=== PATIENT | male | born 1950 | race Caucasian/White ===

== ENCOUNTER 2017-04-28 10:39 | Inpatient (IN) | payer MEDICARE ==
--- NOTE | 2017-04-28 11:01 | ER Document Report ---
ED General - General Stated Complaint: DIFFICULTY BREATHING Time Seen by Provider: 04/28/17 10:57 Mode of Arrival: Medic Information source: Patient Notes: This is a 66-year-old man with a history of atrial fibrillation (Coumadin), cardiomyopathy, CHF, chronic edema of the lower extremities. The patient presents to the emergency room with shortness of breath while sleeping and also shortness of breath upon exertion. Patient denies chest pain. Patient states he is in a normal sinus rhythm most of the time but will get symptomatic when he flips into atrial fibrillation. The patient states he was recently treated for influenza as well as a bronchitis. He states he finished his antiviral and antibiotic last week. He does state that he is felt dehydrated since that time and that his p.o. intake has dropped over the last few days. TRAVEL OUTSIDE OF THE [place] IN LAST 30 DAYS: No - HPI Onset: Just prior to arrival Onset/Duration: Sudden Quality of pain: No pain Severity: None Pain Level: Denies Associated symptoms: Shortness of breath. denies: Chest pain, Nausea, Vomiting Exacerbated by: Walking - Exertion, Other Relieved by: Remaining still Similar symptoms previously: Yes Recently seen / treated by doctor: No - Related Data Allergies/Adverse Reactions: No Known Allergies Allergy (Verified 04/28/17 11:24) Past Medical History - General Information source: Patient - Social History Smoking Status: Never Smoker Cigarette use (# per day): No Chew tobacco use (# tins/day): No Frequency of alcohol use: None Drug Abuse: None Lives with: Spouse/Significant other Family History: CAD Patient has suicidal ideation: No Patient has homicidal ideation: No - Past Medical History Cardiac Medical History: Reports: Hx Hypertension Pulmonary Medical History: Reports: Hx Pneumonia Surgical Hx: Other - Noncontributory Review of Systems - Review of Systems Constitutional: denies: Chills, Fever EENT: No symptoms reported Cardiovascular: See HPI Respiratory: See HPI Gastrointestinal: No symptoms reported Genitourinary: No symptoms reported Male Genitourinary: No symptoms reported Musculoskeletal: See HPI Skin: No symptoms reported Hematologic/Lymphatic: No symptoms reported Neurological/Psychological: No symptoms reported Physical Exam - Vital signs Vitals: Temp Pulse Resp BP Pulse Ox 97.4 F 148 H 18 98/76 L 99 04/28/17 10:52 04/28/17 10:52 04/28/17 10:52 04/28/17 10:52 04/28/17 10:52 Notes: Physical exam: GENERAL: 66-year-old man, alert and oriented 3, no acute distress, blood pressure 100/76, heart rate 136, O2 sat 99% on room air, respiratory rate 19 HEAD: Atraumatic, normocephalic. EYES: Pupils equal round and reactive to light, extraocular movements intact, sclera anicteric, conjunctiva are normal. ENT: TMs normal, nares patent, oropharynx clear without exudates. Moist mucous membranes. NECK: Normal range of motion, supple without obvious mass or JVD. LUNGS: Breath sounds clear to auscultation bilaterally and equal. No wheezes rales or rhonchi. HEART: Tachycardia, irregularly irregular ABDOMEN: Soft, normoactive bowel sounds. No tenderness to palpation. No guarding, no rebound. No masses appreciated. EXTREMITIES: 2+ lower extremity edema NEUROLOGICAL: Cranial nerves II through XII grossly intact. Normal speech, moving all extremities. PSYCH: Normal mood, normal affect. SKIN: Warm, Dry, normal turgor, no rashes or lesions noted. Course - Vital Signs Vital signs: Temp Pulse Resp BP Pulse Ox 97.4 F 121 H 21 H 91/78 L 95 04/28/17 10:52 04/28/17 17:13 04/28/17 19:30 04/28/17 19:30 04/28/17 19:30 - Laboratory Result Diagrams: 04/28/17 12:15 04/28/17 12:15 Laboratory results interpreted by me: 04/28/17 04/28/17 04/28/17 12:15 12:15 12:15 WBC 15.3 H MCV 99 H RDW 14.6 H Absolute Neutrophils 11.3 H PT 17.5 H Chloride 112 H Carbon Dioxide 16 L NT-Pro-B Natriuret Pep Total Protein 6.2 L Albumin 3.4 L Digoxin < 0.40 L 04/28/17 12:15 WBC MCV RDW Absolute Neutrophils PT Chloride Carbon Dioxide NT-Pro-B Natriuret Pep 24976 H Total Protein Albumin Digoxin - Diagnostic Test Radiology reviewed: Image reviewed, Reports reviewed - No obvious infiltrate - EKG Interpretation by Me Rhythm: A.Fib - EKG shows atrial fibrillation with a ventricular rate of 136, no acute ST-T wave changes Critical Care Note - Critical Care Note Total time excluding time spent on procedures (mins): 60 Discharge - Discharge Clinical Impression: Dyspnea on exertion, A. fib with RVR, Subtherapeutic INR Condition: Stable Disposition: ADMITTED INPATIENT Admitting Provider: Hospitalist - dr hilario Unit Admitted: [facility]
--- NOTE | 2017-04-28 11:42 | RADIOLOGY REPORT (SQ) ---
EXAM DESCRIPTION: CHEST SINGLE VIEW COMPLETED DATE/TIME: 04/28/2017 11:32 am REASON FOR STUDY: sob COMPARISON: None. EXAM PARAMETERS: NUMBER OF VIEWS: One view. TECHNIQUE: Single frontal radiographic view of the chest acquired. RADIATION DOSE: NA LIMITATIONS: None. FINDINGS: LUNGS AND PLEURA: Mild chronic appearing interstitial changes and pleural thickening in th e apices. No infiltrates, masses or pneumothorax. No pleural effusion. MEDIASTINUM AND HILAR STRUCTURES: No masses. Contour normal. HEART AND VASCULAR STRUCTURES: Heart upper limits of normal in size. Normal vasculature. BONES: No acute findings. HARDWARE: None in the chest. OTHER: No other significant finding. IMPRESSION: MILD CHRONIC SCARRING. NO ACUTE RADIOGRAPHIC FINDING IN THE CHEST. TECHNICAL DOCUMENTATION: JOB ID: [id number] [employer]- All Rights Reserved
[2017-04-28 12:24] LABS: ABSOLUTE BASOPHILS # (AUTO) 0.1 10^3/uL (0.0-0.2); ABSOLUTE EOSINOPHILS # (AUTO) 0.1 10^3/uL (0.0-0.6); ABSOLUTE LYMPHOCYTES (AUTO) 2.5 10^3/uL (0.5-4.7); ABSOLUTE MONOCYTES (AUTO) 1.3 10^3/uL (0.1-1.4); ABSOLUTE NEUT (AUTO) 11.3 10^3/uL (1.7-8.2); BASOPHILS % (AUTO) 0.6 % (0-2); EOSINOPHILS % (AUTO) 0.5 % (0-6); HEMATOCRIT 48.7 % (37.9-51.0); HEMOGLOBIN 16.3 g/dL (13.5-17.0); LYMPHOCYTES % (AUTO) 16.5 % (13-45); MEAN CORPUSCULAR HEMOGLOBIN 33.2 pg (27.0-33.4); MEAN CORPUSCULAR HGB CONC 33.6 g/dL (32.0-36.0); MEAN CORPUSCULAR VOLUME 99 fl (80-97); MONOCYTES % (AUTO) 8.4 % (3-13); PLATELET COUNT 215 10^3/uL (150-450); RED BLOOD COUNT 4.92 10^6/uL (4.35-5.55); RED CELL DISTRIBUTION WIDTH 14.6 % (11.5-14.0); TOTAL CELLS COUNTED % (AUTO) 100 %; WHITE BLOOD COUNT 15.3 10^3/uL (4.0-10.5)
[2017-04-28 12:37] LABS: INTERNATIONAL RATION (INR) 1.34; PROTHROMBIN TIME 17.5 SEC (11.4-15.4)
[2017-04-28] MEDS ORDERED: DILTIAZEM HCL INJ 25 MG/5 ML VIAL IV ONE ×2 (12:44→14:18)
[2017-04-28 12:53] LABS: ALANINE AMINOTRANSFERASE 47 U/L (21-72); ALBUMIN 3.4 g/dL (3.5-5.0); ALKALINE PHOSPHATASE 68 U/L (38-126); ANION GAP 12 (5-19); ASPARTATE AMINO TRANSFERASE 42 U/L (17-59); BILIRUBIN,DIRECT 0.4 mg/dL (0.0-0.4); BILIRUBIN,TOTAL 0.8 mg/dL (0.2-1.3); BLOOD UREA NITROGEN 16 mg/dL (7-20); CALCIUM 9.2 mg/dL (8.4-10.2); CARBON DIOXIDE 16 mmol/L (22-30); CHLORIDE 112 mmol/L (98-107); CREATINE KINASE 77 U/L (55-170); DIGOXIN < 0.40 ng/mL (0.8-2.0); GLUCOSE 98 mg/dL (75-110); POTASSIUM 4.4 mmol/L (3.6-5.0); SODIUM 140.1 mmol/L (137-145); TOTAL PROTEIN 6.2 g/dL (6.3-8.2)
[2017-04-28 12:56] LABS: CREATINE KINASE MB 3.45 ng/mL (<4.55)
[2017-04-28 12:57] LABS: TROPONIN I 0.064 ng/mL
[2017-04-28] MEDS: NORMAL SALINE 500 ML IV PRN ×2 (13:23→20:18)
[2017-04-28] MEDS ORDERED: DILTIAZEM HCL/D5W 125 ML IV PRN (14:06)
[2017-04-28] MEDS ORDERED: ENOXAPARIN SODIUM INJ 100 MG/1 ML DISP.SYRIN SUBCUT ONE (14:34)
--- NOTE | 2017-04-28 15:18 | EKG REPORT ---
SEVERITY:- ABNORMAL ECG - ATRIAL FIBRILLATION/ FLUTTER , V-RATE 92-[address]-T CHANGES : Confirmed by: Veda Bethea 28-Apr-2017 15:17:51
[2017-04-28] MEDS ORDERED: LEVALBUTEROL HCL NEB 1.25 MG/3 ML AMPUL NEB PRN (16:25)
--- NOTE | 2017-04-28 16:49 | PDOC H&P ---
History of Present Illness Admission Date/PCP: 04/28/17 14:52 DEEPAK GUPTA MD Patient complains of: Shortness of breath History of Present Illness: ABE DAILY is a 66 year old male With a known history of chronic systolic CHF with an EF of 25%; chronic atrial fibrillation anticoagulated on Coumadin; chronic smoking; Hypertension presents to the ED with a 2 day history of increasing dyspnea Patient was seen by primary care physician diagnosed of influenza,, and treated with antibiotics and Tamiflu He initially improved and then the shortness of breath got worse Last night patient was unable to lay down; he noticed more swelling of his lower extremities; and presented to the ED for evaluation Upon evaluation in the ER he was in atrial fibrillation with rapid ventricular rate; chest x-ray did not show any infiltrate but cardiomegaly; BNP was 12,000 He was referred to hospitalist for admission Past Medical History Cardiac Medical History: Reports: Atrial Fibrillation, Hypertension, Other - CHF Last echocardiogram 10/17/2014 showed an EF of 20-25% Pulmonary Medical History: Reports: Pneumonia Past Surgical History Past Surgical History: Reports: Cardiac Catheterization Social History Smoking Status: Former Smoker Frequency of Alcohol Use: None Hx Recreational Drug Use: No Family History Family History: CAD Parental Family History Reviewed: Yes Children Family History Reviewed: Yes Sibling(s) Family History Reviewed.: Yes Medication/Allergy Allergies/Adverse Reactions: No Known Allergies Allergy (Verified 04/28/17 11:24) Review of Systems Constitutional: ABSENT: chills, fever(s), headache(s), weight gain, weight loss Eyes: ABSENT: visual disturbances Cardiovascular: PRESENT: dyspnea on exertion, edema, orthropnea. ABSENT: chest pain Respiratory: PRESENT: cough, dyspnea, sputum Gastrointestinal: ABSENT: abdominal pain, constipation, diarrhea, hematemesis, hematochezia, nausea, vomiting Genitourinary: ABSENT: dysuria, hematuria Musculoskeletal: PRESENT: other - Edema lower extremities Integumentary: ABSENT: rash, wounds Neurological: ABSENT: abnormal gait, abnormal speech, confusion, dizziness, focal weakness, syncope Psychiatric: ABSENT: anxiety, depression, homidical ideation, suicidal ideation Endocrine: ABSENT: cold intolerance, heat intolerance, polydipsia, polyuria Hematologic/Lymphatic: ABSENT: easy bleeding, easy bruising Physical Exam Vital Signs: Temp Pulse Resp BP Pulse Ox 97.4 F 148 H 21 H 93/72 L 95 04/28/17 10:52 04/28/17 10:52 04/28/17 15:46 04/28/17 15:46 04/28/17 15:46 General appearance: PRESENT: no acute distress, cooperative Head exam: PRESENT: atraumatic, normocephalic Eye exam: PRESENT: conjunctiva pink, EOMI, PERRLA. ABSENT: scleral icterus Neck exam: ABSENT: carotid bruit, JVD, lymphadenopathy, thyromegaly Respiratory exam: PRESENT: rales - Bilaterally. ABSENT: accessory muscle use, crackles, rhonchi, wheezes Cardiovascular exam: PRESENT: irregular rhythm. ABSENT: systolic murmur Pulses: PRESENT: normal dorsalis pedis pul GI/Abdominal exam: PRESENT: normal bowel sounds, soft. ABSENT: distended, guarding, mass, organolmegaly, rebound, tenderness Rectal exam: PRESENT: deferred Extremities exam: PRESENT: +1 edema - Right more than left Neurological exam: PRESENT: alert, awake, oriented to person, oriented to place , oriented to time, oriented to situation, CN II-XII grossly intact. ABSENT: motor sensory deficit Skin exam: PRESENT: dry, intact, warm. ABSENT: cyanosis, rash Results Impressions: Chest X-Ray 04/28/17 11:01 IMPRESSION: MILD CHRONIC SCARRING. NO ACUTE RADIOGRAPHIC FINDING IN THE CHEST. Assessment & Plan - Diagnosis (1) Acute on chronic systolic heart failure Is this a current diagnosis for this admission?: Yes Plan: We will schedule the patient for repeat echocardiogram patient certainly has Symptoms of exacerbation of his CHF And his BNP is over 10,000 His blood pressure though is soft It we will just give him 20 mg of IV Lasix and reevaluate him later (2) Atrial fibrillation with RVR Is this a current diagnosis for this admission?: Yes Plan: Rate is 115 ; patient's blood pressure is too soft for Cardizem We will give him 0.25 mg of digoxin IV and reevaluate him later (3) Chronic anticoagulation Is this a current diagnosis for this admission?: Yes Plan: Subtherapeutic INR at 1.3; treat with Lovenox (4) Subtherapeutic international normalized ratio (INR) Is this a current diagnosis for this admission?: Yes Plan: Initiate Lovenox subcu (5) COPD exacerbation Is this a current diagnosis for this admission?: Yes Plan: We will initiate prednisone and nebs (6) Bronchitis Is this a current diagnosis for this admission?: Yes Plan: There is no infiltrate on the chest x-ray but patient has leukocytosis We will treat him with doxycycline - Time Time Spent with patient: Patient will be admitted to [facility] with telemetry as an inpatient Time Spent: 50 to 70 Minutes - Inpatient Certification Based on my medical assessment, after consideration of the patient's comorbidities, presenting symptoms, or acuity I expect that the services needed warrant INPATIENT care.: Yes I certify that my determination is in accordance with my understanding of Medicare's requirements for reasonable and necessary INPATIENT services [42 CFR 412.3e].: Yes Medical Necessity: Need Close Monitoring Due to Risk of Patient Decompensation, Need For Continuous Telemetry Monitoring, Need for Nebulizer Therapy and Monitoring of Response, Risk of Complication if Not Cared For in Hospital
[2017-04-28 17:23] LABS: APPEARANCE,URINE SLIGHTLY-CLOUDY; BILIRUBIN,URINE NEGATIVE (NEGATIVE); COLOR,URINE YELLOW; GLUCOSE, URINE NEGATIVE (NEGATIVE); KETONES,URINE 20 mg/dL (NEGATIVE); LEUKOCYTE ESTERASE,URINE NEGATIVE (NEGATIVE); NITRITE,URINE NEGATIVE (NEGATIVE); PROTEIN,URINE 30 mg/dL (NEGATIVE); URINE SPECIFIC GRAVITY 1.024; UROBILINOGEN,URINE NEGATIVE mg/dL (<2.0)
[2017-04-28] MEDS ORDERED: DIGOXIN INJ 0.5 MG/2 ML AMPULE IV ONE (17:30)
[2017-04-28] MEDS ORDERED: FUROSEMIDE INJ/PF 20 MG/2 ML SDV IV ONE (17:30)
[2017-04-28] MEDS: DOXYCYCLINE HYCLATE 100 MG TABLET PO SCH (17:34)
[2017-04-28] MEDS: PREDNISONE 20 MG TABLET PO SCH (17:35)
[2017-04-28] MEDS ORDERED: FAMOTIDINE 20 MG TABLET PO SCH (22:00)
[2017-04-29] MEDS: ENOXAPARIN SODIUM INJ 80 MG/0.8 ML DISP.SYRIN SUBCUT SCH ×3 (00:24→17:33)
[2017-04-29] MEDS: DOXYCYCLINE HYCLATE 100 MG TABLET PO SCH ×2 (05:32→17:32)
[2017-04-29 05:36] LABS: ABSOLUTE LYMPHOCYTES (AUTO) 1.3 10^3/uL (0.5-4.7); ABSOLUTE MONOCYTES (AUTO) 0.4 10^3/uL (0.1-1.4); ABSOLUTE NEUT (AUTO) 6.5 10^3/uL (1.7-8.2); BASOPHILS % (AUTO) 0.2 % (0-2); HEMATOCRIT 50.1 % (37.9-51.0); LYMPHOCYTES % (AUTO) 15.4 % (13-45); MEAN CORPUSCULAR HEMOGLOBIN 33.7 pg (27.0-33.4); MEAN CORPUSCULAR HGB CONC 33.9 g/dL (32.0-36.0); MEAN CORPUSCULAR VOLUME 100 fl (80-97); MONOCYTES % (AUTO) 4.8 % (3-13); PLATELET COUNT 180 10^3/uL (150-450); RED BLOOD COUNT 5.04 10^6/uL (4.35-5.55); RED CELL DISTRIBUTION WIDTH 14.6 % (11.5-14.0); SEGMENTED NEUTROPHILS % (AUTO) 79.6 % (42-78); TOTAL CELLS COUNTED % (AUTO) 100 %; WHITE BLOOD COUNT 8.2 10^3/uL (4.0-10.5)
[2017-04-29 07:48] LABS: ALANINE AMINOTRANSFERASE 59 U/L (21-72); ALBUMIN 3.4 g/dL (3.5-5.0); ALKALINE PHOSPHATASE 64 U/L (38-126); ANION GAP 9 (5-19); ASPARTATE AMINO TRANSFERASE 46 U/L (17-59); BILIRUBIN,DIRECT 0.6 mg/dL (0.0-0.4); BILIRUBIN,TOTAL 0.8 mg/dL (0.2-1.3); BLOOD UREA NITROGEN 20 mg/dL (7-20); CALCIUM 9.6 mg/dL (8.4-10.2); CARBON DIOXIDE 23 mmol/L (22-30); CHLORIDE 109 mmol/L (98-107); CHOLESTEROL 141.36 mg/dL (0-200); GLUCOSE 145 mg/dL (75-110); SODIUM 140.5 mmol/L (137-145); TOTAL PROTEIN 6.3 g/dL (6.3-8.2); TRIGLYCERIDES 87 mg/dL (<150)
[2017-04-29 07:59] LABS: DIRECT LDL 102 mg/dL (<100)
[2017-04-29 08:08] LABS: FREE T4 (FREE THYROXINE) 1.41 ng/dL (0.78-2.19)
[2017-04-29 08:22] LABS: THYROID STIMULATING HORMONE 0.15 uIU/mL (0.47-4.68)
--- NOTE | 2017-04-29 09:29 | EKG REPORT ---
SEVERITY:- ABNORMAL ECG - ATRIAL FIBRILLATION ABNORMAL T, CONSIDER ISCHEMIA, LATERAL LEADS BORDERLINE PROLONGED QT INTERVAL : Confirmed by: Veda Bethea 29-Apr-2017 09:27:13
[2017-04-29] MEDS ORDERED: METOPROLOL TARTRATE 50 MG TABLET PO ONE (13:00)
[2017-04-29] MEDS ORDERED: BUMETANIDE 1 MG TABLET PO SCH (14:00)
--- NOTE | 2017-04-29 15:07 | PDOC CONSULTATION ---
Consultation Consult Date: 04/29/17 Attending physician:: ANYI MAY Consult reason:: Atrial fibrillation, CHF History of Present Illness Admission Date/PCP: 04/28/17 14:52 DEEPAK GUPTA MD Patient complains of: Shortness of breath and palpitations History of Present Illness: ABE DAILY is a 66 year old male With a known history of chronic systolic CHF with an EF of 25%; chronic atrial fibrillation anticoagulated on Coumadin; chronic smoking; Hypertension presents to the ED with a 2 day history of increasing dyspnea Patient was seen by primary care physician diagnosed of influenza,, and treated with antibiotics and Tamiflu He initially improved and then the shortness of breath got worse Last night patient was unable to lay down; he noticed more swelling of his lower extremities; and presented to the ED for evaluation Upon evaluation in the ER he was in atrial fibrillation with rapid ventricular rate; chest x-ray did not show any infiltrate but cardiomegaly; BNP was 12,000 He was referred to hospitalist for admission This history was reviewed and confirmed. Patient is denying any chest pain. Patient had a echocardiogram in 2014 which showed severely depressed LVEF at 20% . Patient BNP came back elevated. I have been asked to evaluate him and help with management of CHF. Past Medical History Cardiac Medical History: Reports: Atrial Fibrillation, Hypertension, Other - CHF Last echocardiogram 10/17/2014 showed an EF of 20-25% Pulmonary Medical History: Reports: Pneumonia Psychiatric Medical History: Denies: Depression Past Surgical History Past Surgical History: Reports: Cardiac Catheterization Social History Information Source: Patient Lives with: Spouse/Significant other Smoking Status: Never Smoker Frequency of Alcohol Use: None Hx Recreational Drug Use: No Hx Prescription Drug Abuse: No - Advance Directive Resuscitation Status: Full Code Surrogate healthcare decision maker:: Patient spouse is the surrogate decision-maker Family History Family History: CAD Parental Family History Reviewed: Yes Children Family History Reviewed: Yes Sibling(s) Family History Reviewed.: Yes Medication/Allergy Home Medications: Atorvastatin Calcium [Lipitor 40 mg Tablet] 40 mg PO QHS 04/28/17 Bisoprolol/Hydrochlorothiazide [Bisoprolol-Hctz 5-6.25 mg Tab] 1 tab PO DAILY Bumetanide [Bumetanide] 1 mg PO QID 04/28/17 Losartan Potassium [Losartan Potassium] 50 mg PO DAILY 04/28/17 Metformin HCl [Metformin HCl ER] 500 mg PO BID 04/28/17 Spironolactone [Spironolactone] 25 mg PO DAILY 04/28/17 Warfarin Sodium [Warfarin Sodium] 3 mg PO DAILY 04/28/17 Allergies/Adverse Reactions: No Known Allergies Allergy (Verified 04/28/17 11:24) Review of Systems Review of Systems: Please see history of present illness and past medical history as wall. Constitutional: fever or chills reported, with recent flulike symptoms. Head : No recent chronic headaches, recent head injury. Eyes: No recent eye pain, diplopia, redness, discharge, acute visual changes. Ears: No recent chronic ear pain, acute hearing loss, ear discharge. Oral cavity: No recent ulcerations, bleeding, oral cavity discomfort. Neck: No recent acute neck pain reported. Hematologic: No recent easy bruising or bleeding or hematologic malignancy reported. Lymphatic: No recent lymphatic malignancy, chronic lymphadenopathy reported yet Cardiovascular system review: See history of present illness. Respiratory system review: No recent chronic cough, hemoptysis, blood clots in the lungs reported. Mild Shortness of breath on exertion. Palpitations noted Gastrointestinal system review: Negative for any recent acute or chronic abdominal pain, hematemesis, melena, recent change in bowel habits. Genitourinary system review: No recent acute or chronic hematuria, flank pain, UTI etc. reported. Skin system review: Negative for any recent abnormal bruising, no rash, no pruritus reported. Neurologic: No prior history of strokes, mini strokes, seizure disorder. Psychologic: No history of major psychosis or major depression reported. Musculoskeletal: Minor aches and pains reported. No acute joint swelling reported. Endocrine: No recent polyuria, polydipsia, recent heat or cold intolerance. Physical Exam Vital Signs: Temp Pulse Resp BP Pulse Ox 97.3 F 83 16 103/53 L 100 04/29/17 11:57 04/29/17 11:57 04/29/17 11:57 04/29/17 11:57 04/29/17 11:57 Intake & Output 04/28/17 04/29/17 04/30/17 06:59 06:59 06:59 Intake Total 332 Output Total 1000 Balance -668 Weight 87.4 kg Exam: GENERAL: well-nourished and in no acute distress. Alert and oriented x3 HEAD: Atraumatic, normocephalic. EYES: Pupils equal round and reactive to light, extraocular movements intact, sclera anicteric, conjunctiva are normal. ENT: TMs normal, nares patent, oropharynx clear without exudates. Moist mucous membranes. No oral ulcerations or bleeding gums noted NECK: supple without lymphadenopathy. Trachea is central. No cervical or axillary lymphadenopathy noted. Carotids are 2+, JVD 8-10 cm LUNGS: Respiration seems nonlabored, no significant accessory muscle action noted. Few bibasilar fine crackles noted. No wheezes rales or rhonchi noted. No significant dullness noted on percussion. CHEST: Palpation of the chest wall shows no significant chest wall tenderness. No other significant abnormalities noted. HEART: [place] MANAGER ANALYSIS, No PSH, 1/6 LAURIE aortic area, 1/6 self systolic murmur mitral area, no rubs, no gallops. ABDOMEN: Soft, no significant tenderness appreciated, normoactive bowel sounds. No guarding, no rebound. No rigidity noted . No masses appreciated. EXTREMITIES: Pedal pulses are 1-2+, no calf tenderness noted. No clubbing or cyanosis.trace to 1+ pedal edema noted NEUROLOGICAL: Focused neurological exam showed no significant neurologic deficit. Normal speech, no focal weakness appreciated. PSYCH: Normal mood, normal affect. Judgment and insight within normal limits. SKIN: No significant ecchymosis, rash, ulcerations or signs of pruritus noted. MUSCULOSKELETAL EXAM: No significant joint swelling noted. Results Laboratory Results: 04/29/17 05:00 04/29/17 07:05 04/28/17 04/29/17 04/29/17 16:58 05:00 05:00 WBC 8.2 RBC 5.04 Hgb 17.0 Hct 50.1 MCV 100 H MCH 33.7 H MCHC 33.9 RDW 14.6 H Plt Count 180 Seg Neutrophils % 79.6 H Lymphocytes % 15.4 Monocytes % 4.8 Eosinophils % 0.0 Basophils % 0.2 Absolute Neutrophils 6.5 Absolute Lymphocytes 1.3 Absolute Monocytes 0.4 Absolute Eosinophils 0.0 Absolute Basophils 0.0 Sodium Cancelled Potassium Cancelled Chloride Cancelled Carbon Dioxide Cancelled Anion Gap Cancelled BUN Cancelled Creatinine Cancelled Est GFR ( Amer) Cancelled Est GFR (Non-Af Amer) Cancelled Glucose Cancelled Calcium Cancelled Magnesium Cancelled Total Bilirubin Cancelled AST Cancelled ALT Cancelled Alkaline Phosphatase Cancelled Total Protein Cancelled Albumin Cancelled Triglycerides Cancelled Cholesterol Cancelled LDL Cholesterol Direct Cancelled VLDL Cholesterol Cancelled HDL Cholesterol Cancelled TSH Free T4 Urine Color YELLOW Urine Appearance SLIGHTLY-CLOUDY Urine pH 5.0 Ur Specific [place] 1.024 Urine Protein 30 H Urine Glucose (UA) NEGATIVE Urine Ketones 20 H Urine Blood MODERATE H Urine Nitrite NEGATIVE Ur Leukocyte Esterase NEGATIVE Urine WBC (Auto) 6 Urine RBC (Auto) 1 04/29/17 04/29/17 04/29/17 05:00 07:05 07:05 WBC RBC Hgb Hct MCV MCH MCHC RDW Plt Count Seg Neutrophils % Lymphocytes % Monocytes % Eosinophils % Basophils % Absolute Neutrophils Absolute Lymphocytes Absolute Monocytes Absolute Eosinophils Absolute Basophils Sodium 140.5 Potassium 5.0 Chloride 109 H Carbon Dioxide 23 Anion Gap 9 BUN 20 Creatinine 1.07 Est GFR ( Amer) > 60 Est GFR (Non-Af Amer) > 60 Glucose 145 H Calcium 9.6 Magnesium 2.0 Total Bilirubin 0.8 AST 46 ALT 59 Alkaline Phosphatase 64 Total Protein 6.3 Albumin 3.4 L Triglycerides 87 Cholesterol 141.36 LDL Cholesterol Direct 102 H VLDL Cholesterol 17.0 HDL Cholesterol 35 L TSH Cancelled 0.15 L Free T4 Cancelled 1.41 Urine Color Urine Appearance Urine pH Ur Specific [place] Urine Protein Urine Glucose (UA) Urine Ketones Urine Blood Urine Nitrite Ur Leukocyte Esterase Urine WBC (Auto) Urine RBC (Auto) 04/28/17 16:07 Troponin I 0.068 EKG Comments: Atrial fibrillation with rapid ventricular response and minor nonspecific ST-T changes Impressions: Chest X-Ray 04/28/17 11:01 IMPRESSION: MILD CHRONIC SCARRING. NO ACUTE RADIOGRAPHIC FINDING IN THE CHEST. Assessment & Plan - Diagnosis (1) Acute on chronic systolic heart failure Is this a current diagnosis for this admission?: Yes (2) Atrial fibrillation with RVR Is this a current diagnosis for this admission?: Yes (3) Bronchitis Is this a current diagnosis for this admission?: Yes (4) Cardiomyopathy Qualifiers: Cardiomyopathy type: unspecified Qualified Code(s): I42.9 - Cardiomyopathy , unspecified Is this a current diagnosis for this admission?: Yes (5) Hypertension Qualifiers: Hypertension type: essential hypertension Qualified Code(s): I10 - Essential (primary) hypertension Is this a current diagnosis for this admission?: Yes (6) Mitral regurgitation Qualifiers: Cardiac valve disease etiology: etiology unspecified Qualified Code(s): I34.0 - Nonrheumatic mitral (valve) insufficiency Is this a current diagnosis for this admission?: Yes - Notes Notes: Acute on chronic systolic heart failure: Continue with diuretic therapy. Will consider spironolactone therapy. Will consider entresto therapy. Atrial fibrillation with rapid ventricular response: Recommend rate control with digoxin and beta-blockers. Bisoprolol is a good choice. However if this is not available, recommend metoprolol succinate as better choice than tartrate. Acute bronchitis: Continue antibiotic therapy. Cardiomyopathy: Will gradually optimize therapy for underlying cardiomyopathy. Hypertension: Entresto/CANDIDO inhibitor/ARB/hydralazine nitrate combination/beta blockers are preferred agent in CHF and LV systolic dysfunction. Mitral regurgitation: Will recommend repeating the echocardiogram to look for any worsening. Patient would need to have defibrillator, external arranged prior to discharge. - Time Time Spent: 30 to 50 Minutes - CODE STATUS was discussed, patient remains full code. Surrogate decision-maker unchanged. Multiple medical problems were addressed. More than 50% of the time spent coordinating care, discussing management plans with involved caregivers. Management plans discussed with involved personnels. Medical decision making was of moderate to high complexity , patient's has multiple comorbidities. Medications reviewed and adjusted accordingly: Yes
[2017-04-29] MEDS ORDERED: DIGOXIN 0.125 MG TABLET PO ONE (16:00)
[2017-04-29] MEDS: SACUBITRIL/VALSARTAN 24 MG/26 MG TABLET PO SCH (17:32)
[2017-04-29] MEDS: PREDNISONE 20 MG TABLET PO SCH (17:33)
[2017-04-29] MEDS ORDERED: SACUBITRIL/VALSARTAN 24 MG/26 MG TABLET PO SCH (18:00)
--- NOTE | 2017-04-29 18:48 | XCELERA REPORT ---
[address] [address] Transthoracic Echocardiogram Report Name: ABE DAILY Age: 66 yrs Gender: Male : 1950 Patient Status: Inpatient Patient Location: [address] [place] [address] Study Date: 04/29/2017 01:13 PM Height: 73 in Weight: 192 lb BSA: 2.1 m2 Procedure: A complete two-dimensional transthoracic echocardiogram was performed (2D, M-mode, spectral and color flow Doppler). The study was technically difficult with many images being suboptimal in quality. Reason For Study: CHF Ordering Physician: ANYI MAY Interpretation Summary LV diastolic function could not be adequately assessed due to atrial fibrilation. Left ventricular systolic function is severely reduced. The Ejection Fraction estimate is <20% The left ventricle is mildly dilated. There is borderline concentric left ventricular hypertrophy. There is severe global hypokinesis of the left ventricle. There is apical wall akinesis The right ventricular systolic function is mild to moderately reduced. The right ventricle is mildly dilated. The right atrium is moderately dilated. The left atrium is moderately dilated. There is a mild amount of mitral regurgitation There is no mitral valve stenosis. There is no aortic valve stenosis No aortic regurgitation is present. There is a mild to moderate amount of tricuspid regurgitation There is mild to moderate pulmonary hypertension by echo Right ventricular systolic pressure is estimated to be elevated at 40- 50mmHg. The aortic root is not well visualized but is probably normal size. The inferior vena cava appeared normal and decreased < 50% with respiration (RAP 10-15 mmHg) There is no pericardial effusion. MMode/2D Measurements & Calculations RVDd: 3.1 cm LVIDd: 5.8 cm FS: 7.4 % Ao root diam: 2.8 cm IVSd: 0.93 cm LVIDs: 5.4 cm EDV(Teich): 167.6 ml LVPWd: 0.92 cm ESV(Teich): 140.4 ml Ao root area: 6.1 cm2 EF(Teich): 16.2 % Doppler Measurements & Calculations MV E max rohan: MV dec slope: Ao V2 max: LV V1 max P.4 cm/sec 101.4 cm/sec 1.4 mmHg 959.2 cm/sec2 Ao max PG: LV V1 max: MV dec time: 4.1 mmHg 59.2 cm/sec 0.12 sec MR max rohan: PA V2 max: PI end-d rohan: TR max rohan: 392.0 cm/sec 35.5 cm/sec 169.2 cm/sec 291.5 cm/sec MR max PG: PA max PG: TR max P.5 mmHg 0.50 mmHg 34.0 mmHg Left Ventricle There is borderline concentric left ventricular hypertrophy. The left ventricle is mildly dilated. Left ventricular systolic function is severely reduced. The Ejection Fraction estimate is <20%. LV diastolic function could not be adequately assessed due to atrial fibrilation. There is severe global hypokinesis of the left ventricle. There is apical wall akinesis. Right Ventricle The right ventricle is mildly dilated. The right ventricular systolic function is mild to moderately reduced. Atria The right atrium is moderately dilated. The left atrium is moderately dilated. Mitral Valve The mitral valve leaflets are sclerotic, but show no functional abnormalities. There is no mitral valve stenosis. There is a mild amount of mitral regurgitation. Aortic Valve The aortic valve opens well. There is no aortic valve stenosis. No aortic regurgitation is present. Tricuspid Valve The tricuspid valve is not well visualized secondary to technical limitations. There is no tricuspid stenosis. There is a mild to moderate amount of tricuspid regurgitation. There is mild to moderate pulmonary hypertension by echo. Right ventricular systolic pressure is estimated to be elevated at 40-50mmHg. Pulmonic Valve The pulmonic valve is not well visualized. Great Vessels The aortic root is not well visualized but is probably normal size. The inferior vena cava appeared normal and decreased < 50% with respiration (RAP 10-15 mmHg). Effusions There is no pericardial effusion. : ANYI MAY > Veda Bethea
[2017-04-29] MEDS ORDERED: METOPROLOL TARTRATE 50 MG TABLET PO SCH (22:00)
[2017-04-29] MEDS: METOPROLOL SUCCINATE 50 MG TAB.SR.24H PO SCH (22:29)
[2017-04-29] MEDS: ATORVASTATIN CALCIUM 40 MG TABLET PO SCH (22:29)
[2017-04-29] MEDS: WARFARIN SODIUM 5 MG TABLET PO SCH (22:30)
[2017-04-30] MEDS: SACUBITRIL/VALSARTAN 24 MG/26 MG TABLET PO SCH ×2 (05:09→17:48)
[2017-04-30] MEDS: ENOXAPARIN SODIUM INJ 80 MG/0.8 ML DISP.SYRIN SUBCUT SCH ×2 (05:09→17:49)
[2017-04-30] MEDS: DOXYCYCLINE HYCLATE 100 MG TABLET PO SCH ×2 (05:09→17:49)
[2017-04-30 06:43] LABS: HEMATOCRIT 48.3 % (37.9-51.0); HEMOGLOBIN 16.5 g/dL (13.5-17.0); MEAN CORPUSCULAR HEMOGLOBIN 33.7 pg (27.0-33.4); MEAN CORPUSCULAR HGB CONC 34.1 g/dL (32.0-36.0); MEAN CORPUSCULAR VOLUME 99 fl (80-97); PLATELET COUNT 196 10^3/uL (150-450); RED BLOOD COUNT 4.89 10^6/uL (4.35-5.55); RED CELL DISTRIBUTION WIDTH 14.8 % (11.5-14.0); WHITE BLOOD COUNT 12.5 10^3/uL (4.0-10.5)
[2017-04-30] MEDS: BUMETANIDE 1 MG TABLET PO SCH (09:17)
[2017-04-30] MEDS: SPIRONOLACTONE 25 MG TABLET PO SCH (09:19)
[2017-04-30] MEDS: DIGOXIN 0.125 MG TABLET PO SCH (09:20)
[2017-04-30] MEDS: METOPROLOL SUCCINATE 50 MG TAB.SR.24H PO SCH ×2 (09:20→21:24)
[2017-04-30] MEDS ORDERED: HYDROCHLOROTHIAZIDE PO SCH (10:00)
[2017-04-30] MEDS ORDERED: LOSARTAN POTASSIUM 50 MG TABLET PO SCH ×2 (10:00)
[2017-04-30] MEDS ORDERED: LOSARTAN POTASSIUM 25 MG TABLET PO SCH (10:00)
[2017-04-30] MEDS ORDERED: [UNRECOGNIZED DRUG - OTHER] PO SCH (10:00)
[2017-04-30] MEDS ORDERED: BISOPROLOL PO SCH (10:00)
--- NOTE | 2017-04-30 11:16 | PDOC PROGRESS REPORT ---
Subjective Progress Note for:: 04/30/17 Subjective:: Patient is seen on rounds. He is presently resting comfortably in bed. He is not on oxygen. States he does get dyspneic with exertion. He continues to have an occasional productive cough. He denies any fever chills. He denies any chest pain at the present time. Denies any nausea, vomiting or abdominal pain. He denies any arthralgia or myalgias. Remaining review of systems are negative. Reason For Visit: AFIB WITH RVR,ACUTE/CHRONIC SYSTOLIC CHF, Physical Exam Vital Signs: Temp Pulse Resp BP Pulse Ox 97.7 F 94 20 104/74 96 04/30/17 07:23 04/30/17 07:38 04/30/17 07:23 04/30/17 07:23 04/30/17 07:23 Intake & Output 04/29/17 04/30/17 05/01/17 06:59 06:59 06:59 Intake Total 332 2447 Output Total 1000 650 Balance -668 1797 Weight 87.4 kg 86.6 kg General appearance: PRESENT: no acute distress, well-developed, well-nourished Head exam: PRESENT: atraumatic, normocephalic Eye exam: PRESENT: conjunctiva pink, EOMI, PERRLA. ABSENT: scleral icterus Ear exam: PRESENT: normal external ear exam Mouth exam: PRESENT: moist, tongue midline Neck exam: ABSENT: carotid bruit, JVD, lymphadenopathy, thyromegaly Respiratory exam: PRESENT: clear to auscultation tasha. ABSENT: rales, rhonchi, wheezes Cardiovascular exam: PRESENT: irregular rhythm, +S1, +S2, systolic murmur. ABSENT: diastolic murmur, rubs Pulses: PRESENT: normal dorsalis pedis pul Vascular exam: PRESENT: normal capillary refill GI/Abdominal exam: PRESENT: normal bowel sounds, soft. ABSENT: distended, guarding, mass, organolmegaly, rebound, tenderness Rectal exam: PRESENT: deferred Extremities exam: PRESENT: full ROM, +1 edema - Bilateral lower extremity. ABSENT: calf tenderness, clubbing, pedal edema Neurological exam: PRESENT: alert, awake, oriented to person, oriented to place , oriented to time, oriented to situation, CN II-XII grossly intact. ABSENT: motor sensory deficit Psychiatric exam: PRESENT: appropriate affect, normal mood. ABSENT: homicidal ideation, suicidal ideation Skin exam: PRESENT: dry, intact, warm. ABSENT: cyanosis, rash Results Laboratory Results: 04/30/17 06:03 04/29/17 07:05 04/30/17 06:03 WBC 12.5 H RBC 4.89 Hgb 16.5 Hct 48.3 MCV 99 H MCH 33.7 H MCHC 34.1 RDW 14.8 H Plt Count 196 04/29/17 20:06 Sputum Gram Stain - Final 04/29/17 20:06 Sputum Sputum Culture - Final 04/28/17 16:07 Troponin I 0.068 Impressions: Chest X-Ray 04/28/17 11:01 IMPRESSION: MILD CHRONIC SCARRING. NO ACUTE RADIOGRAPHIC FINDING IN THE CHEST. Assessment & Plan - Diagnosis (1) Acute on chronic systolic heart failure Is this a current diagnosis for this admission?: Yes Plan: Patient states he feels better than he did when he was admitted. He is presently not on oxygen. He continues to have +1 lower extremity edema. He is diuresing some. Dr. Bethea, cardiology is following. (2) Atrial fibrillation with RVR Is this a current diagnosis for this admission?: Yes Plan: He just got up to use the bathroom his heart rate is still in the 120s (3) Bronchitis Is this a current diagnosis for this admission?: Yes Plan: We will continue Mucinex and doxycycline (4) COPD exacerbation Is this a current diagnosis for this admission?: Yes Plan: As above he is presently not on oxygen (5) Chronic anticoagulation Is this a current diagnosis for this admission?: Yes Plan: INR was subtherapeutic on admission. He is being bridged with therapeutic Lovenox until his INR is therapeutic (6) Subtherapeutic international normalized ratio (INR) Is this a current diagnosis for this admission?: Yes Plan: As above (7) Cardiomyopathy Qualifiers: Cardiomyopathy type: unspecified Qualified Code(s): I42.9 - Cardiomyopathy , unspecified Is this a current diagnosis for this admission?: Yes Plan: States his last EF was greater than 35%. Follows with Dr. Trevino of [facility]. Echo yesterday shows his EF less than 20 however he was in rapid A. fib at the time (8) Hypertension Qualifiers: Hypertension type: essential hypertension Qualified Code(s): I10 - Essential (primary) hypertension Is this a current diagnosis for this admission?: Yes (9) Mitral regurgitation Qualifiers: Cardiac valve disease etiology: etiology unspecified Qualified Code(s): I34.0 - Nonrheumatic mitral (valve) insufficiency Is this a current diagnosis for this admission?: Yes Plan: Moderate mitral regurgitation. He is followed by [facility] (10) Sleep apnea syndrome Is this a current diagnosis for this admission?: Yes Plan: Continue CPAP - Time Time Spent with patient: 25-34 minutes Medications reviewed and adjusted accordingly: Yes Anticipated discharge: Home with Homehealth
[2017-04-30] MEDS: PREDNISONE 20 MG TABLET PO SCH (17:49)
--- NOTE | 2017-04-30 19:45 | PDOC PROGRESS REPORT ---
Subjective Progress Note for:: 04/30/17 Subjective:: Patient seems to be doing better. Pt is denying any chest arm or neck discomfort. Patient denying any PND, orthopnea. Patient denied any sustained palpitations, dizziness, syncope, near syncope. Patient denying any fever chills. Patient denying any other significant discomfort. Patient is maintaining atrial fibrillation but heart rate is better controlled Review of systems: Rest review of systems negative. Medications: Medications have been reviewed. Reason For Visit: AFIB WITH RVR,ACUTE/CHRONIC SYSTOLIC CHF, Physical Exam Vital Signs: Temp Pulse Resp BP Pulse Ox 97.1 F 117 H 18 127/98 H 95 04/30/17 16:56 04/30/17 16:56 04/30/17 16:56 04/30/17 16:56 04/30/17 16:56 Intake & Output 04/29/17 04/30/17 05/01/17 06:59 06:59 06:59 Intake Total 332 2447 1115 Output Total 1000 650 550 Balance -668 1797 565 Weight 87.4 kg 86.6 kg Exam: GENERAL: well-nourished and in no acute distress. Alert and oriented x3 HEAD: Atraumatic, normocephalic. EYES: Pupils equal round and reactive to light, extraocular movements intact, sclera anicteric, conjunctiva are normal. ENT: TMs normal, nares patent, oropharynx clear without exudates. Moist mucous membranes. No oral ulcerations or bleeding gums noted NECK: supple without lymphadenopathy. Trachea is central. No cervical or axillary lymphadenopathy noted. Carotids are 2+, JVD WNL LUNGS: Respiration seems nonlabored, no significant accessory muscle action noted. Breath sounds clear to auscultation bilaterally and equal noted. No wheezes rales or rhonchi noted. No significant dullness noted on percussion. CHEST: Palpation of the chest wall shows no significant chest wall tenderness. No other significant abnormalities noted. HEART: Bailey [employer]IT[employer], No PSH, 1/6 LAURIE aortic area, 1/6 self systolic murmur mitral area, no rubs, no gallops. ABDOMEN: Soft, no significant tenderness appreciated, normoactive bowel sounds. No guarding, no rebound. No rigidity noted . No masses appreciated. EXTREMITIES: Pedal pulses are 1-2+, no calf tenderness noted. No clubbing or cyanosis.trace to 1+ pedal edema noted NEUROLOGICAL: Focused neurological exam showed no significant neurologic deficit. Normal speech, no focal weakness appreciated. PSYCH: Normal mood, normal affect. Judgment and insight within normal limits. SKIN: No significant ecchymosis, rash, ulcerations or signs of pruritus noted. MUSCULOSKELETAL EXAM: No significant joint swelling noted. Results Laboratory Results: 04/30/17 06:03 04/29/17 07:05 04/30/17 06:03 WBC 12.5 H RBC 4.89 Hgb 16.5 Hct 48.3 MCV 99 H MCH 33.7 H MCHC 34.1 RDW 14.8 H Plt Count 196 04/28/17 16:58 Clean Catch Midstream Urine Culture - Final NO GROWTH 2 DAYS 04/29/17 20:06 Sputum Gram Stain - Final 04/29/17 20:06 Sputum Sputum Culture - Final 04/28/17 16:07 Troponin I 0.068 Impressions: Chest X-Ray 04/28/17 11:01 IMPRESSION: MILD CHRONIC SCARRING. NO ACUTE RADIOGRAPHIC FINDING IN THE CHEST. Assessment & Plan - Diagnosis (1) Acute on chronic systolic heart failure Is this a current diagnosis for this admission?: Yes (2) Atrial fibrillation with RVR Is this a current diagnosis for this admission?: Yes (3) Bronchitis Is this a current diagnosis for this admission?: Yes (4) Cardiomyopathy Qualifiers: Cardiomyopathy type: unspecified Qualified Code(s): I42.9 - Cardiomyopathy , unspecified Is this a current diagnosis for this admission?: Yes (5) Hypertension Qualifiers: Hypertension type: essential hypertension Qualified Code(s): I10 - Essential (primary) hypertension Is this a current diagnosis for this admission?: Yes (6) Mitral regurgitation Qualifiers: Cardiac valve disease etiology: etiology unspecified Qualified Code(s): I34.0 - Nonrheumatic mitral (valve) insufficiency Is this a current diagnosis for this admission?: Yes - Notes Notes: Acute on chronic systolic heart failure: Currently seems fairly compensated and patient does not have much symptoms. He is laying flat in bed comfortably. Continue to optimize therapy for underlying cardiomyopathy and depressed LVEF. Atrial fibrillation with rapid ventricular response: Currently coming under better control. Cardiomyopathy: Patient seems to have ischemic cardiomyopathy with apical wall motion abnormalities being noted. Hypertension: Blood pressure is well controlled. Mitral regurgitation: Currently is stable. Discussed that he will benefit from tertiary care transfer for consideration for defibrillator placement. Also discussed that since his EF has dropped down significantly from 40% to now less than 20%, he will benefit from a heart catheterization. However at this point I am told by the hospitalist that he is not considering transfer unless he hears from his private rehabilitation inspector. I was told by the patient that he was going to contact his rehabilitation inspector himself. Patient probably would need to have either a prophylactic defibrillator placed on be discharged on lifevest once stabilized here. - Time Time with patient: Greater than 35 minutes - CODE STATUS was discussed, patient remains full code. Surrogate decision-maker unchanged. Multiple medical problems were addressed. More than 50% of the time spent coordinating care, discussing management plans with involved caregivers. Management plans discussed with involved personnels. Medical decision making was of moderate to high complexity, patient's has multiple comorbidities. Medications reviewed and adjusted accordingly: Yes
[2017-04-30] MEDS ORDERED: DEXTROSE 5%-WATER 500 ML with AMIODARONE HCL 900 MG IV PRN ×2 (20:30)
[2017-04-30] MEDS ORDERED: AMIODARONE HCL 150 MG in DEXTROSE 5%-WATER 100 ML IV ONE (20:30)
[2017-04-30] MEDS: ATORVASTATIN CALCIUM 40 MG TABLET PO SCH (21:24)
[2017-04-30] MEDS: WARFARIN SODIUM 5 MG TABLET PO SCH (21:25)
[2017-05-01] MEDS: ENOXAPARIN SODIUM INJ 80 MG/0.8 ML DISP.SYRIN SUBCUT SCH ×2 (05:37→18:15)
[2017-05-01] MEDS: DOXYCYCLINE HYCLATE 100 MG TABLET PO SCH ×2 (05:38→18:15)
[2017-05-01] MEDS: SACUBITRIL/VALSARTAN 24 MG/26 MG TABLET PO SCH ×2 (05:38→18:14)
[2017-05-01 11:28] LABS: INTERNATIONAL RATION (INR) 1.35; PROTHROMBIN TIME 17.5 SEC (11.4-15.4)
[2017-05-01] MEDS: BUMETANIDE 1 MG TABLET PO SCH (11:35)
[2017-05-01] MEDS: METOPROLOL SUCCINATE 50 MG TAB.SR.24H PO SCH ×2 (11:36→21:22)
[2017-05-01] MEDS: SPIRONOLACTONE 25 MG TABLET PO SCH (11:36)
[2017-05-01] MEDS: DIGOXIN 0.125 MG TABLET PO SCH (11:36)
--- NOTE | 2017-05-01 15:46 | PDOC PROGRESS REPORT ---
Subjective Progress Note for:: 05/01/17 Subjective:: The patient is resting in his bed. He has been seen by cardiology today. I spoke to Dr. Bethea who is recommending that we stop his amiodarone drip and transition him over to an oral regimen. He is also indicated that he will need a LifeVest at discharge. I did discuss all of this with the patient and he is agreeable. He is quite anxious to get out of the hospital. Overall he denies fever chills. No chest pain, shortness of breath or cough. No nausea, vomiting or diarrhea. No urinary complaints. Reason For Visit: AFIB WITH RVR,ACUTE/CHRONIC SYSTOLIC CHF, Physical Exam Vital Signs: Temp Pulse Resp BP Pulse Ox 97.5 F 107 H 16 90/38 L 98 05/01/17 11:23 05/01/17 14:00 05/01/17 11:23 05/01/17 12:01 05/01/17 11:23 Intake & Output 04/30/17 05/01/17 05/02/17 06:59 06:59 06:59 Intake Total 2447 1851 355 Output Total 650 1450 Balance 1797 401 355 Weight 86.6 kg 85.1 kg General appearance: PRESENT: no acute distress, well-developed, well-nourished Head exam: PRESENT: atraumatic, normocephalic Mouth exam: PRESENT: moist, tongue midline Respiratory exam: PRESENT: clear to auscultation tasha. ABSENT: rales, rhonchi, wheezes Cardiovascular exam: PRESENT: irregular rhythm GI/Abdominal exam: PRESENT: normal bowel sounds, soft. ABSENT: distended, guarding, mass, organolmegaly, rebound, tenderness Rectal exam: PRESENT: deferred Extremities exam: PRESENT: full ROM. ABSENT: calf tenderness, clubbing, pedal edema Musculoskeletal exam: PRESENT: ambulatory Neurological exam: PRESENT: alert, awake, oriented to person, oriented to place , oriented to time, oriented to situation, CN II-XII grossly intact. ABSENT: motor sensory deficit Psychiatric exam: PRESENT: appropriate affect, normal mood. ABSENT: homicidal ideation, suicidal ideation Skin exam: PRESENT: dry, intact, warm. ABSENT: cyanosis, rash Results Laboratory Results: 04/30/17 06:03 04/29/17 07:05 02/12/18 16:58 Clean Catch Midstream Urine Culture - Final NO GROWTH 2 DAYS 04/28/17 16:07 Troponin I 0.068 Impressions: Chest X-Ray 04/28/17 11:01 IMPRESSION: MILD CHRONIC SCARRING. NO ACUTE RADIOGRAPHIC FINDING IN THE CHEST. Assessment & Plan - Diagnosis (1) Acute on chronic systolic heart failure Is this a current diagnosis for this admission?: Yes Plan: Currently the patient is euvolemic and doing well. Continue interested. He will follow-up with Dr. Bethea as an outpatient. (2) Atrial fibrillation with RVR Is this a current diagnosis for this admission?: Yes Plan: Currently fairly well rate controlled. We are going to stop his amiodarone drip and place him on 200 mg of amiodarone twice daily. (3) Bronchitis Is this a current diagnosis for this admission?: Yes Plan: He will continue p.o. doxycycline. This is day number 4 out of 7 days of treatment (4) COPD exacerbation Is this a current diagnosis for this admission?: Yes Plan: He has been transitioned to oral prednisone. We will continue to taper. (5) Chronic anticoagulation Is this a current diagnosis for this admission?: Yes Plan: His INR was subtherapeutic. He is on Coumadin. He was started on a Lovenox bridge. Unfortunately we have not checked any further PT or INRs. I am going to order one now and daily. Hopefully his INR has drifted upwards and we can not have to send him home with a Lovenox bridge. (6) Subtherapeutic international normalized ratio (INR) Is this a current diagnosis for this admission?: Yes Plan: As above (7) Cardiomyopathy Qualifiers: Cardiomyopathy type: unspecified Qualified Code(s): I42.9 - Cardiomyopathy , unspecified Is this a current diagnosis for this admission?: Yes Plan: Dr. Bethea his indicated that the patient will need to go home with a LifeVest. He will follow-up with Dr. Bethea as an outpatient. His EF on echocardiogram during this hospitalization was less than 20% (8) Hypertension Qualifiers: Hypertension type: essential hypertension Qualified Code(s): I10 - Essential (primary) hypertension Is this a current diagnosis for this admission?: Yes Plan: Stable. His blood pressure is actually on the low side (9) Mitral regurgitation Qualifiers: Cardiac valve disease etiology: etiology unspecified Qualified Code(s): I34.0 - Nonrheumatic mitral (valve) insufficiency Is this a current diagnosis for this admission?: Yes Plan: This will need to be followed as an outpatient. He has moderate mitral regurgitation. (10) Sleep apnea syndrome Is this a current diagnosis for this admission?: Yes Plan: Continue CPAP (11) Full code status Is this a current diagnosis for this admission?: Yes - Time Time Spent with patient: 25-34 minutes - Inpatient Certification Medical Necessity: Need Close Monitoring Due to Risk of Patient Decompensation, Other - Inpatient hospitalization remains necessary. We are going to take the patient off of IV amiodarone. We need to make sure that he does not decompensate when transitioning to an oral regimen. He also needs to get a LifeVest in place prior to discharge. I also would like his INR to be close to therapeutic by that time as well.
[2017-05-01] MEDS ORDERED: AMIODARONE HCL 200 MG TABLET PO ONE (16:00)
[2017-05-01] MEDS: PREDNISONE 20 MG TABLET PO SCH (18:14)
[2017-05-01] MEDS: ATORVASTATIN CALCIUM 40 MG TABLET PO SCH (21:21)
[2017-05-01] MEDS: WARFARIN SODIUM 5 MG TABLET PO SCH (21:22)
[2017-05-01] MEDS ORDERED: AMIODARONE HCL 200 MG TABLET PO SCH (22:00)
[2017-05-02 05:05] LABS: HEMATOCRIT 51.9 % (37.9-51.0); HEMOGLOBIN 17.8 g/dL (13.5-17.0); MEAN CORPUSCULAR HEMOGLOBIN 33.9 pg (27.0-33.4); MEAN CORPUSCULAR HGB CONC 34.3 g/dL (32.0-36.0); MEAN CORPUSCULAR VOLUME 99 fl (80-97); PLATELET COUNT 209 10^3/uL (150-450); RED BLOOD COUNT 5.26 10^6/uL (4.35-5.55); RED CELL DISTRIBUTION WIDTH 14.7 % (11.5-14.0); WHITE BLOOD COUNT 14.7 10^3/uL (4.0-10.5)
[2017-05-02 05:17] LABS: ANION GAP 9 (5-19); BLOOD UREA NITROGEN 25 mg/dL (7-20); CALCIUM 8.9 mg/dL (8.4-10.2); CARBON DIOXIDE 25 mmol/L (22-30); CHLORIDE 104 mmol/L (98-107); GLUCOSE 139 mg/dL (75-110); MAGNESIUM 2.2 mg/dL (1.6-2.3); POTASSIUM 4.1 mmol/L (3.6-5.0); SODIUM 138.4 mmol/L (137-145)
[2017-05-02] MEDS: DOXYCYCLINE HYCLATE 100 MG TABLET PO SCH ×2 (05:58→19:55)
[2017-05-02] MEDS: ENOXAPARIN SODIUM INJ 80 MG/0.8 ML DISP.SYRIN SUBCUT SCH ×2 (05:58→19:53)
[2017-05-02] MEDS: AMIODARONE HCL 200 MG TABLET PO SCH ×2 (05:59→19:56)
[2017-05-02] MEDS: SACUBITRIL/VALSARTAN 24 MG/26 MG TABLET PO SCH ×2 (05:59→19:55)
[2017-05-02] MEDS: METOPROLOL SUCCINATE 50 MG TAB.SR.24H PO SCH ×2 (10:14→22:54)
[2017-05-02] MEDS: DIGOXIN 0.125 MG TABLET PO SCH (10:14)
[2017-05-02] MEDS: SPIRONOLACTONE 25 MG TABLET PO SCH (10:14)
[2017-05-02] MEDS: BUMETANIDE 1 MG TABLET PO SCH (10:15)
[2017-05-02 10:59] LABS: INTERNATIONAL RATION (INR) 1.77; PROTHROMBIN TIME 21.6 SEC (11.4-15.4)
--- NOTE | 2017-05-02 11:02 | EKG REPORT ---
SEVERITY:- ABNORMAL ECG - ATRIAL FIBRILLATION, V-RATE 85-134 VENTRICULAR PREMATURE COMPLEX REPOL ABNRM SUGGESTS ISCHEMIA, ANT-LAT LEADS PROLONGED QT INTERVAL : Confirmed by: Veda Bethea 02-May-2017 11:01:41
--- NOTE | 2017-05-02 11:51 | PDOC DISCHARGE SUMMARY ---
General - Admit/Disc Date/PCP Admission Date/Primary Care Provider: 04/28/17 14:52 DEEPAK GUPTA MD [employer]ary Furnace Operator: Dr. Bethea Discharge Date: 05/02/17 - Discharge Diagnosis (1) Acute on chronic systolic heart failure Is this a current diagnosis for this admission?: Yes Summary: Much improved. This was likely due to his atrial fibrillation. Currently he is euvolemic on the day of discharge. He will follow-up with Dr. Bethea as an outpatient. (2) Atrial fibrillation with RVR Is this a current diagnosis for this admission?: Yes Summary: Initially on an amiodarone drip. He has been successfully transitioned to p.o. amiodarone. He will follow-up with Dr. Bethea next week so that his dose can be titrated downwards. (3) Bronchitis Is this a current diagnosis for this admission?: Yes Summary: He will complete a course of p.o. doxycycline (4) COPD exacerbation Is this a current diagnosis for this admission?: Yes Summary: He will complete a quick steroid taper as an outpatient. (5) Chronic anticoagulation Is this a current diagnosis for this admission?: Yes Summary: Continue Coumadin at discharge (6) Subtherapeutic international normalized ratio (INR) Is this a current diagnosis for this admission?: Yes Summary: His INR was quite low. His Coumadin dosage was increased. He was initially bridged with full dose. On the day of discharge his INR is 1.7. I am not going to discharge him home on Lovenox we will just let his Lovenox INR drift upwards. His INR goal is 2.0-3.0 (7) Cardiomyopathy Is this a current diagnosis for this admission?: Yes Summary: The patient has an EF of less than 20% per echocardiogram obtained during this hospitalization. He will have a life vest placed prior to discharge. He will eventually need an AICD. (8) Hypertension Is this a current diagnosis for this admission?: Yes Summary: Patient's blood pressure is on the low side but stable. (9) Mitral regurgitation Is this a current diagnosis for this admission?: Yes Summary: He has moderate mitral regurgitation. (10) Sleep apnea syndrome Is this a current diagnosis for this admission?: Yes Summary: Stable. He will be following up with Dr. Bethea (11) Full code status Is this a current diagnosis for this admission?: Yes - Additional Information Resuscitation Status: Full Code Discharge Diet: Cardiac Discharge Activity: Activity As Tolerated, Balance Activity w/Rest, Weigh Daily Prescriptions: Warfarin Sodium [Coumadin 5 mg Tablet] 5 mg PO QHS #7 tablet Amiodarone HCl [Cordarone 200 mg Tablet] 200 mg PO Q12A #14 tablet Bumetanide [Bumex 1 mg Tablet] 2 mg PO DAILY #14 tablet Digoxin [Lanoxin 0.125 mg Tablet] 0.125 mg PO DAILY #7 tablet Doxycycline Hyclate [Vibramycin 100 mg Tablet] 100 mg PO Q12A #10 tablet Metoprolol Succinate [Toprol Xl 50 mg Tab.sr] 50 mg PO Q12 #14 tab.sr.24h Prednisone 10 mg PO ASDIR #21 tablet Sacubitril/Valsartan [Entresto 24 mg/26 mg Tablet] 1 tab PO Q12A #14 tablet Home Medications: Atorvastatin Calcium [Lipitor 40 mg Tablet] 40 mg PO QHS 04/28/17 Metformin HCl [Metformin HCl ER] 500 mg PO BID 04/28/17 Spironolactone 25 mg PO DAILY 04/28/17 Amiodarone HCl [Cordarone 200 mg Tablet] 200 mg PO Q12A #14 tablet 05/02/17 Bumetanide [Bumex 1 mg Tablet] 2 mg PO DAILY #14 tablet 05/02/17 Digoxin [Lanoxin 0.125 mg Tablet] 0.125 mg PO DAILY #7 tablet 05/02/17 Doxycycline Hyclate [Vibramycin 100 mg Tablet] 100 mg PO Q12A #10 tablet Metoprolol Succinate [Toprol Xl 50 mg Tab.sr] 50 mg PO Q12 #14 tab.sr.24h Prednisone 10 mg PO ASDIR #21 tablet 05/02/17 Sacubitril/Valsartan [Entresto 24 mg/26 mg Tablet] 1 tab PO Q12A #14 tablet Warfarin Sodium [Coumadin 5 mg Tablet] 5 mg PO QHS #7 tablet 05/02/17 History of Present Illness History of Present Illness: ABE DAILY is a 66 year old male who presented to the emergency room with increased shortness of breath. Hospital Course Hospital Course: The patient is a pleasant 66-year-old male with a known history of chronic congestive heart failure. He also has chronic atrial fibrillation on anticoagulation therapy with Coumadin. Unfortunately he continues to smoke. The patient presented to the emergency room with a 2 day history of increased dyspnea. He had recently been seen by his primary care provider and diagnosed with influenza and had completed a course of Tamiflu and antibiotics. He initially improved but then his shortness of breath worsened. He was unable to lay down flat and had increased swelling in his lower extremities. In the emergency room he was found to be in atrial fibrillation with a rapid rate. He was referred for admission. The patient had a 2D echocardiogram performed which revealed an ejection fraction less than 20% as well as moderate mitral regurgitation. Cardiology was consulted. He was maintained on an amiodarone drip and eventually transitioned over to p.o. amiodarone. On the day of discharge he is tolerating this quite well. Dr. Bethea has made arrangements for the patient to have a LifeVest placed at the time of discharge. It will arrived this afternoon. He will be discharged at that time with close outpatient follow-up. At this point maximum hospital benefit has been reached. He will be discharged home today in stable condition. Physical Exam Vital Signs: Temp Pulse Resp BP Pulse Ox 97.4 F 92 18 97/69 L 100 05/02/17 07:55 05/02/17 07:55 05/02/17 07:55 05/02/17 10:11 05/02/17 07:55 Intake & Output 05/01/17 05/02/17 05/03/17 06:59 06:59 06:59 Intake Total 1851 1631 Output Total 1450 3240 Balance 401 -1609 Weight 85.1 kg 85.5 kg General appearance: PRESENT: no acute distress, well-developed, well-nourished Head exam: PRESENT: atraumatic, normocephalic Mouth exam: PRESENT: moist, tongue midline Respiratory exam: PRESENT: clear to auscultation tasha. ABSENT: rales, rhonchi, wheezes Cardiovascular exam: PRESENT: diastolic murmur, RRR. ABSENT: rubs, systolic murmur Pulses: PRESENT: normal dorsalis pedis pul GI/Abdominal exam: PRESENT: normal bowel sounds, soft. ABSENT: distended, guarding, mass, organolmegaly, rebound, tenderness Rectal exam: PRESENT: deferred Extremities exam: PRESENT: full ROM. ABSENT: calf tenderness, clubbing, pedal edema Neurological exam: PRESENT: alert, awake, oriented to person, oriented to place , oriented to time, oriented to situation, CN II-XII grossly intact. ABSENT: motor sensory deficit Psychiatric exam: PRESENT: appropriate affect, normal mood. ABSENT: homicidal ideation, suicidal ideation Skin exam: PRESENT: dry, intact, warm. ABSENT: cyanosis, rash Results Laboratory Results: 05/02/17 04:20 05/02/17 04:20 05/02/17 05/02/17 04:20 04:20 WBC 14.7 H RBC 5.26 Hgb 17.8 H Hct 51.9 H MCV 99 H MCH 33.9 H MCHC 34.3 RDW 14.7 H Plt Count 209 Sodium 138.4 Potassium 4.1 Chloride 104 Carbon Dioxide 25 Anion Gap 9 BUN 25 H Creatinine 1.00 Est GFR ( Amer) > 60 Est GFR (Non-Af Amer) > 60 Glucose 139 H Calcium 8.9 Magnesium 2.2 04/28/17 16:07 Troponin I 0.068 Impressions: Chest X-Ray 04/28/17 11:01 IMPRESSION: MILD CHRONIC SCARRING. NO ACUTE RADIOGRAPHIC FINDING IN THE CHEST. Qualifiers PATEINT BEING DISCHARGED WITH ANY OF THE FOLLOWING DIAGNOSIS?: Heart Failure HF Pt being discharged on ACEI for LVEF less than 40%?: Yes HF Pt being discharged on ARBS for LVEF less than 40%?: No Reason(s) for not prescribing ARBS:: Not indicated HF Pt with Afib discharged with Warfarin?: Yes HF Pt discharged on evidence-based Beta Bárbara:: Yes Plan Time Spent: Greater than 30 Minutes
--- NOTE | 2017-05-02 19:35 | PDOC PROGRESS REPORT ---
Subjective Progress Note for:: 05/01/17 Subjective:: Patient seems to be doing better. Pt is denying any chest arm or neck discomfort. Patient denying any PND, orthopnea. Patient denied any sustained palpitations, dizziness, syncope, near syncope. Patient denying any fever chills. Patient denying any other significant discomfort. Patient is maintaining atrial fibrillation but heart rate is better controlled. Currently on amiodarone drip. Review of systems: Rest review of systems negative. Medications: Medications have been reviewed. Reason For Visit: AFIB WITH RVR,ACUTE/CHRONIC SYSTOLIC CHF, Physical Exam Vital Signs: Temp Pulse Resp BP Pulse Ox 97.8 F 88 16 101/79 98 05/01/17 15:16 05/01/17 17:00 05/01/17 15:16 05/01/17 18:01 05/01/17 15:16 Intake & Output 04/30/17 05/01/17 05/02/17 06:59 06:59 06:59 Intake Total 2447 1851 1391 Output Total 650 1450 1740 Balance 1797 401 -349 Weight 86.6 kg 85.1 kg Exam: GENERAL: well-nourished and in no acute distress. Alert and oriented x3 HEAD: Atraumatic, normocephalic. EYES: Pupils equal round and reactive to light, extraocular movements intact, sclera anicteric, conjunctiva are normal. ENT: TMs normal, nares patent, oropharynx clear without exudates. Moist mucous membranes. No oral ulcerations or bleeding gums noted NECK: supple without lymphadenopathy. Trachea is central. No cervical or axillary lymphadenopathy noted. Carotids are 2+, JVD WNL LUNGS: Respiration seems nonlabored, no significant accessory muscle action noted. Bibasilar fine crackles noted. No wheezes rales or rhonchi noted. No significant dullness noted on percussion. CHEST: Palpation of the chest wall shows no significant chest wall tenderness. No other significant abnormalities noted. HEART: [place] [employer]ER [employer]ICE, No PSH, 1/6 LAURIE aortic area, 1/6 self systolic murmur mitral area, no rubs, no gallops. ABDOMEN: Soft, no significant tenderness appreciated, normoactive bowel sounds. No guarding, no rebound. No rigidity noted . No masses appreciated. EXTREMITIES: Pedal pulses are 1-2+, no calf tenderness noted. No clubbing or cyanosis.trace to 1+ pedal edema noted NEUROLOGICAL: Focused neurological exam showed no significant neurologic deficit. Normal speech, no focal weakness appreciated. PSYCH: Normal mood, normal affect. Judgment and insight within normal limits. SKIN: No significant ecchymosis, rash, ulcerations or signs of pruritus noted. MUSCULOSKELETAL EXAM: No significant joint swelling noted. Results Laboratory Results: 04/30/17 06:03 04/29/17 07:05 04/28/17 16:07 Troponin I 0.068 Impressions: Chest X-Ray 04/28/17 11:01 IMPRESSION: MILD CHRONIC SCARRING. NO ACUTE RADIOGRAPHIC FINDING IN THE CHEST. Assessment & Plan - Diagnosis (1) Acute on chronic systolic heart failure Is this a current diagnosis for this admission?: Yes (2) Atrial fibrillation with RVR Is this a current diagnosis for this admission?: Yes (3) Bronchitis Is this a current diagnosis for this admission?: Yes (4) Cardiomyopathy Qualifiers: Cardiomyopathy type: unspecified Qualified Code(s): I42.9 - Cardiomyopathy , unspecified Is this a current diagnosis for this admission?: Yes (5) Hypertension Qualifiers: Hypertension type: essential hypertension Qualified Code(s): I10 - Essential (primary) hypertension Is this a current diagnosis for this admission?: Yes (6) Mitral regurgitation Qualifiers: Cardiac valve disease etiology: etiology unspecified Qualified Code(s): I34.0 - Nonrheumatic mitral (valve) insufficiency Is this a current diagnosis for this admission?: Yes - Notes Notes: Have signed life vest external defibrillator form and placed in front of the chart. Patient was advised to see his primary care corsetier as soon as possible after discharge from this hospital. Acute on chronic systolic heart failure: Currently seems fairly compensated and patient does not have much symptoms. He is laying flat in bed comfortably. Continue to optimize therapy for underlying cardiomyopathy and depressed LVEF. Atrial fibrillation with rapid ventricular response: Currently coming under better control. Continue amiodarone therapy for the time being along with other medications. Cardiomyopathy: Patient seems to have ischemic cardiomyopathy with apical wall motion abnormalities being noted. Hypertension: Blood pressure is well controlled. Mitral regurgitation: Currently is stable. Discussed that he will benefit from tertiary care transfer for consideration for defibrillator placement. Also discussed that since his EF has dropped down significantly from 40% to now less than 20%, he will benefit from a heart catheterization. This was again discussed with the patient but he does not want to pursue this option and prefers to wait it out to see if his EF will improve. Patient was told that in that case he will need to be discharged on defibrillator and follow-up with his corsetier as soon as possible on discharge. - Time Time with patient: Greater than 35 minutes - CODE STATUS was discussed, patient remains full code. Surrogate decision-maker unchanged. Multiple medical problems were addressed. More than 50% of the time spent coordinating care, discussing management plans with involved caregivers. Management plans discussed with involved personnels. Medical decision making was of moderate to high complexity, patient's has multiple comorbidities. Medications reviewed and adjusted accordingly: Yes
--- NOTE | 2017-05-02 19:37 | PDOC PROGRESS REPORT ---
Subjective Progress Note for:: 05/02/17 Subjective:: Patient was seen on morning rounds. Patient seems to be doing better. Pt is denying any chest arm or neck discomfort. Patient denying any PND, orthopnea. Patient denied any sustained palpitations, dizziness, syncope, near syncope. Patient denying any fever chills. Patient denying any other significant discomfort. Patient is maintaining atrial fibrillation but heart rate is better controlled. Currently on amiodarone but still in A. fib Review of systems: Rest review of systems negative. Medications: Medications have been reviewed. Reason For Visit: AFIB WITH RVR,ACUTE/CHRONIC SYSTOLIC CHF, Physical Exam Vital Signs: Temp Pulse Resp BP Pulse Ox 97.8 F 94 18 93/70 L 96 05/02/17 15:25 05/02/17 15:25 05/02/17 15:25 05/02/17 15:25 05/02/17 15:25 Intake & Output 05/01/17 05/02/17 05/03/17 06:59 06:59 06:59 Intake Total 1851 1631 800 Output Total 1450 3240 Balance 401 -1609 800 Weight 85.1 kg 85.5 kg Exam: GENERAL: well-nourished and in no acute distress. Alert and oriented x3 HEAD: Atraumatic, normocephalic. EYES: Pupils equal round and reactive to light, extraocular movements intact, sclera anicteric, conjunctiva are normal. ENT: TMs normal, nares patent, oropharynx clear without exudates. Moist mucous membranes. No oral ulcerations or bleeding gums noted NECK: supple without lymphadenopathy. Trachea is central. No cervical or axillary lymphadenopathy noted. Carotids are 2+, JVD WNL LUNGS: Respiration seems nonlabored, no significant accessory muscle action noted. Breath sounds clear to auscultation bilaterally and equal noted. No wheezes rales or rhonchi noted. No significant dullness noted on percussion. CHEST: Palpation of the chest wall shows no significant chest wall tenderness. No other significant abnormalities noted. HEART: [place] [address] [employer], No PSH, 1/6 LAURIE aortic area, 1/6 self systolic murmur mitral area, no rubs, no gallops. ABDOMEN: Soft, no significant tenderness appreciated, normoactive bowel sounds. No guarding, no rebound. No rigidity noted . No masses appreciated. EXTREMITIES: Pedal pulses are 1-2+, no calf tenderness noted. No clubbing or cyanosis.trace to 1+ pedal edema noted NEUROLOGICAL: Focused neurological exam showed no significant neurologic deficit. Normal speech, no focal weakness appreciated. PSYCH: Normal mood, normal affect. Judgment and insight within normal limits. SKIN: No significant ecchymosis, rash, ulcerations or signs of pruritus noted. MUSCULOSKELETAL EXAM: No significant joint swelling noted. Results Laboratory Results: 05/02/17 04:20 05/02/17 04:20 05/02/17 05/02/17 04:20 04:20 WBC 14.7 H RBC 5.26 Hgb 17.8 H Hct 51.9 H MCV 99 H MCH 33.9 H MCHC 34.3 RDW 14.7 H Plt Count 209 Sodium 138.4 Potassium 4.1 Chloride 104 Carbon Dioxide 25 Anion Gap 9 BUN 25 H Creatinine 1.00 Est GFR ( Amer) > 60 Est GFR (Non-Af Amer) > 60 Glucose 139 H Calcium 8.9 Magnesium 2.2 04/28/17 16:07 Troponin I 0.068 Impressions: Chest X-Ray 04/28/17 11:01 IMPRESSION: MILD CHRONIC SCARRING. NO ACUTE RADIOGRAPHIC FINDING IN THE CHEST. Assessment & Plan - Diagnosis (1) Acute on chronic systolic heart failure Is this a current diagnosis for this admission?: Yes (2) Atrial fibrillation with RVR Is this a current diagnosis for this admission?: Yes (3) Bronchitis Is this a current diagnosis for this admission?: Yes (4) Cardiomyopathy Qualifiers: Cardiomyopathy type: unspecified Qualified Code(s): I42.9 - Cardiomyopathy , unspecified Is this a current diagnosis for this admission?: Yes (5) Hypertension Qualifiers: Hypertension type: essential hypertension Qualified Code(s): I10 - Essential (primary) hypertension Is this a current diagnosis for this admission?: Yes (6) Mitral regurgitation Qualifiers: Cardiac valve disease etiology: etiology unspecified Qualified Code(s): I34.0 - Nonrheumatic mitral (valve) insufficiency Is this a current diagnosis for this admission?: Yes - Notes Notes: Patient now awaiting for LifeVest to be delivered and put on. Patient has used to life vest for up to 6 months in the past and is well aware of its need. Acute on chronic systolic heart failure: Currently seems fairly compensated and patient does not have much symptoms. He is laying flat in bed comfortably. Continue to optimize therapy for underlying cardiomyopathy and depressed LVEF. Atrial fibrillation with rapid ventricular response: Currently coming under better control. Cardiomyopathy: Patient seems to have ischemic cardiomyopathy with apical wall motion abnormalities being noted. Hypertension: Blood pressure is well controlled. Mitral regurgitation: Currently is stable. This was discussed again with the patient (Discussed that he will benefit from tertiary care transfer for consideration for defibrillator placement. Also discussed that since his EF has dropped down significantly from 40% to now less than 20%, he will benefit from a heart catheterization. Patient however does not want to pursue this option at this time. 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 Patient probably would need to have either a prophylactic defibrillator placed on be discharged on lifevest once stabilized here. - Time Time with patient: Greater than 35 minutes - CODE STATUS was discussed, patient remains full code. Surrogate decision-maker unchanged. Multiple medical problems were addressed. More than 50% of the time spent coordinating care, discussing management plans with involved caregivers. Management plans discussed with involved personnels. Medical decision making was of moderate to high complexity, patient's has multiple comorbidities. Medications reviewed and adjusted accordingly: Yes
[2017-05-02] MEDS: PREDNISONE 20 MG TABLET PO SCH (19:56)
[2017-05-02] MEDS: ATORVASTATIN CALCIUM 40 MG TABLET PO SCH (22:54)
[2017-05-02] MEDS: WARFARIN SODIUM 5 MG TABLET PO SCH (22:54)
[2017-05-03 06:22] LABS: ABSOLUTE LYMPHOCYTES (AUTO) 1.4 10^3/uL (0.5-4.7); ABSOLUTE MONOCYTES (AUTO) 0.7 10^3/uL (0.1-1.4); ABSOLUTE NEUT (AUTO) 9.9 10^3/uL (1.7-8.2); BASOPHILS % (AUTO) 0.1 % (0-2); HEMOGLOBIN 18.9 g/dL (13.5-17.0); LYMPHOCYTES % (AUTO) 11.4 % (13-45); MEAN CORPUSCULAR HEMOGLOBIN 33.6 pg (27.0-33.4); MEAN CORPUSCULAR HGB CONC 33.9 g/dL (32.0-36.0); MEAN CORPUSCULAR VOLUME 99 fl (80-97); PLATELET COUNT 216 10^3/uL (150-450); SEGMENTED NEUTROPHILS % (AUTO) 82.5 % (42-78); TOTAL CELLS COUNTED % (AUTO) 100 %; WHITE BLOOD COUNT 11.9 10^3/uL (4.0-10.5)
[2017-05-03] MEDS: ENOXAPARIN SODIUM INJ 80 MG/0.8 ML DISP.SYRIN SUBCUT SCH (06:22)
[2017-05-03] MEDS: DOXYCYCLINE HYCLATE 100 MG TABLET PO SCH (06:23)
[2017-05-03] MEDS: AMIODARONE HCL 200 MG TABLET PO SCH (06:31)
[2017-05-03] MEDS: SACUBITRIL/VALSARTAN 24 MG/26 MG TABLET PO SCH (06:31)
[2017-05-03 06:52] LABS: ANION GAP 10 (5-19); BLOOD UREA NITROGEN 22 mg/dL (7-20); CALCIUM 9.5 mg/dL (8.4-10.2); CARBON DIOXIDE 24 mmol/L (22-30); CHLORIDE 106 mmol/L (98-107); GLUCOSE 142 mg/dL (75-110); MAGNESIUM 2.4 mg/dL (1.6-2.3); POTASSIUM 4.1 mmol/L (3.6-5.0)
[2017-05-03 06:55] LABS: HEMATOCRIT 55.6 % (37.9-51.0)
[2017-05-03 10:51] LABS: PROTHROMBIN TIME 23.8 SEC (11.4-15.4)
[2017-05-03] MEDS: BUMETANIDE 1 MG TABLET PO SCH (11:01)
[2017-05-03] MEDS: METOPROLOL SUCCINATE 50 MG TAB.SR.24H PO SCH (11:02)
[2017-05-03] MEDS: DIGOXIN 0.125 MG TABLET PO SCH (11:02)
[2017-05-03] MEDS: SPIRONOLACTONE 25 MG TABLET PO SCH (11:02)
--- NOTE | 2017-05-03 14:12 | PDOC DISCHARGE SUMMARY ---
General - Admit/Disc Date/PCP Admission Date/Primary Care Provider: 04/28/17 14:52 DEEPAK GUPTA MD Discharge Date: 05/03/17 - Discharge Diagnosis (1) Acute on chronic systolic heart failure Is this a current diagnosis for this admission?: Yes Summary: Euvolemic. Continue current medications. Life vest. Follow up with Dr Bethea (2) Atrial fibrillation with RVR Is this a current diagnosis for this admission?: Yes Summary: Rate controlled on warfarin (3) Bronchitis Is this a current diagnosis for this admission?: Yes Summary: Resolved (4) COPD exacerbation Is this a current diagnosis for this admission?: Yes Summary: Resolved (5) Chronic anticoagulation Is this a current diagnosis for this admission?: Yes Summary: Continue warfarin (6) Subtherapeutic international normalized ratio (INR) Is this a current diagnosis for this admission?: Yes Summary: Continue Coumadin (7) Cardiomyopathy Is this a current diagnosis for this admission?: Yes Summary: Continue current medication (8) Hypertension Is this a current diagnosis for this admission?: Yes (9) Mitral regurgitation Is this a current diagnosis for this admission?: Yes (10) Sleep apnea syndrome Is this a current diagnosis for this admission?: Yes - Additional Information Resuscitation Status: Full Code Discharge Diet: Cardiac Discharge Activity: Activity As Tolerated, Balance Activity w/Rest, Weigh Daily Prescriptions: Warfarin Sodium [Coumadin 5 mg Tablet] 5 mg PO QHS #45 tablet Amiodarone HCl [Pacerone] 200 mg PO BID #20 tablet Amiodarone HCl [Pacerone] 200 mg PO BID #60 tablet Amiodarone HCl [Cordarone 200 mg Tablet] 200 mg PO Q12A #60 tablet Bumetanide [Bumex 1 mg Tablet] 2 mg PO DAILY #10 tablet Bumetanide [Bumex 2 mg Tablet] 1 tab PO DAILY #30 tab Digoxin [Digitek] 125 mcg PO DAILY #30 tablet Digoxin [Digox] 125 mcg PO DAILY #10 tablet Metoprolol Succinate [Toprol Xl] 50 mg PO Q12H #20 tab.er.24h Metoprolol Succinate 50 mg PO BID #60 tab.er.24h Prednisone 10 mg PO ASDIR #21 tablet Sacubitril/Valsartan [Entresto 24 mg-26 mg Tablet] 1 each PO Q12 #20 tablet Sacubitril/Valsartan [Entresto 24 mg-26 mg Tablet] 1 each PO Q12 #60 tablet Warfarin Sodium 5 mg PO DAILY #10 tablet Home Medications: Atorvastatin Calcium [Lipitor 40 mg Tablet] 40 mg PO QHS 04/28/17 Metformin HCl [Metformin HCl ER] 500 mg PO BID 04/28/17 Spironolactone 25 mg PO DAILY 04/28/17 Prednisone 10 mg PO ASDIR #21 tablet 05/02/17 Amiodarone HCl [Cordarone 200 mg Tablet] 200 mg PO Q12A #60 tablet 05/03/17 Amiodarone HCl [Pacerone] 200 mg PO BID #20 tablet 05/03/17 Amiodarone HCl [Pacerone] 200 mg PO BID #60 tablet 05/03/17 Bumetanide [Bumex 1 mg Tablet] 2 mg PO DAILY #10 tablet 05/03/17 Bumetanide [Bumex 2 mg Tablet] 1 tab PO DAILY #30 tab 05/03/17 Digoxin [Digitek] 125 mcg PO DAILY #30 tablet 05/03/17 Digoxin [Digox] 125 mcg PO DAILY #10 tablet 05/03/17 Metoprolol Succinate 50 mg PO BID #60 tab.er.24h 05/03/17 Metoprolol Succinate [Toprol Xl] 50 mg PO Q12H #20 tab.er.24h 05/03/17 Sacubitril/Valsartan [Entresto 24 mg-26 mg Tablet] 1 each PO Q12 #20 tablet Sacubitril/Valsartan [Entresto 24 mg-26 mg Tablet] 1 each PO Q12 #60 tablet Warfarin Sodium 5 mg PO DAILY #10 tablet 05/03/17 Warfarin Sodium [Coumadin 5 mg Tablet] 5 mg PO QHS #45 tablet 05/03/17 History of Present Illness Patient complains of: Shortness of breath and palpitations, near syncope History of Present Illness: ABE DAILY is a 66 year old male Hospital Course Hospital Course: With a known history of chronic systolic CHF with an EF of 25%; chronic atrial fibrillation anticoagulated on Coumadin; chronic smoking; Hypertension presents to the ED with a 2 day history of increasing dyspnea Patient was seen by primary care physician diagnosed of influenza,, and treated with antibiotics and Tamiflu He initially improved and then the shortness of breath got worse Last night patient was unable to lay down; he noticed more swelling of his lower extremities; and presented to the ED for evaluation Upon evaluation in the ER he was in atrial fibrillation with rapid ventricular rate; chest x-ray did not show any infiltrate but cardiomegaly;BNP was 12,000He was referred to hospitalist for admission. He was admitted to the [facility] on telemetry. He was initially started on IV diltiazem drip. This had no improvement of his rapid A. fib. Dr. Bethea, the patient for cardiology. Transthoracic echo was done. This showed his EF to be less than 20%. Heart failure medications were initiated. He was started on IV amiodarone. He had improvement of rate control. This was converted to oral amiodarone. GERARDO was consulted for life vest. This was brought in today. He can now be discharged home with a LifeVest in place. He will follow-up with Dr. Bethea on the . had significant diuresis during his hospitalization. Physical Exam Vital Signs: Temp Pulse Resp BP Pulse Ox 97.4 F 73 16 107/59 L 98 05/03/17 07:17 05/03/17 07:17 05/03/17 07:17 05/03/17 07:17 05/03/17 07:17 Intake & Output 05/02/17 05/03/17 05/04/17 06:59 06:59 06:59 Intake Total 1631 1332 804 Output Total 3240 2 Balance -1609 1330 804 Weight 85.5 kg 83.6 kg General appearance: PRESENT: no acute distress, disheveled, well-developed, well -nourished Head exam: PRESENT: atraumatic, normocephalic Eye exam: PRESENT: conjunctival injection Ear exam: PRESENT: normal external ear exam Mouth exam: PRESENT: moist, tongue midline Neck exam: ABSENT: carotid bruit, JVD, lymphadenopathy, thyromegaly Respiratory exam: PRESENT: clear to auscultation tasha, symmetrical, unlabored. ABSENT: rales, rhonchi, wheezes Cardiovascular exam: PRESENT: irregular rhythm, +S1, +S2, systolic murmur Pulses: PRESENT: normal carotid pulses, normal radial pulses Vascular exam: PRESENT: normal capillary refill GI/Abdominal exam: PRESENT: normal bowel sounds, soft. ABSENT: distended, guarding, mass, organolmegaly, rebound, tenderness Rectal exam: PRESENT: deferred Extremities exam: PRESENT: full ROM. ABSENT: calf tenderness, clubbing, pedal edema Neurological exam: PRESENT: alert, awake, oriented to person, oriented to place , oriented to time, oriented to situation, CN II-XII grossly intact. ABSENT: motor sensory deficit Psychiatric exam: PRESENT: appropriate affect, normal mood. ABSENT: homicidal ideation, suicidal ideation Skin exam: PRESENT: dry, intact, warm. ABSENT: cyanosis, rash Results Laboratory Results: 05/03/17 05:53 05/03/17 05:53 05/03/17 05/03/17 05:53 05:53 WBC 11.9 H RBC 5.60 H Hgb 18.9 H Hct 55.6 H MCV 99 H MCH 33.6 H MCHC 33.9 RDW 15.0 H Plt Count 216 Seg Neutrophils % 82.5 H Lymphocytes % 11.4 L Monocytes % 6.0 Eosinophils % 0.0 Basophils % 0.1 Absolute Neutrophils 9.9 H Absolute Lymphocytes 1.4 Absolute Monocytes 0.7 Absolute Eosinophils 0.0 Absolute Basophils 0.0 Sodium 140.0 Potassium 4.1 Chloride 106 Carbon Dioxide 24 Anion Gap 10 BUN 22 H Creatinine 0.97 Est GFR ( Amer) > 60 Est GFR (Non-Af Amer) > 60 Glucose 142 H Calcium 9.5 Magnesium 2.4 H 04/28/17 16:07 Troponin I 0.068 Impressions: Chest X-Ray 04/28/17 11:01 IMPRESSION: MILD CHRONIC SCARRING. NO ACUTE RADIOGRAPHIC FINDING IN THE CHEST. Qualifiers PATEINT BEING DISCHARGED WITH ANY OF THE FOLLOWING DIAGNOSIS?: Heart Failure HF Pt being discharged on ACEI for LVEF less than 40%?: Yes HF Pt being discharged on ARBS for LVEF less than 40%?: No Reason(s) for not prescribing ARBS:: Not indicated HF Pt with Afib discharged with Warfarin?: Yes HF Pt discharged on evidence-based Beta Bárbaar:: Yes
--- NOTE | 2017-05-03 15:35 | PDOC PROGRESS REPORT ---
Subjective Progress Note for:: 05/03/17 Subjective:: Patient was seen on morning rounds, this was prior to discharge. Waiting for defibrillator to be brought in and put on, external. Patient seems to be doing better. Pt is denying any chest arm or neck discomfort. Patient denying any PND, orthopnea. Patient denied any sustained palpitations, dizziness, syncope, near syncope. Patient denying any fever chills. Patient denying any other significant discomfort. Patient is maintaining atrial fibrillation but heart rate is better controlled. Currently on amiodarone but still in A. fib Review of systems: Rest review of systems negative. Medications: Medications have been reviewed. Reason For Visit: AFIB WITH RVR,ACUTE/CHRONIC SYSTOLIC CHF, Physical Exam Vital Signs: Temp Pulse Resp BP Pulse Ox 97.4 F 54 L 16 103/88 H 100 05/03/17 07:17 05/03/17 11:58 05/03/17 11:58 05/03/17 11:58 05/03/17 11:58 Intake & Output 05/02/17 05/03/17 05/04/17 06:59 06:59 06:59 Intake Total 1631 1332 804 Output Total 3240 2 Balance -1609 1330 804 Weight 85.5 kg 83.6 kg Exam: GENERAL: well-nourished and in no acute distress. Alert and oriented x3 HEAD: Atraumatic, normocephalic. EYES: Pupils equal round and reactive to light, extraocular movements intact, sclera anicteric, conjunctiva are normal. ENT: TMs normal, nares patent, oropharynx clear without exudates. Moist mucous membranes. No oral ulcerations or bleeding gums noted NECK: supple without lymphadenopathy. Trachea is central. No cervical or axillary lymphadenopathy noted. Carotids are 2+, JVD WNL LUNGS: Respiration seems nonlabored, no significant accessory muscle action noted. Breath sounds clear to auscultation bilaterally and equal noted. No wheezes rales or rhonchi noted. No significant dullness noted on percussion. CHEST: Palpation of the chest wall shows no significant chest wall tenderness. No other significant abnormalities noted. HEART: [facility], No PSH, 1/6 LAURIE aortic area, 1/6 self systolic murmur mitral area, no rubs, no gallops. ABDOMEN: Soft, no significant tenderness appreciated, normoactive bowel sounds. No guarding, no rebound. No rigidity noted . No masses appreciated. EXTREMITIES: Pedal pulses are 1-2+, no calf tenderness noted. No clubbing or cyanosis.trace to 1+ pedal edema noted NEUROLOGICAL: Focused neurological exam showed no significant neurologic deficit. Normal speech, no focal weakness appreciated. PSYCH: Normal mood, normal affect. Judgment and insight within normal limits. SKIN: No significant ecchymosis, rash, ulcerations or signs of pruritus noted. MUSCULOSKELETAL EXAM: No significant joint swelling noted. Results Laboratory Results: 05/03/17 05:53 05/03/17 05:53 05/03/17 05/03/17 05:53 05:53 WBC 11.9 H RBC 5.60 H Hgb 18.9 H Hct 55.6 H MCV 99 H MCH 33.6 H MCHC 33.9 RDW 15.0 H Plt Count 216 Seg Neutrophils % 82.5 H Lymphocytes % 11.4 L Monocytes % 6.0 Eosinophils % 0.0 Basophils % 0.1 Absolute Neutrophils 9.9 H Absolute Lymphocytes 1.4 Absolute Monocytes 0.7 Absolute Eosinophils 0.0 Absolute Basophils 0.0 Sodium 140.0 Potassium 4.1 Chloride 106 Carbon Dioxide 24 Anion Gap 10 BUN 22 H Creatinine 0.97 Est GFR ( Amer) > 60 Est GFR (Non-Af Amer) > 60 Glucose 142 H Calcium 9.5 Magnesium 2.4 H 04/28/17 16:07 Troponin I 0.068 EKG Comments: Atrial fibrillation with controlled ventricular response Impressions: Chest X-Ray 04/28/17 11:01 IMPRESSION: MILD CHRONIC SCARRING. NO ACUTE RADIOGRAPHIC FINDING IN THE CHEST. Assessment & Plan - Diagnosis (1) Acute on chronic systolic heart failure Is this a current diagnosis for this admission?: Yes (2) Atrial fibrillation with RVR Is this a current diagnosis for this admission?: Yes (3) Bronchitis Is this a current diagnosis for this admission?: Yes (4) Cardiomyopathy Qualifiers: Cardiomyopathy type: unspecified Qualified Code(s): I42.9 - Cardiomyopathy , unspecified Is this a current diagnosis for this admission?: Yes (5) Hypertension Qualifiers: Hypertension type: essential hypertension Qualified Code(s): I10 - Essential (primary) hypertension Is this a current diagnosis for this admission?: Yes (6) Mitral regurgitation Qualifiers: Cardiac valve disease etiology: etiology unspecified Qualified Code(s): I34.0 - Nonrheumatic mitral (valve) insufficiency Is this a current diagnosis for this admission?: Yes - Notes Notes: Atrial fibrillation with rapid ventricular response: Rate under better control on amiodarone. Continue beta-jewels therapy. Cardiomyopathy: Patient seems to have ischemic cardiomyopathy with apical wall motion abnormalities being noted. Will consider nuclear stress testing as an outpatient if none has been done recently. Hypertension: Blood pressure is well controlled. Mitral regurgitation: Currently is stable. Discussed that periodic follow-up will be needed by 2D echocardiogram. Patient had drop in LVEF. This is of some concern. Will review patient's previous cardiac evaluation.. Patient understand complete usage of prophylactic wearable external defibrillator use.. - Time Time with patient: 15-25 minutes - CODE STATUS was discussed, patient remains full code. Surrogate decision-maker unchanged. Multiple medical problems were addressed. More than 50% of the time spent coordinating care, discussing management plans with involved caregivers. Management plans discussed with involved personnels. Medical decision making was of moderate to high complexity , patient's has multiple comorbidities. Medications reviewed and adjusted accordingly: Yes
[2017-05-03 15:44] VITALS: BP 118/78
[2017-05-03] MEDS ORDERED: PREDNISONE 20 MG TABLET PO SCH (18:00)
== END 2017-05-03 16:36 | disposition home or self-care (01) | DRG 292 ==
LOC: ER 10:39 → EH 14:52 → 3W 22:00
PROVIDERS: ADMIT Emergency Medicine; ATTEND Emergency Medicine
DX: I11.0 Hypertensive heart disease with heart failure (principal); J44.1 Chronic obstructive pulmonary disease with (acute) exacerbation; I48.2 Chronic atrial fibrillation; I50.23 Acute on chronic systolic (congestive) heart failure; F17.200 Nicotine dependence, unspecified, uncomplicated; J40 Bronchitis, not specified as acute or chronic; I34.0 Nonrheumatic mitral (valve) insufficiency; G47.30 Sleep apnea, unspecified; I25.5 Ischemic cardiomyopathy; Z79.01 Long term (current) use of anticoagulants; Z82.49 Family history of ischemic heart disease and other diseases of the circulatory system
CPT/HCPCS: 36415; 71045; 80048; 80053; 80061; 80162; 81001; 82550; 82553; 83036; 83735; 83880; 84439; 84443; 84484; 85025; 85027; 85610; 85730; 87070; 87086; 87205; 93005; 93010; 93306; 96365; 99291; J0282; J1160; J1650; J1940; J3490; J7040; J7060; J7512

== ENCOUNTER → 2017-06-06 | Outpatient (CLI) | payer MEDICARE ==
[2017-06-06 19:31] LABS: ALANINE AMINOTRANSFERASE 31 U/L (21-72); ALBUMIN 3.8 g/dL (3.5-5.0); ALKALINE PHOSPHATASE 56 U/L (38-126); ANION GAP 9 (5-19); ASPARTATE AMINO TRANSFERASE 25 U/L (17-59); BILIRUBIN,DIRECT 0.5 mg/dL (0.0-0.4); BILIRUBIN,TOTAL 0.6 mg/dL (0.2-1.3); BLOOD UREA NITROGEN 9 mg/dL (7-20); CALCIUM 9.2 mg/dL (8.4-10.2); CARBON DIOXIDE 27 mmol/L (22-30); CHLORIDE 107 mmol/L (98-107); GLUCOSE 65 mg/dL (75-110); POTASSIUM 4.9 mmol/L (3.6-5.0); SODIUM 142.6 mmol/L (137-145); TOTAL PROTEIN 6.6 g/dL (6.3-8.2)
== END ==
LOC: OD 17:28
PROVIDERS: ATTEND Physician Assistant Medical
DX: I50.9 Heart failure, unspecified (principal); R06.02 Shortness of breath
CPT/HCPCS: 36415; 80053; 83880

== ENCOUNTER 2018-02-27 07:59 | Inpatient (IN) | payer MEDICARE ==
--- NOTE | 2018-02-27 08:06 | ER Document Report ---
ED General - General Stated Complaint: SHORTNESS OF BREATH Time Seen by Provider: 02/27/18 08:04 Notes: Patient is a 67-year-old male with history of atrial fibrillation, congestive heart failure that presents to the emergency department for chief complaint of palpitations, shortness of breath and difficulty breathing. Patient states has been dealing with bronchitis, and currently being treated for it, and he states that his atrial fibrillation, "kicked in" and he started feeling severe palpitations and shortness of breath and impending doom this morning, so he called EMS and was brought to the emergency department. He is on Coumadin, spironolactone, amiodarone and Entresto. He denies having any chest pain at this time, nausea, vomiting or abdominal pain. Past Medical History: Atrial fibrillation, congestive heart failure, hypertension, hyperlipidemia Past Surgical History: PCI Social History: Former smoker, denies current alcohol or drug use. Family History: Reviewed and noncontributory for presenting illness Allergies: Reviewed, see documented allergy list. REVIEW OF SYSTEMS: Other than noted above, the 12 point review of systems was reviewed with the patient and were negative, all pertinent findings are included in the HPI. PHYSICAL EXAMINATION: Vital signs reviewed, nursing noted reviewed. GENERAL: Elderly, chronically ill-appearing male in moderate distress HEAD: Atraumatic, normocephalic. EYES: Eyes appear normal, extraocular movements intact, sclera anicteric, conjunctiva are normal. ENT: nares patent, oropharynx clear without exudates. Moist mucous membranes. NECK: Normal range of motion, supple without lymphadenopathy LUNGS: Increased work of breathing, diffuse wheezing noted throughout all lung alaniz. HEART: Heart rate tachycardic, irregular rhythm, no audible murmur ABDOMEN: Soft, nontender, normoactive bowel sounds. No rebound, guarding, or rigidity. No masses appreciated. EXTREMITIES: Nontender, good range of motion, no pitting or edema. NEUROLOGICAL: No focal neurological deficits. Moves all extremities spontaneously Motor and sensory grossly intact on exam. PSYCH: Patient appears anxious, and is agitated SKIN: Warm, Dry, normal turgor, no rashes or lesions noted on exposed skin TRAVEL OUTSIDE OF THE [place] IN LAST 30 DAYS: No - Related Data Allergies/Adverse Reactions: No Known Allergies Allergy (Verified 04/28/17 11:24) Past Medical History - Social History Smoking Status: Former Smoker Family History: CAD - Past Medical History Cardiac Medical History: Reports: Hx Atrial Fibrillation, Hx Hypertension Pulmonary Medical History: Reports: Hx Pneumonia Renal/ Medical History: Denies: Hx Peritoneal Dialysis Psychiatric Medical History: Denies: Hx Depression Past Surgical History: Reports: Hx Cardiac Catheterization Physical Exam - Vital signs Vitals: Resp Pulse Ox 40 H 97 02/27/18 08:10 02/27/18 08:10 Course - Re-evaluation Re-evalutation: Patient seen and examined vital signs reviewed. Laboratory data and imaging were ordered as appropriate for the patient's presenting symptoms and complaint, with consideration of any critical or life threatening conditions that may be associated with their obtained history and exam as noted above. Patient was treated with IV diltiazem 50 mg bolus, and then placed on a drip at 15 mg/h, patient was rather tachycardic still, and still having some distress, he was in the 180s for heart rate, after the bolus, and initiation of the drip, this point because the patient was still in distress, and his heart rate was still very rapid, a ordered a 500 mcg dose of IV digoxin, which successfully reduce the patient's heart rate, he maintained on the IV Cardizem drip, which eventually brought his heart rate down to the mid 90s, patient was feeling much better and much more comfortable. He was still having some wheezing on his exam , but at this time I felt it was in the best interest to withhold bronchodilators at this time as it may re-exacerbate the patient's severe tachycardia and atrial fibrillation with rapid ventricular response, he was given IV Solu-Medrol his chest x-ray was reviewed, did reveal possible lower lobe infiltrate, and given patient's respiratory symptoms and presenting illness , I did start him on IV antibiotics with Rocephin, and azithromycin. Chest x-ray reviewed and also demonstrate some pulmonary edema as well, the patient does have a history of advanced heart failure, edema most likely secondary to the patient being in severe atrial fibrillation with rapid ventricular response, and by resolving this issue, should improve with his usual diuretics. He did have a leukocytosis on his blood work, he is recently been on prednisone , likely a result of this, versus due to to possible underlying pneumonia as noted above, he also had a slightly elevated troponin, but not in the range of acute RI, again this is likely secondary to the patient's significant atrial fibrillation with rapid ventricular response, and supply demand mismatch, upon review of his prior charts, he does have a baseline slightly elevated troponin secondary to his advanced heart failure. Evaluation was most consistent with atrial fibrillation with rapid ventricular response, pneumonia, leukocytosis, pulmonary edema Results were discussed with the patient at this point after careful consideration I feel that that patient should be admitted to the hospital. This was discussed with the patient that it is in the best interest for their care to be admitted for further evaluation and management. Patient agreed with this plan of care. A call was placed to the admitted physician, Dr. Gomez and admitting APC Davian Vizcarra who graciously accepted the patient onto their service. *Note is created using voice recognition software and may contain spelling, syntax or grammatical errors. Laboratory 02/27/18 02/27/18 02/27/18 07:25 07:25 07:25 WBC 15.6 H RBC 5.05 Hgb 17.0 Hct 50.9 MCV 101 H MCH 33.6 H MCHC 33.3 RDW 14.5 H Plt Count 226 Seg Neutrophils % 76.0 Lymphocytes % 12.3 L Monocytes % 11.2 Eosinophils % 0.3 Basophils % 0.2 Absolute Neutrophils 11.9 H Absolute Lymphocytes 1.9 Absolute Monocytes 1.8 H Absolute Eosinophils 0.0 Absolute Basophils 0.0 PT 26.6 H INR 2.32 Sodium Cancelled Potassium Cancelled Chloride Cancelled Carbon Dioxide Cancelled Anion Gap Cancelled BUN Cancelled Creatinine Cancelled Est GFR ( Amer) Cancelled Est GFR (Non-Af Amer) Cancelled Glucose Cancelled Calcium Cancelled Total Bilirubin Cancelled Direct Bilirubin Cancelled Neonat Total Bilirubin Cancelled Neonat Direct Bilirubin Cancelled Neonat Indirect Bili Cancelled AST Cancelled ALT Cancelled Alkaline Phosphatase Cancelled Troponin I NT-Pro-B Natriuret Pep Total Protein Cancelled Albumin Cancelled 02/27/18 02/27/18 02/27/18 07:25 09:29 09:29 WBC RBC Hgb Hct MCV MCH MCHC RDW Plt Count Seg Neutrophils % Lymphocytes % Monocytes % Eosinophils % Basophils % Absolute Neutrophils Absolute Lymphocytes Absolute Monocytes Absolute Eosinophils Absolute Basophils PT INR Sodium 140.2 Potassium 4.9 Chloride 106 Carbon Dioxide 24 Anion Gap 10 BUN 17 Creatinine 1.30 H Est GFR ( Amer) > 60 Est GFR (Non-Af Amer) 55 L Glucose 172 H Calcium 8.9 Total Bilirubin 0.9 Direct Bilirubin 0.4 Neonat Total Bilirubin Not Reportable Neonat Direct Bilirubin Not Reportable Neonat Indirect Bili Not Reportable AST 78 H ALT 55 Alkaline Phosphatase 73 Troponin I Cancelled 0.029 NT-Pro-B Natriuret Pep Cancelled 23022 H Total Protein 6.6 Albumin 3.7 02/27/18 12:10 WBC RBC Hgb Hct MCV MCH MCHC RDW Plt Count Seg Neutrophils % Lymphocytes % Monocytes % Eosinophils % Basophils % Absolute Neutrophils Absolute Lymphocytes Absolute Monocytes Absolute Eosinophils Absolute Basophils PT INR Sodium Potassium Chloride Carbon Dioxide Anion Gap BUN Creatinine Est GFR ( Amer) Est GFR (Non-Af Amer) Glucose Calcium Total Bilirubin Direct Bilirubin Neonat Total Bilirubin Neonat Direct Bilirubin Neonat Indirect Bili AST ALT Alkaline Phosphatase Troponin I 0.051 NT-Pro-B Natriuret Pep Total Protein Albumin Chest X-Ray 02/27/18 08:12 IMPRESSION: Findings suggestive of mild or borderline congestive heart failure representing a significant change since 04/28/2017. Possible atelectasis or infiltrate the right base. New - Vital Signs Vital signs: Temp Pulse Resp BP Pulse Ox 97.6 F 102 H 20 106/88 H 95 02/28/18 07:49 02/28/18 07:49 02/28/18 07:49 02/28/18 09:31 02/28/18 07:49 - Laboratory Result Diagrams: 02/28/18 06:06 02/28/18 06:06 Laboratory results interpreted by me: 02/27/18 02/27/18 02/27/18 07:25 07:25 09:29 WBC 15.6 H MCV 101 H MCH 33.6 H RDW 14.5 H Lymphocytes % 12.3 L Absolute Neutrophils 11.9 H Absolute Monocytes 1.8 H PT 26.6 H Creatinine 1.30 H Est GFR (Non-Af Amer) 55 L Glucose 172 H AST 78 H NT-Pro-B Natriuret Pep 02/27/18 09:29 WBC MCV MCH RDW Lymphocytes % Absolute Neutrophils Absolute Monocytes PT Creatinine Est GFR (Non-Af Amer) Glucose AST NT-Pro-B Natriuret Pep 12254 H - EKG Interpretation by Me Additional EKG results interpreted by me: EKG demonstrates atrial fibrillation with rapid ventricular response with a ventricular rate of 177 bpm, left axis deviation, QTC 488 ms ,there are T wave inversions in leads I and aVL, as well as in leads V5 and V6, this is compared with prior EKG from April 2017, where the patient did have atrial fibrillation, and T wave inversions were present if not worse at that time. Critical Care Note - Critical Care Note Total time excluding time spent on procedures (mins): 45 Comments: Critical care time 45 minutes exclusive from separate billable procedures for a patient requiring complex medical decision making, and high potential for clinical deterioration. Time spent obtaining history from patient or surrogate, discussions with consultants, development of treatment plan with patient or surrogate, evaluation of patient's response to treatment, examination of patient , ordering and performing treatments and interventions, ordering and review of laboratory studies, re-evaluation of patient's condition, ordering and review of radiographic studies and review of old charts Discharge - Discharge Clinical Impression: Atrial fibrillation with RVR, Acute on chronic systolic heart failure, Elevated troponin, Bronchospasm Community acquired pneumonia Qualifiers: Laterality: unspecified laterality Qualified Code(s): J18.9 - Pneumonia, unspecified organism Leukocytosis Qualifiers: Leukocytosis type: unspecified Qualified Code(s): D72.829 - Elevated white blood cell count, unspecified Condition: Stable Disposition: ADMITTED INPATIENT Admitting Provider: Olive Vizcarra Unit Admitted: [facility]
[2018-02-27] MEDS ORDERED: DILTIAZEM HCL INJ 25 MG/5 ML VIAL IV ONE (08:12)
[2018-02-27] MEDS ORDERED: DILTIAZEM HCL/D5W 125 MG/125 ML RTUINJ IV PRN ×2 (08:12→12:49)
[2018-02-27 08:23] LABS: ABSOLUTE LYMPHOCYTES (AUTO) 1.9 10^3/uL (0.5-4.7); ABSOLUTE MONOCYTES (AUTO) 1.8 10^3/uL (0.1-1.4); ABSOLUTE NEUT (AUTO) 11.9 10^3/uL (1.7-8.2); BASOPHILS % (AUTO) 0.2 % (0-2); EOSINOPHILS % (AUTO) 0.3 % (0-6); HEMATOCRIT 50.9 % (37.9-51.0); LYMPHOCYTES % (AUTO) 12.3 % (13-45); MEAN CORPUSCULAR HEMOGLOBIN 33.6 pg (27.0-33.4); MEAN CORPUSCULAR HGB CONC 33.3 g/dL (32.0-36.0); MEAN CORPUSCULAR VOLUME 101 fl (80-97); MONOCYTES % (AUTO) 11.2 % (3-13); PLATELET COUNT 226 10^3/uL (150-450); RED BLOOD COUNT 5.05 10^6/uL (4.35-5.55); RED CELL DISTRIBUTION WIDTH 14.5 % (11.5-14.0); TOTAL CELLS COUNTED % (AUTO) 100 %; WHITE BLOOD COUNT 15.6 10^3/uL (4.0-10.5)
[2018-02-27 08:29] LABS: INTERNATIONAL RATION (INR) 2.32; PROTHROMBIN TIME 26.6 SEC (11.4-15.4)
[2018-02-27] MEDS ORDERED: DIGOXIN INJ 0.5 MG/2 ML AMPULE IV ONE (08:35)
[2018-02-27] MEDS ORDERED: METHYLPREDNISOLONE INJ 125 MG/2 ML SDV IV ONE (09:04)
--- NOTE | 2018-02-27 09:29 | RADIOLOGY REPORT (SQ) ---
EXAM DESCRIPTION: CHEST SINGLE VIEW COMPLETED DATE/TIME: 02/27/2018 9:12 am REASON FOR STUDY: shortness of breath COMPARISON: None. EXAM PARAMETERS: NUMBER OF VIEWS: One view. TECHNIQUE: Single frontal radiographic view of the chest acquired. RADIATION DOSE: NA LIMITATIONS: None. FINDINGS: LUNGS AND PLEURA: Slightly prominent vascular markings and interstitial change that may be related to a degree of pulmonary vascular congestion or borderline heart failure. Possible small ri ght pleural effusion. Minimal opacity right base that could represent atelectasis or infiltrate. MEDIASTINUM AND HILAR STRUCTURES: No masses. Contour normal. HEART AND VASCULAR STRUCTURES: Cardiomegaly BONES: No acute findings. HARDWARE: None in the chest. OTHER: No other significant finding. IMPRESSION: Findings suggestive of mild or borderline congestive heart failure representing a signif icant change since 04/28/2017. Possible atelectasis or infiltrate the right base. New TECHNICAL DOCUMENTATION: JOB ID: [id number] [employer]- All Rights Reserved Reading location - IP/workstation name: [email or web address]
[2018-02-27 10:09] LABS: ALANINE AMINOTRANSFERASE 55 U/L (21-72); ALBUMIN 3.7 g/dL (3.5-5.0); ALKALINE PHOSPHATASE 73 U/L (38-126); ANION GAP 10 (5-19); ASPARTATE AMINO TRANSFERASE 78 U/L (17-59); BILIRUBIN,DIRECT 0.4 mg/dL (0.0-0.4); BILIRUBIN,TOTAL 0.9 mg/dL (0.2-1.3); BLOOD UREA NITROGEN 17 mg/dL (7-20); CALCIUM 8.9 mg/dL (8.4-10.2); CARBON DIOXIDE 24 mmol/L (22-30); CHLORIDE 106 mmol/L (98-107); GLUCOSE 172 mg/dL (75-110); POTASSIUM 4.9 mmol/L (3.6-5.0); SODIUM 140.2 mmol/L (137-145); TOTAL PROTEIN 6.6 g/dL (6.3-8.2)
[2018-02-27 10:21] LABS: TROPONIN I 0.029 ng/mL
[2018-02-27] MEDS ORDERED: CEFTRIAXONE INJ 1000 MG VIAL IV ONE (10:39)
[2018-02-27] MEDS ORDERED: AZITHROMYCIN INJ 500 MG VIAL IV ONE (10:40)
[2018-02-27] MEDS ORDERED: ACETAMINOPHEN 325 MG TABLET PO PRN (12:46)
[2018-02-27] MEDS ORDERED: GUAIFENESIN 600 MG TABLET.SA PO ONE (14:00)
[2018-02-27] MEDS: AMIODARONE HCL 200 MG TABLET PO SCH ×2 (15:57→21:18)
[2018-02-27] MEDS: MEROPENEM 1 GM in NORMAL SALINE 50 ML IV SCH ×2 (15:59→21:21)
[2018-02-27] MEDS: SACUBITRIL/VALSARTAN 24 MG/26 MG TABLET PO SCH ×2 (16:00→21:24)
[2018-02-27] MEDS ORDERED: NORMAL SALINE 500 ML IV ONE (16:00)
[2018-02-27] MEDS: GUAIFENESIN 600 MG TABLET.SA PO SCH (21:18)
[2018-02-27] MEDS: METOPROLOL SUCCINATE 50 MG TAB.SR.24H PO SCH (21:18)
[2018-02-27] MEDS ORDERED: WARFARIN SODIUM 5 MG TABLET PO SCH (22:00)
[2018-02-27] MEDS ORDERED: ATORVASTATIN CALCIUM 40 MG TABLET PO SCH (22:00)
--- NOTE | 2018-02-27 22:32 | HISTORY AND PHYSICAL E ---
History and Physical NAME: ABE DAILY : 1950 AGE: 67Y ADMITTED: 02/27/2018 ROOM: 330 CODE STATUS: Full code. ELASTIC ATTACHER CHAINSTITCH: Dr. Bethea PRIMARY CARE PROVIDER: Deepika Fowler PA-C CHIEF COMPLAINT: Shortness of breath. HISTORY OF PRESENT ILLNESS: The patient is a 67-year-old male with a past medical history of atrial fibrillation with chronic anticoagulation, with warfarin. The patient presented to the emergency department via EMS with a chief complaint of shortness of breath. According to the patient, his symptoms started around gi, when he ate lettuce that he said was contaminated with E. coli. The patient stated that he had difficulty with diarrhea and became progressively weak, and therefore developed a cold or possible bronchitis. The patient stated that he has seen his primary care provider for the bronchitis, but was unable to articulate what he was taking for it. The patient stated that he felt his AFib "kick in" this morning by having severe palpitations and shortness of breath, so he notified EMS. The patient denies using nebulizers at home. Upon presentation to the emergency department, the patient was found to be in AFib with RVR, with a rate of up to 190 with a left axis deviation, QTC of 488, as well as being found to be significantly tachypneic. The patient was given a bolus of Cardizem without benefit, and therefore the patient was loaded with digoxin with some control of his symptoms. The patient had a better rate of around 100 when I evaluated the patient. Given the findings, the patient was referred to the hospital for admission and management. PAST MEDICAL HISTORY: 1. Atrial fibrillation. 2. Hypertension. 3. Congestive heart failure with EF of 20-25%. 4. Previous admissions for pneumonia. 5. Hypertension. PAST SURGICAL HISTORY: Cardiac catheterization. ALLERGIES: No known drug allergies. HOME MEDICATIONS: 1. Amiodarone 200 mg p.o. twice daily. 2. Augmentin 875/125 one tablet p.o. q.12 hours. 3. Lipitor 40 mg p.o. 4. Bumex 2 mg p.o. twice daily. 5. Toprol-XL 50 mg p.o. q.12 hours. 6. Entresto 24/26 one tablet p.o. q.12 hours. 7. Aldactone 25 mg p.o. daily. 8. Warfarin 5 mg p.o. daily. SOCIAL HISTORY: The patient currently resides at home with his , who is his default surrogate decision maker, Indy, who can be reached at [phone]. The patient is retired. He has a long history of tobacco use. He no longer smokes. No history of alcohol use or illicit drug use. FAMILY HISTORY: Positive for coronary artery disease in multiple family members, including both parents and a sibling. Denies any medical problems within his children. REVIEW OF SYSTEMS: CONSTITUTIONAL: The patient denies any fevers or chills. No dizziness. Admits to weakness and loss of appetite. INTEGUMENT: Denies any diaphoresis, rash, bruising, or itching. HEENT: Denies visual changes or hearing loss. No sore throat or headache. CVS: The patient denies any chest pain, edema, heart palpitations. Does admit to shortness of breath as well as feeling like his heart was racing. RESPIRATORY: Denies any cough. No sputum production or hemoptysis, but does admit to dyspnea. GASTROINTESTINAL: No nausea, vomiting, diarrhea, abdominal pain, blood in stools. No constipation, melena, or hematochezia. : Denies hematuria, pyuria, or dysuria. MUSCULOSKELETAL: No acute joint pains. NEUROLOGIC: No seizures, tremors, or loss of consciousness. HEMATOLOGIC: Denies any silverio bleeding or easy bruising. ENDOCRINE: Denies any recent weight changes. The rest of the review of the other organ systems is negative. PHYSICAL EXAMINATION: GENERAL: The patient is a frail appearing 67-year-old male who is awake and alert. He is oriented to person, place, time, situation. He does appear to be in some mild distress. VITAL SIGNS: Temperature 98.0, pulse 75, respirations 22, blood pressure 116/99, oxygen saturation is 93% on 3 liters nasal cannula. SKIN: Warm, dry. No rashes. He is not diaphoretic. HEENT: Pupils equal, round, reactive to light and accommodation. Conjunctivae pink. Sclerae anicteric. NECK: Supple. No JVD. No palpable lymphadenopathy or thyromegaly. CVS: Heart is irregularly irregular. There is no rub. CHEST: Diminished, symmetrical. Does have some rhonchorous breath sounds in upper lung field. ABDOMEN: Soft, nontender, nondistended. Bowel sounds are present without hepatomegaly. BACK: No CVA tenderness or sacral edema. EXTREMITIES: No clubbing or cyanosis. The patient does have 2+ pitting edema in the right lower extremity, 1+ in the left. No peripheral signs of embolization. +1 pedal pulses noted bilaterally. DIAGNOSTICS/LAB VALUES: Hematology obtained on 02/27/2018: WBC 15.6, hemoglobin 17.0, hematocrit 30.9, platelet count 226. PT coagulation obtained on 02/27/2018: PT 26.6, INR 1.32. Chemistry obtained on 02/27/2018: Sodium 140, potassium 4.9, chloride 106, carbon dioxide 24, BUN 17, creatinine 1.3, glucose 172, calcium 8.9, bilirubin 0.9, AST 78, ALT 55, alkaline phosphatase 35, troponin 0.029, BNP 10821. Total protein 6.6, albumin 3.5. Chest x-ray obtained on 02/27/2018: Suggestive of mild or borderline congestive heart failure with evidence of an infiltrate of the right lung base. IMPRESSION AND PLAN: 1. COMMUNITY ACQUIRED RIGHT LOWER LOBE PNEUMONIA VERSUS AN ASPIRATION PNEUMONIA. Will cover the patient for gram-negative as well as anaerobes, given his history. The patient states that sometimes he feels he can get choked on his food, but this is not always and consistent. Will cover the patient for now. 2. ATRIAL FIBRILLATION WITH RAPID VENTRICULAR RESPONSE. Uncertain if the patient may have possibly missed a dose of his beta jewels. Will resume amiodarone and will try to get him off the Cardizem drip as soon as possible, given the patient's quite low EF. 3. CHRONIC SYSTOLIC CONGESTIVE HEART FAILURE. EF of 20-25%. The patient clinically actually appears to be a little dehydrated. Will gently hydrate the patient and monitor very closely for evidence of overload and follow. 4. HYPERTENSION. The patient's blood pressures are in an acceptable range at this time. 5. ACUTE MOST LIKELY ON CHRONIC RESPIRATORY FAILURE WITH SIGNIFICANT TACHYPNEA WELL HYPOXIA. Will continue supplemental O2 for now. Will add Mucinex and hopefully this will improve with the treatment of pneumonia. 6. ACUTE KIDNEY INJURY. Again, will gently hydrate the patient, but monitor this closely. DISPOSITION: The patient is a full code. Pending the patient's symptomatology and diagnostic findings, will reevaluate in the a.m. Will admit the patient to inpatient IMCU. Time spent on this followup including assessment, plan, physical examination, patient education, and review of records is 70 minutes. DICTATING PHYSICIAN: ANGELICA GR NP [id number] PHY#: [id number] ID: [id number] JOB#: [id number] ACCT: [id number] cc:ANTHONY TSAI M.D. >
[2018-02-28] MEDS: METOPROLOL SUCCINATE 50 MG TAB.SR.24H PO SCH ×2 (06:18→17:17)
[2018-02-28] MEDS: MEROPENEM 1 GM in NORMAL SALINE 50 ML IV SCH ×3 (06:18→23:37)
[2018-02-28 06:24] LABS: HEMATOCRIT 47.4 % (37.9-51.0); MEAN CORPUSCULAR HEMOGLOBIN 33.7 pg (27.0-33.4); MEAN CORPUSCULAR HGB CONC 33.7 g/dL (32.0-36.0); MEAN CORPUSCULAR VOLUME 100 fl (80-97); PLATELET COUNT 150 10^3/uL (150-450); RED BLOOD COUNT 4.73 10^6/uL (4.35-5.55); RED CELL DISTRIBUTION WIDTH 14.5 % (11.5-14.0)
[2018-02-28 06:37] LABS: INTERNATIONAL RATION (INR) 2.48; PROTHROMBIN TIME 28.1 SEC (11.4-15.4)
[2018-02-28 06:50] LABS: ANION GAP 9 (5-19); BLOOD UREA NITROGEN 15 mg/dL (7-20); CALCIUM 8.7 mg/dL (8.4-10.2); CARBON DIOXIDE 21 mmol/L (22-30); CHLORIDE 106 mmol/L (98-107); GLUCOSE 123 mg/dL (75-110); POTASSIUM 4.6 mmol/L (3.6-5.0); SODIUM 136.4 mmol/L (137-145)
--- NOTE | 2018-02-28 07:50 | EKG REPORT ---
SEVERITY:- ABNORMAL ECG - ATRIAL FIBRILLATION WITH RAPID V-RATE LEFT AXIS DEVIATION REPOLARIZATION ABNORMALITY, PROB RATE RELATED : Confirmed by: Martina Castellanos MD 28-Feb-2018 07:48:24
[2018-02-28] MEDS: GUAIFENESIN 600 MG TABLET.SA PO SCH (09:30)
[2018-02-28] MEDS: SACUBITRIL/VALSARTAN 24 MG/26 MG TABLET PO SCH (09:30)
[2018-02-28] MEDS: AMIODARONE HCL 200 MG TABLET PO SCH (09:31)
[2018-02-28 10:21] LABS: APPEARANCE,URINE CLEAR; BILIRUBIN,URINE NEGATIVE (NEGATIVE); COLOR,URINE YELLOW; GLUCOSE, URINE NEGATIVE (NEGATIVE); KETONES,URINE TRACE mg/dL (NEGATIVE); LEUKOCYTE ESTERASE,URINE NEGATIVE (NEGATIVE); NITRITE,URINE NEGATIVE (NEGATIVE); PROTEIN,URINE NEGATIVE (NEGATIVE); URINE SPECIFIC GRAVITY 1.023; UROBILINOGEN,URINE NEGATIVE mg/dL (<2.0)
[2018-02-28] MEDS ORDERED: FLUTICASONE NASAL SPRAY 50 MCG/SPRY 120 SPRAY/16 GM NASL ONE (13:30)
[2018-02-28] MEDS ORDERED: DIGOXIN INJ 0.5 MG/2 ML AMPULE IV ONE ×2 (16:35→21:00)
[2018-02-28] MEDS ORDERED: LORAZEPAM 0.5 MG TABLET PO PRN (16:40)
[2018-02-28] MEDS ORDERED: DIGOXIN INJ 0.5 MG/2 ML AMPULE ONE ×2 (16:40→19:45)
[2018-02-28] MEDS ORDERED: DILTIAZEM HCL/D5W 125 MG/125 ML RTUINJ IV ONE (17:11)
[2018-02-28] MEDS: DILTIAZEM HCL/D5W 125 MG/125 ML RTUINJ IV PRN (17:17)
[2018-02-28] MEDS ORDERED: DILTIAZEM HCL INJ 25 MG/5 ML VIAL ONE (17:23)
--- NOTE | 2018-02-28 17:29 | RADIOLOGY REPORT (SQ) ---
EXAM DESCRIPTION: CHEST SINGLE VIEW COMPLETED DATE/TIME: 02/28/2018 5:17 pm REASON FOR STUDY: Dyspnea COMPARISON: 02/27/2018. FINDINGS: Single-view chest AP portable upright. Worsening perihilar and upper lobe infiltrates/edema compared to yesterday. No pneumothorax. Hyperi nflated lungs with cardiomegaly otherwise. IMPRESSION: Worsening infiltrates/edema. TECHNICAL DOCUMENTATION: JOB ID: [id number] Reading location - IP/workstation name: [email or web address]
[2018-02-28] MEDS ORDERED: DILTIAZEM HCL INJ 25 MG/5 ML VIAL IV ONE (17:45)
[2018-02-28] MEDS ORDERED: NITROGLYCERIN 2% OINTMENT 1 GM PACKET TP ONE (17:45)
[2018-02-28] MEDS ORDERED: MORPHINE SULFATE 10 MG/ML INJ ONE (18:08)
[2018-02-28] MEDS ORDERED: FUROSEMIDE INJ/PF 40 MG/4 ML SDV ONE (18:09)
[2018-02-28] MEDS ORDERED: FUROSEMIDE INJ/PF 40 MG/4 ML SDV IV ONE (18:15)
[2018-02-28] MEDS ORDERED: MORPHINE SULFATE 10 MG/ML INJ IV ONE (19:00)
[2018-02-28] MEDS ORDERED: MIDAZOLAM 2 MG/2 ML INJ ONE (19:23)
--- NOTE | 2018-02-28 19:24 | RADIOLOGY REPORT (SQ) ---
EXAM DESCRIPTION: CTA CHEST COMPLETED DATE/TIME: 02/28/2018 7:08 pm REASON FOR STUDY: chest pain, SOB COMPARISON: Recent radiographs. TECHNIQUE: CT scan of the chest performed using helical scanning technique with dynamic intravenous contrast injection. Images reviewed with lung, soft tissue and bone windows. Reconstructed coronal and sagittal MPR images reviewed. Additional 3 dimensional post-processing performed to develop Maximal Intensity Projection images (PR P). All images stored on PACS. All CT scanners at this facility use dose modulation, iterative reconstruction, and/or weight based d osing when appropriate to reduce radiation dose to as low as reasonably achievable (ALARA). [facility]: Dose Right [facility]: CareDose [facility]: Dose Right [facility]: Teradose 4D [facility]: Pay by Shopping ([employer]) CONTRAST TYPE AND DOSE: contrast/concentration: Isovue mg/ml; Total Contrast Delivered: 78.0 ml; To shyam Saline Delivered: 90.0 ml Contrast bolus optimized for the pulmonary arteries. Not diagnostic for the aorta. RENAL FUNCTION: GFR > 60. RADIATION DOSE: CT Rad equipment meets quality standard of care and radiation dose reduction techniq ues were employed. CTDIvol: 20.1 - 59.5 mGy. DLP: 885 mGy-cm. . LIMITATIONS: None. FINDINGS: LUNGS AND PLEURA: Largely ground-glass interstitial opacities in the upper lobes, perihila r and lower lobes. Small -moderate right pleural effusion. Associated mild volume loss right lower lobe. Small left pleural effusion. AORTA AND GREAT VESSELS: No aneurysm. Contrast bolus not optimized for the aorta. HEART: Cardiac enlargement. No pericardial effusion. Moderate coronary calcification. PULMONARY ARTERIES: No emboli visualized in the main pulmonary arteries or the segmental branches. HILAR AND MEDIASTINAL STRUCTURES: Small mediastinal and hilar nodes, generally subcentimeter. HARDWARE: None in the chest. UPPER ABDOMEN: No significant findings. Limited exam. THYROID AND OTHER SOFT TISSUES: No masses. No adenopathy. BONES: No acute or significant finding. 3D MIPS: Confirm above findings. OTHER: No other significant finding. IMPRESSION: 1. No pulmonary embolus. 2. Findings likely predominantly related to congestive failur e including cardiomegaly, edema and effusions as above. COMMENT: Quality ID # [id number]: Final reports with documentation of one or more dose reduction techniques (e.g., Automated exposure control, adjustment of the mA and/or kV according to patient size, use of iterative reconstruction technique) TECHNICAL DOCUMENTATION: JOB ID: [id number] [employer]- All Rights Reserved Reading location - IP/workstation name: [email or web address]
[2018-02-28] MEDS ORDERED: PROPOFOL 1,000 MG/100 ML INFUS..BTL IV ONE (19:26)
[2018-02-28 19:35] LABS: ARTERIAL BLOOD BASE EXCESS -0.3 mmol/L; ARTERIAL BLOOD H2CO3 1.35 mmol/L (1.05-1.35); ARTERIAL BLOOD HCO3 25.4 mmol/L (20-24); ARTERIAL BLOOD O2 SATURATION 97.1 % (94-98); ARTERIAL BLOOD PCO2 44.9 mmHg (35-45); ARTERIAL BLOOD PH 7.37 (7.35-7.45); ARTERIAL BLOOD PO2 95.4 mmHg (80-100); ARTERIAL BLOOD TOTAL CO2 26.8 mmol/L (23-27)
[2018-02-28] MEDS: PROPOFOL 1,000 MG/100 ML INFUS..BTL IV PRN (19:35)
[2018-02-28 19:36] LABS: ARTERIAL BLOOD FIO2 12L
[2018-02-28] MEDS ORDERED: ACETAMINOPHEN SOLN 325 MG/10.15 ML UDCUP ONE (19:59)
[2018-02-28] MEDS ORDERED: HYDROCORTISONE SOD SUCCINATE INJ/PF 100 MG/2 ML SDV ONE (20:08)
[2018-02-28] MEDS ORDERED: DILTIAZEM HCL/D5W 125 MG/125 ML RTUINJ IV PRN (20:12)
--- NOTE | 2018-02-28 20:20 | Progress Note ---
Provider Note Provider Note: I was called to see the patient due to change of status. Patient was admitted for CHF and atrial fibrillation. His heart rate was in 140s/150s and he was on high dose of Cardizem drip. He received IV Cardizem bolus, oral amiodarone, oral beta-jewels and oral digoxin. Patient respiratory status was decompensated. He was severely tachypneic. His pulse ox was 87% on 6 L of nasal cannula oxygen. And he was then put on nonrebreather oxygen. CT angiogram of the lung was done emergently and patient was negative for PE. CT was positive for pulmonary edema. Patient was diuresed with IV Lasix. He was given IV morphine and topical nitroglycerin. On exam shows rapid A. fib, patient in severe distress, severe tachypnea, diffuse rhonchi and crackles bilaterally. Patient is full code and was okay for intubation. Intubation procedure was done emergently. The patient consented to the procedure prior to intubation. Dr. Castellanos came to the bedside and changed his medications. Critical care time spent was 35 minutes exclusive of any procedures.
--- NOTE | 2018-02-28 20:23 | Progress Note ---
Provider Note Provider Note: Bedside procedure: Endotracheal intubation, emergent Patient was positioned and received sedation with IV propofol and IV rocuronium as paralytic. Using laryngoscope, epiglottis and vocal cords were visualized and #8 endotracheal tube was inserted at 23 cm. Appropriate position of the tube was confirmed by color capnography and auscultating chest bilaterally. Chest x-ray was ordered to verify positioning.
[2018-02-28 20:30] LABS: ALANINE AMINOTRANSFERASE 103 U/L (21-72); ALBUMIN 3.4 g/dL (3.5-5.0); ALKALINE PHOSPHATASE 95 U/L (38-126); ASPARTATE AMINO TRANSFERASE 123 U/L (17-59); BILIRUBIN,DIRECT 0.5 mg/dL (0.0-0.4); BILIRUBIN,TOTAL 0.8 mg/dL (0.2-1.3); TOTAL PROTEIN 6.2 g/dL (6.3-8.2)
[2018-02-28] MEDS ORDERED: MIDAZOLAM HCL 50 MG/100 ML RTUINJ ONE (20:39)
[2018-02-28] MEDS: MIDAZOLAM HCL 50 MG/100 ML RTUINJ IV PRN (20:39)
[2018-02-28 20:47] LABS: FREE T3 3.05 pg/mL (2.77-5.27); FREE T4 (FREE THYROXINE) 1.68 ng/dL (0.78-2.19)
--- NOTE | 2018-02-28 20:55 | RADIOLOGY REPORT (SQ) ---
EXAM DESCRIPTION: CHEST SINGLE VIEW COMPLETED DATE/TIME: 02/28/2018 8:12 pm REASON FOR STUDY: ET TUBE PLACEMENT COMPARISON: Radiographs and CT from earlier. FINDINGS: AP portable semi-upright chest images. Nasogastric tube down, appropriate. Endotracheal tube down with tip to the level of the clavicles. Lordotic positioning limits. Probabl y appropriate. TECHNICAL DOCUMENTATION: JOB ID: [id number] Reading location - IP/workstation name: [email or web address]
[2018-02-28 21:00] LABS: THYROID STIMULATING HORMONE 1.86 uIU/mL (0.47-4.68)
[2018-02-28] MEDS ORDERED: HYDROCORTISONE SOD SUCCINATE INJ/PF 250 MG/2 ML SDV IV SCH (21:00)
[2018-02-28] MEDS ORDERED: NORMAL SALINE 1000 ML 250 ML IV ONE (21:00)
[2018-02-28] MEDS ORDERED: PHARMACY COMMUNICATION ORDER MC NR (21:30)
[2018-02-28 21:33] LABS: ARTERIAL BLOOD BASE EXCESS 1.7 mmol/L; ARTERIAL BLOOD H2CO3 1.35 mmol/L (1.05-1.35); ARTERIAL BLOOD HCO3 27.1 mmol/L (20-24); ARTERIAL BLOOD O2 SATURATION 96.9 % (94-98); ARTERIAL BLOOD TOTAL CO2 28.5 mmol/L (23-27)
[2018-02-28 21:34] LABS: ARTERIAL BLOOD FIO2 80%
--- NOTE | 2018-02-28 21:47 | PROGRESS NOTE E ---
Progress Note NAME: ABE DAILY : 1950 AGE: 67Y DATE: 02/28/2018 ROOM: 601 SUBJECTIVE: The patient is currently sitting on the side of the bed, eating his lunch. The patient states that he has been producing a significant amount of sputum, coughing up a lot of brown rust colored stuff. The patient also now complains of nasal congestion and does not voice any other concerns at this time. Overall, states he feels much better but is irritated with people being in his room frequently. BRIEF HISTORY: The patient is a 67 year old male with a part medical history of COPD, AFIB, cardiomyopathy with an EF 20% and chronic anticoagulation with Coumadin. The patient presented to the ED with dyspnea and was found to be in RVR with a rate of 190. The patient was given Cardizem in the ED without benefit but responded nicely to digoxin. INR was therapeutic. Patient appeared clinically dehydrated but was only given a half-liter of fluid judiciously given his cardiomyopathy. Diuretics held but will resume in the am. The patient was found to have pneumonia and severe anxiety. Patient was admitted, covered with meropenem and resumed on home medications. Rate has been controlled since admission. Appears, much improved. REVIEW OF SYSTEMS: The rest of review of systems is negative. MEDICATIONS: Have been reviewed. OBJECTIVE: GENERAL: The patient is a 67-year-old male who is awake, alert, and oriented to person, time, place, situation. He is verbal, conversational. He does not appear to be in any acute distress. VITAL SIGNS: Temperature is 97.6, pulse 95, respirations 20, blood pressure is 106/88, oxygen saturation is 95% on 2.5 liters nasal cannula. SKIN: Very dry. No rash. He is not diaphoretic. HEENT: Pupils are reactive. Mucous membranes soto appear a little dry. There is no evidence of JVP. CARDIOVASCULAR: Heart is irregularly irregular. There is no rub. CHEST: Diminished. The patient has bilateral expiratory wheezes with rhonchorous breath sounds in right lung field. ABDOMEN: Soft, nontender. BACK: No CVA tenderness, sacral edema. EXTREMITIES: No clubbing, cyanosis, with chronic right lower extremity edema. PSYCHIATRIC: Appropriate affect, pleasant mood. DIAGNOSTICS: Lab values are as follows - Hematology obtained on 02/28/2018; WBCs are 17.0, hemoglobin is 16.0, hematocrit 47.4, platelet count is 150,000. Chemistry obtained on 02/28/2018; sodium is 136, potassium 4.6, chloride is 106, carbon dioxide 21, BUN 15, creatinine is 0.8, glucose 123, calcium is 8.7, magnesium is 2.3. Sputum culture is pending. IMPRESSION AND PLAN: 1. RIGHT LOWER LOBE PNEUMONIA, COMMUNITY ACQUIRED VERSUS AN ASPIRATION. I have covered the patient for anaerobes as well as gram-negative given his history. The patient states he sometimes feels he gets choked with his food but it is not always and it is not consistent, but will cover this way for now. Speech therapy consult for tomorrow. 2. ATRIAL FIBRILLATION WITH RAPID VENTRICULAR RESPONSE. Appreas to have missed a dose of his beta jewels as well. Continued his amiodarone. The patient has significant cardiomyopathy. He has responded nicely to oral agents and will continue these for now. 3. CHRONIC SYSTOLIC CONGESTIVE HEART FAILURE. The patient has an EF of 20%. The patient actually appeared a little dehydration so I am continuing to hold his diuretic today. Does have chronic edema. 4. HYPERTENSION. Blood pressures are on the soft side. Will follow. 5. ACUTE, MOST LIKELY, ON CHRONIC HYPOXEMIC RESPIRATORY FAILURE. Continue supplemental O2. 6. ACUTE KIDNEY INJURY. The patient did receive 500 mL of volume yesterday and his creatinine has returned to its baseline. CODE STATUS: The patient is a full code. DISPOSITION: Depending on the patient's symptomatology and diagnostic findings will reevaluate in the a.m. ADDENDUM: 1640, I was notified by nursing staff that the patient had appeared to be in RVR after coughing spell, anxious, with chest tightness. Troponin, EKG , nitropaste ordered, chest x-ray. Digoxin ordered. Heart rate to 170 like yesterday in the ED which responded well to digoxin. Consultation with Dr. Guerrero, the only available Lab Instructor. Recommendations were to start Cardizem gtt. Patient was hypertensive SBP >170. 20mg push ordered. Heart rate improved to 130 after bolus. Cross coverage began. 1800: CTA of the chest ordered STAT. At 1810, discussed the case with the patient's Lab Instructor who deferred consultation to Dr. Guerrero who agreed to evaluate the patient at bedside. TIME SPENT: On this follow up, including assessment and plan, physical examination, patient education, review of records is 60 minutes. DICTATING PHYSICIAN: ANGELICA GR NP [id number] PHY#: [id number] ID: [id number] JOB#: [id number] ACCT: [id number] cc: > MTDD
--- NOTE | 2018-02-28 21:48 | RADIOLOGY REPORT (SQ) ---
EXAM DESCRIPTION: XR CHEST 1 VIEW COMPLETED DATE/TME: 02/28/2018 00:00 CLINICAL HISTORY: 67 years, Male, resp failure COMPARISON: EXAM DESCRIPTION: CLINICAL HISTORY: resp failure COMPARISON: None. FINDINGS: Single view of the chest is submitted. Cardiac silhouette is moderately enlarged. ET tube tip is at T4. NG tube extends at least to the gastric lumen. There is bilateral pulmonary edema and there is consolidation at the left medial lung base with atelectasis at the right lung base. IMPRESSION: Cardiomegaly, bilateral pulmonary edema. Left lung base consolidation.
[2018-02-28] MEDS: DEXTROSE 5%-WATER 250 ML with NOREPINEPHRINE BITARTRATE 4 MG IV PRN ×2 (21:50)
[2018-02-28] MEDS ORDERED: NOREPINEPHRINE BITARTRATE INJ/PF 4 MG/4 ML SDV IV ONE (21:50)
[2018-02-28] MEDS ORDERED: LORAZEPAM 0.5 MG TABLET NG PRN (22:00)
[2018-02-28] MEDS ORDERED: ROCURONIUM BROMIDE INJ 50 MG/5 ML VIAL IV ONE (22:00)
[2018-02-28] MEDS ORDERED: MONTELUKAST SODIUM 10 MG TABLET PO SCH (22:00)
[2018-02-28] MEDS ORDERED: GUAIFENESIN SYRP 200 MG/10 ML UDC PO SCH (22:00)
--- NOTE | 2018-02-28 22:16 | PDOC CONSULTATION ---
Consultation-Blank Consultation: CARDIOLOGY CONSULTATION by Dr. Martina Castellanos on 02/28/2018. Patient seen at 7:30 PM on 02/28/2018. REASON FOR CONSULTATION: Atrial fibrillation with rapid ventricular response. HISTORY OF PRESENT ILLNESS: Note that the patient was just intubated and is also being sedated. Hence unable to obtain history from the patient. History obtained from the hospitalist and also from the patient's chart. Patient is a 67-year-old male with known history of chronic atrial fibrillation, on amiodarone and Coumadin, history of ischemic cardiomyopathy, LV ejection fraction severely reduced around 20-25% admitted with the shortness of breath on 02/27/2018. He states that this started when he ate some lettuce and around Thanksgiving and was told it was contaminated with the E. coli. The patient states that he had diarrhea and became progressively weak and developed a cold and bronchitis. Note that the patient the patient is a ex-heavy smoker, and possibly has COPD, although he is not on medication for this. From his other chart it was noted that the patient has chronic atrial fibrillation, the patient stated that recently his atrial fibrillation kicked in with rapid ventricular response. In spite of the patient receiving digoxin and and Cardizem the patient continued to be in atrial fibrillation with rapid ventricular response with a ventricular response in the 140s. His blood blood pressure was just above 100. The patient also was having increasing respiratory difficulty, and after CTA of the chest came back to the ICU and had to be intubated. The patient's CT angiogram shows groundglass appearance and right pleural effusion, and cannot excludes congestive heart failure. The area or other worrisome data could be that this could have superimposed amiodarone lung toxicity. Also his liver function tests are abnormal. Hence his amiodarone has been discontinued. The patient was clinically not in heart failure and received a bolus of 250 of normal saline and the patient blood pressure did come up. And the heart rate did come down and they were able to start the patient back on Cardizem drip at 15 mg/h and his heart rate is in the 90s to the low 100s. With a stable blood pressure. PAST MEDICAL HISTORY: He has a history of atrial fibrillation, hypertension, and has a history of ischemic cardia myopathy, but his coronary anatomy is not known. He is that he has severely reduced LV ejection fraction of 20-25%. He also has most likely COPD since he has been a heavy smoker in the past although he recently quit. He has no history of diabetes mellitus or thyroid disease. There is no documented prior history of TIA or CVA. In April 2017 he was also in atrial fibrillation, and LV ejection fraction was severely reduced. The patient was discharged home on a LifeVest. But I do not have the records as to when he had follow-up for placement of a AICD. PAST SURGICAL HISTORY: Cardiac Catheterization. Social HISTORY: Patient is ex-smoker used to smoke heavily. There is no history of EtOH abuse. ALLERGIES: No known allergies. DISPOSITION: The patient is a full code. His Ms. Putnam is a surrogate healthcare decision maker. REVIEW SYSTEMS: Not obtainable since the patient is intubated and sedated, and there is no family member available. On examination the patient is on the ventilator, and is sedated. He appears to be chronically ill. He is well-groomed. He is febrile with a temperature of 101.82F to 102 F. 02/28/18 02/28/18 21:41 21:42 Core 101.8 F H 101.8 F H Temperature Heart Rate ( 94 94 Monitors) Respiratory 24 H 23 H Rate Blood Pressure 90/55 L Blood Pressure 66 Mean O2 Sat by Pulse 95 95 Oximetry On mechanical ventilator HEAD: Is atraumatic normocephalic. EYES: Pupils are equal round regular reactive to light. ENT is negative. SKIN: Is without any skin lesions or skin rashes. There is no petechia or ecchymosis. NECK: Is supple. There is no JVD. Carotids are equal there is no bruits. There is no lymphadenopathy. Trachea central. LUNGS: There is absent breath sounds in the right base. There is scattered rhonchi. If you dry crackles throughout the lung and also a few fine rales in the left base. There is diminished air entry throughout and hyperresonance. Heart: S1-S2 is heard S1 is of variable intensity there is no S3 gallop. There is no S4 gallop. There is no rub. There is systolic murmur left sternal border and the apex. ABDOMEN: Soft there is no hepatosplenic megaly. Bowel sounds are well heard. EXTREMITIES: Femorals are diminished. There is no femoral bruits. Leg pulses are diminished. There is no pedal edema. There is no DVT or cellulitis. There is no sinus or clubbing. REIMBURSEMENT LIAISON AND psychiatric: Not examined since the patient's intubated and sedated. 02/27/18 02/28/18 02/28/18 12:10 06:06 06:06 WBC 17.0 H RBC 4.73 Hgb 16.0 Hct 47.4 MCV 100 H MCH 33.7 H MCHC 33.7 RDW 14.5 H Plt Count 150 Carbonic Acid HCO3/H2CO3 Ratio ABG pH ABG pCO2 ABG pO2 ABG HCO3 ABG Total CO2 ABG O2 Saturation ABG Base Excess FiO2 Sodium 136.4 L Potassium 4.6 Chloride 106 Carbon Dioxide 21 L Anion Gap 9 BUN 15 Creatinine 0.88 Est GFR (Non-Af Amer) > 60 Glucose 123 H Calcium 8.7 Magnesium 2.3 Total Bilirubin Direct Bilirubin Neonat Total Bilirubin Neonat Direct Bilirubin Neonat Indirect Bili AST ALT Troponin I 0.051 Total Protein Albumin TSH Free T4 Free T3 pg/mL 02/28/18 02/28/18 02/28/18 16:50 19:25 19:40 WBC RBC Hgb Hct MCV MCH MCHC RDW Plt Count Carbonic Acid 1.35 HCO3/H2CO3 Ratio 18:1 ABG pH 7.37 ABG pCO2 44.9 ABG pO2 95.4 ABG HCO3 25.4 H ABG Total CO2 26.8 ABG O2 Saturation 97.1 ABG Base Excess -0.3 FiO2 12L Sodium Potassium Chloride Carbon Dioxide Anion Gap BUN Creatinine Est GFR (Non-Af Amer) Glucose Calcium Magnesium Total Bilirubin Direct Bilirubin Neonat Total Bilirubin Neonat Direct Bilirubin Neonat Indirect Bili AST ALT Troponin I 0.152 0.304 Total Protein Albumin TSH Free T4 Free T3 pg/mL 02/28/18 02/28/18 02/28/18 19:40 19:40 21:21 WBC RBC Hgb Hct MCV MCH MCHC RDW Plt Count Carbonic Acid 1.35 HCO3/H2CO3 Ratio 20:1 ABG pH 7.40 ABG pCO2 45.0 ABG pO2 91.0 ABG HCO3 27.1 H ABG Total CO2 28.5 H ABG O2 Saturation 96.9 ABG Base Excess 1.7 FiO2 80% Sodium Potassium Chloride Carbon Dioxide Anion Gap BUN Creatinine Est GFR (Non-Af Amer) Glucose Calcium Magnesium Total Bilirubin 0.8 Direct Bilirubin 0.5 H Neonat Total Bilirubin Not Reportable Neonat Direct Bilirubin Not Reportable Neonat Indirect Bili Not Reportable AST 123 H ALT 103 H Troponin I Total Protein 6.2 L Albumin 3.4 L TSH 1.86 Free T4 1.68 Free T3 pg/mL 3.05 02/27/18 08:12 Diltiazem HCl [Cardizem Inj 25 mg/5 ml Vial] 15 mg IV NOW ONE 02/27/18 08:35 Digoxin Inj [Lanoxin Inj 0.5 mg/2 ml Ampule] 0.5 mg IV NOW ONE 02/27/18 09:04 Methylprednisolone Sod Succ/Pf [Solu-Medrol Inj/Pf 125 mg/2 ml Sdv] 125 mg IV NOW ONE 02/27/18 10:39 Ceftriaxone Sodium [Rocephin Inj 1000 mg Vial] 2,000 mg IV IVBAG (ED) ONE 02/27/18 10:40 Azithromycin [Zithromax Inj 500 mg Vial] 500 mg IV IVBAG (ED) ONE 02/27/18 14:00 Guaifenesin [Mucinex Sr 600 mg Tablet.sa] 1,200 mg PO NOW ONE Meropenem [Merrem 1 gm Vial] 1 gm Normal Saline [NaCl 0.9% 50 ml IV Soln] 50 ml IV Q8 Normal Saline [Saline Flush 2.5 ml Monoject Prefil Syrin] 2.5 ml IV Q8 02/27/18 16:00 Normal Saline [NaCl 0.9% 500 ml IV Soln] 500 ml IV BOLUS 02/27/18 17:14 Flu Vacc [id number](6Mos Up)/Pf [Fluarix Adlt Quad Vac 0.5 ml Syr] 0.5 ml IM .DISCHARGE PRN 02/27/18 18:00 Metoprolol Succinate [Toprol Xl 50 mg Tab.sr] 50 mg PO Q12A 02/28/18 13:30 Fluticasone Propionate [Flonase Nasal Joes 50 Mcg/Joes 16 gm] 2 spray NASL NOW ONE 02/28/18 16:35 Digoxin Inj [Lanoxin Inj 0.5 mg/2 ml Ampule] 0.25 mg IV NOW ONE 02/28/18 16:40 Digoxin Inj [Lanoxin Inj 0.5 mg/2 ml Ampule] 0.5 mg .ROUTE .STK-MED ONE 02/28/18 16:56 Diltiazem HCl/D5w [Cardizem RTU Inj 125 mg-D5w 125 ml Premix] 125 mg in 125 ml IV CONTINUOUS 02/28/18 17:11 Diltiazem HCl/D5w [Cardizem RTU Inj 125 mg-D5w 125 ml Premix] 125 mg in 125 ml IV .STK-MED 02/28/18 17:23 Diltiazem HCl [Cardizem Inj 25 mg/5 ml Vial] 25 mg .ROUTE .STK-MED ONE 02/28/18 17:45 Diltiazem HCl [Cardizem Inj 25 mg/5 ml Vial] 20 mg IV NOW ONE Nitroglycerin [Nitrol 2% Ointment 1Gm Packet] 1 gm TP NOW ONE 02/28/18 18:08 Morphine Sulfate [Morphine 10 mg/ml Inj] 10 mg .ROUTE .STK-MED ONE 02/28/18 18:09 Furosemide [Lasix Inj/Pf 40 mg/4 ml Sdv] 40 mg .ROUTE .STK-MED ONE 02/28/18 18:15 Furosemide [Lasix Inj/Pf 40 mg/4 ml Sdv] 40 mg IV NOW ONE 02/28/18 19:00 Morphine Sulfate [Morphine 10 mg/ml Inj] 2 mg IV NOW ONE 02/28/18 19:23 Midazolam HCl [Versed 2 mg/2 ml Inj] 2 mg .ROUTE .STK-MED ONE 02/28/18 19:26 Propofol [Diprivan RTU 1000 mg/100 ml Inf.bottle] 1,000 mg in 100 ml IV .STK- MED 02/28/18 19:45 Digoxin Inj [Lanoxin Inj 0.5 mg/2 ml Ampule] 0.5 mg .ROUTE .STK-MED ONE 02/28/18 19:59 Acetaminophen [Tylenol Soln 325 mg/10.15 ml Udcup] 325 mg .ROUTE .STK-MED ONE 02/28/18 20:08 Hydrocortisone Sod Succinate [Solu-Cortef Inj/Pf 100 mg/ 2 ml Sdv] 100 mg .ROUTE .STK-MED ONE 02/28/18 20:39 Midazolam HCl [Versed RTU 50 mg/100 ml Premix Bag] 50 mg in 100 ml .ROUTE .STK- MED 02/28/18 20:59 Propofol [Diprivan RTU 1000 mg/100 ml Inf.bottle] 1,000 mg in 100 ml IV CONTINUOUS 02/28/18 21:00 Digoxin Inj [Lanoxin Inj 0.5 mg/2 ml Ampule] 0.25 mg IV NOW ONE Hydrocortisone Sod Succinate [Solu-Cortef Inj/Pf 250 mg/2 ml Sdv] 250 mg IV NOW Normal Saline 1000 ml [NaCl 0.9% 1000 ml IV Soln] 250 ml IV NOW 02/28/18 21:30 Pharmacy Communication [Medication Communication Order] 1 each .NOTICE NR 02/28/18 22:00 Acetaminophen [Tylenol 325 mg Tablet] 650 mg NG Q4HP PRN Amiodarone HCl [Cordarone 200 mg Tablet] 200 mg NG Q12 Atorvastatin Calcium [Lipitor 40 mg Tablet] 40 mg NG QHS Fluticasone Propionate [Flonase Nasal Joes 50 Mcg/Joes 16 gm] 2 spray NASL Q12 Guaifenesin [Robitussin Syrup 200 mg/10 ml Ud Cup] 1,200 mg NG Q12 Lorazepam [Ativan 0.5 mg Tablet] 0.5 mg NG Q6HP PRN Montelukast Sodium [Singulair 10 mg Tablet] 10 mg NG QHS Sacubitril/Valsartan [Entresto 24 mg/26 mg Tablet] 1 tab NG Q12 Warfarin Sodium [Coumadin 5 mg Tablet] 5 mg NG QHS 03/01/18 10:00 Bumetanide [Bumex 1 mg Tablet] 2 mg NG BID Spironolactone [Aldactone 25 mg Tablet] 25 mg NG DAILY EKG: Shows atrial fibrillation with rapid ventricular response. CHECKS x-ray: Congestive heart failure versus amiodarone lung toxicity. Cardiomegaly. Patient brought pulmonary CT angiogram: Negative for pulmonary emboli. Groundglass appearance diffusely. Bronchitic areas of bronchiectasis. An inter -lobar septal thickening and right pleural effusion IMPRESSION/RECOMMENDATION: 1 acute respiratory failure most likely on chronic respiratory failure: Continue ventilator support. Recommend anti-COPD nebulizer treatments. 2. Atrial fibrillation with rapid ventricular response: Most likely secondary to the patient's decompensated respiratory status. At present on Cardizem drip heart rate is acceptable. Note that the patient's is most likely has chronic atrial fibrillation, and with the patient's liver function test being abnormal would recommend discontinuing amiodarone. The patient did receive another dose of IV digoxin at 0.25 mg IV push x1. We will continue the patient on Cardizem drip. Later we will increase the patient's beta-jewels. 3. Pneumonia: With acute exacerbation of COPD. Continue antibiotics and respiratory treatments. 4. Possible amiodarone toxicity: Although the CT a findings and the chest x- ray findings may represent just heart failure, in view of the abnormal liver function tests and the patient's groundglass appearance and interlobar septal thickening and some areas of bronchiectasis one should keep amiodarone toxicity in mind. The patient was given 1 dose of steroids in the form of hydrocortisone to 50 mL IV push. 5 ISCHEMIC CARDIA myopathy: With severely reduced LV ejection fraction: Would recommend that the patient be referred for AICD placement consideration. Would at present continue the patient's metoprolol XL and Entresto. Will increase the dose of each as permitted by the patient's heart rate and blood pressure. Later we will recheck the patient's echocardiogram. 6. Coronary artery disease, in view of the labile of ischemic cardiomyopathy as a diagnosis. Details of his coronary anatomy is not known. 7. Note abnormal liver function tests: We will follow this since his amiodarone has been stopped. 8. History of hypertension: At present at present blood pressure in the 90s to the 100s. 9. Elevated troponin I: Most likely secondary to patient's atrial fibrillation with rapid ventricular response in a patient with severely depressed LV ejection fraction. Note medications have been reviewed. Medications adjusted. Management plan discussed with the hospitalist take care of the patient. Medical decision making is of high complexity. Note 60 minutes spent on this patient, with more than 50% of time spent in direct patient care. We will try to get the patient' s records from [facility]. We will follow with you
[2018-02-28] MEDS: AMIODARONE HCL 200 MG TABLET NG SCH (22:27)
[2018-02-28] MEDS: FLUTICASONE NASAL SPRAY 50 MCG/SPRY 120 SPRAY/16 GM NASL SCH (22:27)
[2018-02-28] MEDS ORDERED: WARFARIN SODIUM 5 MG TABLET ONE (23:01)
[2018-02-28] MEDS: WARFARIN SODIUM 5 MG TABLET NG SCH (23:36)
[2018-02-28] MEDS: MONTELUKAST SODIUM 10 MG TABLET NG SCH (23:36)
[2018-02-28] MEDS: ATORVASTATIN CALCIUM 40 MG TABLET NG SCH (23:36)
[2018-02-28] MEDS: SACUBITRIL/VALSARTAN 24 MG/26 MG TABLET NG SCH (23:37)
[2018-02-28] MEDS: GUAIFENESIN SYRP 200 MG/10 ML UDC NG SCH (23:38)
[2018-03-01] MEDS: MIDAZOLAM HCL 50 MG/100 ML RTUINJ IV PRN ×2 (01:46→13:56)
[2018-03-01] MEDS: PANTOPRAZOLE SODIUM 40 MG VIAL IV SCH ×2 (06:14→18:34)
[2018-03-01] MEDS: MEROPENEM 1 GM in NORMAL SALINE 50 ML IV SCH ×3 (06:14→23:40)
[2018-03-01] MEDS: METOPROLOL SUCCINATE 50 MG TAB.SR.24H PO SCH (06:14)
[2018-03-01 06:42] LABS: ARTERIAL BLOOD BASE EXCESS 2.9 mmol/L; ARTERIAL BLOOD H2CO3 1.17 mmol/L (1.05-1.35); ARTERIAL BLOOD HCO3 26.9 mmol/L (20-24); ARTERIAL BLOOD O2 SATURATION 98.8 % (94-98); ARTERIAL BLOOD PH 7.46 (7.35-7.45); ARTERIAL BLOOD PO2 131.7 mmHg (80-100); ARTERIAL BLOOD TOTAL CO2 28.1 mmol/L (23-27)
[2018-03-01 06:43] LABS: ARTERIAL BLOOD FIO2 40%
[2018-03-01 06:48] LABS: INTERNATIONAL RATION (INR) 3.21; PROTHROMBIN TIME 34.3 SEC (11.4-15.4)
--- NOTE | 2018-03-01 06:59 | RADIOLOGY REPORT (SQ) ---
EXAM DESCRIPTION: XR CHEST 1 VIEW COMPLETED DATE/TME: 03/01/2018 06:30 CLINICAL HISTORY: 67 years, Male, resp. failure COMPARISON: 02/28/2018 chest NUMBER OF VIEWS: 1 TECHNIQUE: Portable chest LIMITATIONS: None. FINDINGS: Heart size is stable. Endotracheal and enteric tubes are in place. No discrete pneumothorax. Biapical pleural thickening and scar formation with underlying COPD. Improvement in perihilar interstitial and airspace opacities. No pneumothorax IMPRESSION: Improvement in perihilar opacities. Other findings are grossly stable copyright 2010 [employer]- All Rights Reserved
[2018-03-01 07:03] LABS: ALANINE AMINOTRANSFERASE 84 U/L (21-72); ALBUMIN 2.8 g/dL (3.5-5.0); ALKALINE PHOSPHATASE 73 U/L (38-126); ANION GAP 5 (5-19); ASPARTATE AMINO TRANSFERASE 76 U/L (17-59); BILIRUBIN,DIRECT 0.4 mg/dL (0.0-0.4); BILIRUBIN,TOTAL 0.8 mg/dL (0.2-1.3); BLOOD UREA NITROGEN 22 mg/dL (7-20); CARBON DIOXIDE 29 mmol/L (22-30); CHLORIDE 103 mmol/L (98-107); GLUCOSE 113 mg/dL (75-110); POTASSIUM 4.3 mmol/L (3.6-5.0); SODIUM 136.8 mmol/L (137-145); TOTAL PROTEIN 5.6 g/dL (6.3-8.2)
[2018-03-01 07:06] LABS: HEMATOCRIT 48.6 % (37.9-51.0); HEMOGLOBIN 16.4 g/dL (13.5-17.0); MEAN CORPUSCULAR HEMOGLOBIN 33.4 pg (27.0-33.4); MEAN CORPUSCULAR HGB CONC 33.7 g/dL (32.0-36.0); MEAN CORPUSCULAR VOLUME 99 fl (80-97); PLATELET COUNT 163 10^3/uL (150-450); RED CELL DISTRIBUTION WIDTH 14.7 % (11.5-14.0)
[2018-03-01] MEDS ORDERED: ROCURONIUM BROMIDE INJ 50 MG/5 ML VIAL IV ONE (09:31)
[2018-03-01] MEDS: AMIODARONE HCL 200 MG TABLET NG SCH (10:15)
[2018-03-01] MEDS: FLUTICASONE NASAL SPRAY 50 MCG/SPRY 120 SPRAY/16 GM NASL SCH (11:41)
[2018-03-01] MEDS: GUAIFENESIN SYRP 200 MG/10 ML UDC NG SCH ×3 (11:42→20:22)
[2018-03-01] MEDS ORDERED: DEXTROSE 50%-WATER SYRINGE 12.5 GM/25 ML DOSE IV PRN (11:56)
[2018-03-01] MEDS ORDERED: GLUCAGON,HUMAN RECOMB 1 MG INJ IM PRN (11:56)
[2018-03-01] MEDS ORDERED: DEXTROSE 40% GEL 15 GM TUBE X 2 PO PRN (11:56)
[2018-03-01] MEDS ORDERED: DEXTROSE 50%-WATER SYRINGE 25 GM/50 ML DOSE IV PRN (11:56)
[2018-03-01] MEDS ORDERED: DEXTROSE 40% GEL 15 GM TUBE PO PRN (11:56)
[2018-03-01] MEDS: SACUBITRIL/VALSARTAN 24 MG/26 MG TABLET NG SCH (13:07)
--- NOTE | 2018-03-01 13:25 | PDOC PROGRESS REPORT ---
Subjective Progress Note for:: 03/01/18 Subjective:: Patient was intubated after going into respiratory distress yesterday was moved to the ICU. He is on a small dose of Levophed currently. He is doing well on the ventilator at this time and looks comfortable. He was on a Cardizem drip at one point that was discontinued because of his blood pressure, but fortunately his heart rate has been well enough controlled with digoxin and metoprolol he is getting down his tube. Reason For Visit: AFIB WITH RVR Physical Exam Vital Signs: Temp Pulse Resp BP Pulse Ox 100.6 F H 91 20 102/56 L 99 03/01/18 12:00 03/01/18 12:00 03/01/18 12:00 03/01/18 12:00 03/01/18 12:00 Intake & Output 02/28/18 03/01/18 03/02/18 06:59 06:59 06:59 Intake Total 900 943 202 Output Total 1550 1800 345 Balance -650 -857 -143 Weight 87.3 kg 91.6 kg General appearance: PRESENT: other - Sedated, intubated Respiratory exam: PRESENT: crackles - Upper lobes bilaterally, rhonchi, symmetrical, unlabored. ABSENT: accessory muscle use, tachypnea, wheezes Cardiovascular exam: PRESENT: irregular rhythm Vascular exam: PRESENT: normal capillary refill GI/Abdominal exam: PRESENT: normal bowel sounds, soft. ABSENT: distended, guarding, rebound, tenderness Extremities exam: PRESENT: pedal edema, +1 edema, other - He has some edema in the right upper extremity that he does not have on the left side. ABSENT: clubbing Musculoskeletal exam: PRESENT: normal inspection. ABSENT: deformity Neurological exam: PRESENT: other - Sedated Skin exam: PRESENT: dry, warm Results Laboratory Results: 03/01/18 06:27 03/01/18 06:27 02/28/18 02/28/18 02/28/18 19:25 19:40 19:40 WBC RBC Hgb Hct MCV MCH MCHC RDW Plt Count Carbonic Acid 1.35 HCO3/H2CO3 Ratio 18:1 ABG pH 7.37 ABG pCO2 44.9 ABG pO2 95.4 ABG HCO3 25.4 H ABG O2 Saturation 97.1 ABG Base Excess -0.3 FiO2 12L Sodium Potassium Chloride Carbon Dioxide Anion Gap BUN Creatinine Est GFR ( Amer) Est GFR (Non-Af Amer) Glucose Lactic Acid Calcium Magnesium Total Bilirubin 0.8 AST 123 H ALT 103 H Alkaline Phosphatase 95 Total Protein 6.2 L Albumin 3.4 L Triglycerides TSH 1.86 Free T4 1.68 Free T3 pg/mL 3.05 02/28/18 03/01/18 03/01/18 21:21 01:45 06:27 WBC 14.0 H RBC 4.90 Hgb 16.4 Hct 48.6 MCV 99 H MCH 33.4 MCHC 33.7 RDW 14.7 H Plt Count 163 Carbonic Acid 1.35 HCO3/H2CO3 Ratio 20:1 ABG pH 7.40 ABG pCO2 45.0 ABG pO2 91.0 ABG HCO3 27.1 H ABG O2 Saturation 96.9 ABG Base Excess 1.7 FiO2 80% Sodium Potassium Chloride Carbon Dioxide Anion Gap BUN Creatinine Est GFR ( Amer) Est GFR (Non-Af Amer) Glucose Lactic Acid 1.5 Calcium Magnesium Total Bilirubin AST ALT Alkaline Phosphatase Total Protein Albumin Triglycerides TSH Free T4 Free T3 pg/mL 03/01/18 03/01/18 03/01/18 06:27 06:30 07:18 WBC RBC Hgb Hct MCV MCH MCHC RDW Plt Count Carbonic Acid 1.17 HCO3/H2CO3 Ratio 22:1 ABG pH 7.46 H ABG pCO2 39.0 ABG pO2 131.7 H ABG HCO3 26.9 H ABG O2 Saturation 98.8 H ABG Base Excess 2.9 FiO2 40% Sodium 136.8 L Potassium 4.3 Chloride 103 Carbon Dioxide 29 Anion Gap 5 BUN 22 H Creatinine 1.04 Est GFR ( Amer) > 60 Est GFR (Non-Af Amer) > 60 Glucose 113 H Lactic Acid Calcium 8.0 L Magnesium 2.5 H Total Bilirubin 0.8 AST 76 H ALT 84 H Alkaline Phosphatase 73 Total Protein 5.6 L Albumin 2.8 L Triglycerides 94 TSH Free T4 Free T3 pg/mL 02/28/18 02/28/18 03/01/18 16:50 19:40 00:20 Troponin I 0.152 0.304 Cancelled 03/01/18 03/01/18 00:54 06:27 Troponin I 0.584 0.274 Impressions: Chest/Abdomen CTA 02/28/18 00:00 IMPRESSION: 1. No pulmonary embolus. 2. Findings likely predominantly related to congestive failure including cardiomegaly, edema and effusions as above. Chest X-Ray 03/01/18 06:30 IMPRESSION: Improvement in perihilar opacities. Other findings are grossly stable copyright 2011 [employer]- All Rights Reserved Assessment & Plan - Diagnosis (1) Acute hypoxemic respiratory failure Is this a current diagnosis for this admission?: Yes Plan: Doing well on the vent. As his condition stabilizes we will gradually try to wean him off of the ventilator. We will leave him alone today to give him some rest. (2) Atrial fibrillation with RVR Is this a current diagnosis for this admission?: Yes Plan: Currently on IV digoxin and p.o. metoprolol, rate control is good. Amiodarone has been discontinued because of concerns over possible pulmonary toxicity. (3) Acute on chronic systolic heart failure Is this a current diagnosis for this admission?: Yes Plan: Were cautiously diuresing him keeping an eye on his blood pressure. Tolerating it fairly well so far. We're having to hold his Entresto right now because of his blood pressure. (4) Community acquired pneumonia Qualifiers: Laterality: unspecified laterality Qualified Code(s): J18.9 - Pneumonia, unspecified organism Is this a current diagnosis for this admission?: Yes Plan: Currently on empiric coverage. Cultures are pending. (5) COPD exacerbation Is this a current diagnosis for this admission?: Yes Plan: Does not seem to be acutely exacerbated at this time, has possibly responded to prior treatment. We will continue to de-escalate his steroids. - Time Time Spent with patient: 25-34 minutes
[2018-03-01] MEDS: BUMETANIDE 1 MG TABLET NG SCH ×2 (13:44→19:09)
[2018-03-01] MEDS: SPIRONOLACTONE 25 MG TABLET NG SCH (13:45)
[2018-03-01] MEDS: DEXTROSE 5%-WATER 250 ML with NOREPINEPHRINE BITARTRATE 4 MG IV PRN ×2 (13:57)
[2018-03-01] MEDS: ACETAMINOPHEN 325 MG TABLET NG PRN (14:13)
--- NOTE | 2018-03-01 14:23 | RADIOLOGY REPORT (SQ) ---
EXAM DESCRIPTION: VENOUS UNILATERAL UPPER COMPLETED DATE/TIME: 03/01/2018 2:13 pm REASON FOR STUDY: right upper extremity edema COMPARISON: None. TECHNIQUE: Dynamic and static pandya scale and color images acquired of the right arm venous system. S elected spectral images acquired with additional compression and augmentation maneuvers. The contrala teral subclavian vein and internal jugular vein were also imaged. Images stored on PACS. LIMITATIONS: None. FINDINGS: INTERNAL JUGULAR VEIN: Normal phasicity, compression, augmentation. No visualized echogeni c material on pandya scale. No defects on color images. Comparison opposite side normal. SUBCLAVIAN VEIN: Normal compression, augmentation. No visualized echogenic material on pandya scale. No defects on color images. AXILLARY VEIN: Normal compression, augmentation. No visualized echogenic material on pandya scale. No d efects on color images. BRACHIAL VEIN: Normal compression, augmentation. No visualized echogenic material on pandya scale. No d efects on color images. BASILIC VEIN: Normal compression, augmentation. No visualized echogenic material on pandya scale. No de fects on color images. CEPHALIC VEIN: Normal compression, augmentation. No visualized echogenic material on pandya scale. No d efects on color images. OTHER: No other significant finding. CONTRALATERAL SUBCLAVIAN VEIN AND INTERNAL JUGULAR VEIN: Normal phasicity, compression and augmentation. No visualized echogenic material on pandya scale. No de fects on color images. IMPRESSION: NO EVIDENCE DVT OR SVT IN THE RIGHT ARM. TECHNICAL DOCUMENTATION: JOB ID: [id number] [employer]- All Rights Reserved Reading location - IP/workstation name: [email or web address]
[2018-03-01] MEDS: METOPROLOL TARTRATE 50 MG TABLET NG SCH (18:34)
[2018-03-01] MEDS ORDERED: BUMETANIDE 1 MG TABLET ONE (18:38)
--- NOTE | 2018-03-01 18:59 | PDOC CONSULTATION ---
Consultation Consult Date: 03/01/18 Attending physician:: ANTHONY TSAI Consult reason:: resp failure/chf History of Present Illness Admission Date/PCP: 02/27/18 13:22 [facility] AMIN PA-C History of Present Illness: ABE DAILY is a 67 year old male patient currently intubated and sedated COPD atrial fibrillation with RVR ischemic cardiomyopathy ejection fraction 20% admitted since 02/27 2 diarrhea but is E. coli contamination edition he does have a white blood cell with a unimpressive differential count. Patient has had an abnormal radiograph with a differential diagnosis of pneumonia congestive heart failure and possibly amiodarone toxicity.He is currently easy to oxygenate and ventilate . Past Medical History Cardiac Medical History: Reports: Atrial Fibrillation, Hypertension Pulmonary Medical History: Reports: Bronchitis, Pneumonia Psychiatric Medical History: Denies: Depression Past Surgical History Past Surgical History: Reports: Cardiac Catheterization Social History Information Source: [facility] Records Smoking Status: Former Smoker Frequency of Alcohol Use: Rare Hx Recreational Drug Use: No Hx Prescription Drug Abuse: No - Advance Directive Resuscitation Status: Full Code Family History Family History: CAD Parental Family History Reviewed: No Children Family History Reviewed: No Sibling(s) Family History Reviewed.: No Medication/Allergy Home Medications: Amiodarone HCl [Cordarone 200 mg Tablet] 200 mg PO BID 02/27/18 Amox Tr/Potassium Clavulanate [Augmentin 875-125 mg Tablet] 1 tab PO Q12 Atorvastatin Calcium [Lipitor 40 mg Tablet] 40 mg PO QHS 02/27/18 Bumetanide [Bumex 1 mg Tablet] 2 mg PO BID 02/27/18 Metoprolol Succinate [Toprol Xl 50 mg Tab.sr] 50 mg PO Q12 02/27/18 Sacubitril/Valsartan [Entresto 24 mg/26 mg Tablet] 1 tab PO Q12 02/27/18 Spironolactone [Aldactone 25 mg Tablet] 25 mg PO DAILY 02/27/18 Warfarin Sodium [Coumadin 5 mg Tablet] 5 mg PO DAILY 02/27/18 Allergies/Adverse Reactions: No Known Allergies Allergy (Verified 04/28/17 11:24) Review of Systems ROS unobtainable: Due to endotracheal tube Physical Exam Vital Signs: Temp Pulse Resp BP Pulse Ox 99.5 F 87 20 107/60 99 03/01/18 10:00 12/16/18 10:00 03/01/18 10:00 03/01/18 10:00 03/01/18 11:35 Intake & Output 02/28/18 03/01/18 03/02/18 06:59 06:59 06:59 Intake Total 900 943 202 Output Total 1550 1800 250 Balance -650 -857 -48 Weight 87.3 kg 91.6 kg General appearance: PRESENT: no acute distress, cooperative, disheveled, well- developed, well-nourished Head exam: PRESENT: atraumatic, normocephalic Eye exam: PRESENT: conjunctiva pale. ABSENT: nystagmus, scleral icterus Mouth exam: PRESENT: dry mucosa, neck supple, tongue midline, other - ET tube Neck exam: ABSENT: carotid bruit, JVD, lymphadenopathy, thyromegaly, tracheal deviation, tracheostomy Respiratory exam: PRESENT: crackles, decreased breath sounds, prolonged expiratory phas, rhonchi, unlabored. ABSENT: retraction, stridor, tachypnea Cardiovascular exam: PRESENT: irregular rhythm Pulses: PRESENT: normal radial pulses GI/Abdominal exam: PRESENT: soft. ABSENT: tenderness Gentrourinary exam: PRESENT: indwelling catheter Extremities exam: ABSENT: clubbing, joint swelling, pedal edema Musculoskeletal exam: ABSENT: ambulatory, deformity, dislocation Neurological exam: ABSENT: awake Skin exam: PRESENT: dry, warm Results Laboratory Results: 03/01/18 06:27 03/01/18 06:27 02/28/18 02/28/18 02/28/18 19:25 19:40 19:40 WBC RBC Hgb Hct MCV MCH MCHC RDW Plt Count Carbonic Acid 1.35 HCO3/H2CO3 Ratio 18:1 ABG pH 7.37 ABG pCO2 44.9 ABG pO2 95.4 ABG HCO3 25.4 H ABG O2 Saturation 97.1 ABG Base Excess -0.3 FiO2 12L Sodium Potassium Chloride Carbon Dioxide Anion Gap BUN Creatinine Est GFR ( Amer) Est GFR (Non-Af Amer) Glucose Lactic Acid Calcium Magnesium Total Bilirubin 0.8 AST 123 H ALT 103 H Alkaline Phosphatase 95 Total Protein 6.2 L Albumin 3.4 L Triglycerides TSH 1.86 Free T4 1.68 Free T3 pg/mL 3.05 02/28/18 03/01/18 03/01/18 21:21 01:45 06:27 WBC 14.0 H RBC 4.90 Hgb 16.4 Hct 48.6 MCV 99 H MCH 33.4 MCHC 33.7 RDW 14.7 H Plt Count 163 Carbonic Acid 1.35 HCO3/H2CO3 Ratio 20:1 ABG pH 7.40 ABG pCO2 45.0 ABG pO2 91.0 ABG HCO3 27.1 H ABG O2 Saturation 96.9 ABG Base Excess 1.7 FiO2 80% Sodium Potassium Chloride Carbon Dioxide Anion Gap BUN Creatinine Est GFR ( Amer) Est GFR (Non-Af Amer) Glucose Lactic Acid 1.5 Calcium Magnesium Total Bilirubin AST ALT Alkaline Phosphatase Total Protein Albumin Triglycerides TSH Free T4 Free T3 pg/mL 03/01/18 03/01/18 03/01/18 06:27 06:30 07:18 WBC RBC Hgb Hct MCV MCH MCHC RDW Plt Count Carbonic Acid 1.17 HCO3/H2CO3 Ratio 22:1 ABG pH 7.46 H ABG pCO2 39.0 ABG pO2 131.7 H ABG HCO3 26.9 H ABG O2 Saturation 98.8 H ABG Base Excess 2.9 FiO2 40% Sodium 136.8 L Potassium 4.3 Chloride 103 Carbon Dioxide 29 Anion Gap 5 BUN 22 H Creatinine 1.04 Est GFR ( Amer) > 60 Est GFR (Non-Af Amer) > 60 Glucose 113 H Lactic Acid Calcium 8.0 L Magnesium 2.5 H Total Bilirubin 0.8 AST 76 H ALT 84 H Alkaline Phosphatase 73 Total Protein 5.6 L Albumin 2.8 L Triglycerides 94 TSH Free T4 Free T3 pg/mL 02/28/18 02/28/18 03/01/18 16:50 19:40 00:20 Troponin I 0.152 0.304 Cancelled 03/01/18 03/01/18 00:54 06:27 Troponin I 0.584 0.274 Impressions: Chest/Abdomen CTA 02/28/18 00:00 IMPRESSION: 1. No pulmonary embolus. 2. Findings likely predominantly related to congestive failure including cardiomegaly, edema and effusions as above. Chest X-Ray 03/01/18 06:30 IMPRESSION: Improvement in perihilar opacities. Other findings are grossly stable copyright 2011 [employer]- All Rights Reserved Assessment & Plan - Diagnosis (1) Acute hypoxemic respiratory failure Is this a current diagnosis for this admission?: Yes Plan: Oxygenate and ventilate as needed (2) Acute on chronic systolic heart failure Is this a current diagnosis for this admission?: Yes Plan: As per cardiology (3) Atrial fibrillation with RVR Is this a current diagnosis for this admission?: Yes Plan: Digoxin plus Cardizem stable at this time - Time Total Critical Time (Minutes): 55
--- NOTE | 2018-03-01 19:01 | RADIOLOGY REPORT (SQ) ---
EXAM DESCRIPTION: CT CHEST WITHOUT COMPLETED DATE/TIME: 03/01/2018 6:22 pm REASON FOR STUDY: HI-RES :AMIODARONE TOXICITY COMPARISON: Previous day. TECHNIQUE: Prone and supine high resolution technique imaging performed through the lungs windowed f or lung windows. Additional focused imaging through the levels of the aortic arch, daniele and diaphr agm. Limited evaluation of the mediastinum. All CT scanners at this facility use dose modulation, iterative reconstruction, and/or weight based d osing when appropriate to reduce radiation dose to as low as reasonably achievable (ALARA). [facility]: Dose Right [facility]: CareDose [facility]: Dose Right [facility]: Teradose 4D [facility]: Plasmonix RADIATION DOSE: CT Rad equipment meets quality standard of care and radiation dose reduction techniq ues were employed. CTDIvol: 4.6 mGy. DLP: 160 mGy-cm. mGy. LIMITATIONS: None. FINDINGS: LUNGS AND PLEURA: Small bilateral pleural effusions. Improved aeration in the upper lobes . No hyper dense consolidation. No honeycombing. Reticulonodular pattern in the lower lobes. Diff use ground-glass attenuation with upper lobe predominance. Paraseptal emphysematous changes in the u pper lobes. LIMITED MEDIASTINUM: No masses. BONES: Nothing acute. OTHER: Appropriate position of endotracheal tube. Nasogastric tube. IMPRESSION: Overall improvement since yesterday. There is a background of chronic interstitial lung disease. No definitive findings to suggest amiodarone toxicity. TECHNICAL DOCUMENTATION: JOB ID: [id number] Quality ID # [id number]: Final reports with documentation of one or more dose reduction techniques (e.g., Au tomated exposure control, adjustment of the mA and/or kV according to patient size, use of iterative reconstruction technique) 2010 [employer]- All Rights Reserved Reading location - IP/workstation name: [email or web address]
[2018-03-01] MEDS ORDERED: ACETAMINOPHEN SOLN 325 MG/10.15 ML UDCUP ONE (20:19)
[2018-03-01] MEDS: MONTELUKAST SODIUM 10 MG TABLET NG SCH (23:47)
--- NOTE | 2018-03-02 00:04 | Progress Note ---
Provider Note Provider Note: CARDIOLOGY PROGRESS NOTES by Dr. Menendez assessment on 03/01/2018. SUBJECTIVE: The patient is intubated and sedated. His blood pressure dropped and the patient is on Levophed at 4 mcg/min to keep his blood pressure up. He continues to be in atrial fibrillation, but at present controlled ventricular response. In view of his blood pressure being low his Cardizem had to be stopped. Also his Entresto will be held. We will cautiously use beta-jewels. There is no ventricular arrhythmia seen on the monitor. PHYSICAL EXAMINATION: The patient is intubated and sedated. He is not fighting the ventilator. Is well-groomed. Selected Entries 03/01/18 03/01/18 03/01/18 08:00 13:25 13:26 Core 100.9 F H Temperature Heart Rate ( 93 Monitors) Respiratory 20 Rate Blood Pressure 116/77 Blood Pressure 90 Mean O2 Sat by Pulse 100 Oximetry Oxygen Delivery Mechanical Method ( Ventilator includes room air) Fraction of 40 Inspired Oxygen (FIO2) 03/01/18 03/01/18 13:40 13:41 Core 101.1 F H Temperature Heart Rate ( 98 Monitors) Respiratory 20 Rate Blood Pressure 120/81 Blood Pressure 94 Mean O2 Sat by Pulse 99 Oximetry Oxygen Delivery Method ( includes room air) Fraction of Inspired Oxygen (FIO2) HEAD: Is atraumatic normocephalic. EYES: Pupils are equal round regular reactive to light. ENT is negative. SKIN: Is without any skin lesions or skin rashes. There is no petechia or ecchymosis. NECK: Is supple. There is no JVD. Carotids are equal there is no bruits. There is no lymphadenopathy. Trachea central. LUNGS: There is absent breath sounds in the right base. There is scattered rhonchi. If you dry crackles throughout the lung and also a few fine rales in the left base. There is diminished air entry throughout and hyperresonance. Heart: S1-S2 is heard S1 is of variable intensity there is no S3 gallop. There is no S4 gallop. There is no rub. There is systolic murmur left sternal border and the apex. ABDOMEN: Soft there is no hepatosplenic megaly. Bowel sounds are well heard. EXTREMITIES: Femorals are diminished. There is no femoral bruits. Leg pulses are diminished. There is no pedal edema. There is no DVT or cellulitis. There is no sinus or clubbing. [employer] AND psychiatric: Not examined since the patient's intubated and sedated. 03/01/18 03/01/18 03/01/18 06:27 06:27 06:27 WBC 14.0 H RBC 4.90 Hgb 16.4 Hct 48.6 MCV 99 H MCH 33.4 MCHC 33.7 RDW 14.7 H Plt Count 163 PT 34.3 H INR 3.21 Carbonic Acid HCO3/H2CO3 Ratio ABG pH ABG pCO2 ABG pO2 ABG HCO3 ABG Total CO2 ABG O2 Saturation ABG Base Excess FiO2 Sodium 136.8 L Potassium 4.3 Chloride 103 Carbon Dioxide 29 Anion Gap 5 BUN 22 H Creatinine 1.04 Est GFR (Non-Af Amer) > 60 Glucose 113 H POC Glucose Calcium 8.0 L Magnesium 2.5 H Total Bilirubin 0.8 Direct Bilirubin 0.4 Neonat Total Bilirubin Not Reportable Neonat Direct Bilirubin Not Reportable Neonat Indirect Bili Not Reportable AST 76 H ALT 84 H Alkaline Phosphatase 73 Troponin I Total Protein 5.6 L Albumin 2.8 L Triglycerides Digoxin 03/01/18 03/01/18 03/01/18 06:27 06:30 06:34 WBC RBC Hgb Hct MCV MCH MCHC RDW Plt Count PT INR Carbonic Acid 1.17 HCO3/H2CO3 Ratio 22:1 ABG pH 7.46 H ABG pCO2 39.0 ABG pO2 131.7 H ABG HCO3 26.9 H ABG Total CO2 28.1 H ABG O2 Saturation 98.8 H ABG Base Excess 2.9 FiO2 40% Sodium Potassium Chloride Carbon Dioxide Anion Gap BUN Creatinine Est GFR (Non-Af Amer) Glucose POC Glucose 105 Calcium Magnesium Total Bilirubin Direct Bilirubin Neonat Total Bilirubin Neonat Direct Bilirubin Neonat Indirect Bili AST ALT Alkaline Phosphatase Troponin I 0.274 Total Protein Albumin Triglycerides Digoxin 03/01/18 03/01/18 03/01/18 07:18 07:18 11:45 WBC RBC Hgb Hct MCV MCH MCHC RDW Plt Count PT INR Carbonic Acid HCO3/H2CO3 Ratio ABG pH ABG pCO2 ABG pO2 ABG HCO3 ABG Total CO2 ABG O2 Saturation ABG Base Excess FiO2 Sodium Potassium Chloride Carbon Dioxide Anion Gap BUN Creatinine Est GFR (Non-Af Amer) Glucose POC Glucose 82 Calcium Magnesium Total Bilirubin Direct Bilirubin Neonat Total Bilirubin Neonat Direct Bilirubin Neonat Indirect Bili AST ALT Alkaline Phosphatase Troponin I Total Protein Albumin Triglycerides 94 Digoxin 1.07 EKG: Shows atrial fibrillation. There is deep T wave inversions in the anterior leads the differential diagnosis of which is post tachycardia T wave syndrome versus ischemia. CHEST X-ray: Shows resolution of the periareolar infiltrates, and the chest x- ray looking much improved with better aeration. The patient's high-resolution CT of the chest without contrast shows reticular nodular interstitial findings/changes in the bases. There is small bilateral pleural effusions. There is also groundglass appearance predominant in patchy areas in the upper lobes. Although this is not conclusive of amiodarone toxicity, amiodarone may be present as chronic is diffusely changes., Especially with the patient's liver function test being abnormal. IMPRESSION/RECOMMENDATION: 1 acute respiratory failure most likely on chronic respiratory failure: Continue ventilator support. Recommend anti-COPD nebulizer treatments. 2. Atrial fibrillation with rapid ventricular response: Most likely secondary to the patient's decompensated respiratory status. At present on Cardizem drip heart rate is acceptable. Note that the patient's is most likely has chronic atrial fibrillation, and with the patient's liver function test being abnormal would recommend discontinuing amiodarone. The patient did receive another dose of IV digoxin at 0.25 mg IV push x1. We will continue the patient on Cardizem drip. Later we will increase the patient's beta-jewels. The patient's INR is good on Coumadin. Continue Coumadin, adjusting the dose according to the PT/INR should aim for INR between 2 and 3. 3. Pneumonia: With acute exacerbation of COPD. Continue antibiotics and respiratory treatments. 4. Possible amiodarone toxicity: Although the CT a findings and the chest x-ray findings may represent just heart failure, in view of the abnormal liver function tests and the patient's groundglass appearance and interlobar septal thickening and some areas of bronchiectasis one should keep amiodarone toxicity in mind. The patient was given 1 dose of steroids in the form of hydrocortisone to 50 mL IV push. 5 ISCHEMIC Cardiomyopathy: With severely reduced LV ejection fraction: Would recommend that the patient be referred for AICD placement consideration. Would at present continue the patient's metoprolol XL and Entresto. Will increase the dose of each as permitted by the patient's heart rate and blood pressure. Later we will recheck the patient's echocardiogram. 6. Coronary artery disease, in view of the labile of ischemic cardiomyopathy as a diagnosis. Details of his coronary anatomy is not known. 7. Note abnormal liver function tests: We will follow this since his amiodarone has been stopped. Will check an echo to see if the patient is a pulmonary hypertension causing liver congestion 8. History of hypertension: At present at present blood pressure in the 90s to the 100s. 9. Elevated troponin I: Most likely secondary to patient's atrial fibrillation with rapid ventricular response in a patient with severely depressed LV ejection fraction. But with the patient's EKG showing T wave inversions suggestive of ischemia versus post tachycardia T wave syndrome, and the patient's history of ischemic cardiomyopathy. Later would need a nuclear stress testing versus cardiac catheterization to be absolutely sure that the patient does not have underlying significant coronary artery disease. 10. Hypotension: Blood pressure now stable on Levophed 4 mcg/min. Most likely secondary to sepsis/infection. Medications reviewed. Medications adjusted. Note medical decision making is of high complexity. 40 minutes spent on this patient, with more than 50% of the time spent in direct patient care. Discussed the case with attending physician on the case, and other caregiving providers on the case.
[2018-03-02] MEDS: ATORVASTATIN CALCIUM 40 MG TABLET NG SCH ×2 (00:11→22:20)
[2018-03-02] MEDS: WARFARIN SODIUM 5 MG TABLET NG SCH ×2 (00:11→22:22)
--- NOTE | 2018-03-02 00:50 | EKG REPORT ---
SEVERITY:- ABNORMAL ECG - ATRIAL FIBRILLATION, V-RATE 57-104 REPOL ABNRM SUGGESTS ISCHEMIA, ANT-LAT LEADS PROLONGED QT INTERVAL : Confirmed by: Martina Castellanos MD 02-Mar-2018 00:48:34
--- NOTE | 2018-03-02 00:50 | EKG REPORT ---
SEVERITY:- ABNORMAL ECG - ATRIAL FIBRILLATION, V-RATE 96-152 BORDERLINE LEFT AXIS DEVIATION REPOL ABNRM SUGGESTS ISCHEMIA, ANT-LAT LEADS : Confirmed by: Martina Castellanos MD 02-Mar-2018 00:48:46
--- NOTE | 2018-03-02 00:50 | EKG REPORT ---
SEVERITY:- ABNORMAL ECG - ATRIAL FIBRILLATION, V-RATE 113-174 REPOL ABNRM SUGGESTS ISCHEMIA, DIFFUSE LEADS BORDERLINE PROLONGED QT INTERVAL : Confirmed by: Martina Castellanos MD 02-Mar-2018 00:48:40
[2018-03-02] MEDS: MIDAZOLAM HCL 50 MG/100 ML RTUINJ IV PRN ×3 (01:40→17:54)
[2018-03-02] MEDS: ACETAMINOPHEN 325 MG TABLET NG PRN ×2 (02:20→16:17)
[2018-03-02] MEDS: GUAIFENESIN SYRP 200 MG/10 ML UDC NG SCH ×4 (02:20→22:20)
[2018-03-02] MEDS: DEXTROSE 5%-WATER 250 ML with NOREPINEPHRINE BITARTRATE 4 MG IV PRN ×4 (03:10→22:20)
[2018-03-02 04:14] LABS: HEMATOCRIT 49.9 % (37.9-51.0); HEMOGLOBIN 16.9 g/dL (13.5-17.0); MEAN CORPUSCULAR HEMOGLOBIN 33.2 pg (27.0-33.4); MEAN CORPUSCULAR HGB CONC 33.9 g/dL (32.0-36.0); MEAN CORPUSCULAR VOLUME 98 fl (80-97); PLATELET COUNT 122 10^3/uL (150-450); RED BLOOD COUNT 5.09 10^6/uL (4.35-5.55); RED CELL DISTRIBUTION WIDTH 14.4 % (11.5-14.0); WHITE BLOOD COUNT 7.7 10^3/uL (4.0-10.5)
[2018-03-02 04:46] LABS: ALANINE AMINOTRANSFERASE 67 U/L (21-72); ALBUMIN 2.7 g/dL (3.5-5.0); ALKALINE PHOSPHATASE 57 U/L (38-126); ANION GAP 6 (5-19); ASPARTATE AMINO TRANSFERASE 46 U/L (17-59); BILIRUBIN,DIRECT 0.3 mg/dL (0.0-0.4); BILIRUBIN,TOTAL 1.1 mg/dL (0.2-1.3); BLOOD UREA NITROGEN 20 mg/dL (7-20); CALCIUM 7.6 mg/dL (8.4-10.2); CARBON DIOXIDE 29 mmol/L (22-30); CHLORIDE 99 mmol/L (98-107); GLUCOSE 92 mg/dL (75-110); POTASSIUM 3.8 mmol/L (3.6-5.0); SODIUM 133.6 mmol/L (137-145); TOTAL PROTEIN 5.2 g/dL (6.3-8.2)
[2018-03-02] MEDS: PANTOPRAZOLE SODIUM 40 MG VIAL IV SCH ×2 (05:45→17:49)
[2018-03-02] MEDS: MEROPENEM 1 GM in NORMAL SALINE 50 ML IV SCH ×3 (05:45→22:20)
[2018-03-02] MEDS: METOPROLOL TARTRATE 50 MG TABLET NG SCH ×2 (05:45→17:49)
[2018-03-02 06:07] LABS: ARTERIAL BLOOD BASE EXCESS 5.3 mmol/L; ARTERIAL BLOOD H2CO3 1.13 mmol/L (1.05-1.35); ARTERIAL BLOOD HCO3 28.6 mmol/L (20-24); ARTERIAL BLOOD O2 SATURATION 97.8 % (94-98); ARTERIAL BLOOD PCO2 37.5 mmHg (35-45); ARTERIAL BLOOD PO2 95.8 mmHg (80-100); ARTERIAL BLOOD TOTAL CO2 29.7 mmol/L (23-27)
[2018-03-02 06:08] LABS: ARTERIAL BLOOD FIO2 35%
[2018-03-02 06:19] LABS: APPEARANCE,URINE CLEAR; BILIRUBIN,URINE NEGATIVE (NEGATIVE); COLOR,URINE YELLOW; GLUCOSE, URINE 50 mg/dL (NEGATIVE); KETONES,URINE TRACE mg/dL (NEGATIVE); LEUKOCYTE ESTERASE,URINE NEGATIVE (NEGATIVE); NITRITE,URINE NEGATIVE (NEGATIVE); PROTEIN,URINE 30 mg/dL (NEGATIVE); URINE SPECIFIC GRAVITY 1.025
--- NOTE | 2018-03-02 07:30 | RADIOLOGY REPORT (SQ) ---
EXAM DESCRIPTION: X-ray single view chest. CLINICAL HISTORY: 67 years Male, resp failure COMPARISON: 03/01/2018 and 02/28/2018 TECHNIQUE: Single portable view of the chest performed on 03/02/2018 at 6:45 AM FINDINGS: The lungs are well expanded. There may be mild residual airspace disease in the retrocardiac left lower lobe. The lungs are otherwise grossly clear. There is no evidence of a pneumothorax. The cardiac silhouette is normal in size and configuration. The mediastinal contours are normal. No acute osseous abnormality is identified. No focal soft tissue abnormalities are seen. Lines and tubes: The endotracheal tube and feeding tube are grossly stable as visualized. IMPRESSION: 1. Mild residual airspace disease in the retrocardiac left lower lobe. 2. Grossly stable life support lines and tubes.
[2018-03-02] MEDS ORDERED: FUROSEMIDE INJ/PF 20 MG/2 ML SDV IV ONE (10:07)
[2018-03-02] MEDS ORDERED: FUROSEMIDE INJ/PF 40 MG/4 ML SDV ONE (10:11)
[2018-03-02] MEDS ORDERED: FUROSEMIDE INJ/PF 40 MG/4 ML SDV IV ONE (10:30)
[2018-03-02] MEDS: SPIRONOLACTONE 25 MG TABLET NG SCH (11:32)
[2018-03-02] MEDS: BUMETANIDE 1 MG TABLET NG SCH ×2 (11:37→17:49)
[2018-03-02] MEDS: PROPOFOL 1,000 MG/100 ML INFUS..BTL IV PRN ×2 (11:57→17:54)
--- NOTE | 2018-03-02 13:24 | EKG REPORT ---
SEVERITY:- ABNORMAL ECG - ATRIAL FIBRILLATION, V-RATE 68-88 REPOL ABNRM SUGGESTS ISCHEMIA, ANT-LAT LEADS BORDERLINE PROLONGED QT INTERVAL : Confirmed by: Homer Weeks MD 02-Mar-2018 13:23:36
[2018-03-02] MEDS ORDERED: DIGOXIN INJ 0.5 MG/2 ML AMPULE ONE (15:53)
[2018-03-02] MEDS ORDERED: DIGOXIN INJ 0.5 MG/2 ML AMPULE IV ONE (16:15)
--- NOTE | 2018-03-02 17:37 | PDOC PROGRESS REPORT ---
Subjective Progress Note for:: 03/02/18 Subjective:: Patient remains sedated and intubated. He was in a bit of a fever this afternoon. He remains on antibiotics. He still on a low dose of Levophed. Reason For Visit: AFIB WITH RVR Physical Exam Vital Signs: Temp Pulse Resp BP Pulse Ox 99.5 F 92 20 77/57 L 97 03/02/18 10:00 03/02/18 10:00 03/02/18 12:03 03/02/18 12:03 03/02/18 16:00 Intake & Output 03/01/18 03/02/18 03/03/18 06:59 06:59 06:59 Intake Total 993 909 50 Output Total 1800 0245 1275 Balance -807 -4766 -1225 Weight 91.6 kg 86.5 kg General appearance: PRESENT: other - Sedated, intubated, sweaty Respiratory exam: PRESENT: crackles - Upper lobes bilaterally, rhonchi, symmetrical, unlabored. ABSENT: accessory muscle use, tachypnea, wheezes Cardiovascular exam: PRESENT: irregular rhythm Vascular exam: PRESENT: normal capillary refill GI/Abdominal exam: PRESENT: normal bowel sounds, soft. ABSENT: distended, guarding, rebound, tenderness Extremities exam: PRESENT: pedal edema, +1 edema, other -right upper extremity edema greater than the left side. ABSENT: clubbing Musculoskeletal exam: PRESENT: normal inspection. ABSENT: deformity Neurological exam: PRESENT: other - Sedated Skin exam: PRESENT: dry, warm Results Laboratory Results: 03/02/18 04:08 03/02/18 04:08 03/02/18 03/02/18 03/02/18 04:08 04:08 06:00 WBC 7.7 RBC 5.09 Hgb 16.9 Hct 49.9 MCV 98 H MCH 33.2 MCHC 33.9 RDW 14.4 H Plt Count 122 L Carbonic Acid 1.13 HCO3/H2CO3 Ratio 25:1 ABG pH 7.50 H ABG pCO2 37.5 ABG pO2 95.8 ABG HCO3 28.6 H ABG O2 Saturation 97.8 ABG Base Excess 5.3 FiO2 35% Sodium 133.6 L Potassium 3.8 Chloride 99 Carbon Dioxide 29 Anion Gap 6 BUN 20 Creatinine 0.85 Est GFR ( Amer) > 60 Est GFR (Non-Af Amer) > 60 Glucose 92 Calcium 7.6 L Magnesium 2.3 Total Bilirubin 1.1 AST 46 ALT 67 Alkaline Phosphatase 57 Total Protein 5.2 L Albumin 2.7 L Urine Color Urine Appearance Urine pH Ur Specific [place] Urine Protein Urine Glucose (UA) Urine Ketones Urine Blood Urine Nitrite Ur Leukocyte Esterase Urine WBC (Auto) Urine RBC (Auto) 03/02/18 06:00 WBC RBC Hgb Hct MCV MCH MCHC RDW Plt Count Carbonic Acid HCO3/H2CO3 Ratio ABG pH ABG pCO2 ABG pO2 ABG HCO3 ABG O2 Saturation ABG Base Excess FiO2 Sodium Potassium Chloride Carbon Dioxide Anion Gap BUN Creatinine Est GFR ( Amer) Est GFR (Non-Af Amer) Glucose Calcium Magnesium Total Bilirubin AST ALT Alkaline Phosphatase Total Protein Albumin Urine Color YELLOW Urine Appearance CLEAR Urine pH 6.0 Ur Specific [place] 1.025 Urine Protein 30 H Urine Glucose (UA) 50 H Urine Ketones TRACE H Urine Blood SMALL H Urine Nitrite NEGATIVE Ur Leukocyte Esterase NEGATIVE Urine WBC (Auto) 1 Urine RBC (Auto) 4 02/28/18 20:26 Tracheal Aspirate Gram Stain - Final 02/28/18 20:26 Tracheal Aspirate Sputum Culture - Final C.albicans/C.dubliniensis Greatly Reduced Normal [place] 02/28/18 10:00 Sputum Gram Stain - Final 02/28/18 10:00 Sputum Sputum Culture - Final C.albicans/C.dubliniensis Normal [place] 02/28/18 02/28/18 03/01/18 16:50 19:40 00:20 Troponin I 0.152 0.304 Cancelled 03/01/18 03/01/18 03/02/18 00:54 06:27 07:57 Troponin I 0.584 0.274 0.139 Impressions: Chest/Abdomen CTA 02/28/18 00:00 IMPRESSION: 1. No pulmonary embolus. 2. Findings likely predominantly related to congestive failure including cardiomegaly, edema and effusions as above. Chest CT 03/01/18 00:00 IMPRESSION: Overall improvement since yesterday. There is a background of chronic interstitial lung disease. No definitive findings to suggest amiodarone toxicity. Venous Doppler Study 03/01/18 00:00 IMPRESSION: NO EVIDENCE DVT OR SVT IN THE RIGHT ARM. Chest X-Ray 03/02/18 06:00 IMPRESSION: 1. Mild residual airspace disease in the retrocardiac left lower lobe. 2. Grossly stable life support lines and tubes. Assessment & Plan - Diagnosis (1) Acute hypoxemic respiratory failure Is this a current diagnosis for this admission?: Yes Plan: Doing well on the vent. As his condition stabilizes we will gradually try to wean him off of the ventilator. Pulmonary is managing the ventilator. (2) Atrial fibrillation with RVR Is this a current diagnosis for this admission?: Yes Plan: Currently on IV digoxin and p.o. metoprolol, rate control is good. Amiodarone has been discontinued because of concerns over possible pulmonary toxicity. (3) Acute on chronic systolic heart failure Is this a current diagnosis for this admission?: Yes Plan: Were cautiously diuresing him keeping an eye on his blood pressure, which she is still on the low side being supported by pressors. We're having to hold his Entresto right now because of his blood pressure. (4) Community acquired pneumonia Qualifiers: Laterality: unspecified laterality Qualified Code(s): J18.9 - Pneumonia, unspecified organism Is this a current diagnosis for this admission?: Yes Plan: Currently on empiric coverage. Cultures are pending. He is on meropenem for a suspicion of an aspiration pneumonia. The only thing is come out of his sputum culture has been Denisse, and a true Denisse pneumonia is extremely rare. (5) COPD exacerbation Is this a current diagnosis for this admission?: Yes Plan: Does not seem to be acutely exacerbated at this time, has possibly responded to prior treatment. We will continue to de-escalate his steroids. - Time Time Spent with patient: 25-34 minutes
[2018-03-02] MEDS: MONTELUKAST SODIUM 10 MG TABLET NG SCH (22:20)
--- NOTE | 2018-03-02 23:27 | Progress Note ---
Provider Note Provider Note: CARDIOLOGY PROGRESS NOTES by Dr. Martina Castellanos on 03/02/2018. SUBJECTIVE: The patient still requiring levo fed to keep his blood pressure up, but this is less. He is tolerating tube feedings that has been started. There is no ventricular arrhythmias seen. The patient continues to be in atrial fibrillation. There is no bleeding on Coumadin, but today's INR is not obtained. Will write for daily PT INRs, so that Coumadin dosing can be adjusted. There is no leg edema. The patient continues to be intubated and sedated. PHYSICAL EXAMINATION: The patient is intubated and sedated. He appears to be well-groomed. Selected Entries 03/02/18 03/02/18 11:48 12:00 Core 99.9 F Temperature Heart Rate ( 98 Monitors) Respiratory 20 Rate Blood Pressure 104/67 Blood Pressure 79 Mean O2 Sat by Pulse 96 98 Oximetry Oxygen Delivery Mechanical Method ( Ventilator includes room air) Percent of 35 Oxygen HEAD: Is atraumatic normocephalic. EYES: Pupils are equal round regular reactive to light. ENT is negative. SKIN: Is without any skin lesions or skin rashes. There is no petechia or ecchymosis. NECK: Is supple. There is no JVD. Carotids are equal there is no bruits. There is no lymphadenopathy. Trachea central. LUNGS: There is absent breath sounds in the right base. There is scattered rhonchi. If you dry crackles throughout the lung and also a few fine rales in the left base. There is diminished air entry throughout and hyperresonance. Heart: S1-S2 is heard S1 is of variable intensity there is no S3 gallop. There is no S4 gallop. There is no rub. There is systolic murmur left sternal border and the apex. ABDOMEN: Soft there is no hepatosplenic megaly. Bowel sounds are well heard. EXTREMITIES: Femorals are diminished. There is no femoral bruits. Leg pulses are diminished. There is no pedal edema. There is no DVT or cellulitis. There is no sinus or clubbing. 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 03/02/18 03/02/18 03/02/18 04:08 04:08 06:00 WBC 7.7 Hgb 16.9 Hct 49.9 MCV 98 H Plt Count 122 L Carbonic Acid 1.13 HCO3/H2CO3 Ratio 25:1 ABG pH 7.50 H ABG pCO2 37.5 ABG pO2 95.8 ABG HCO3 28.6 H ABG Total CO2 29.7 H ABG O2 Saturation 97.8 ABG Base Excess 5.3 FiO2 35% Sodium 133.6 L Potassium 3.8 Chloride 99 Carbon Dioxide 29 Anion Gap 6 BUN 20 Creatinine 0.85 Est GFR (Non-Af Amer) > 60 Glucose 92 POC Glucose Calcium 7.6 L Magnesium 2.3 Total Bilirubin 1.1 Direct Bilirubin 0.3 Neonat Total Bilirubin Not Reportable Neonat Direct Bilirubin Not Reportable Neonat Indirect Bili Not Reportable AST 46 ALT 67 Alkaline Phosphatase 57 Troponin I Total Protein 5.2 L Albumin 2.7 L 03/02/18 03/02/18 06:46 07:57 WBC Hgb Hct MCV Plt Count Carbonic Acid HCO3/H2CO3 Ratio ABG pH ABG pCO2 ABG pO2 ABG HCO3 ABG Total CO2 ABG O2 Saturation ABG Base Excess FiO2 Sodium Potassium Chloride Carbon Dioxide Anion Gap BUN Creatinine Est GFR (Non-Af Amer) Glucose POC Glucose 81 Calcium Magnesium Total Bilirubin Direct Bilirubin Neonat Total Bilirubin Neonat Direct Bilirubin Neonat Indirect Bili AST ALT Alkaline Phosphatase Troponin I 0.139 Total Protein Albumin IMPRESSION/RECOMMENDATION: 1 acute respiratory failure most likely on chronic respiratory failure: Continue ventilator support. Recommend anti-COPD nebulizer treatments. 2. Atrial fibrillation with rapid ventricular response: Most likely secondary to the patient's decompensated respiratory status. At present on Cardizem drip heart rate is acceptable. Note that the patient's is most likely has chronic atrial fibrillation, and with the patient's liver function test being abnormal would recommend discontinuing amiodarone. The patient did receive another dose of IV digoxin at 0.25 mg IV push x1. We will continue the patient on Cardizem drip. Later we will increase the patient's beta-jewels. The patient's INR is good on Coumadin. Continue Coumadin, adjusting the dose according to the PT/INR should aim for INR between 2 and 3. 3. Pneumonia: With acute exacerbation of COPD. Continue antibiotics and respiratory treatments. 4. Possible amiodarone toxicity: Although the CT a findings and the chest x-ray findings may represent just heart failure, in view of the abnormal liver function tests and the patient's groundglass appearance and interlobar septal thickening and some areas of bronchiectasis one should keep amiodarone toxicity in mind. The patient was given 1 dose of steroids in the form of hydrocortisone to 50 mL IV push. 5 ISCHEMIC Cardiomyopathy: With severely reduced LV ejection fraction: Would recommend that the patient be referred for AICD placement consideration. Would at present continue the patient's metoprolol XL and Entresto. Will increase the dose of each as permitted by the patient's heart rate and blood pressure. Later we will recheck the patient's echocardiogram. 6. Coronary artery disease, in view of the labile of ischemic cardiomyopathy as a diagnosis. Details of his coronary anatomy is not known. 7. Note abnormal liver function tests: We will follow this since his amiodarone has been stopped. Will check an echo to see if the patient is a pulmonary hypertension causing liver congestion 8. History of hypertension: At present at present blood pressure in the 90s to the 100s. 9. Elevated troponin I: Most likely secondary to patient's atrial fibrillation with rapid ventricular response in a patient with severely depressed LV ejection fraction. But with the patient's EKG showing T wave inversions suggestive of ischemia versus post tachycardia T wave syndrome, and the patient's history of ischemic cardiomyopathy. Later would need a nuclear stress testing versus cardiac catheterization to be absolutely sure that the patient does not have underlying significant coronary artery disease. 10. Hypotension: Blood pressure now stable on Levophed 3 mcg/min. Most likely secondary to sepsis/infection. Medications reviewed. Medications adjusted. Note medical decision making is of high complexity. 40 minutes spent on this patient, with more than 50% of the time spent in direct patient care. Discussed the case with attending physician on the case, and other caregiving providers on the case.
[2018-03-03] MEDS: GUAIFENESIN SYRP 200 MG/10 ML UDC NG SCH ×4 (03:45→20:38)
[2018-03-03] MEDS: MIDAZOLAM HCL 50 MG/100 ML RTUINJ IV PRN ×2 (03:45→18:27)
[2018-03-03] MEDS: PROPOFOL 1,000 MG/100 ML INFUS..BTL IV PRN ×2 (03:46→18:43)
[2018-03-03] MEDS: MEROPENEM 1 GM in NORMAL SALINE 50 ML IV SCH ×3 (06:13→21:01)
[2018-03-03] MEDS: METOPROLOL TARTRATE 50 MG TABLET NG SCH ×2 (06:13→18:27)
[2018-03-03] MEDS: PANTOPRAZOLE SODIUM 40 MG VIAL IV SCH ×2 (06:13→18:28)
[2018-03-03 06:33] LABS: ARTERIAL BLOOD BASE EXCESS 8.9 mmol/L; ARTERIAL BLOOD H2CO3 1.32 mmol/L (1.05-1.35); ARTERIAL BLOOD HCO3 33.5 mmol/L (20-24); ARTERIAL BLOOD O2 SATURATION 97.8 % (94-98); ARTERIAL BLOOD PO2 95.7 mmHg (80-100); ARTERIAL BLOOD TOTAL CO2 34.8 mmol/L (23-27)
[2018-03-03 06:34] LABS: ARTERIAL BLOOD FIO2 35%
[2018-03-03 07:08] LABS: ALANINE AMINOTRANSFERASE 62 U/L (21-72); ALKALINE PHOSPHATASE 61 U/L (38-126); ANION GAP 5 (5-19); ASPARTATE AMINO TRANSFERASE 70 U/L (17-59); BILIRUBIN,DIRECT 0.4 mg/dL (0.0-0.4); BILIRUBIN,TOTAL 1.2 mg/dL (0.2-1.3); BLOOD UREA NITROGEN 23 mg/dL (7-20); CALCIUM 7.8 mg/dL (8.4-10.2); CARBON DIOXIDE 35 mmol/L (22-30); CHLORIDE 95 mmol/L (98-107); GLUCOSE 117 mg/dL (75-110); POTASSIUM 3.7 mmol/L (3.6-5.0); SODIUM 134.8 mmol/L (137-145); TOTAL PROTEIN 5.9 g/dL (6.3-8.2)
--- NOTE | 2018-03-03 08:14 | RADIOLOGY REPORT (SQ) ---
EXAM DESCRIPTION: CHEST SINGLE VIEW COMPLETED DATE/TIME: 03/03/2018 6:50 am REASON FOR STUDY: resp failure COMPARISON: CT chest 03/01/2018, 02/28/2018 Chest films 04/28/2017, 02/28/2018, 03/01/2018, 03/02/2018 EXAM PARAMETERS: NUMBER OF VIEWS: One view. TECHNIQUE: Single frontal radiographic view of the chest acquired. RADIATION DOSE: NA LIMITATIONS: None. FINDINGS: LUNGS AND PLEURA: Pulmonary edema pattern seen on 02/28/2018 has near completely cleared. Few Camryn lines persist from mild interstitial edema. Trace pleural effusions No pneumothorax MEDIASTINUM AND HILAR STRUCTURES: No masses. Contour normal. HEART AND VASCULAR STRUCTURES: Heart normal in size. Normal vasculature. BONES: No acute findings. HARDWARE: Nasogastric tube tip and side port in the stomach OTHER: No other significant finding. IMPRESSION: Resolved alveolar pulmonary edema pattern seen 02/28/2018 Minimal persistent interstitial pulmonary edema. TECHNICAL DOCUMENTATION: JOB ID: [id number] [employer]- All Rights Reserved Reading location - IP/workstation name: [email or web address]
[2018-03-03] MEDS: SPIRONOLACTONE 25 MG TABLET NG SCH (09:50)
[2018-03-03] MEDS: BUMETANIDE 1 MG TABLET NG SCH ×2 (09:50→18:29)
[2018-03-03] MEDS ORDERED: DIGOXIN INJ 0.5 MG/2 ML AMPULE IV ONE (12:30)
--- NOTE | 2018-03-03 20:26 | PDOC PROGRESS REPORT ---
Subjective Progress Note for:: 03/03/18 Subjective:: He remains sedated and intubated. He failed a weaning trial with pressure support this morning. We will begin to slowly turn his respiratory rate down over the course of the day, and eventually his heart rate started to go back up and so we canceled the weaning trial. Blood pressure has improved and he is off pressors. Reason For Visit: AFIB WITH RVR Physical Exam Vital Signs: Temp Pulse Resp BP Pulse Ox 100.2 F 108 H 21 H 103/75 94 03/03/18 19:26 03/03/18 18:00 03/03/18 18:00 03/03/18 18:00 03/03/18 18:00 Intake & Output 03/02/18 03/03/18 03/04/18 06:59 06:59 06:59 Intake Total 909 1076 637 Output Total 3165 3795 2265 Balance -1966 -1719 -1628 Weight 86.5 kg 83.4 kg General appearance: PRESENT: other - Sedation off and he opens his eyes to verbal command, intubated Respiratory exam: PRESENT: crackles - Upper lobes bilaterally, rhonchi, symmetrical, unlabored. ABSENT: accessory muscle use, tachypnea, wheezes Cardiovascular exam: PRESENT: irregular rhythm Vascular exam: PRESENT: normal capillary refill GI/Abdominal exam: PRESENT: normal bowel sounds, soft. ABSENT: distended, guarding, rebound, tenderness Extremities exam: PRESENT: pedal edema, +1 edema, other -right upper extremity edema greater than the left side. ABSENT: clubbing Musculoskeletal exam: PRESENT: normal inspection. ABSENT: deformity Neurological exam: PRESENT: other -opens eyes to verbal command Skin exam: PRESENT: dry, warm Results Laboratory Results: 03/02/18 04:08 03/03/18 06:35 03/03/18 03/03/18 03/03/18 04:07 05:10 06:05 Carbonic Acid 1.32 HCO3/H2CO3 Ratio 25:1 ABG pH 7.50 H ABG pCO2 44.0 ABG pO2 95.7 ABG HCO3 33.5 H ABG O2 Saturation 97.8 ABG Base Excess 8.9 FiO2 35% Sodium Cancelled Cancelled Potassium Cancelled Cancelled Chloride Cancelled Cancelled Carbon Dioxide Cancelled Cancelled Anion Gap Cancelled Cancelled BUN Cancelled Cancelled Creatinine Cancelled Cancelled Est GFR ( Amer) Cancelled Cancelled Est GFR (Non-Af Amer) Cancelled Cancelled Glucose Cancelled Cancelled Calcium Cancelled Cancelled Magnesium Cancelled Cancelled Total Bilirubin Cancelled Cancelled AST Cancelled Cancelled ALT Cancelled Cancelled Alkaline Phosphatase Cancelled Cancelled Total Protein Cancelled Cancelled Albumin Cancelled Cancelled 03/03/18 06:35 Carbonic Acid HCO3/H2CO3 Ratio ABG pH ABG pCO2 ABG pO2 ABG HCO3 ABG O2 Saturation ABG Base Excess FiO2 Sodium 134.8 L Potassium 3.7 Chloride 95 L Carbon Dioxide 35 H Anion Gap 5 BUN 23 H Creatinine 0.83 Est GFR ( Amer) > 60 Est GFR (Non-Af Amer) > 60 Glucose 117 H Calcium 7.8 L Magnesium 2.3 Total Bilirubin 1.2 AST 70 H ALT 62 Alkaline Phosphatase 61 Total Protein 5.9 L Albumin 3.0 L 02/28/18 02/28/18 03/01/18 16:50 19:40 00:20 Troponin I 0.152 0.304 Cancelled 03/01/18 03/01/18 03/02/18 00:54 06:27 07:57 Troponin I 0.584 0.274 0.139 Impressions: Chest/Abdomen CTA 02/28/18 00:00 IMPRESSION: 1. No pulmonary embolus. 2. Findings likely predominantly related to congestive failure including cardiomegaly, edema and effusions as above. Chest CT 03/01/18 00:00 IMPRESSION: Overall improvement since yesterday. There is a background of chronic interstitial lung disease. No definitive findings to suggest amiodarone toxicity. Venous Doppler Study 03/01/18 00:00 IMPRESSION: NO EVIDENCE DVT OR SVT IN THE RIGHT ARM. Chest X-Ray 03/03/18 06:00 IMPRESSION: Resolved alveolar pulmonary edema pattern seen 02/28/2018 Minimal persistent interstitial pulmonary edema. Assessment & Plan - Diagnosis (1) Acute hypoxemic respiratory failure Is this a current diagnosis for this admission?: Yes Plan: Pulmonology is managing his vent. He failed his weaning trial twice today. Continue to try weaning trials in an attempt to get him extubated. (2) Atrial fibrillation with RVR Is this a current diagnosis for this admission?: Yes Plan: Currently on IV digoxin and p.o. metoprolol, rate control is good. Amiodarone has been discontinued because of concerns over possible pulmonary toxicity. Cardiology is following. (3) Acute on chronic systolic heart failure Is this a current diagnosis for this admission?: Yes Plan: Were cautiously diuresing him keeping an eye on his blood pressure, which is fortunately improved. We were having to hold his Entresto because of his blood pressure, but we may be able to restart that because his pressure has improved. Dr. Castellanos has recommended that once the patient is extubated he have a cardiac catheterization. (4) Community acquired pneumonia Qualifiers: Laterality: unspecified laterality Qualified Code(s): J18.9 - Pneumonia, unspecified organism Is this a current diagnosis for this admission?: Yes Plan: Currently on empiric coverage. Cultures are pending. He is on meropenem for a suspicion of an aspiration pneumonia. The only thing is come out of his sputum culture has been Denisse, and a true Denisse pneumonia is extremely rare. He does seem to be improving in this regard. (5) COPD exacerbation Is this a current diagnosis for this admission?: Yes Plan: Does not seem to be acutely exacerbated at this time, has possibly responded to prior treatment. We will continue to de-escalate his steroids. - Time Time Spent with patient: 25-34 minutes
[2018-03-03] MEDS: ATORVASTATIN CALCIUM 40 MG TABLET NG SCH (21:01)
[2018-03-03] MEDS: WARFARIN SODIUM 5 MG TABLET NG SCH (21:01)
[2018-03-03] MEDS: MONTELUKAST SODIUM 10 MG TABLET NG SCH (21:01)
--- NOTE | 2018-03-03 21:32 | Progress Note ---
Provider Note Provider Note: CARDIOLOGY PROGRESS NOTES by Dr. Martina Castellanos on 03/03/2018. SUBJECTIVE: The patient remains intubated and sedated. Multiple attempts at weaning the patient was unsuccessful with the patient developing respiratory distress and his heart rate going up into the 130s. Ends are present the patient is back on the ventilator. At present he is sedated. His heart rate is 115 bpm. He continues to be in persistent chronic atrial fibrillation. There is no ventricular arrhythmia seen on the monitor. On examination the patient appears to be well-built. He is well-groomed. Selected Entries 03/03/18 03/03/18 10:00 10:43 Core 99.5 F Temperature Heart Rate ( 112 Monitors) Respiratory 20 Rate Blood Pressure 157/87 H Blood Pressure 110 Mean O2 Sat by Pulse 98 96 Oximetry Oxygen Delivery Mechanical Method ( Ventilator includes room air) Percent of 35 Oxygen HEAD: Is atraumatic normocephalic. EYES: Pupils are equal round regular reactive to light. ENT is negative. SKIN: Is without any skin lesions or skin rashes. There is no petechia or ecchymosis. NECK: Is supple. There is no JVD. Carotids are equal there is no bruits. There is no lymphadenopathy. Trachea central. LUNGS: There is absent breath sounds in the right base. There is sc attered rhonchi. If you dry crackles throughout the lung and also a few fine rales in the left base. There is diminished air entry throughout and hyperresonance. Heart: S1-S2 is heard S1 is of variable intensity there is no S3 gallop. There is no S4 gallop. There is no rub. There is systolic murmur left sternal border and the apex. ABDOMEN: Soft there is no hepatosplenic megaly. Bowel sounds are well heard. EXTREMITIES: Femorals are diminished. There is no femoral bruits. Leg pulses are diminished. There is no pedal edema. There is no DVT or cellulitis. There is no sinus or clubbing. 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 03/02/18 03/03/18 03/03/18 04:08 06:05 06:35 WBC 7.7 Hgb 16.9 Hct 49.9 MCV 98 H MCH 33.2 Plt Count 122 L Carbonic Acid 1.32 ABG pH 7.50 H ABG pCO2 44.0 ABG pO2 95.7 ABG HCO3 33.5 H ABG Total CO2 34.8 H ABG O2 Saturation 97.8 ABG Base Excess 8.9 FiO2 35% Sodium 134.8 L Potassium 3.7 Chloride 95 L Carbon Dioxide 35 H Anion Gap 5 BUN 23 H Creatinine 0.83 Est GFR (Non-Af Amer) > 60 Glucose 117 H Calcium 7.8 L Magnesium 2.3 Total Bilirubin 1.2 Direct Bilirubin 0.4 Neonat Total Bilirubin Not Reportable Neonat Direct Bilirubin Not Reportable Neonat Indirect Bili Not Reportable AST 70 H ALT 62 Alkaline Phosphatase 61 Total Protein 5.9 L Albumin 3.0 L IMPRESSION/RECOMMENDATION: 1 acute respiratory failure most likely on chronic respiratory failure: Continue ventilator support. Recommend anti-COPD nebulizer treatments. Note multiple attempts at 2. Atrial fibrillation with rapid ventricular response: Most likely secondary to the patient's decompensated respiratory status. At present on Cardizem drip heart rate is acceptable. Note that the patient's is most likely has c trying to wean the patient off the ventilator was unsuccessful. Chronic atrial fibrillation, and with the patient's liver function test being abnormal would recommend discontinuing amiodarone. The patient did receive another dose of IV digoxin at 0.25 mg IV push x1. We will continue the patient on Cardizem drip. Later we will increase the patient's beta-jewels. The patient's INR is good on Coumadin. Continue Coumadin, adjusting the dose according to the PT/INR should aim for INR between 2 and 3. Note still no PT/INR on the chart, hence reordered for tonight, and daily. 3. Pneumonia: With acute exacerbation of COPD. Continue antibiotics and respiratory treatments. 4. Possible amiodarone toxicity: Although the CT a findings and the chest x-ray findings may represent just heart failure, in view of the abnormal liver function tests and the patient's groundglass appearance and interlobar septal thickening and some areas of bronchiectasis one should keep amiodarone toxicity in mind. The patient was given 1 dose of steroids in the form of hydrocortisone to 50 mL IV push. 5 ISCHEMIC Cardiomyopathy: With severely reduced LV ejection fraction: Would recommend that the patient be referred for AICD placement consideration. Would at present continue the patient's metoprolol XL and Entresto. Will increase the dose of each as permitted by the patient's heart rate and blood pressure. Later we will recheck the patient's echocardiogram. We will restart the patient's Entresto, since the patient's of Levophed. 6. Coronary artery disease, in view of the labile of ischemic cardiomyopathy as a diagnosis. Details of his coronary anatomy is not known. 7. Note abnormal liver function tests: We will follow this since his amiodarone has been stopped. Will check an echo to see if the patient is a pulmonary hypertension causing liver congestion. At present there is liver function tests of reverted back to normal 8. History of hypertension: At present at present blood pressure in the 90s to the 100s. 9. Elevated troponin I: Most likely secondary to patient's atrial fibrillation with rapid ventricular response in a patient with severely depressed LV ejection fraction. But with the patient's EKG showing T wave inversions suggestive of ischemia versus post tachycardia T wave syndrome, and the patient's history of ischemic cardiomyopathy. Later would need a nuclear stress testing versus card iac catheterization to be absolutely sure that the patient does not have underlying significant coronary artery disease. 10. Hypotension: Blood pressure now stable, and patient is off Levophed. Medications reviewed. Medications adjusted. Note medical decision making is of high complexity. 40 minutes spent on this patient, with more than 50% of the time spent in direct patient care. Discussed the case with attending physician on the case, and other caregiving providers on the case.
[2018-03-03 22:36] LABS: INTERNATIONAL RATION (INR) 3.83; PROTHROMBIN TIME 39.4 SEC (11.4-15.4)
[2018-03-04] MEDS: ACETAMINOPHEN 325 MG TABLET NG PRN ×2 (00:29→14:04)
[2018-03-04] MEDS: GUAIFENESIN SYRP 200 MG/10 ML UDC NG SCH ×4 (03:26→22:02)
[2018-03-04 06:43] LABS: ABSOLUTE EOSINOPHILS # (AUTO) 0.1 10^3/uL (0.0-0.6); ABSOLUTE LYMPHOCYTES (AUTO) 1.7 10^3/uL (0.5-4.7); ABSOLUTE MONOCYTES (AUTO) 1.4 10^3/uL (0.1-1.4); ABSOLUTE NEUT (AUTO) 8.5 10^3/uL (1.7-8.2); BASOPHILS % (AUTO) 0.1 % (0-2); EOSINOPHILS % (AUTO) 0.4 % (0-6); HEMOGLOBIN 18.8 g/dL (13.5-17.0); LYMPHOCYTES % (AUTO) 14.5 % (13-45); MEAN CORPUSCULAR HEMOGLOBIN 33.7 pg (27.0-33.4); MEAN CORPUSCULAR HGB CONC 34.1 g/dL (32.0-36.0); MEAN CORPUSCULAR VOLUME 99 fl (80-97); PLATELET COUNT 128 10^3/uL (150-450); RED BLOOD COUNT 5.59 10^6/uL (4.35-5.55); RED CELL DISTRIBUTION WIDTH 14.2 % (11.5-14.0); TOTAL CELLS COUNTED % (AUTO) 100 %; WHITE BLOOD COUNT 11.7 10^3/uL (4.0-10.5)
[2018-03-04 06:45] LABS: PARTIAL THROMBOPLASTIN TIME 59.1 SEC (23.5-35.8); PROTHROMBIN TIME 43.2 SEC (11.4-15.4)
[2018-03-04] MEDS: PROPOFOL 1,000 MG/100 ML INFUS..BTL IV PRN ×2 (06:55→22:03)
[2018-03-04] MEDS: METOPROLOL TARTRATE 50 MG TABLET NG SCH ×2 (06:56→18:08)
[2018-03-04] MEDS: PANTOPRAZOLE SODIUM 40 MG VIAL IV SCH ×2 (06:57→18:08)
[2018-03-04] MEDS: MEROPENEM 1 GM in NORMAL SALINE 50 ML IV SCH ×3 (06:57→22:02)
[2018-03-04 07:06] LABS: ARTERIAL BLOOD BASE EXCESS 8.7 mmol/L; ARTERIAL BLOOD H2CO3 1.39 mmol/L (1.05-1.35); ARTERIAL BLOOD HCO3 33.9 mmol/L (20-24); ARTERIAL BLOOD O2 SATURATION 96.9 % (94-98); ARTERIAL BLOOD PCO2 46.1 mmHg (35-45); ARTERIAL BLOOD PH 7.48 (7.35-7.45); ARTERIAL BLOOD PO2 84.3 mmHg (80-100); ARTERIAL BLOOD TOTAL CO2 35.3 mmol/L (23-27)
[2018-03-04 07:07] LABS: ANION GAP 9 (5-19); BLOOD UREA NITROGEN 25 mg/dL (7-20); CALCIUM 7.8 mg/dL (8.4-10.2); CARBON DIOXIDE 32 mmol/L (22-30); CHLORIDE 94 mmol/L (98-107); GLUCOSE 112 mg/dL (75-110); POTASSIUM 4.1 mmol/L (3.6-5.0); SODIUM 134.8 mmol/L (137-145); TRIGLYCERIDES 182 mg/dL (<150)
[2018-03-04 07:24] LABS: ARTERIAL BLOOD FIO2 35%
[2018-03-04 07:27] LABS: APPEARANCE,URINE SLIGHTLY-CLOUDY; BILIRUBIN,URINE NEGATIVE (NEGATIVE); COLOR,URINE YELLOW; GLUCOSE, URINE NEGATIVE (NEGATIVE); KETONES,URINE NEGATIVE (NEGATIVE); LEUKOCYTE ESTERASE,URINE NEGATIVE (NEGATIVE); NITRITE,URINE NEGATIVE (NEGATIVE); PROTEIN,URINE 30 mg/dL (NEGATIVE); URINE SPECIFIC GRAVITY 1.026; UROBILINOGEN,URINE NEGATIVE mg/dL (<2.0)
[2018-03-04 07:38] LABS: HEMATOCRIT 55.3 % (37.9-51.0)
--- NOTE | 2018-03-04 08:31 | RADIOLOGY REPORT (SQ) ---
EXAM DESCRIPTION: CHEST SINGLE VIEW COMPLETED DATE/TIME: 03/04/2018 7:04 am REASON FOR STUDY: resp fail COMPARISON: 03/03/2018 and 03/02/2018 EXAM PARAMETERS: NUMBER OF VIEWS: One view. TECHNIQUE: Single frontal radiographic view of the chest acquired. RADIATION DOSE: NA LIMITATIONS: None. FINDINGS: LUNGS AND PLEURA: Chronic mild scarring in the apices and upper lobes. No acute pulmonar y consolidation. No pneumothorax or pleural effusion. MEDIASTINUM AND HILAR STRUCTURES: No masses. Contour normal. HEART AND VASCULAR STRUCTURES: Heart normal in size. Normal vasculature. BONES: No acute findings. HARDWARE: Endotracheal and nasogastric tubes are again identified, unchanged in position. OTHER: No other significant finding. IMPRESSION: 1. Chronic mild changes in the apices- upper lobes. No acute findings. 2. Endotracheal and nasogastric tubes are unchanged in position. TECHNICAL DOCUMENTATION: JOB ID: [id number] [employer]- All Rights Reserved Reading location - IP/workstation name: [email or web address]
--- NOTE | 2018-03-04 10:58 | PDOC PROGRESS REPORT ---
Subjective Progress Note for:: 03/04/18 Subjective:: intubated & sedated Reason For Visit: AFIB WITH RVR Physical Exam Vital Signs: Temp Pulse Resp BP Pulse Ox 37.0 F L 41 L 19 95/60 L 96 03/04/18 10:00 03/04/18 10:00 03/04/18 10:00 03/04/18 10:00 03/04/18 10:00 Intake & Output 03/03/18 03/04/18 03/05/18 06:59 06:59 06:59 Intake Total 1076 1299 131 Output Total 3795 0505 60 Balance -5348 -1131 71 Weight 83.4 kg 82.3 kg General appearance: PRESENT: no acute distress, disheveled. ABSENT: cooperative Head exam: PRESENT: atraumatic, normocephalic Eye exam: PRESENT: conjunctiva pale. ABSENT: nystagmus, scleral icterus Mouth exam: PRESENT: dry mucosa, neck supple, tongue midline, other - ET tube Neck exam: ABSENT: carotid bruit, JVD, lymphadenopathy, thyromegaly, tracheal deviation, tracheostomy Respiratory exam: PRESENT: decreased breath sounds, prolonged expiratory phas, rales, rhonchi, unlabored. ABSENT: retraction, stridor, tachypnea Cardiovascular exam: PRESENT: irregular rhythm, +S1, +S2. ABSENT: tachycardia Pulses: PRESENT: normal radial pulses GI/Abdominal exam: PRESENT: soft. ABSENT: tenderness Gentrourinary exam: PRESENT: indwelling catheter Extremities exam: PRESENT: pedal edema. ABSENT: calf tenderness, clubbing, joint swelling Musculoskeletal exam: ABSENT: deformity, dislocation Neurological exam: ABSENT: awake Skin exam: PRESENT: dry, warm Results Laboratory Results: 03/04/18 03:48 03/04/18 03:48 03/04/18 03/04/18 03/04/18 03:48 03:48 05:10 WBC 11.7 H RBC 5.59 H Hgb 18.8 H Hct 55.3 H MCV 99 H MCH 33.7 H MCHC 34.1 RDW 14.2 H Plt Count 128 L Seg Neutrophils % 73.0 Lymphocytes % 14.5 Monocytes % 12.0 Eosinophils % 0.4 Basophils % 0.1 Absolute Neutrophils 8.5 H Absolute Lymphocytes 1.7 Absolute Monocytes 1.4 Absolute Eosinophils 0.1 Absolute Basophils 0.0 Carbonic Acid 1.39 H HCO3/H2CO3 Ratio 24:1 ABG pH 7.48 H ABG pCO2 46.1 H ABG pO2 84.3 ABG HCO3 33.9 H ABG O2 Saturation 96.9 ABG Base Excess 8.7 FiO2 35% Sodium 134.8 L Potassium 4.1 Chloride 94 L Carbon Dioxide 32 H Anion Gap 9 BUN 25 H Creatinine 0.73 Est GFR ( Amer) > 60 Est GFR (Non-Af Amer) > 60 Glucose 112 H Calcium 7.8 L Magnesium 2.5 H Triglycerides 182 H Urine Color Urine Appearance Urine pH Ur Specific [place] Urine Protein Urine Glucose (UA) Urine Ketones Urine Blood Urine Nitrite Ur Leukocyte Esterase Urine WBC (Auto) Urine RBC (Auto) 03/04/18 05:10 WBC RBC Hgb Hct MCV MCH MCHC RDW Plt Count Seg Neutrophils % Lymphocytes % Monocytes % Eosinophils % Basophils % Absolute Neutrophils Absolute Lymphocytes Absolute Monocytes Absolute Eosinophils Absolute Basophils Carbonic Acid HCO3/H2CO3 Ratio ABG pH ABG pCO2 ABG pO2 ABG HCO3 ABG O2 Saturation ABG Base Excess FiO2 Sodium Potassium Chloride Carbon Dioxide Anion Gap BUN Creatinine Est GFR ( Amer) Est GFR (Non-Af Amer) Glucose Calcium Magnesium Triglycerides Urine Color YELLOW Urine Appearance SLIGHTLY-CLOUDY Urine pH 5.0 Ur Specific [place] 1.026 Urine Protein 30 H Urine Glucose (UA) NEGATIVE Urine Ketones NEGATIVE Urine Blood LARGE H Urine Nitrite NEGATIVE Ur Leukocyte Esterase NEGATIVE Urine WBC (Auto) 11 Urine RBC (Auto) 130 02/27/18 02/27/18 02/27/18 07:25 09:29 12:10 Troponin I Cancelled 0.029 0.051 NT-Pro-B Natriuret Pep Cancelled 86979 H 02/28/18 02/28/18 03/01/18 16:50 19:40 00:20 Troponin I 0.152 0.304 Cancelled NT-Pro-B Natriuret Pep 03/01/18 03/01/18 03/02/18 00:54 06:27 07:57 Troponin I 0.584 0.274 0.139 NT-Pro-B Natriuret Pep Impressions: Chest/Abdomen CTA 02/28/18 00:00 IMPRESSION: 1. No pulmonary embolus. 2. Findings likely predominantly related to congestive failure including cardiomegaly, edema and effusions as above. Chest CT 03/01/18 00:00 IMPRESSION: Overall improvement since yesterday. There is a background of chronic interstitial lung disease. No definitive findings to suggest amiodarone toxicity. Venous Doppler Study 03/01/18 00:00 IMPRESSION: NO EVIDENCE DVT OR SVT IN THE RIGHT ARM. Chest X-Ray 03/04/18 06:00 IMPRESSION: 1. Chronic mild changes in the apices- upper lobes. No acute findings. 2. Endotracheal and nasogastric tubes are unchanged in position. Assessment & Plan - Diagnosis (1) Acute hypoxemic respiratory failure Is this a current diagnosis for this admission?: Yes Plan: failed to sustain ps/cpap (2) Acute on chronic systolic heart failure Is this a current diagnosis for this admission?: Yes Plan: As per cardiology (3) Atrial fibrillation with RVR Is this a current diagnosis for this admission?: Yes Plan: Digoxin plus Cardizem stable at this time - Time Total Critical Time (Minutes): 40
--- NOTE | 2018-03-04 11:00 | PDOC PROGRESS REPORT ---
Subjective Progress Note for:: 03/03/18 Subjective:: intubated & sedated Reason For Visit: AFIB WITH RVR Physical Exam Vital Signs: Temp Pulse Resp BP Pulse Ox 99.3 F 83 20 106/73 98 03/03/18 08:00 03/03/18 08:00 03/03/18 08:00 03/03/18 08:00 03/03/18 09:16 Intake & Output 03/02/18 03/03/18 03/04/18 06:59 06:59 06:59 Intake Total 909 1076 187 Output Total 3165 3795 125 Balance -2219 -9603 62 Weight 86.5 kg 83.4 kg General appearance: PRESENT: no acute distress, disheveled, thin Head exam: PRESENT: atraumatic, normocephalic Eye exam: PRESENT: conjunctiva pale. ABSENT: nystagmus, scleral icterus Mouth exam: PRESENT: dry mucosa, neck supple, tongue midline, other - ET tube Neck exam: ABSENT: carotid bruit, JVD, lymphadenopathy, thyromegaly, tracheal deviation, tracheostomy Respiratory exam: PRESENT: decreased breath sounds, prolonged expiratory phas, rales, rhonchi, unlabored. ABSENT: retraction, stridor Cardiovascular exam: PRESENT: irregular rhythm Pulses: PRESENT: normal radial pulses GI/Abdominal exam: PRESENT: soft. ABSENT: tenderness Gentrourinary exam: PRESENT: indwelling catheter Extremities exam: PRESENT: pedal edema. ABSENT: calf tenderness, clubbing, joint swelling Musculoskeletal exam: ABSENT: deformity, dislocation Neurological exam: ABSENT: awake Skin exam: PRESENT: dry, warm Results Laboratory Results: 03/02/18 04:08 03/03/18 06:35 03/03/18 03/03/18 03/03/18 04:07 05:10 06:05 Carbonic Acid 1.32 HCO3/H2CO3 Ratio 25:1 ABG pH 7.50 H ABG pCO2 44.0 ABG pO2 95.7 ABG HCO3 33.5 H ABG O2 Saturation 97.8 ABG Base Excess 8.9 FiO2 35% Sodium Cancelled Cancelled Potassium Cancelled Cancelled Chloride Cancelled Cancelled Carbon Dioxide Cancelled Cancelled Anion Gap Cancelled Cancelled BUN Cancelled Cancelled Creatinine Cancelled Cancelled Est GFR ( Amer) Cancelled Cancelled Est GFR (Non-Af Amer) Cancelled Cancelled Glucose Cancelled Cancelled Calcium Cancelled Cancelled Magnesium Cancelled Cancelled Total Bilirubin Cancelled Cancelled AST Cancelled Cancelled ALT Cancelled Cancelled Alkaline Phosphatase Cancelled Cancelled Total Protein Cancelled Cancelled Albumin Cancelled Cancelled 03/03/18 06:35 Carbonic Acid HCO3/H2CO3 Ratio ABG pH ABG pCO2 ABG pO2 ABG HCO3 ABG O2 Saturation ABG Base Excess FiO2 Sodium 134.8 L Potassium 3.7 Chloride 95 L Carbon Dioxide 35 H Anion Gap 5 BUN 23 H Creatinine 0.83 Est GFR ( Amer) > 60 Est GFR (Non-Af Amer) > 60 Glucose 117 H Calcium 7.8 L Magnesium 2.3 Total Bilirubin 1.2 AST 70 H ALT 62 Alkaline Phosphatase 61 Total Protein 5.9 L Albumin 3.0 L 02/28/18 20:26 Tracheal Aspirate Gram Stain - Final 02/28/18 20:26 Tracheal Aspirate Sputum Culture - Final C.albicans/C.dubliniensis Greatly Reduced Normal [place] 02/28/18 10:00 Sputum Gram Stain - Final 02/28/18 10:00 Sputum Sputum Culture - Final C.albicans/C.dubliniensis Normal [place] 02/28/18 02/28/18 03/01/18 16:50 19:40 00:20 Troponin I 0.152 0.304 Cancelled 03/01/18 03/01/18 03/02/18 00:54 06:27 07:57 Troponin I 0.584 0.274 0.139 Impressions: Chest/Abdomen CTA 02/28/18 00:00 IMPRESSION: 1. No pulmonary embolus. 2. Findings likely predominantly related to congestive failure including cardiomegaly, edema and effusions as above. Chest CT 03/01/18 00:00 IMPRESSION: Overall improvement since yesterday. There is a background of chronic interstitial lung disease. No definitive findings to suggest amiodarone toxicity. Venous Doppler Study 03/01/18 00:00 IMPRESSION: NO EVIDENCE DVT OR SVT IN THE RIGHT ARM. Chest X-Ray 03/03/18 06:00 IMPRESSION: Resolved alveolar pulmonary edema pattern seen 02/28/2018 Minimal persistent interstitial pulmonary edema. Assessment & Plan - Diagnosis (1) Acute hypoxemic respiratory failure Is this a current diagnosis for this admission?: Yes Plan: failed to sustain ps/cpap (2) Acute on chronic systolic heart failure Is this a current diagnosis for this admission?: Yes Plan: As per cardiology (3) Atrial fibrillation with RVR Is this a current diagnosis for this admission?: Yes Plan: Digoxin plus Cardizem stable at this time - Time Total Critical Time (Minutes): 40
--- NOTE | 2018-03-04 11:03 | PDOC PROGRESS REPORT ---
Subjective Progress Note for:: 03/02/18 Subjective:: intubated & sedated Reason For Visit: AFIB WITH RVR Physical Exam Vital Signs: Temp Pulse Resp BP Pulse Ox 100.2 F 97 20 114/87 H 98 03/02/18 03:49 03/01/18 20:00 03/02/18 04:17 03/02/18 04:17 03/02/18 04:17 Intake & Output 03/01/18 03/02/18 03/03/18 06:59 06:59 06:59 Intake Total 993 909 Output Total 1800 0265 Balance -807 -4261 Weight 91.6 kg 86.5 kg General appearance: PRESENT: no acute distress, disheveled, thin, well- developed, well-nourished Head exam: PRESENT: atraumatic, normocephalic Eye exam: PRESENT: conjunctiva pale. ABSENT: nystagmus, scleral icterus Mouth exam: PRESENT: dry mucosa, neck supple, tongue midline, other Neck exam: ABSENT: carotid bruit, JVD, lymphadenopathy, thyromegaly, tracheal deviation, tracheostomy Respiratory exam: PRESENT: decreased breath sounds, prolonged expiratory phas, rales, rhonchi, unlabored. ABSENT: retraction, stridor, tachypnea Cardiovascular exam: PRESENT: irregular rhythm Pulses: PRESENT: normal radial pulses GI/Abdominal exam: PRESENT: soft. ABSENT: tenderness Gentrourinary exam: PRESENT: indwelling catheter Extremities exam: PRESENT: pedal edema. ABSENT: calf tenderness, clubbing, j oint swelling Musculoskeletal exam: ABSENT: ambulatory, deformity, dislocation Neurological exam: ABSENT: awake Skin exam: PRESENT: dry, warm Results Laboratory Results: 03/02/18 04:08 03/02/18 04:08 03/01/18 03/02/18 03/02/18 07:18 04:08 04:08 WBC 7.7 RBC 5.09 Hgb 16.9 Hct 49.9 MCV 98 H MCH 33.2 MCHC 33.9 RDW 14.4 H Plt Count 122 L Carbonic Acid HCO3/H2CO3 Ratio ABG pH ABG pCO2 ABG pO2 ABG HCO3 ABG O2 Saturation ABG Base Excess FiO2 Sodium 133.6 L Potassium 3.8 Chloride 99 Carbon Dioxide 29 Anion Gap 6 BUN 20 Creatinine 0.85 Est GFR ( Amer) > 60 Est GFR (Non-Af Amer) > 60 Glucose 92 Calcium 7.6 L Magnesium 2.3 Total Bilirubin 1.1 AST 46 ALT 67 Alkaline Phosphatase 57 Total Protein 5.2 L Albumin 2.7 L Triglycerides 94 Urine Color Urine Appearance Urine pH Ur Specific [place] Urine Protein Urine Glucose (UA) Urine Ketones Urine Blood Urine Nitrite Ur Leukocyte Esterase Urine WBC (Auto) Urine RBC (Auto) 03/02/18 03/02/18 06:00 06:00 WBC RBC Hgb Hct MCV MCH MCHC RDW Plt Count Carbonic Acid 1.13 HCO3/H2CO3 Ratio 25:1 ABG pH 7.50 H ABG pCO2 37.5 ABG pO2 95.8 ABG HCO3 28.6 H ABG O2 Saturation 97.8 ABG Base Excess 5.3 FiO2 35% Sodium Potassium Chloride Carbon Dioxide Anion Gap BUN Creatinine Est GFR ( Amer) Est GFR (Non-Af Amer) Glucose Calcium Magnesium Total Bilirubin AST ALT Alkaline Phosphatase Total Protein Albumin Triglycerides Urine Color YELLOW Urine Appearance CLEAR Urine pH 6.0 Ur Specific [place] 1.025 Urine Protein 30 H Urine Glucose (UA) 50 H Urine Ketones TRACE H Urine Blood SMALL H Urine Nitrite NEGATIVE Ur Leukocyte Esterase NEGATIVE Urine WBC (Auto) 1 Urine RBC (Auto) 4 02/28/18 02/28/18 03/01/18 16:50 19:40 00:20 Troponin I 0.152 0.304 Cancelled 03/01/18 03/01/18 00:54 06:27 Troponin I 0.584 0.274 Impressions: Chest/Abdomen CTA 02/28/18 00:00 IMPRESSION: 1. No pulmonary embolus. 2. Findings likely predominantly related to congestive failure including cardiomegaly, edema and effusions as above. Chest CT 03/01/18 00:00 IMPRESSION: Overall improvement since yesterday. There is a background of chronic interstitial lung disease. No definitive findings to suggest amiodarone toxicity. Venous Doppler Study 03/01/18 00:00 IMPRESSION: NO EVIDENCE DVT OR SVT IN THE RIGHT ARM. Chest X-Ray 03/02/18 06:00 IMPRESSION: 1. Mild residual airspace disease in the retrocardiac left lower lobe. 2. Grossly stable life support lines and tubes. Assessment & Plan - Diagnosis (1) Acute hypoxemic respiratory failure Is this a current diagnosis for this admission?: Yes Plan: failed to sustain ps/cpap (2) Acute on chronic systolic heart failure Is this a current diagnosis for this admission?: Yes Plan: As per cardiology (3) Atrial fibrillation with RVR Is this a current diagnosis for this admission?: Yes Plan: Digoxin plus Cardizem stable at this time - Time Total Critical Time (Minutes): 45
[2018-03-04] MEDS: SPIRONOLACTONE 25 MG TABLET NG SCH (11:23)
[2018-03-04] MEDS: BUMETANIDE 1 MG TABLET NG SCH ×2 (11:23→18:08)
[2018-03-04] MEDS: SACUBITRIL/VALSARTAN 24 MG/26 MG TABLET NG SCH ×2 (11:24→22:49)
[2018-03-04] MEDS: MIDAZOLAM HCL 50 MG/100 ML RTUINJ IV PRN (14:10)
[2018-03-04] MEDS ORDERED: NOREPINEPHRINE BITARTRATE INJ/PF 4 MG/4 ML SDV IV ONE (16:14)
[2018-03-04] MEDS: DILTIAZEM HCL/D5W 125 MG/125 ML RTUINJ IV PRN (16:29)
[2018-03-04] MEDS: ATORVASTATIN CALCIUM 40 MG TABLET NG SCH (22:02)
[2018-03-04] MEDS: MONTELUKAST SODIUM 10 MG TABLET NG SCH (22:02)
--- NOTE | 2018-03-04 23:10 | PDOC PROGRESS REPORT ---
Subjective Progress Note for:: 03/04/18 Subjective:: Patient remains intubated Reason For Visit: AFIB WITH RVR Physical Exam Vital Signs: Temp Pulse Resp BP Pulse Ox 98.8 F 64 20 105/83 93 03/04/18 21:21 03/04/18 14:00 03/04/18 18:45 03/04/18 18:45 03/04/18 18:45 Intake & Output 03/03/18 03/04/18 03/05/18 06:59 06:59 06:59 Intake Total 1076 1299 876 Output Total 1705 3215 1070 Balance -5079 -1916 -194 Weight 83.4 kg 82.3 kg General appearance: PRESENT: no acute distress, well-developed Head exam: PRESENT: atraumatic, normocephalic Respiratory exam: PRESENT: clear to auscultation tasha, symmetrical, unlabored. ABSENT: rales, rhonchi, wheezes Cardiovascular exam: PRESENT: irregular rhythm GI/Abdominal exam: PRESENT: normal bowel sounds, soft. ABSENT: tenderness Extremities exam: ABSENT: pedal edema Musculoskeletal exam: PRESENT: normal inspection Neurological exam: PRESENT: other - Sedated Results Laboratory Results: 03/04/18 03:48 03/04/18 03:48 03/04/18 03/04/18 03/04/18 03:48 03:48 05:10 WBC 11.7 H RBC 5.59 H Hgb 18.8 H Hct 55.3 H MCV 99 H MCH 33.7 H MCHC 34.1 RDW 14.2 H Plt Count 128 L Seg Neutrophils % 73.0 Lymphocytes % 14.5 Monocytes % 12.0 Eosinophils % 0.4 Basophils % 0.1 Absolute Neutrophils 8.5 H Absolute Lymphocytes 1.7 Absolute Monocytes 1.4 Absolute Eosinophils 0.1 Absolute Basophils 0.0 Carbonic Acid 1.39 H HCO3/H2CO3 Ratio 24:1 ABG pH 7.48 H ABG pCO2 46.1 H ABG pO2 84.3 ABG HCO3 33.9 H ABG O2 Saturation 96.9 ABG Base Excess 8.7 FiO2 35% Sodium 134.8 L Potassium 4.1 Chloride 94 L Carbon Dioxide 32 H Anion Gap 9 BUN 25 H Creatinine 0.73 Est GFR ( Amer) > 60 Est GFR (Non-Af Amer) > 60 Glucose 112 H Calcium 7.8 L Magnesium 2.5 H Triglycerides 182 H Urine Color Urine Appearance Urine pH Ur Specific [place] Urine Protein Urine Glucose (UA) Urine Ketones Urine Blood Urine Nitrite Ur Leukocyte Esterase Urine WBC (Auto) Urine RBC (Auto) 03/04/18 05:10 WBC RBC Hgb Hct MCV MCH MCHC RDW Plt Count Seg Neutrophils % Lymphocytes % Monocytes % Eosinophils % Basophils % Absolute Neutrophils Absolute Lymphocytes Absolute Monocytes Absolute Eosinophils Absolute Basophils Carbonic Acid HCO3/H2CO3 Ratio ABG pH ABG pCO2 ABG pO2 ABG HCO3 ABG O2 Saturation ABG Base Excess FiO2 Sodium Potassium Chloride Carbon Dioxide Anion Gap BUN Creatinine Est GFR ( Amer) Est GFR (Non-Af Amer) Glucose Calcium Magnesium Triglycerides Urine Color YELLOW Urine Appearance SLIGHTLY-CLOUDY Urine pH 5.0 Ur Specific [place] 1.026 Urine Protein 30 H Urine Glucose (UA) NEGATIVE Urine Ketones NEGATIVE Urine Blood LARGE H Urine Nitrite NEGATIVE Ur Leukocyte Esterase NEGATIVE Urine WBC (Auto) 11 Urine RBC (Auto) 130 02/27/18 02/27/18 02/27/18 07:25 09:29 12:10 Troponin I Cancelled 0.029 0.051 NT-Pro-B Natriuret Pep Cancelled 51709 H 02/28/18 02/28/18 03/01/18 16:50 19:40 00:20 Troponin I 0.152 0.304 Cancelled NT-Pro-B Natriuret Pep 03/01/18 03/01/18 03/02/18 00:54 06:27 07:57 Troponin I 0.584 0.274 0.139 NT-Pro-B Natriuret Pep Impressions: Chest/Abdomen CTA 02/28/18 00:00 IMPRESSION: 1. No pulmonary embolus. 2. Findings likely predominantly related to congestive failure including cardiomegaly, edema and effusions as above. Chest CT 03/01/18 00:00 IMPRESSION: Overall improvement since yesterday. There is a background of chronic interstitial lung disease. No definitive findings to suggest amiodarone toxicity. Venous Doppler Study 03/01/18 00:00 IMPRESSION: NO EVIDENCE DVT OR SVT IN THE RIGHT ARM. Chest X-Ray 03/04/18 06:00 IMPRESSION: 1. Chronic mild changes in the apices- upper lobes. No acute findings. 2. Endotracheal and nasogastric tubes are unchanged in position. Assessment & Plan - Diagnosis (1) Acute hypoxemic respiratory failure Is this a current diagnosis for this admission?: Yes Plan: The patient remains on the ventilator. He failed weaning trial today. We will continue to try and wean. Please also see pulmonology note. (2) Atrial fibrillation with RVR Is this a current diagnosis for this admission?: Yes Plan: Continue the digoxin and metoprolol. He is no longer on the Cardizem drip. Adjust medications as clinically indicated. Please also see cardiology note. (3) Acute on chronic systolic heart failure Is this a current diagnosis for this admission?: Yes Plan: Currently adjusting diuretics keeping in mind his pulse and blood pressure. We should be able to restart his Entresto soon. The patient will likely need cardiac catheterization once extubated. (4) Community acquired pneumonia Qualifiers: Laterality: unspecified laterality Qualified Code(s): J18.9 - Pneumonia, unspecified organism Is this a current diagnosis for this admission?: Yes Plan: Continue current antibiotic therapy. - Time Time Spent with patient: 25-34 minutes
[2018-03-05] MEDS: GUAIFENESIN SYRP 200 MG/10 ML UDC NG SCH ×4 (04:29→21:53)
[2018-03-05 04:46] LABS: PROTHROMBIN TIME 47.9 SEC (11.4-15.4)
[2018-03-05 04:47] LABS: ANION GAP 8 (5-19); BLOOD UREA NITROGEN 28 mg/dL (7-20); CALCIUM 8.2 mg/dL (8.4-10.2); CARBON DIOXIDE 36 mmol/L (22-30); CHLORIDE 93 mmol/L (98-107); GLUCOSE 137 mg/dL (75-110); PARTIAL THROMBOPLASTIN TIME 58.3 SEC (23.5-35.8); SODIUM 136.5 mmol/L (137-145)
[2018-03-05] MEDS: MEROPENEM 1 GM in NORMAL SALINE 50 ML IV SCH ×3 (05:34→21:53)
[2018-03-05] MEDS: PANTOPRAZOLE SODIUM 40 MG VIAL IV SCH ×2 (05:35→17:30)
[2018-03-05] MEDS: METOPROLOL TARTRATE 50 MG TABLET NG SCH ×2 (05:35→17:26)
[2018-03-05] MEDS: ACETAMINOPHEN 325 MG TABLET NG PRN ×2 (05:35→21:56)
[2018-03-05] MEDS: MIDAZOLAM HCL 50 MG/100 ML RTUINJ IV PRN (05:37)
[2018-03-05 06:10] LABS: ARTERIAL BLOOD BASE EXCESS 10.9 mmol/L; ARTERIAL BLOOD HCO3 34.4 mmol/L (20-24); ARTERIAL BLOOD PH 7.55 (7.35-7.45); ARTERIAL BLOOD TOTAL CO2 35.6 mmol/L (23-27)
[2018-03-05 06:11] LABS: ARTERIAL BLOOD FIO2 35%
--- NOTE | 2018-03-05 06:50 | RADIOLOGY REPORT (SQ) ---
EXAM DESCRIPTION: XR CHEST 1 VIEW COMPLETED DATE/TME: 03/05/2018 06:00 CLINICAL HISTORY: Respiratory Distress. 67 years Male, resp failure COMPARISON: One day prior. NUMBER OF VIEWS/TECHNIQUE: 1/AP FINDINGS: Clear lungs of adequate volume, and normal cardiac silhouette. Atherosclerosis.Likely adequate appearing enteric tube partially obscured. Tip of an endotracheal tube is 8.9 cm from the daniele, at the thoracic inlet; consider 5 cm advancement of the endotracheal tube.No pneumothorax. Stable bony thorax. IMPRESSION: Tip of an endotracheal tube is 8.9 cm from the daniele; consider 4 cm advancement of the endotracheal tube.
[2018-03-05] MEDS: DEXTROSE 5%-WATER 250 ML with PHENYLEPHRINE HCL 40 MG IV PRN ×4 (08:38→18:58)
[2018-03-05] MEDS: SPIRONOLACTONE 25 MG TABLET NG SCH (11:30)
[2018-03-05] MEDS: SACUBITRIL/VALSARTAN 24 MG/26 MG TABLET NG SCH ×2 (11:31→23:53)
[2018-03-05] MEDS: BUMETANIDE 1 MG TABLET NG SCH ×2 (11:31→17:31)
[2018-03-05] MEDS: PROPOFOL 1,000 MG/100 ML INFUS..BTL IV PRN ×2 (13:09→17:25)
[2018-03-05 14:06] LABS: ARTERIAL BLOOD BASE EXCESS 9.5 mmol/L; ARTERIAL BLOOD H2CO3 1.39 mmol/L (1.05-1.35); ARTERIAL BLOOD HCO3 34.6 mmol/L (20-24); ARTERIAL BLOOD O2 SATURATION 97.6 % (94-98); ARTERIAL BLOOD PCO2 46.1 mmHg (35-45); ARTERIAL BLOOD PH 7.49 (7.35-7.45); ARTERIAL BLOOD PO2 93.7 mmHg (80-100)
[2018-03-05 14:07] LABS: ARTERIAL BLOOD FIO2 35%
--- NOTE | 2018-03-05 17:31 | PDOC PROGRESS REPORT ---
Subjective Progress Note for:: 03/05/18 Subjective:: With adjustments in the medication the patient actually opens his eyes. He does turn his head in response to verbal communication but does not maintain eye contact. Reason For Visit: AFIB WITH RVR Physical Exam Vital Signs: Temp Pulse Resp BP Pulse Ox 100.2 F 76 17 112/86 H 100 03/05/18 16:00 03/05/18 16:00 03/05/18 16:44 03/05/18 16:45 03/05/18 16:45 Intake & Output 03/04/18 03/05/18 03/06/18 06:59 06:59 06:59 Intake Total 1299 1436 143 Output Total 3219 8320 800 Balance -6720 -734 -367 Weight 82.3 kg 81 kg General appearance: PRESENT: no acute distress, well-developed Head exam: PRESENT: atraumatic, normocephalic Mouth exam: PRESENT: other - Endotracheal tube in place Respiratory exam: PRESENT: clear to auscultation tasha - Anteriorly, symmetrical. ABSENT: accessory muscle use, rales, rhonchi, wheezes Cardiovascular exam: PRESENT: RRR, +S1, +S2 Vascular exam: PRESENT: other - Cool toes. Dorsalis pedis pulses not palpable. GI/Abdominal exam: PRESENT: hypoactive bowel sounds, soft. ABSENT: tenderness Extremities exam: ABSENT: pedal edema Neurological exam: PRESENT: awake - As noted above eyes open spontaneously. He does respond to verbal stimulus by turning his head but does not maintain eye contact or track., other Psychiatric exam: PRESENT: flat affect. ABSENT: agitated Focused psych exam: ABSENT: restlessness Results Laboratory Results: 03/04/18 03:48 03/05/18 03:52 03/05/18 03/05/18 03/05/18 03:52 05:55 13:58 Carbonic Acid 1.20 1.39 H HCO3/H2CO3 Ratio 28:1 24:1 ABG pH 7.55 H 7.49 H ABG pCO2 40.0 46.1 H ABG pO2 96.0 93.7 ABG HCO3 34.4 H 34.6 H ABG O2 Saturation 98.0 97.6 ABG Base Excess 10.9 9.5 FiO2 35% 35% Sodium 136.5 L Potassium 4.0 Chloride 93 L Carbon Dioxide 36 H Anion Gap 8 BUN 28 H Creatinine 0.84 Est GFR ( Amer) > 60 Est GFR (Non-Af Amer) > 60 Glucose 137 H Calcium 8.2 L Magnesium 2.6 H 02/28/18 16:50 Blood Blood Culture - Final NO GROWTH IN 5 DAYS 02/28/18 16:50 Blood Blood Culture - Final NO GROWTH IN 5 DAYS 02/27/18 02/27/18 02/27/18 07:25 09:29 12:10 Troponin I Cancelled 0.029 0.051 NT-Pro-B Natriuret Pep Cancelled 46116 H 02/28/18 02/28/18 03/01/18 16:50 19:40 00:20 Troponin I 0.152 0.304 Cancelled NT-Pro-B Natriuret Pep 03/01/18 03/01/18 03/02/18 00:54 06:27 07:57 Troponin I 0.584 0.274 0.139 NT-Pro-B Natriuret Pep 03/05/18 03/05/18 03:52 05:15 Troponin I NT-Pro-B Natriuret Pep Cancelled 1290 H Impressions: Chest/Abdomen CTA 02/28/18 00:00 IMPRESSION: 1. No pulmonary embolus. 2. Findings likely predominantly related to congestive failure including cardiomegaly, edema and effusions as above. Chest CT 03/01/18 00:00 IMPRESSION: Overall improvement since yesterday. There is a background of chronic interstitial lung disease. No definitive findings to suggest amiodarone toxicity. Venous Doppler Study 03/01/18 00:00 IMPRESSION: NO EVIDENCE DVT OR SVT IN THE RIGHT ARM. Chest X-Ray 03/05/18 06:00 IMPRESSION: Tip of an endotracheal tube is 8.9 cm from the daniele; consider 4 cm advancement of the endotracheal tube. Assessment & Plan - Diagnosis (1) Acute hypoxemic respiratory failure Is this a current diagnosis for this admission?: Yes Plan: The patient remains intubated. The sedation has been decreased in an effort to try and wake the patient to see if this helps with weaning trials. As noted above he opens his eyes. He did not do well on a weaning trial this morning but we will continue to wean as tolerated. (2) Atrial fibrillation with RVR Is this a current diagnosis for this admission?: Yes Plan: He is back on the diltiazem drip with good rate control. Unfortunately his blood pressure has been low. He remains on Robby-Synephrine for hypotension. (3) Acute on chronic systolic heart failure Is this a current diagnosis for this admission?: Yes Plan: Significant cardiomyopathy with ejection fraction less than 30%. Unfortunately until the patient recovers significantly cardiac interventions are not possible. (4) Community acquired pneumonia Qualifiers: Laterality: unspecified laterality Qualified Code(s): J18.9 - Pneumonia, unspecified organism Is this a current diagnosis for this admission?: Yes Plan: Continue antibiotic therapy. We will discontinue antibiotics when the course suggested for pneumonia is completed. - Time Time Spent with patient: 15-24 minutes Medications reviewed and adjusted accordingly: Yes
--- NOTE | 2018-03-05 21:30 | Progress Note ---
Provider Note Provider Note: CARDIOLOGY PROGRESS NOTES by Dr. Martina Castellanos on 03/05/2018. SUBJECTIVE: The patient continues to be in atrial fibrillation. At times his heart rate is increased. At present his blood pressure is stable without any pressors. The patient is on beta-jewels and Entresto. His Coumadin is on hold since his INR is still high. There is no ventricular arrhythmia seen on the monitor. There is no pedal edema. PHYSICAL EXAMINATION: The patient is well-built. He is well-groomed. Selected Entries 03/05/18 03/05/18 12:00 12:30 Core 99.3 F Temperature Heart Rate ( 87 Monitors) Respiratory 18 Rate Blood Pressure 113/54 L Blood Pressure 73 Mean O2 Sat by Pulse 99 Oximetry Oxygen Delivery Mechanical Method ( Ventilator includes room air) Percent of 35 Oxygen HEAD: Is atraumatic normocephalic. EYES: Pupils are equal round regular reactive to light. ENT is negative. SKIN: Is without any skin lesions or skin rashes. There is no petechia or ecchymosis. NECK: Is supple. There is no JVD. Carotids are equal there is no bruits. There is no lymphadenopathy. Trachea central. LUNGS: There is absent breath sounds in the right base. There is scattered rhonchi. If you dry crackles throughout the lung and also a few fine rales in the left base. There is diminished air entry throughout and hyperresonance. Heart: S1-S2 is heard S1 is of variable intensity there is no S3 gallop. There is no S4 gallop. There is no rub. There is systolic murmur left sternal border and the apex. ABDOMEN: Soft there is no hepatosplenic megaly. Bowel sounds are well heard. EXTREMITIES: Femorals are diminished. There is no femoral bruits. Leg pulses are diminished. There is no pedal edema. There is no DVT or cellulitis. There is no sinus or clubbing. 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 03/05/18 03/05/18 03/05/18 03:52 03:52 13:58 PT 47.9 H INR 4.90 APTT 58.3 H Carbonic Acid 1.39 H HCO3/H2CO3 Ratio 24:1 ABG pH 7.49 H ABG pCO2 46.1 H ABG pO2 93.7 ABG HCO3 34.6 H ABG Total CO2 36.0 H ABG O2 Saturation 97.6 ABG Base Excess 9.5 FiO2 35% Sodium 136.5 L Potassium 4.0 Chloride 93 L Carbon Dioxide 36 H Anion Gap 8 BUN 28 H Creatinine 0.84 Est GFR (Non-Af Amer) > 60 Glucose 137 H Calcium 8.2 L Magnesium 2.6 H The patient's 24-hour intake is 1436 mL. The patient's output is 2170 mL. Note that the patient is on tube feedings. IMPRESSION/RECOMMENDATION: 1 acute respiratory failure most likely on chronic respiratory failure: Continue ventilator support. Recommend anti-COPD nebulizer treatments. Note multiple attempts at 2. Atrial fibrillation with rapid ventricular response: Most likely secondary to the patient's decompensated respiratory status. At present on Cardizem drip heart rate is acceptable. Note that the patient's is most likely has c trying to wean the patient off the ventilator was unsuccessful. Chronic atrial fibrillation, and with the patient's liver function test being abnormal would recommend discontinuing amiodarone. The patient did receive another dose of IV digoxin at 0.25 mg IV push x1. We will continue the patient on Cardizem drip. Later we will increase the patient's beta-jewels. The patient's INR is good on Coumadin. Continue Coumadin, adjusting the dose according to the PT/INR should aim for INR between 2 and 3. Note still no PT/INR on the chart, hence reordered for tonight, and daily. 3. Pneumonia: With acute exacerbation of COPD. Continue antibiotics and respiratory treatments. 4. Possible amiodarone toxicity: Although the CT a findings and the chest x-ray findings may represent just heart failure, in view of the abnormal liver function tests and the patient's groundglass appearance and interlobar septal thickening and some areas of bronchiectasis one should keep amiodarone toxicity in mind. The patient was given 1 dose of steroids in the form of hydrocortisone to 50 mL IV push. 5 ISCHEMIC Cardiomyopathy: With severely reduced LV ejection fraction: Would recommend that the patient be referred for AICD placement consideration. Would at present continue the patient's metoprolol XL and Entresto. Will increase the dose of each as permitted by the patient's heart rate and blood pressure. Later we will recheck the patient's echocardiogram. We will restart the patient's Entresto, since the patient's of Levophed. 6. Coronary artery disease, in view of the labile of ischemic cardiomyopathy as a diagnosis. Details of his coronary anatomy is not known. 7. Note abnormal liver function tests: We will follow this since his amiodarone has been stopped. Will check an echo to see if the patient is a pulmonary hypertension causing liver congestion. At present there is liver function tests of reverted back to normal 8. History of hypertension: At present at present blood pressure in the 90s to the 100s. 9. Elevated troponin I: Most likely secondary to patient's atrial fibrillation with rapid ventricular response in a patient with severely depressed LV ejection fraction. But with the patient's EKG showing T wave inversions suggestive of ischemia versus post tachycardia T wave syndrome, and the patient's history of ischemic cardiomyopathy. Later would need a nuclear stress testing versus cardiac catheterization to be absolutely sure that the patient does not have u nderlying significant coronary artery disease. 10. Hypotension: Blood pressure now stable, off pressors for the moment. Medications reviewed. Management plan discussed with other caregiving providers on the case. Medical decision making is of high complexity. 40 minutes spent on this patient with more than 50% of time spent in direct patient care. We will follow with you.
--- NOTE | 2018-03-05 21:30 | Progress Note ---
Provider Note Provider Note: CARDIOLOGY PROGRESS NOTES by Dr. Martina Castellanos on 03/04/2018. SUBJECTIVE: The patient continues to be intubated. At times is atrial fibrillation with rapid ventricular response. He is off pressors. His Entresto has been restarted. There is no ventricular arrhythmia seen on the monitor. The patient continues to be in respiratory failure, with an inability to wean the patient off the respirator. He is also on beta-blockers while the NG tube. His INR was high and hence his Coumadin has been L. PHYSICAL EXAMINATION: The patient is well-built. He is well-groomed. Selected Entries 03/04/18 03/04/18 03/04/18 11:00 11:13 11:59 Temperature Core 98.6 F Temperature Heart Rate ( 90 101 Monitors) Respiratory 17 Rate Blood Pressure 111/81 [Right Upper Arm] Blood Pressure 91 Mean [Right Upper Arm] O2 Sat by Pulse 95 Oximetry Oxygen Delivery Method ( includes room air) Fraction of Inspired Oxygen (FIO2) 03/04/18 12:00 Temperature 99.0 F Core Temperature Heart Rate ( Monitors) Respiratory 20 Rate Blood Pressure 110/67 [Right Upper Arm] Blood Pressure Mean [Right Upper Arm] O2 Sat by Pulse 95 Oximetry Oxygen Delivery Mechanical Method ( Ventilator includes room air) Fraction of 35 Inspired Oxygen (FIO2) HEAD: Is atraumatic normocephalic. EYES: Pupils are equal round regular reactive to light. ENT is negative. SKIN: Is without any skin lesions or skin rashes. There is no petechia or ecchymosis. NECK: Is supple. There is no JVD. Carotids are equal there is no bruits. There is no lymphadenopathy. Trachea central. LUNGS: There is absent breath sounds in the right base. There is scattered rhonchi. If you dry crackles throughout the lung and also a few fine rales in the left base. There is diminished air entry throughout and hyperresonance. Heart: S1-S2 is heard S1 is of variable intensity there is no S3 gallop. There is no S4 gallop. There is no rub. There is systolic murmur left sternal border and the apex. ABDOMEN: Soft there is no hepatosplenic megaly. Bowel sounds are well heard. EXTREMITIES: Femorals are diminished. There is no femoral bruits. Leg pulses are diminished. There is no pedal edema. There is no DVT or cellulitis. There is no sinus or clubbing. 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 03/04/18 03/04/18 03/04/18 03:48 03:48 03:48 WBC 11.7 H Hgb 18.8 H Hct 55.3 H MCV 99 H MCH 33.7 H MCHC 34.1 Plt Count 128 L PT 43.2 H INR 4.30 APTT 59.1 H Sodium 134.8 L Potassium 4.1 Chloride 94 L Carbon Dioxide 32 H Anion Gap 9 BUN 25 H Creatinine 0.73 Est GFR (Non-Af Amer) > 60 Glucose 112 H Calcium 7.8 L Magnesium 2.5 H Triglycerides 182 H The patient's 24-hour intake is 1299 mL. Output is 3215 mL. The chest x-ray: Shows mild chronic changes in the apices. No heart failure. IMPRESSION/RECOMMENDATION: 1 acute respiratory failure most likely on chronic respiratory failure: Continue ventilator support. Recommend anti-COPD nebulizer treatments. Note multiple attempts at 2. Atrial fibrillation with rapid ventricular response: Most likely secondary to the patient's decompensated respiratory status. At present on Cardizem drip heart rate is acceptable. Note that the patient's is most likely has c trying to wean the patient off the ventilator was unsuccessful. Chronic atrial fibrillation, and with the patient's liver function test being abnormal would recommend discontinuing amiodarone. The patient did receive another dose of IV digoxin at 0.25 mg IV push x1. We will continue the patient on Cardizem drip. Later we will increase the patient's beta-jewels. The patient's INR is good on Coumadin. Continue Coumadin, adjusting the dose according to the PT/INR should aim for INR between 2 and 3. Note still no PT/INR on the chart, hence reordered for tonight, and daily. 3. Pneumonia: With acute exacerbation of COPD. Continue antibiotics and respiratory treatments. 4. Possible amiodarone toxicity: Although the CT a findings and the chest x-ray findings may represent just heart failure, in view of the abnormal liver function tests and the patient's groundglass appearance and interlobar septal thickening and some areas of bronchiectasis one should keep amiodarone toxicity in mind. The patient was given 1 dose of steroids in the form of hydrocortisone to 50 mL IV push. 5 ISCHEMIC Cardiomyopathy: With severely reduced LV ejection fraction: Would recommend that the patient be referred for AICD placement consideration. Would at present continue the patient's metoprolol XL and Entresto. Will increase the dose of each as permitted by the patient's heart rate and blood pressure. Later we will recheck the patient's echocardiogram. We will restart the patient's Entresto, since the patient's of Levophed. 6. Coronary artery disease, in view of the labile of ischemic cardiomyopathy as a diagnosis. Details of his coronary anatomy is not known. 7. Note abnormal liver function tests: We will follow this since his amiodarone has been stopped. Will check an echo to see if the patient is a pulmonary hypertension causing liver congestion. We will follow the patient's liver function tests. 8. History of hypertension: At present at present blood pressure in the 90s to the 100s. 9. Elevated troponin I: Most likely secondary to patient's atrial fibrillation with rapid ventricular response in a patient with severely depressed LV ejection fraction. But with the patient's EKG showing T wave inversions suggestive of ischemia versus post tachycardia T wave syndrome, and the patient's history of ischemic cardiomyopathy. Later would need a nuclear stress testing versus cardiac catheterization to be absolutely sure that the patient does not have underlying significant coronary artery disease. 10. Hypotension: Blood pressure now stable, but requiring pressors. Medications have been reviewed. Discussed management plan with other caregiving providers on the case. 40 minutes spent on this patient with more than 50% of time spent in direct patient care. Medical decision making continues to be of high complexity.
[2018-03-05] MEDS: ATORVASTATIN CALCIUM 40 MG TABLET NG SCH (21:54)
[2018-03-05] MEDS: MONTELUKAST SODIUM 10 MG TABLET NG SCH (21:54)
[2018-03-06] MEDS: PROPOFOL 1,000 MG/100 ML INFUS..BTL IV PRN ×3 (04:07→22:18)
[2018-03-06] MEDS: GUAIFENESIN SYRP 200 MG/10 ML UDC NG SCH ×4 (04:07→21:13)
[2018-03-06] MEDS: DEXTROSE 5%-WATER 250 ML with PHENYLEPHRINE HCL 40 MG IV PRN ×2 (04:07)
[2018-03-06 05:47] LABS: ABSOLUTE BASOPHILS # (AUTO) 0.1 10^3/uL (0.0-0.2); ABSOLUTE EOSINOPHILS # (AUTO) 0.1 10^3/uL (0.0-0.6); ABSOLUTE LYMPHOCYTES (AUTO) 1.5 10^3/uL (0.5-4.7); ABSOLUTE MONOCYTES (AUTO) 1.8 10^3/uL (0.1-1.4); ABSOLUTE NEUT (AUTO) 13.4 10^3/uL (1.7-8.2); BASOPHILS % (AUTO) 0.5 % (0-2); EOSINOPHILS % (AUTO) 0.4 % (0-6); HEMOGLOBIN 18.8 g/dL (13.5-17.0); LYMPHOCYTES % (AUTO) 8.8 % (13-45); MEAN CORPUSCULAR HEMOGLOBIN 33.2 pg (27.0-33.4); MEAN CORPUSCULAR HGB CONC 33.8 g/dL (32.0-36.0); MEAN CORPUSCULAR VOLUME 98 fl (80-97); MONOCYTES % (AUTO) 10.6 % (3-13); PLATELET COUNT 148 10^3/uL (150-450); RED BLOOD COUNT 5.67 10^6/uL (4.35-5.55); RED CELL DISTRIBUTION WIDTH 14.5 % (11.5-14.0); SEGMENTED NEUTROPHILS % (AUTO) 79.7 % (42-78); TOTAL CELLS COUNTED % (AUTO) 100 %; WHITE BLOOD COUNT 16.8 10^3/uL (4.0-10.5)
[2018-03-06 05:48] LABS: HEMATOCRIT 55.8 % (37.9-51.0)
[2018-03-06 06:18] LABS: ARTERIAL BLOOD BASE EXCESS 12.4 mmol/L; ARTERIAL BLOOD H2CO3 1.61 mmol/L (1.05-1.35); ARTERIAL BLOOD O2 SATURATION 97.5 % (94-98); ARTERIAL BLOOD PCO2 53.4 mmHg (35-45); ARTERIAL BLOOD PH 7.48 (7.35-7.45); ARTERIAL BLOOD PO2 93.9 mmHg (80-100); ARTERIAL BLOOD TOTAL CO2 40.6 mmol/L (23-27)
[2018-03-06] MEDS: METOPROLOL TARTRATE 50 MG TABLET NG SCH ×2 (06:18→17:21)
[2018-03-06] MEDS: MEROPENEM 1 GM in NORMAL SALINE 50 ML IV SCH (06:18)
[2018-03-06] MEDS: PANTOPRAZOLE SODIUM 40 MG VIAL IV SCH ×2 (06:18→17:20)
[2018-03-06 06:25] LABS: ARTERIAL BLOOD FIO2 35%
--- NOTE | 2018-03-06 06:35 | RADIOLOGY REPORT (SQ) ---
EXAM DESCRIPTION: XR CHEST 1 VIEW COMPLETED DATE/TME: 03/06/2018 06:00 CLINICAL HISTORY: Respiratory Distress. 67 years Male, resp failure COMPARISON: One day prior. NUMBER OF VIEWS/TECHNIQUE: 1/AP FINDINGS: Clear lungs of adequate volume, and normal cardiac silhouette. Atherosclerosis. Likely adequate appearing enteric tube partially obscured. Tip of an endotracheal tube is 9.5 cm from the daniele; consider 4.5 cm advancement of the endotracheal tube.No pneumothorax. Stable bony thorax. IMPRESSION: Tip of an endotracheal tube is 9.5 cm from the daniele; consider 4.5 cm advancement of the endotracheal tube.
[2018-03-06 06:43] LABS: ALANINE AMINOTRANSFERASE 91 U/L (21-72); ALBUMIN 3.3 g/dL (3.5-5.0); ALKALINE PHOSPHATASE 79 U/L (38-126); ANION GAP 5 (5-19); ASPARTATE AMINO TRANSFERASE 108 U/L (17-59); BILIRUBIN,DIRECT 0.2 mg/dL (0.0-0.4); BLOOD UREA NITROGEN 26 mg/dL (7-20); CALCIUM 8.2 mg/dL (8.4-10.2); CARBON DIOXIDE 39 mmol/L (22-30); CHLORIDE 95 mmol/L (98-107); GLUCOSE 121 mg/dL (75-110); POTASSIUM 3.9 mmol/L (3.6-5.0); SODIUM 138.9 mmol/L (137-145); TOTAL PROTEIN 6.6 g/dL (6.3-8.2)
[2018-03-06] MEDS ORDERED: VANCOMYCIN HCL 0 MG in DEXTROSE 5%-WATER 250 ML IV NR (10:00)
[2018-03-06] MEDS ORDERED: POLYETHYLENE GLYCOL 3350 POWDER 17 GM/1 PACKET NG SCH (10:00)
[2018-03-06] MEDS ORDERED: CEFEPIME 2 GM/D5W RTU 2 GM/50 ML RTUPB IV SCH (10:00)
--- NOTE | 2018-03-06 10:04 | PDOC PROGRESS REPORT ---
Subjective Progress Note for:: 03/06/18 Subjective:: Patient is more awake today. He is breathing above the vent. He appears frustrated. He did have a fever and his white blood cell count is higher today. Reason For Visit: AFIB WITH RVR Physical Exam Vital Signs: Temp Pulse Resp BP Pulse Ox 99.1 F 94 20 92/64 L 95 03/06/18 08:00 03/06/18 08:00 03/06/18 08:00 03/06/18 08:00 03/06/18 08:00 Intake & Output 03/05/18 03/06/18 03/07/18 06:59 06:59 06:59 Intake Total 1436 2016 Output Total 2170 1875 75 Balance -734 142 -75 Weight 81 kg 79.2 kg General appearance: PRESENT: mild distress, thin, well-developed Eye exam: PRESENT: conjunctiva pink. ABSENT: scleral icterus Ear exam: PRESENT: normal external ear exam Mouth exam: PRESENT: other - Endotracheal tube in place Respiratory exam: PRESENT: clear to auscultation tasha. ABSENT: chest wall tenderness, rales, rhonchi, wheezes Cardiovascular exam: PRESENT: irregular rhythm GI/Abdominal exam: PRESENT: normal bowel sounds, soft. ABSENT: tenderness Gentrourinary exam: PRESENT: indwelling catheter Extremities exam: ABSENT: pedal edema Neurological exam: PRESENT: alert, awake, other - He does open his eyes to verbal command. He follows simple commands. Tracking is limited. Psychiatric exam: PRESENT: anxious Skin exam: PRESENT: dry, normal color, warm Results Laboratory Results: 03/06/18 05:30 03/06/18 06:22 03/05/18 03/06/18 03/06/18 13:58 05:30 05:30 WBC 16.8 H RBC 5.67 H Hgb 18.8 H Hct 55.8 H MCV 98 H MCH 33.2 MCHC 33.8 RDW 14.5 H Plt Count 148 L Seg Neutrophils % 79.7 H Lymphocytes % 8.8 L Monocytes % 10.6 Eosinophils % 0.4 Basophils % 0.5 Absolute Neutrophils 13.4 H Absolute Lymphocytes 1.5 Absolute Monocytes 1.8 H Absolute Eosinophils 0.1 Absolute Basophils 0.1 Carbonic Acid 1.39 H HCO3/H2CO3 Ratio 24:1 ABG pH 7.49 H ABG pCO2 46.1 H ABG pO2 93.7 ABG HCO3 34.6 H ABG O2 Saturation 97.6 ABG Base Excess 9.5 FiO2 35% Sodium Potassium Chloride Carbon Dioxide Anion Gap BUN Creatinine Est GFR ( Amer) Est GFR (Non-Af Amer) Glucose Lactic Acid 1.2 Calcium Magnesium Total Bilirubin AST ALT Alkaline Phosphatase Total Protein Albumin 03/06/18 03/06/18 03/06/18 05:30 06:05 06:22 WBC RBC Hgb Hct MCV MCH MCHC RDW Plt Count Seg Neutrophils % Lymphocytes % Monocytes % Eosinophils % Basophils % Absolute Neutrophils Absolute Lymphocytes Absolute Monocytes Absolute Eosinophils Absolute Basophils Carbonic Acid 1.61 H HCO3/H2CO3 Ratio 24:1 ABG pH 7.48 H ABG pCO2 53.4 H ABG pO2 93.9 ABG HCO3 39.0 H ABG O2 Saturation 97.5 ABG Base Excess 12.4 FiO2 35% Sodium Cancelled 138.9 Potassium Cancelled 3.9 Chloride Cancelled 95 L Carbon Dioxide Cancelled 39 H Anion Gap Cancelled 5 BUN Cancelled 26 H Creatinine Cancelled 0.68 Est GFR ( Amer) Cancelled > 60 Est GFR (Non-Af Amer) Cancelled > 60 Glucose Cancelled 121 H Lactic Acid Calcium Cancelled 8.2 L Magnesium Cancelled 2.6 H Total Bilirubin Cancelled 1.0 AST Cancelled 108 H ALT Cancelled 91 H Alkaline Phosphatase Cancelled 79 Total Protein Cancelled 6.6 Albumin Cancelled 3.3 L 02/28/18 16:50 Blood Blood Culture - Final NO GROWTH IN 5 DAYS 02/28/18 16:50 Blood Blood Culture - Final NO GROWTH IN 5 DAYS 02/27/18 02/27/18 02/27/18 07:25 09:29 12:10 Troponin I Cancelled 0.029 0.051 NT-Pro-B Natriuret Pep Cancelled 74357 H 02/28/18 02/28/18 03/01/18 16:50 19:40 00:20 Troponin I 0.152 0.304 Cancelled NT-Pro-B Natriuret Pep 03/01/18 03/01/18 03/02/18 00:54 06:27 07:57 Troponin I 0.584 0.274 0.139 NT-Pro-B Natriuret Pep 03/05/18 03/05/18 03:52 05:15 Troponin I NT-Pro-B Natriuret Pep Cancelled 1290 H Impressions: Chest/Abdomen CTA 02/28/18 00:00 IMPRESSION: 1. No pulmonary embolus. 2. Findings likely predominantly related to congestive failure including cardiomegaly, edema and effusions as above. Chest CT 03/01/18 00:00 IMPRESSION: Overall improvement since yesterday. There is a background of chronic interstitial lung disease. No definitive findings to suggest amiodarone toxicity. Venous Doppler Study 03/01/18 00:00 IMPRESSION: NO EVIDENCE DVT OR SVT IN THE RIGHT ARM. Chest X-Ray 03/06/18 06:00 IMPRESSION: Tip of an endotracheal tube is 9.5 cm from the daniele; consider 4.5 cm advancement of the endotracheal tube. Assessment & Plan - Diagnosis (1) Acute hypoxemic respiratory failure Is this a current diagnosis for this admission?: Yes Plan: The patient is breathing on his own today. Because he has an elevated white blood cell count and had a temperature last night we are going to hold from considering extubation today. He continues to improve consider extubation to BiPAP tomorrow. (2) Atrial fibrillation with RVR Is this a current diagnosis for this admission?: Yes Plan: He is still in atrial fibrillation but his rate is well controlled. He is still on low-dose diltiazem infusion. (3) Acute on chronic systolic heart failure Is this a current diagnosis for this admission?: Yes Plan: The patient has been in a fairly neutral fluid balance for the last several days. Continue to monitor I's and O's. He is off of pressor therapy but he does have an underlying ischemic cardiomyopathy. (4) Community acquired pneumonia Qualifiers: Laterality: unspecified laterality Qualified Code(s): J18.9 - Pneumonia, unspecified organism Is this a current diagnosis for this admission?: Yes Plan: The patient completed antibiotic therapy but in light of the fever and increased white blood cell count no resume antibiotic therapy. Chest x-ray this morning did not show any discrete infiltrate. - Time Time Spent with patient: 35 or more minutes Medications reviewed and adjusted accordingly: Yes
[2018-03-06] MEDS: BUMETANIDE 1 MG TABLET NG SCH ×2 (11:16→17:21)
[2018-03-06] MEDS: SPIRONOLACTONE 25 MG TABLET NG SCH (11:17)
[2018-03-06] MEDS: SACUBITRIL/VALSARTAN 24 MG/26 MG TABLET NG SCH ×2 (11:19→21:14)
[2018-03-06 11:32] LABS: INTERNATIONAL RATION (INR) 3.87; PROTHROMBIN TIME 39.8 SEC (11.4-15.4)
[2018-03-06] MEDS: VANCOMYCIN HCL 1,000 MG in DEXTROSE 5%-WATER 250 ML IV SCH ×2 (13:44→21:13)
[2018-03-06] MEDS: DILTIAZEM HCL/D5W 125 MG/125 ML RTUINJ IV PRN (19:50)
--- NOTE | 2018-03-06 20:42 | Progress Note ---
Provider Note Provider Note: CARDIOLOGY PROGRESS NOTES by Dr. Martina Castellanos on 03/06/2018. OBJECTIVE: The patient is intubation continues, since the planned extubation had to be canceled in view of the patient developing a temperature. He continues to be in atrial fibrillation. Earlier his heart rate was a little fast and hence the patient is on Cardizem 2.5 mg/h. This brought his blood pressure down and he is on a small dose of Robby-Synephrine at 20 mcg/min. There is no ventricular arrhythmia seen on the monitor.. PHYSICAL EXAMINATION: The patient is well-built. He appears to be well groomed. He is not fighting the ventilator. Selected Entries 03/06/18 16:00 Temperature 100.0 F Temperature Core Source Pulse Rate 94 Respiratory 21 H Rate Blood Pressure 109/55 L [Left Upper Arm ] Blood Pressure 73 Mean [Left Upper Arm] O2 Sat by Pulse 95 Oximetry Oxygen Delivery Mechanical Method ( Ventilator includes room air) HEAD: Is atraumatic normocephalic. EYES: Pupils are equal round regular reactive to light. ENT is negative. SKIN: Is without any skin lesions or skin rashes. There is no petechia or ecchymosis. NECK: Is supple. There is no JVD. Carotids are equal there is no bruits. There is no lymphadenopathy. Trachea central. LUNGS: There is absent breath sounds in the right base. There is scattered rhonchi. If you dry crackles throughout the lung and also a few fine rales in the left base. There is diminished air entry throughout and hyperresonance. Heart: S1-S2 is heard S1 is of variable intensity there is no S3 gallop. There is no S4 gallop. There is no rub. There is systolic murmur left sternal border and the apex. ABDOMEN: Soft there is no hepatosplenic megaly. Bowel sounds are well heard. EXTREMITIES: Femorals are diminished. There is no femoral bruits. Leg pulses are diminished. There is no pedal edema. There is no DVT or cellulitis. There is no sinus or clubbing. [employer] AND psychiatric: Not examined since the patient's intubated and sedated. 03/06/18 03/06/18 03/06/18 05:30 05:30 06:05 WBC 16.8 H RBC 5.67 H Hgb 18.8 H Hct 55.8 H MCV 98 H Plt Count 148 L PT INR Carbonic Acid 1.61 H HCO3/H2CO3 Ratio 24:1 ABG pH 7.48 H ABG pCO2 53.4 H ABG pO2 93.9 ABG HCO3 39.0 H ABG Total CO2 40.6 H ABG O2 Saturation 97.5 ABG Base Excess 12.4 FiO2 35% Sodium Potassium Chloride Carbon Dioxide Anion Gap BUN Creatinine Est GFR (Non-Af Amer) Glucose Lactic Acid 1.2 Calcium Magnesium Total Bilirubin Direct Bilirubin Neonat Total Bilirubin Neonat Direct Bilirubin Neonat Indirect Bili AST ALT Alkaline Phosphatase Total Protein Albumin 03/06/18 03/06/18 06:22 11:02 WBC RBC Hgb Hct MCV Plt Count PT 39.8 H INR 3.87 Carbonic Acid HCO3/H2CO3 Ratio ABG pH ABG pCO2 ABG pO2 ABG HCO3 ABG Total CO2 ABG O2 Saturation ABG Base Excess FiO2 Sodium 138.9 Potassium 3.9 Chloride 95 L Carbon Dioxide 39 H Anion Gap 5 BUN 26 H Creatinine 0.68 Est GFR (Non-Af Amer) > 60 Glucose 121 H Lactic Acid Calcium 8.2 L Magnesium 2.6 H Total Bilirubin 1.0 Direct Bilirubin 0.2 Neonat Total Bilirubin Not Reportable Neonat Direct Bilirubin Not Reportable Neonat Indirect Bili Not Reportable AST 108 H ALT 91 H Alkaline Phosphatase 79 Total Protein 6.6 Albumin 3.3 L The patient's 24-hour intake is 2017 mL. Output is 1875 mL. The patient is on tube feedings, would continue the same. IMPRESSION/RECOMMENDATION: 1 acute respiratory failure most likely on chronic respiratory failure: Continue ventilator support. Recommend anti-COPD nebulizer treatments. Note multiple attempts at 2. Atrial fibrillation with rapid ventricular response: Most likely secondary to the patient's decompensated respiratory status. At present on Cardizem drip heart rate is acceptable. Note that the patient's is most likely has c trying to wean the patient off the ventilator was unsuccessful. Chronic atrial fibrillation, and with the patient's liver function test being abnormal would recommend discontinuing amiodarone. The patient did receive another dose of IV digoxin at 0.25 mg IV push x1. We will continue the patient on Cardizem drip. Unable to the patient's beta-jewels. The patient's INR is good on Coumadin. Continue Coumadin, adjusting the dose according to the PT/INR should aim for INR between 2 and 3. The INR is 3.87. Hence would continue to hold the Coumadin. 3. Pneumonia: With acute exacerbation of COPD. Continue antibiotics and respiratory treatments. 4. Possible amiodarone toxicity: Although the CT a findings and the chest x-ray findings may represent just heart failure, in view of the abnormal liver function tests and the patient's groundglass appearance and interlobar septal thickening and some areas of bronchiectasis one should keep amiodarone toxicity in mind. The patient was given 1 dose of steroids in the form of hydrocortisone to 50 mL IV push a few days ago. But looking at the chest x-ray now since the infiltrates have cleared possibly this is not amiodarone toxicity. But in view of the abnormal LFTs would not restart the patient on amiodarone, and also the patient appears to be in chronic atrial fibrillation. 5 ISCHEMIC Cardiomyopathy: With severely reduced LV ejection fraction: Would recommend that the patient be referred for AICD placement consideration. Would at present continue the patient's metoprolol XL and Entresto. Will increase the dose of each as permitted by the patient's heart rate and blood pressure. Later we will recheck the patient's echocardiogram. We will restart the patient's Entresto, since the patient's of Levophed. 6. Coronary artery disease, in view of the labile of ischemic cardiomyopathy as a diagnosis. Details of his coronary anatomy is not known. 7. Note abnormal liver function tests: We will follow this since his amiodarone has been stopped. Will check an echo to see if the patient is a pulmonary hypertension causing liver congestion. At present there is liver function tests of reverted back to normal 8. History of hypertension: At present at present blood pressure in the 90s to the 100s. 9. Elevated troponin I: Most likely secondary to patient's atrial fibrillation with rapid ventricular response in a patient with severely depressed LV ejection fraction. But with the patient's EKG showing T wave inversions suggestive of ischemia versus post tachycardia T wave syndrome, and the patient's history of ischemic cardiomyopathy. Later would need a nuclear stress testing versus cardiac catheterization to be absolutely sure that the patient does not have underlying significant coronary artery disease. 10. Hypotension: Blood pressure now stable but requiring a small dose of Robby- Synephrine to keep the blood pressure up. Patient medications have been reviewed. Management plan discussed with the caregiving providers on the case. Medical decision making is of high complexity. Note 40 minutes spent on this patient, with more than 50% time spent in direct patient care.
[2018-03-06] MEDS: ATORVASTATIN CALCIUM 40 MG TABLET NG SCH (21:13)
[2018-03-06] MEDS: MONTELUKAST SODIUM 10 MG TABLET NG SCH (21:13)
[2018-03-07] MEDS: VANCOMYCIN HCL 1,000 MG in DEXTROSE 5%-WATER 250 ML IV SCH ×3 (02:12→17:46)
[2018-03-07] MEDS: GUAIFENESIN SYRP 200 MG/10 ML UDC NG SCH ×4 (02:12→22:11)
[2018-03-07 04:15] LABS: ABSOLUTE BASOPHILS # (AUTO) 0.1 10^3/uL (0.0-0.2); ABSOLUTE EOSINOPHILS # (AUTO) 0.1 10^3/uL (0.0-0.6); ABSOLUTE LYMPHOCYTES (AUTO) 1.1 10^3/uL (0.5-4.7); ABSOLUTE MONOCYTES (AUTO) 1.8 10^3/uL (0.1-1.4); ABSOLUTE NEUT (AUTO) 11.1 10^3/uL (1.7-8.2); BASOPHILS % (AUTO) 0.4 % (0-2); EOSINOPHILS % (AUTO) 0.7 % (0-6); HEMATOCRIT 51.7 % (37.9-51.0); HEMOGLOBIN 17.5 g/dL (13.5-17.0); LYMPHOCYTES % (AUTO) 8.1 % (13-45); MEAN CORPUSCULAR HEMOGLOBIN 33.2 pg (27.0-33.4); MEAN CORPUSCULAR HGB CONC 33.9 g/dL (32.0-36.0); MEAN CORPUSCULAR VOLUME 98 fl (80-97); MONOCYTES % (AUTO) 12.5 % (3-13); PLATELET COUNT 168 10^3/uL (150-450); RED BLOOD COUNT 5.28 10^6/uL (4.35-5.55); RED CELL DISTRIBUTION WIDTH 14.5 % (11.5-14.0); SEGMENTED NEUTROPHILS % (AUTO) 78.3 % (42-78); TOTAL CELLS COUNTED % (AUTO) 100 %; WHITE BLOOD COUNT 14.2 10^3/uL (4.0-10.5)
[2018-03-07 04:34] LABS: BLOOD UREA NITROGEN 30 mg/dL (7-20); CALCIUM 7.8 mg/dL (8.4-10.2); CHLORIDE 93 mmol/L (98-107); GLUCOSE 114 mg/dL (75-110); PHOSPHORUS 3.1 mg/dL (2.5-4.5); POTASSIUM 4.2 mmol/L (3.6-5.0); SODIUM 137.7 mmol/L (137-145)
[2018-03-07 04:42] LABS: ANION GAP 6 (5-19)
[2018-03-07 04:43] LABS: CARBON DIOXIDE 39 mmol/L (22-30)
[2018-03-07] MEDS: METOPROLOL TARTRATE 50 MG TABLET NG SCH ×2 (05:49→17:47)
[2018-03-07] MEDS: DEXTROSE 5%-WATER 250 ML with PHENYLEPHRINE HCL 40 MG IV PRN ×6 (06:00→21:30)
[2018-03-07 06:32] LABS: ARTERIAL BLOOD BASE EXCESS 9.2 mmol/L; ARTERIAL BLOOD FIO2 35%; ARTERIAL BLOOD H2CO3 1.44 mmol/L (1.05-1.35); ARTERIAL BLOOD HCO3 34.5 mmol/L (20-24); ARTERIAL BLOOD O2 SATURATION 97.9 % (94-98); ARTERIAL BLOOD PH 7.48 (7.35-7.45); ARTERIAL BLOOD PO2 101.1 mmHg (80-100)
--- NOTE | 2018-03-07 06:48 | RADIOLOGY REPORT (SQ) ---
EXAM DESCRIPTION: XR CHEST 1 VIEW COMPLETED DATE/TME: 03/07/2018 06:00 CLINICAL HISTORY: Respiratory Distress. 67 years Male, resp fail COMPARISON: One day prior. NUMBER OF VIEWS/TECHNIQUE: 1/AP FINDINGS: Clear lungs of increased volume, and normal cardiac silhouette. Tip of an endotracheal tube is 10.6 cm from the daniele at the thoracic inlet; consider advancement of the endotracheal tube by 5 cm. Likely adequate appearing enteric tube partially obscured. No pneumothorax. Stable bony thorax. IMPRESSION: Tip of an endotracheal tube is 10.6 cm from the daniele at the thoracic inlet; consider advancement of the endotracheal tube by 5 cm.
[2018-03-07] MEDS: SPIRONOLACTONE 25 MG TABLET NG SCH (09:22)
[2018-03-07] MEDS: BISACODYL 10 MG SUPP.RECT PR PRN (09:22)
[2018-03-07] MEDS: POLYETHYLENE GLYCOL 3350 POWDER 17 GM/1 PACKET NG SCH (09:22)
[2018-03-07] MEDS: SACUBITRIL/VALSARTAN 24 MG/26 MG TABLET NG SCH ×2 (09:23→22:13)
[2018-03-07] MEDS: PROPOFOL 1,000 MG/100 ML INFUS..BTL IV PRN ×3 (09:23→21:35)
[2018-03-07] MEDS: BUMETANIDE 1 MG TABLET NG SCH ×2 (09:23→17:48)
--- NOTE | 2018-03-07 10:02 | RADIOLOGY REPORT (SQ) ---
EXAM DESCRIPTION: KUB/ABDOMEN (SINGLE VIEW) COMPLETED DATE/TIME: 03/07/2018 9:51 am REASON FOR STUDY: ileus COMPARISON: 10/16/2014 NUMBER OF VIEWS: One view. TECHNIQUE: Supine radiographic image of the abdomen acquired. LIMITATIONS: None. FINDINGS: BOWEL GAS PATTERN: Normal bowel gas pattern. No dilated loops. CALCIFICATIONS: No suspicious calcifications. SOFT TISSUES: No gross mass or suggestion of organomegaly. HARDWARE: Nasogastric tube tip in the stomach. BONES: No acute fracture. No worrisome bone lesions. OTHER: No other significant finding. IMPRESSION: NO RADIOGRAPHIC EVIDENCE FOR ACUTE ABDOMINAL DISEASE. NG tube tip in the stomach. TECHNICAL DOCUMENTATION: JOB ID: [id number] [employer]- All Rights Reserved Reading location - IP/workstation name: [email or web address]
--- NOTE | 2018-03-07 11:06 | PDOC PROGRESS REPORT ---
Subjective Progress Note for:: 03/07/18 Subjective:: The patient is back on pressor therapy. He is not as responsive as yesterday. Reason For Visit: AFIB WITH RVR Physical Exam Vital Signs: Temp Pulse Resp BP Pulse Ox 99.1 F 78 12 113/65 98 03/07/18 10:00 03/07/18 10:00 03/07/18 10:00 03/07/18 10:00 03/07/18 10:00 Intake & Output 03/06/18 03/07/18 03/08/18 06:59 06:59 06:59 Intake Total 2016 2758 94 Output Total 3 1755 485 Balance 142 1003 -391 Weight 79.2 kg 79.8 kg General appearance: PRESENT: no acute distress, other - Intubated Respiratory exam: PRESENT: clear to auscultation tasha - Anteriorly, other - Positive spontaneous breathing.. ABSENT: stridor, tachypnea, wheezes Cardiovascular exam: PRESENT: irregular rhythm GI/Abdominal exam: PRESENT: hypoactive bowel sounds, soft, other - Tympany. ABSENT: tenderness Extremities exam: ABSENT: pedal edema Neurological exam: PRESENT: other - Intubated/sedated Results Laboratory Results: 03/07/18 03:50 03/07/18 03:50 03/07/18 03/07/18 03/07/18 03:50 03:50 06:17 WBC 14.2 H RBC 5.28 Hgb 17.5 H Hct 51.7 H MCV 98 H MCH 33.2 MCHC 33.9 RDW 14.5 H Plt Count 168 Seg Neutrophils % 78.3 H Lymphocytes % 8.1 L Monocytes % 12.5 Eosinophils % 0.7 Basophils % 0.4 Absolute Neutrophils 11.1 H Absolute Lymphocytes 1.1 Absolute Monocytes 1.8 H Absolute Eosinophils 0.1 Absolute Basophils 0.1 Carbonic Acid 1.44 H HCO3/H2CO3 Ratio 23:1 ABG pH 7.48 H ABG pCO2 48.0 H ABG pO2 101.1 H ABG HCO3 34.5 H ABG O2 Saturation 97.9 ABG Base Excess 9.2 FiO2 35% Sodium 137.7 Potassium 4.2 Chloride 93 L Carbon Dioxide 39 H Anion Gap 6 BUN 30 H Creatinine 0.80 Est GFR ( Amer) > 60 Est GFR (Non-Af Amer) > 60 Glucose 114 H Calcium 7.8 L Phosphorus 3.1 Magnesium 2.5 H 02/27/18 02/27/18 02/27/18 07:25 09:29 12:10 Troponin I Cancelled 0.029 0.051 NT-Pro-B Natriuret Pep Cancelled 08651 H 02/28/18 02/28/18 03/01/18 16:50 19:40 00:20 Troponin I 0.152 0.304 Cancelled NT-Pro-B Natriuret Pep 03/01/18 03/01/18 03/02/18 00:54 06:27 07:57 Troponin I 0.584 0.274 0.139 NT-Pro-B Natriuret Pep 03/05/18 03/05/18 03:52 05:15 Troponin I NT-Pro-B Natriuret Pep Cancelled 1290 H Impressions: Chest/Abdomen CTA 02/28/18 00:00 IMPRESSION: 1. No pulmonary embolus. 2. Findings likely predominantly related to congestive failure including cardiomegaly, edema and effusions as above. Chest CT 03/01/18 00:00 IMPRESSION: Overall improvement since yesterday. There is a background of chronic interstitial lung disease. No definitive findings to suggest amiodarone toxicity. Venous Doppler Study 03/01/18 00:00 IMPRESSION: NO EVIDENCE DVT OR SVT IN THE RIGHT ARM. Chest X-Ray 03/07/18 06:00 IMPRESSION: Tip of an endotracheal tube is 10.6 cm from the daniele at the thoracic inlet; consider advancement of the endotracheal tube by 5 cm. KUB X-Ray 03/07/18 10:00 IMPRESSION: NO RADIOGRAPHIC EVIDENCE FOR ACUTE ABDOMINAL DISEASE. NG tube tip in the stomach. Assessment & Plan - Diagnosis (1) Acute hypoxemic respiratory failure Is this a current diagnosis for this admission?: Yes Plan: Patient still intubated. He was breathing spontaneously for a short while. Chest x-ray does not show any acute infiltrate. Sputum specimen grew small amount of Denisse. He is on dual antibiotic therapy because of her recent temperature spike and increase in white blood cell count. Continue weaning trials. (2) Atrial fibrillation with RVR Is this a current diagnosis for this admission?: Yes Plan: We were able to taper the patient off of his diltiazem infusion. He remains on metoprolol 50 mg twice daily. (3) Acute on chronic systolic heart failure Is this a current diagnosis for this admission?: Yes Plan: The patient's baseline is severely depressed ejection fraction. Cardiac status is marginal. He exhibits significant ST depression. Cardiac enzymes will be obtained. (4) Community acquired pneumonia Qualifiers: Laterality: unspecified laterality Qualified Code(s): J18.9 - Pneumonia, unspecified organism Is this a current diagnosis for this admission?: Yes Plan: He completed a course of therapy for community acquired pneumonia. As noted above he is back on dual therapy antibiotics. We will continue this for 7 more days and if there is no obvious source of infection these will be discontinued. - Time Time Spent with patient: 25-34 minutes Medications reviewed and adjusted accordingly: Yes
[2018-03-07 12:25] LABS: INTERNATIONAL RATION (INR) 2.15
[2018-03-07 12:41] LABS: VANCOMYCIN,TROUGH 18.6 ug/mL (5.0-20.0)
[2018-03-07 12:50] LABS: CREATINE KINASE MB 0.49 ng/mL (<4.55)
[2018-03-07 12:57] LABS: TROPONIN I 0.054 ng/mL
--- NOTE | 2018-03-07 13:13 | RADIOLOGY REPORT (SQ) ---
EXAM DESCRIPTION: CHEST SINGLE VIEW COMPLETED DATE/TIME: 03/07/2018 12:54 pm REASON FOR STUDY: ett/ogt advancement/placement verification COMPARISON: 03/07/2018. EXAM PARAMETERS: NUMBER OF VIEWS: One view. TECHNIQUE: Single frontal radiographic view of the chest acquired. RADIATION DOSE: NA LIMITATIONS: None. FINDINGS: LUNGS AND PLEURA: No acute infiltrates or effusions. MEDIASTINUM AND HILAR STRUCTURES: No masses. Contour normal. HEART AND VASCULAR STRUCTURES: The heart is normal with normal pulmonary vasculature. BONES: No acute findings. HARDWARE: None in the chest. OTHER: The endotracheal tube has been advanced to the level of the T4 vertebra in good position above the daniele. NG tube noted overlying stomach. IMPRESSION: NO ACUTE DISEASE. TECHNICAL DOCUMENTATION: JOB ID: [id number] [email or web address]- All Rights Reserved Reading location - IP/workstation name: [email or web address]
[2018-03-07] MEDS ORDERED: MEROPENEM 1 GM in NORMAL SALINE 50 ML IV SCH (14:00)
[2018-03-07] MEDS: MEROPENEM 1 GM in NORMAL SALINE 50 ML IV SCH (17:46)
[2018-03-07] MEDS: PANTOPRAZOLE SODIUM 40 MG VIAL IV SCH (17:47)
--- NOTE | 2018-03-07 20:49 | Progress Note ---
Provider Note Provider Note: CARDIOLOGY PROGRESS NOTES by Dr. Martina Castellanos on 03/07/2018. OBJECTIVE: The patient continues to have low-grade fever. He also at times his heart rate goes up he needs to be started on Cardizem. At present he is on 2.5 mg/h of Cardizem drip. This necessitated that the patient's Robby-Synephrine be increased to 80 mg/min. There is no ventricular arrhythmias seen. The EKG shows atrial fibrillation on the monitor, with the T wave inversions. This is highly suggestive of ischemia and not post tachycardia T wave inversion. His troponin I is trended down. There is no ventricular arrhythmia seen on the monitor. His pro time is now therapeutic, and we will restart the patient's Coumadin. Still there is inability to wean the patient off the ventilator due to his fever. PHYSICAL EXAMINATION: The patient appears to be well-built. He is well-groomed. He is not fighting the ventilator. Selected Entries 03/07/18 12:00 Temperature 99.1 F Temperature Core Source Pulse Rate 85 Respiratory 22 H Rate Blood Pressure 117/76 [Left Upper Arm ] Blood Pressure 89 Mean [Left Upper Arm] Blood Pressure 117 Systolic [Left Upper Arm] O2 Sat by Pulse 95 Oximetry Oxygen Delivery Mechanical Method ( Ventilator includes room air) Percent of 30 Oxygen HEAD: Is atraumatic normocephalic. EYES: Pupils are equal round regular reactive to light. ENT is negative. SKIN: Is without any skin lesions or skin rashes. There is no petechia or ecchymosis. NECK: Is supple. There is no JVD. Carotids are equal there is no bruits. There is no lymphadenopathy. Trachea central. LUNGS: There is absent breath sounds in the right base. There is scattered rhonchi. If you dry crackles throughout the lung and also a few fine rales in the left base. There is diminished air entry throughout and hyperresonance. Heart: S1-S2 is heard S1 is of variable intensity there is no S3 gallop. There is no S4 gallop. There is no rub. There is systolic murmur left sternal border and the apex. ABDOMEN: Soft there is no hepatosplenic megaly. Bowel sounds are well heard. EXTREMITIES: Femorals are diminished. There is no femoral bruits. Leg pulses are diminished. There is no pedal edema. There is no DVT or cellulitis. There is no sinus or clubbing. 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 03/07/18 03/07/18 03/07/18 03:50 03:50 06:17 WBC 14.2 H RBC 5.28 Hgb 17.5 H Hct 51.7 H MCV 98 H MCH 33.2 MCHC 33.9 RDW 14.5 H Plt Count 168 PT INR Carbonic Acid 1.44 H HCO3/H2CO3 Ratio 23:1 ABG pH 7.48 H ABG pCO2 48.0 H ABG pO2 101.1 H ABG HCO3 34.5 H ABG Total CO2 36.0 H ABG O2 Saturation 97.9 ABG Base Excess 9.2 FiO2 35% Sodium 137.7 Potassium 4.2 Chloride 93 L Carbon Dioxide 39 H Anion Gap 6 BUN 30 H Creatinine 0.80 Est GFR (Non-Af Amer) > 60 Glucose 114 H Calcium 7.8 L Phosphorus 3.1 Magnesium 2.5 H Creatine Kinase CK-MB (CK-2) Troponin I NT-Pro-B Natriuret Pep Time Trough Drawn Vancomycin Trough 03/07/18 03/07/18 03/07/18 12:00 12:00 12:00 WBC RBC Hgb Hct MCV MCH MCHC RDW Plt Count PT 25.0 H INR 2.15 Carbonic Acid HCO3/H2CO3 Ratio ABG pH ABG pCO2 ABG pO2 ABG HCO3 ABG Total CO2 ABG O2 Saturation ABG Base Excess FiO2 Sodium Potassium Chloride Carbon Dioxide Anion Gap BUN Creatinine Est GFR (Non-Af Amer) Glucose Calcium Phosphorus Magnesium Creatine Kinase 79 CK-MB (CK-2) Troponin I NT-Pro-B Natriuret Pep Time Trough Drawn 1200 Vancomycin Trough 18.6 03/07/18 12:00 WBC RBC Hgb Hct MCV MCH MCHC RDW Plt Count PT INR Carbonic Acid HCO3/H2CO3 Ratio ABG pH ABG pCO2 ABG pO2 ABG HCO3 ABG Total CO2 ABG O2 Saturation ABG Base Excess FiO2 Sodium Potassium Chloride Carbon Dioxide Anion Gap BUN Creatinine Est GFR (Non-Af Amer) Glucose Calcium Phosphorus Magnesium Creatine Kinase CK-MB (CK-2) 0.49 Troponin I 0.054 NT-Pro-B Natriuret Pep 982 H Time Trough Drawn Vancomycin Trough 24-hour intake is 2758 mL. Output is 1755 mL. The patient is on tube feedings, would continue the same. CHEST X-ray: There is no acute process. The heart size is normal, with heart failure. There is no infiltrates. IMPRESSION/RECOMMENDATION: 1 acute respiratory failure most likely on chronic respiratory failure: Continue ventilator support. Recommend anti-COPD nebulizer treatments. Note multiple attempts at 2. Atrial fibrillation with rapid ventricular response: Most likely secondary to the patient's decompensated respiratory status. At present on Cardizem drip heart rate is acceptable. Note that the patient's is most likely has c trying to wean the patient off the ventilator was unsuccessful. Chronic atrial fibrillation, and with the patient's liver function test being abnormal would recommend discontinuing amiodarone. The patient did receive another dose of IV digoxin at 0.25 mg IV push x1. We will continue the patient on Cardizem drip. Unable to the patient's beta-jewels. The patient's INR is good on Coumadin. Continue Coumadin, adjusting the dose according to the PT/INR should aim for INR between 2 and 3. The INR is 2.15. Hence we will restart Coumadin, and monitor daily PT/INRs, to adjust the dose. 3. Pneumonia: With acute exacerbation of COPD. Continue antibiotics and respiratory treatments. Note chest x-ray is clear of any infiltrates 4. Possible amiodarone toxicity: Although the CT a findings and the chest x-ray findings may represent just heart failure, in view of the abnormal liver function tests and the patient's groundglass appearance and interlobar septal thickening and some areas of bronchiectasis one should keep amiodarone toxicity in mind. The patient was given 1 dose of steroids in the form of hydrocortisone to 50 mL IV push a few days ago. But looking at the chest x-ray now since the infiltrates have cleared possibly this is not amiodarone toxicity. But in view of the abnormal LFTs would not restart the patient on amiodarone, and also the patient appears to be in chronic atrial fibrillation. 5 ISCHEMIC Cardiomyopathy: With severely reduced LV ejection fraction: Would recommend that the patient be referred for AICD placement consideration. Would at present continue the patient's metoprolol XL and Entresto. Will later get a echocardiogram. 6. Coronary artery disease, in view of the labile of ischemic cardiomyopathy as a diagnosis. Details of his coronary anatomy is not known. Once extubated my recommendation would be that the patient have a cardiac catheterization to define coronary anatomy, and also the degree of his LV dysfunction. This is to see if there is any revascularizable lesions are present. 7. Note abnormal liver function tests: We will follow this since his amiodarone has been stopped. Will check an echo to see if the patient is a pulmonary hypertension causing liver congestion. At present there is liver function tests of reverted back to normal. We will recheck the patient's liver function test in the morning. 8. History of hypertension: At present at present blood pressure in the 90s to the 100s. 9. Elevated troponin I: Most likely secondary to patient's atrial fibrillation with rapid ventricular response in a patient with severely depressed LV ejection fraction. But with the patient's EKG showing T wave inversions suggestive of ischemia versus post tachycardia T wave syndrome, and the patient's history of ischemic cardiomyopathy. Later would need a nuclear stress testing versus cardiac catheterization to be absolutely sure that the patient does not have underlying significant coronary artery disease. 10. Hypotension: Blood pressure now stable but requiring a small dose of Robby- Synephrine to keep the blood pressure up. Patient medications have been reviewed. Management plan discussed with the caregiving providers on the case. Medical decision making is of high complexity. Note 40 minutes spent on this patient, with more than 50% time spent in direct patient care.
[2018-03-07 21:25] LABS: INTERNATIONAL RATION (INR) 1.71; PROTHROMBIN TIME 20.9 SEC (11.4-15.4)
[2018-03-07] MEDS ORDERED: WARFARIN SODIUM 5 MG TABLET NG SCH (22:00)
[2018-03-07] MEDS: MONTELUKAST SODIUM 10 MG TABLET NG SCH (22:13)
[2018-03-07] MEDS: WARFARIN SODIUM 2 MG TABLET PO SCH (22:13)
[2018-03-07] MEDS: ATORVASTATIN CALCIUM 40 MG TABLET NG SCH (22:14)
[2018-03-07] MEDS ORDERED: MIDAZOLAM HCL 50 MG/100 ML RTUINJ IV PRN (22:51)
[2018-03-08] MEDS: MEROPENEM 1 GM in NORMAL SALINE 50 ML IV SCH ×2 (01:47→09:37)
[2018-03-08] MEDS: VANCOMYCIN HCL 1,000 MG in DEXTROSE 5%-WATER 250 ML IV SCH ×2 (01:47→09:37)
[2018-03-08] MEDS: PROPOFOL 1,000 MG/100 ML INFUS..BTL IV PRN ×5 (02:06→20:19)
[2018-03-08] MEDS: GUAIFENESIN SYRP 200 MG/10 ML UDC NG SCH ×4 (02:06→21:19)
[2018-03-08] MEDS: DEXTROSE 5%-WATER 250 ML with PHENYLEPHRINE HCL 40 MG IV PRN ×8 (03:24→20:49)
[2018-03-08 04:19] LABS: ARTERIAL BLOOD H2CO3 1.47 mmol/L (1.05-1.35); ARTERIAL BLOOD HCO3 34.6 mmol/L (20-24); ARTERIAL BLOOD O2 SATURATION 90.8 % (94-98); ARTERIAL BLOOD PCO2 48.7 mmHg (35-45); ARTERIAL BLOOD PH 7.47 (7.35-7.45); ARTERIAL BLOOD PO2 56.5 mmHg (80-100); ARTERIAL BLOOD TOTAL CO2 36.1 mmol/L (23-27)
[2018-03-08 04:24] LABS: ARTERIAL BLOOD FIO2 30%
[2018-03-08 04:25] LABS: HEMATOCRIT 54.7 % (37.9-51.0); HEMOGLOBIN 18.5 g/dL (13.5-17.0); MEAN CORPUSCULAR HEMOGLOBIN 33.3 pg (27.0-33.4); MEAN CORPUSCULAR HGB CONC 33.8 g/dL (32.0-36.0); MEAN CORPUSCULAR VOLUME 98 fl (80-97); PLATELET COUNT 185 10^3/uL (150-450); RED BLOOD COUNT 5.56 10^6/uL (4.35-5.55); RED CELL DISTRIBUTION WIDTH 14.6 % (11.5-14.0)
[2018-03-08 04:33] LABS: INTERNATIONAL RATION (INR) 1.62
[2018-03-08] MEDS: METOPROLOL TARTRATE 50 MG TABLET NG SCH ×2 (05:54→17:14)
[2018-03-08] MEDS: PANTOPRAZOLE SODIUM 40 MG VIAL IV SCH ×2 (05:54→17:15)
--- NOTE | 2018-03-08 06:49 | RADIOLOGY REPORT (SQ) ---
EXAM DESCRIPTION: XR CHEST 1 VIEW COMPLETED DATE/TME: 03/08/2018 06:00 CLINICAL HISTORY: Respiratory Distress. 67 years Male, resp failure COMPARISON: One day prior. NUMBER OF VIEWS/TECHNIQUE: 1/AP FINDINGS: Adequate appearing endotracheal tube. Likely adequate appearing enteric tube partially obscured. Increased lung volume. Clear parenchyma.Atherosclerosis. Normal cardiac silhouette size. No pneumothorax. Stable bony thorax. IMPRESSION: No significant change.
[2018-03-08 07:07] LABS: ALANINE AMINOTRANSFERASE 164 U/L (21-72); ALKALINE PHOSPHATASE 78 U/L (38-126); ASPARTATE AMINO TRANSFERASE 127 U/L (17-59); BILIRUBIN,DIRECT 0.4 mg/dL (0.0-0.4); BILIRUBIN,TOTAL 1.7 mg/dL (0.2-1.3); BLOOD UREA NITROGEN 27 mg/dL (7-20); CALCIUM 8.6 mg/dL (8.4-10.2); CHLORIDE 93 mmol/L (98-107); DIGOXIN 0.45 ng/mL (0.8-2.0); GLUCOSE 128 mg/dL (75-110); POTASSIUM 4.1 mmol/L (3.6-5.0); SODIUM 136.9 mmol/L (137-145); TOTAL PROTEIN 6.4 g/dL (6.3-8.2)
[2018-03-08 07:18] LABS: CARBON DIOXIDE 37 mmol/L (22-30)
[2018-03-08 07:21] LABS: ANION GAP 7 (5-19)
[2018-03-08] MEDS: POLYETHYLENE GLYCOL 3350 POWDER 17 GM/1 PACKET NG SCH (09:36)
[2018-03-08] MEDS: SACUBITRIL/VALSARTAN 24 MG/26 MG TABLET NG SCH ×2 (09:37→21:21)
[2018-03-08] MEDS: SPIRONOLACTONE 25 MG TABLET NG SCH (09:38)
[2018-03-08] MEDS: BUMETANIDE 1 MG TABLET NG SCH ×2 (09:38→17:15)
--- NOTE | 2018-03-08 15:48 | Progress Note ---
Provider Note Provider Note: CARDIOLOGY PROGRESS NOTES by Dr. Martina Castellanos on 03/08/2018. SUBJECTIVE: The patient is intubated and sedated. He continues to be in atrial fibrillation with controlled ventricular response. His T wave changes appear to be the same. His troponins have trended down. His INR is subtherapeutic. There is no ventricular arrhythmia seen on the monitor. PHYSICAL EXAMINATION: The patient is well-built. He is not fighting the ventilator. Selected Entries 03/08/18 03/08/18 03/08/18 10:23 10:24 11:21 Core 100.0 F 100.0 F Temperature Heart Rate ( 97 91 Monitors) Respiratory 20 Rate Blood Pressure 110/61 Blood Pressure 77 Mean O2 Sat by Pulse 96 Oximetry Fraction of 30 Inspired Oxygen (FIO2) HEAD: Is atraumatic normocephalic. EYES: Pupils are equal round regular reactive to light. ENT is negative. SKIN: Is without any skin lesions or skin rashes. There is no petechia or ecchymosis. NECK: Is supple. There is no JVD. Carotids are equal there is no bruits. There is no lymphadenopathy. Trachea central. LUNGS: There is absent breath sounds in the right base. There is scattered rhonchi. If you dry crackles throughout the lung and also a few fine rales in the left base. There is diminished air entry throughout and hyperre sonance. Heart: S1-S2 is heard S1 is of variable intensity there is no S3 gallop. There is no S4 gallop. There is no rub. There is systolic murmur left sternal border and the apex. ABDOMEN: Soft there is no hepatosplenic megaly. Bowel sounds are well heard. EXTREMITIES: Femorals are diminished. There is no femoral bruits. Leg pulses are diminished. There is no pedal edema. There is no DVT or cellulitis. There is no sinus or clubbing. INCREMENT MANAGER AND psychiatric: Not examined since the patient's intubated and sedated. 03/08/18 03/08/18 03/08/18 03:48 03:48 04:10 WBC 16.0 H RBC 5.56 H Hgb 18.5 H Hct 54.7 H MCV 98 H MCH 33.3 MCHC 33.8 RDW 14.6 H Plt Count 185 PT 20.0 H INR 1.62 Carbonic Acid 1.47 H HCO3/H2CO3 Ratio 23:1 ABG pH 7.47 H ABG pCO2 48.7 H ABG pO2 56.5 L ABG HCO3 34.6 H ABG Total CO2 36.1 H ABG O2 Saturation 90.8 L ABG Base Excess 9.0 FiO2 30% Sodium Potassium Chloride Carbon Dioxide Anion Gap BUN Creatinine Est GFR (Non-Af Amer) Glucose Calcium Total Bilirubin Direct Bilirubin Neonat Total Bilirubin Neonat Direct Bilirubin Neonat Indirect Bili AST ALT Alkaline Phosphatase Total Protein Albumin Digoxin 03/08/18 06:37 WBC RBC Hgb Hct MCV MCH MCHC RDW Plt Count PT INR Carbonic Acid HCO3/H2CO3 Ratio ABG pH ABG pCO2 ABG pO2 ABG HCO3 ABG Total CO2 ABG O2 Saturation ABG Base Excess FiO2 Sodium 136.9 L Potassium 4.1 Chloride 93 L Carbon Dioxide 37 H Anion Gap 7 BUN 27 H Creatinine 0.68 Est GFR (Non-Af Amer) > 60 Glucose 128 H Calcium 8.6 Total Bilirubin 1.7 H Direct Bilirubin 0.4 Neonat Total Bilirubin Not Reportable Neonat Direct Bilirubin Not Reportable Neonat Indirect Bili Not Reportable AST 127 H ALT 164 H Alkaline Phosphatase 78 Total Protein 6.4 Albumin 3.0 L Digoxin 0.45 L The patient's 24-hour intake is 1873 mL. The patient's output is 3280 mL. Note that the patient is on tube feedings. CHEST X-ray: Shows no acute findings. The patient's preliminary echo findings show LV ejection fraction around 25%. Please see report. IMPRESSION/RECOMMENDATION: 1 acute respiratory failure most likely on chronic respiratory failure: Continue ventilator support. Recommend anti-COPD nebulizer treatments. Note multiple attempts at extubation is failed. In view of the patient's LV ejection fraction being very low,, and if attempts to wean off the patient continues then will start the patient on amrinone, and afterload reducing agents to see if improvement in cardiac output can effectively get the patient off the ventilator. 2. Atrial fibrillation with rapid ventricular response: Most likely secondary to the patient's decompensated respiratory status. At present on Cardizem drip heart rate is acceptable. Note that the patient's is most likely has c trying to wean the patient off the ventilator was unsuccessful. We will discontinue the patient Cardizem drip. We will start the patient on digoxin 0.25 mg IV push daily. Hopefully this will get the patient's Robby-Synephrine is back up to 120 mcg/min. Hopefully discussing the patient's Cardizem will pay the way for weaning off Robby-Synephrine. Note will increase the patient's Coumadin dosing since INR is subtherapeutic.. 3. Pneumonia: With acute exacerbation of COPD. Continue antibiotics and respiratory treatments. 4. Possible amiodarone toxicity: Although the CT a findings and the chest x-ray findings may represent just heart failure, in view of the abnormal liver function tests and the patient's groundglass appearance and interlobar septal thickening and some areas of bronchiectasis one should keep amiodarone toxicity in mind. The patient was given 1 dose of steroids in the form of hydrocortisone to 50 mL IV push. 5 ISCHEMIC Cardiomyopathy: With severely reduced LV ejection fraction: Would recommend that the patient be referred for AICD placement consideration. Would at present continue the patient's metoprolol XL and Entresto. Will increase the dose of each as permitted by the patient's heart rate and blood pressure. Later we will recheck the patient's echocardiogram. We will restart the patient's Entresto, since the patient's of Levophed. 6. Coronary artery disease, in view of the labile of ischemic cardiomyopathy as a diagnosis. Details of his coronary anatomy is not known. 7. Note abnormal liver function tests: We will follow this since his amiodarone has been stopped. Will check an echo to see if the patient is a pulmonary hypertension causing liver congestion. At present there is liver function tests of reverted back to normal 8. History of hypertension: At present at present blood pressure in the 90s to the 100s, with Robby-Synephrine on board. 9. Elevated troponin I: Most likely secondary to patient's atrial fibrillation with rapid ventricular response in a patient with severely depressed LV ejection fraction. But with the patient's EKG showing T wave inversions suggestive of ischemia versus post tachycardia T wave syndrome, and the patient's history of ischemic cardiomyopathy. Later would need a nuclear stress testing versus cardiac catheterization to be absolutely sure that the patient does not have underlying significant coronary artery disease. 10. Hypotension: Blood pressure now stable, off pressors for the moment. Medications reviewed. Management plan discussed with other caregiving providers on the case. Medical decision making is of high complexity. 40 minutes spent on this patient with more than 50% of time spent in direct patient care. We w ill follow with you.
--- NOTE | 2018-03-08 15:51 | PDOC PROGRESS REPORT ---
Subjective Progress Note for:: 03/08/18 Reason For Visit: AFIB WITH RVR Physical Exam Vital Signs: Temp Pulse Resp BP Pulse Ox 100.2 F 102 H 20 110/61 95 03/08/18 10:00 03/08/18 10:00 03/08/18 10:24 03/08/18 10:24 03/08/18 11:21 Intake & Output 03/07/18 03/08/18 03/09/18 06:59 06:59 06:59 Intake Total 2758 1873 683 Output Total 1755 3280 185 Balance 1003 -1407 498 Weight 79.8 kg 78.3 kg General appearance: PRESENT: no acute distress, other - Sedated Eye exam: PRESENT: conjunctiva pale Mouth exam: PRESENT: other - Endotracheal tube and orogastric tube in place Respiratory exam: PRESENT: clear to auscultation tasha - Anteriorly, symmetrical. ABSENT: rales, rhonchi, wheezes Cardiovascular exam: PRESENT: irregular rhythm GI/Abdominal exam: PRESENT: normal bowel sounds, soft. ABSENT: distended, tenderness Neurological exam: PRESENT: other - Medicated on the ventilator Psychiatric exam: PRESENT: flat affect Results Laboratory Results: 03/08/18 03:48 03/08/18 06:37 03/08/18 03/08/18 03/08/18 03:48 03:48 04:10 WBC 16.0 H RBC 5.56 H Hgb 18.5 H Hct 54.7 H MCV 98 H MCH 33.3 MCHC 33.8 RDW 14.6 H Plt Count 185 Carbonic Acid 1.47 H HCO3/H2CO3 Ratio 23:1 ABG pH 7.47 H ABG pCO2 48.7 H ABG pO2 56.5 L ABG HCO3 34.6 H ABG O2 Saturation 90.8 L ABG Base Excess 9.0 FiO2 30% Sodium Cancelled Potassium Cancelled Chloride Cancelled Carbon Dioxide Cancelled Anion Gap Cancelled BUN Cancelled Creatinine Cancelled Est GFR ( Amer) Cancelled Est GFR (Non-Af Amer) Cancelled Glucose Cancelled Calcium Cancelled Total Bilirubin Cancelled AST Cancelled ALT Cancelled Alkaline Phosphatase Cancelled Total Protein Cancelled Albumin Cancelled 03/08/18 03/08/18 05:37 06:37 WBC RBC Hgb Hct MCV MCH MCHC RDW Plt Count Carbonic Acid HCO3/H2CO3 Ratio ABG pH ABG pCO2 ABG pO2 ABG HCO3 ABG O2 Saturation ABG Base Excess FiO2 Sodium Cancelled 136.9 L Potassium Cancelled 4.1 Chloride Cancelled 93 L Carbon Dioxide Cancelled 37 H Anion Gap Cancelled 7 BUN Cancelled 27 H Creatinine Cancelled 0.68 Est GFR ( Amer) Cancelled > 60 Est GFR (Non-Af Amer) Cancelled > 60 Glucose Cancelled 128 H Calcium Cancelled 8.6 Total Bilirubin Cancelled 1.7 H AST Cancelled 127 H ALT Cancelled 164 H Alkaline Phosphatase Cancelled 78 Total Protein Cancelled 6.4 Albumin Cancelled 3.0 L 03/06/18 10:50 Molina Catheter Urine Culture - Final NO GROWTH 2 DAYS 02/27/18 02/27/18 02/27/18 07:25 09:29 12:10 Creatine Kinase CK-MB (CK-2) Troponin I Cancelled 0.029 0.051 NT-Pro-B Natriuret Pep Cancelled 82389 H 02/28/18 02/28/18 03/01/18 16:50 19:40 00:20 Creatine Kinase CK-MB (CK-2) Troponin I 0.152 0.304 Cancelled NT-Pro-B Natriuret Pep 03/01/18 03/01/18 03/02/18 00:54 06:27 07:57 Creatine Kinase CK-MB (CK-2) Troponin I 0.584 0.274 0.139 NT-Pro-B Natriuret Pep 03/05/18 03/05/18 03/07/18 03:52 05:15 12:00 Creatine Kinase 79 CK-MB (CK-2) Troponin I NT-Pro-B Natriuret Pep Cancelled 1290 H 03/07/18 12:00 Creatine Kinase CK-MB (CK-2) 0.49 Troponin I 0.054 NT-Pro-B Natriuret Pep 982 H Impressions: Chest/Abdomen CTA 02/28/18 00:00 IMPRESSION: 1. No pulmonary embolus. 2. Findings likely predominantly related to congestive failure including cardiomegaly, edema and effusions as above. Chest CT 03/01/18 00:00 IMPRESSION: Overall improvement since yesterday. There is a background of chronic interstitial lung disease. No definitive findings to suggest amiodarone toxicity. Venous Doppler Study 03/01/18 00:00 IMPRESSION: NO EVIDENCE DVT OR SVT IN THE RIGHT ARM. KUB X-Ray 03/07/18 10:00 IMPRESSION: NO RADIOGRAPHIC EVIDENCE FOR ACUTE ABDOMINAL DISEASE. NG tube tip in the stomach. Chest X-Ray 03/08/18 06:00 IMPRESSION: No significant change. Assessment & Plan - Diagnosis (1) Acute hypoxemic respiratory failure Is this a current diagnosis for this admission?: Yes Plan: It has been difficult to wean the patient from the ventilator. It is unclear if this is due to significant deconditioning and weak respiratory muscles. His ejection fraction is only 20-25%. We will continue to try and wean. Please also see cardiology and pulmonary notes. Dr. Castellanos added digoxin in lieu of the diltiazem. He may consider other inotropes tomorrow. (2) Atrial fibrillation with RVR Is this a current diagnosis for this admission?: Yes Plan: Digoxin will replace diltiazem. He is still on the metoprolol. (3) Acute on chronic systolic heart failure Is this a current diagnosis for this admission?: Yes Plan: Continue Entresto. With the Bumex 2 mg twice daily he had a negative fluid balance of 1.5 L yesterday. I have decreased the Bumex to 1 mg twice daily. This may help with his pressure but will need to monitor for fluid overload. (4) Community acquired pneumonia Qualifiers: Laterality: unspecified laterality Qualified Code(s): J18.9 - Pneumonia, unspecified organism Is this a current diagnosis for this admission?: Yes Plan: There was no bacteria from his recent sputum. The only organism that has consistently grown is Denisse. Because his white cell count is still elevated I will initiate a course of fluconazole. He is also running a temperature today. - Time Time Spent with patient: 25-34 minutes Medications reviewed and adjusted accordingly: Yes
[2018-03-08] MEDS: DIGOXIN INJ 0.5 MG/2 ML AMPULE IV SCH (16:33)
[2018-03-08] MEDS: ACETAMINOPHEN 325 MG TABLET NG PRN ×2 (17:14→23:32)
[2018-03-08] MEDS: MONTELUKAST SODIUM 10 MG TABLET NG SCH (21:19)
[2018-03-08] MEDS: ATORVASTATIN CALCIUM 40 MG TABLET NG SCH (21:20)
[2018-03-08] MEDS: BISACODYL 10 MG SUPP.RECT PR PRN (21:25)
[2018-03-08] MEDS ORDERED: DEXTROSE 5%-WATER 250 ML with VASOPRESSIN 100 UNIT IV PRN ×2 (21:49)
[2018-03-08] MEDS ORDERED: VASOPRESSIN INJ 20 UNIT/1 ML VIAL ONE (21:54)
[2018-03-09] MEDS: PROPOFOL 1,000 MG/100 ML INFUS..BTL IV PRN ×2 (01:43→07:50)
[2018-03-09] MEDS: GUAIFENESIN SYRP 200 MG/10 ML UDC NG SCH ×4 (03:22→22:20)
[2018-03-09] MEDS: METOPROLOL TARTRATE 50 MG TABLET NG SCH ×2 (05:37→17:49)
[2018-03-09] MEDS: PANTOPRAZOLE SODIUM 40 MG VIAL IV SCH ×2 (05:37→17:36)
[2018-03-09 06:11] LABS: ARTERIAL BLOOD BASE EXCESS 9.7 mmol/L; ARTERIAL BLOOD H2CO3 1.37 mmol/L (1.05-1.35); ARTERIAL BLOOD HCO3 34.5 mmol/L (20-24); ARTERIAL BLOOD O2 SATURATION 94.3 % (94-98); ARTERIAL BLOOD PCO2 45.5 mmHg (35-45); ARTERIAL BLOOD PO2 65.5 mmHg (80-100); ARTERIAL BLOOD TOTAL CO2 35.9 mmol/L (23-27)
[2018-03-09 06:12] LABS: ARTERIAL BLOOD FIO2 30%
[2018-03-09 06:16] LABS: APPEARANCE,URINE SLIGHTLY-CLOUDY; BILIRUBIN,URINE NEGATIVE (NEGATIVE); GLUCOSE, URINE NEGATIVE (NEGATIVE); KETONES,URINE NEGATIVE (NEGATIVE); LEUKOCYTE ESTERASE,URINE NEGATIVE (NEGATIVE); NITRITE,URINE NEGATIVE (NEGATIVE); PROTEIN,URINE 30 mg/dL (NEGATIVE); URINE SPECIFIC GRAVITY 1.028; UROBILINOGEN,URINE NEGATIVE mg/dL (<2.0)
[2018-03-09 06:17] LABS: COLOR,URINE YELLOW
[2018-03-09 06:23] LABS: HEMATOCRIT 53.1 % (37.9-51.0); HEMOGLOBIN 17.9 g/dL (13.5-17.0); MEAN CORPUSCULAR HEMOGLOBIN 33.3 pg (27.0-33.4); MEAN CORPUSCULAR HGB CONC 33.7 g/dL (32.0-36.0); MEAN CORPUSCULAR VOLUME 99 fl (80-97); PLATELET COUNT 193 10^3/uL (150-450); RED BLOOD COUNT 5.38 10^6/uL (4.35-5.55); RED CELL DISTRIBUTION WIDTH 14.3 % (11.5-14.0); WHITE BLOOD COUNT 16.2 10^3/uL (4.0-10.5)
[2018-03-09 06:32] LABS: PROTHROMBIN TIME 20.8 SEC (11.4-15.4)
[2018-03-09 07:01] LABS: ALANINE AMINOTRANSFERASE 125 U/L (21-72); ALBUMIN 2.6 g/dL (3.5-5.0); ALKALINE PHOSPHATASE 70 U/L (38-126); ASPARTATE AMINO TRANSFERASE 89 U/L (17-59); BILIRUBIN,DIRECT 0.3 mg/dL (0.0-0.4); BILIRUBIN,TOTAL 1.2 mg/dL (0.2-1.3); BLOOD UREA NITROGEN 31 mg/dL (7-20); CALCIUM 8.2 mg/dL (8.4-10.2); CARBON DIOXIDE 36 mmol/L (22-30); CHLORIDE 94 mmol/L (98-107); GLUCOSE 151 mg/dL (75-110); POTASSIUM 4.2 mmol/L (3.6-5.0); SODIUM 133.5 mmol/L (137-145)
--- NOTE | 2018-03-09 07:04 | RADIOLOGY REPORT (SQ) ---
EXAM DESCRIPTION: XR CHEST 1 VIEW COMPLETED DATE/TME: 03/09/2018 06:00 CLINICAL HISTORY: 67 years Male, resp fail COMPARISON: One day prior. NUMBER OF VIEWS/TECHNIQUE: 1/AP FINDINGS: Clear lungs of adequate volume, and normal cardiac silhouette. Adequate appearing endotracheal tube. Likely adequate appearing enteric tube partially obscured. No pneumothorax. Stable bony thorax. IMPRESSION: No significant change.
[2018-03-09 07:12] LABS: ANION GAP 6 (5-19)
[2018-03-09 07:13] LABS: TROPONIN I 0.043 ng/mL
[2018-03-09 07:15] LABS: CREATINE KINASE MB < 0.22 ng/mL (<4.55)
[2018-03-09] MEDS: DEXTROSE 5%-WATER 250 ML with PHENYLEPHRINE HCL 40 MG IV PRN ×2 (07:50)
[2018-03-09] MEDS ORDERED: LORAZEPAM 24 MG/240 ML BAG IV ONE (10:00)
--- NOTE | 2018-03-09 12:26 | RADIOLOGY REPORT (SQ) ---
EXAM DESCRIPTION: CHEST SINGLE VIEW COMPLETED DATE/TIME: 03/09/2018 12:13 pm REASON FOR STUDY: POST CATH PLACEMENT COMPARISON: Chest film 03/09/2018, 03/08/2018, 03/07/2018, 03/02/2018 CT chest 03/01/2018 EXAM PARAMETERS: NUMBER OF VIEWS: One view. TECHNIQUE: Single frontal radiographic view of the chest acquired. RADIATION DOSE: NA LIMITATIONS: None. FINDINGS: LUNGS AND PLEURA: No acute infiltrates. No pleural effusion or pneumothorax. MEDIASTINUM AND HILAR STRUCTURES: No masses. Contour normal. HEART AND VASCULAR STRUCTURES: Heart normal in size. Normal vasculature. BONES: No acute findings. HARDWARE: Endotracheal tube tip 4 cm above the daniele. Nasogastric tube tip and side port in the sto mach. Right subclavian [place]-Carmita catheter tip in the right pulmonary artery. OTHER: No other significant finding. IMPRESSION: Tubes and lines in good positioning. No focal pulmonary infiltrates TECHNICAL DOCUMENTATION: JOB ID: [id number] [employer]- All Rights Reserved Reading location - IP/workstation name: [email or web address]
[2018-03-09] MEDS: POLYETHYLENE GLYCOL 3350 POWDER 17 GM/1 PACKET NG SCH (13:15)
[2018-03-09] MEDS: SPIRONOLACTONE 25 MG TABLET NG SCH (13:15)
[2018-03-09] MEDS: LORAZEPAM 24 MG/ D5W 240 ML IV PRN ×3 (13:17→21:11)
[2018-03-09] MEDS: SACUBITRIL/VALSARTAN 24 MG/26 MG TABLET NG SCH ×3 (13:18→22:23)
[2018-03-09] MEDS ORDERED: NORMAL SALINE 500 ML IV ONE ×4 (13:45→15:30)
[2018-03-09] MEDS: FLUCONAZOLE 200 MG/NS RTU 200 MG/100 ML RTUPB IV SCH (13:56)
[2018-03-09] MEDS: DIGOXIN INJ 0.5 MG/2 ML AMPULE IV SCH (13:57)
--- NOTE | 2018-03-09 14:10 | RADIOLOGY REPORT (SQ) ---
EXAM DESCRIPTION: CHEST SINGLE VIEW COMPLETED DATE/TIME: 03/09/2018 1:56 pm REASON FOR STUDY: SWANZ-CAMRITA CATHETER PLACEMENT COMPARISON: None. EXAM PARAMETERS: NUMBER OF VIEWS: 2 view. TECHNIQUE: 2 fluoroscopic images. RADIATION DOSE: NA LIMITATIONS: None. FINDINGS: Two views demonstrate interval placement of transvenous [place]-Carmita catheter with tip direct ed toward right main pulmonary artery. NG tubepassing toward stomach. IMPRESSION: Interval placement of trans venous catheter with tip directed toward right main pulmonar y artery. TECHNICAL DOCUMENTATION: JOB ID: [id number] [employer]- All Rights Reserved Reading location - IP/workstation name: [email or web address]
[2018-03-09] MEDS: BUMETANIDE 1 MG TABLET NG SCH (14:12)
[2018-03-09] MEDS: DEXTROSE 5%-1/2 NORMAL SALINE 1,000 ML IV PRN ×4 (14:30→22:22)
--- NOTE | 2018-03-09 14:43 | RADIOLOGY REPORT (SQ) ---
EXAM DESCRIPTION: NOT FOR OR FLUORO TO 1 HR COMPLETE DATE/TIME: 03/09/2018 1:56 pm REASON FOR STUDY: SWANZ-NATALYA CATHETER PLACEMENT FINDINGS: Please see combined report for performance of procedure and radiologic supervision and int erpretation. IMPRESSION: Please see combined report for performance of procedure and radiologic supervision and i nterpretation. Reading location - IP/workstation name: [email or web address]
--- NOTE | 2018-03-09 18:45 | PDOC PROGRESS REPORT ---
Subjective Progress Note for:: 03/09/18 Subjective:: The patient remains unable to be weaned. He remains on pressor therapy. Please also see pulmonology and cardiology notes. Reason For Visit: AFIB WITH RVR Physical Exam Vital Signs: Temp Pulse Resp BP Pulse Ox 97.3 F 90 19 92/54 L 97 03/09/18 18:08 03/09/18 18:09 03/09/18 18:08 03/09/18 18:09 03/09/18 18:09 Intake & Output 03/08/18 03/09/18 03/10/18 06:59 06:59 06:59 Intake Total 1873 2454 3052 Output Total 3280 1495 510 Balance -0297 920 8562 Weight 78.3 kg 79.3 kg General appearance: PRESENT: other - Sedated and intubated Respiratory exam: PRESENT: clear to auscultation tasha - Anteriorly, symmetrical. ABSENT: rales, rhonchi, stridor Cardiovascular exam: PRESENT: irregular rhythm GI/Abdominal exam: PRESENT: normal bowel sounds, soft. ABSENT: tenderness Gentrourinary exam: PRESENT: indwelling catheter Neurological exam: PRESENT: other - Sedated Psychiatric exam: PRESENT: other - Sedated Focused psych exam: PRESENT: other - Sedated Results Laboratory Results: 03/09/18 06:10 03/09/18 06:10 03/09/18 03/09/18 03/09/18 06:00 06:00 06:10 WBC 16.2 H RBC 5.38 Hgb 17.9 H Hct 53.1 H MCV 99 H MCH 33.3 MCHC 33.7 RDW 14.3 H Plt Count 193 Carbonic Acid 1.37 H HCO3/H2CO3 Ratio 25:1 ABG pH 7.50 H ABG pCO2 45.5 H ABG pO2 65.5 L ABG HCO3 34.5 H ABG O2 Saturation 94.3 ABG Base Excess 9.7 FiO2 30% Sodium Potassium Chloride Carbon Dioxide Anion Gap BUN Creatinine Est GFR ( Amer) Est GFR (Non-Af Amer) Glucose Calcium Magnesium Total Bilirubin AST ALT Alkaline Phosphatase Total Protein Albumin Urine Color YELLOW Urine Appearance SLIGHTLY-CLOUDY Urine pH 5.0 Ur Specific [place] 1.028 Urine Protein 30 H Urine Glucose (UA) NEGATIVE Urine Ketones NEGATIVE Urine Blood NEGATIVE Urine Nitrite NEGATIVE Ur Leukocyte Esterase NEGATIVE Urine WBC (Auto) 1 Urine RBC (Auto) 7 Blood Type 03/09/18 03/09/18 03/09/18 06:10 06:10 09:47 WBC RBC Hgb Hct MCV MCH MCHC RDW Plt Count Carbonic Acid HCO3/H2CO3 Ratio ABG pH ABG pCO2 ABG pO2 ABG HCO3 ABG O2 Saturation ABG Base Excess FiO2 Sodium 133.5 L Potassium 4.2 Chloride 94 L Carbon Dioxide 36 H Anion Gap 6 BUN 31 H Creatinine 0.61 Est GFR ( Amer) > 60 Est GFR (Non-Af Amer) > 60 Glucose 151 H Calcium 8.2 L Magnesium 2.4 H Total Bilirubin 1.2 AST 89 H ALT 125 H Alkaline Phosphatase 70 Total Protein 6.0 L Albumin 2.6 L Urine Color Urine Appearance Urine pH Ur Specific [place] Urine Protein Urine Glucose (UA) Urine Ketones Urine Blood Urine Nitrite Ur Leukocyte Esterase Urine WBC (Auto) Urine RBC (Auto) Blood Type A POSITIVE 03/06/18 10:50 Sputum Gram Stain - Final 03/06/18 10:50 Sputum Sputum Culture - Final Yeast, Not Denisse Albicans Reduced Normal [place] 02/27/18 02/27/18 02/27/18 07:25 09:29 12:10 Creatine Kinase CK-MB (CK-2) Troponin I Cancelled 0.029 0.051 NT-Pro-B Natriuret Pep Cancelled 20769 H 02/28/18 02/28/18 03/01/18 16:50 19:40 00:20 Creatine Kinase CK-MB (CK-2) Troponin I 0.152 0.304 Cancelled NT-Pro-B Natriuret Pep 03/01/18 03/01/18 03/02/18 00:54 06:27 07:57 Creatine Kinase CK-MB (CK-2) Troponin I 0.584 0.274 0.139 NT-Pro-B Natriuret Pep 03/05/18 03/05/18 03/07/18 03:52 05:15 12:00 Creatine Kinase 79 CK-MB (CK-2) Troponin I NT-Pro-B Natriuret Pep Cancelled 1290 H 03/07/18 03/09/18 03/09/18 12:00 06:10 06:10 Creatine Kinase 88 CK-MB (CK-2) 0.49 < 0.22 Troponin I 0.054 0.043 NT-Pro-B Natriuret Pep 982 H 03/09/18 06:10 Creatine Kinase CK-MB (CK-2) Troponin I NT-Pro-B Natriuret Pep 1720 H Impressions: Chest/Abdomen CTA 02/28/18 00:00 IMPRESSION: 1. No pulmonary embolus. 2. Findings likely predominantly related to congestive failure including cardiomegaly, edema and effusions as above. Chest CT 03/01/18 00:00 IMPRESSION: Overall improvement since yesterday. There is a background of chronic interstitial lung disease. No definitive findings to suggest amiodarone toxicity. Venous Doppler Study 03/01/18 00:00 IMPRESSION: NO EVIDENCE DVT OR SVT IN THE RIGHT ARM. KUB X-Ray 03/07/18 10:00 IMPRESSION: NO RADIOGRAPHIC EVIDENCE FOR ACUTE ABDOMINAL DISEASE. NG tube tip in the stomach. Fluoroscopy 03/09/18 00:00 IMPRESSION: Please see combined report for performance of procedure and radiologic supervision and interpretation. Chest X-Ray 03/09/18 06:00 IMPRESSION: No significant change. Assessment & Plan - Diagnosis (1) Acute hypoxemic respiratory failure Is this a current diagnosis for this admission?: Yes Plan: The patient remains ventilated. Weaning has been unsuccessful. Chest x-ray was unremarkable for significant infiltrates. His white blood cell count remains elevated. Respiratory therapy was suctioning thick secretions. Remains afebrile. I will repeat blood work tomorrow. If his white blood cell count con tinues to increase then may resume antibiotic therapy. Continue to wean as tolerated. (2) Atrial fibrillation with RVR Is this a current diagnosis for this admission?: Yes Plan: Currently on digoxin therapy. Reasonable rate control. (3) Acute on chronic systolic heart failure Is this a current diagnosis for this admission?: Yes Plan: Swans Carmita catheter was placed today for more accurate information. Medications will be adjusted accordingly. (4) Community acquired pneumonia Qualifiers: Laterality: unspecified laterality Qualified Code(s): J18.9 - Pneumonia, unspecified organism Is this a current diagnosis for this admission?: Yes Plan: The patient did receive a course of antibiotic therapy. He is no longer on antibiotics but we are watching his white blood cell count and temperature. If these increase then we will resume antibiotics. - Time Time Spent with patient: 25-34 minutes Medications reviewed and adjusted accordingly: Yes
[2018-03-09] MEDS ORDERED: MILRINONE LACTATE/D5W 20 MG/100 ML RTUINJ IV PRN (18:50)
[2018-03-09] MEDS ORDERED: DEXTROSE 5%-1/2 NORMAL SALINE 500 ML IV ONE (21:15)
--- NOTE | 2018-03-09 21:30 | Progress Note ---
Provider Note Provider Note: CARDIOLOGY PROGRESS NOTES by Dr. Martina Castellanos on 03/09/2018. SUBJECTIVE: The patient is intubated and sedated. The patient continues to be in atrial fibrillation. There is no ventricular arrhythmias seen. In view of the patient's lack of progress, and inability to be weaned off the respirator we will place a [place]-Carmita catheter. Which was done. [Please see report of dictated note].
--- NOTE | 2018-03-09 21:47 | Progress Note ---
Provider Note Provider Note: CARDIOLOGY PROCEDURE NOTE by Dr. Martina hazel. On 03/09/2018. Supervisor Customer Services: Dr. Martina Castellanos. PROCEDURE: Placement of [place]-Carmita catheter with measurements through the waiting chambers of the right heart [there is the right atrium, the right ventricle, the pulmonary artery, and the pulmonary wedge, under fluoroscopic and hemodynamic waveform monitoring, through the right subclavian vein access. Tissue removed: None. The blood Loss: None After informed consent was obtained, from the daughter, who the patient's has delegated at the as the next per of deputy attorney general, after discussion of the risks complications benefits of the procedure. The risks of vascular trauma, bleeding complications, infection, arrhythmias, and need for CPR and DC shock for arrhythmias if it should arise, and perforation of the heart were all discussed. With sterile precautions and aseptic technique, after infiltration of Xylocaine anesthesia the right subclavian vein was easily accessed, and subsequently using the Seldinger guidewire exchange technique a 8.5 [place] sheath was placed in the right subclavian vein with good venous return of blood. Through this under fluoroscopic and waveform monitoring a [place]-Carmita catheter was floated through the right atrium, the right ventricle, the pulmonary artery and wedge. The pressures in the various chambers were measured. Subsequently the [place]-Carmita which was floated through a steroidal sheath was sutured along with the 8.5 [place] sheath. The findings were: RA mean was 11. The right ventricle systolic pressure was 24/3. The PA pressure was 21/13 with a PA mean of 16. The pulmonary wedge pressure mean was 11. The cardiac output was 4.07 and the systemic vascular resistance was 1042. Impression: Low normal cardiac output, and low normal cardiac index, with a low wedge, and normal right heart pressures, consistent with hypovolemia. We will give the patient IV fluid boluses to get the bridge up to 15. In view of the patient's hypertension continue the patient on Robby-Synephrine. Cardiac hemodynamics and cardiac output will be done every shift, and earlier in between shifts if needed. Postprocedure fluoroscopy showed that the [place]Carmita catheter was in the right pulmonary artery, and was easily legible. Subsequent chest x-ray showed no pneumothorax. There is no bleeding complications. SUCCESSFUL PLACEMENTOF SwanG[place] catheter for hemodynamic measurements.
[2018-03-09] MEDS ORDERED: WARFARIN SODIUM 4 MG TABLET PO SCH (22:00)
[2018-03-09] MEDS: ATORVASTATIN CALCIUM 40 MG TABLET NG SCH (22:18)
[2018-03-09] MEDS: WARFARIN SODIUM 2 MG TABLET PO SCH (22:19)
[2018-03-09] MEDS: MONTELUKAST SODIUM 10 MG TABLET NG SCH (22:20)
[2018-03-09] MEDS: ENOXAPARIN SODIUM INJ 80 MG/0.8 ML DISP.SYRIN SUBCUT SCH (22:24)
[2018-03-10] MEDS: DEXTROSE 5%-WATER 250 ML with PHENYLEPHRINE HCL 40 MG IV PRN ×4 (00:46→09:44)
[2018-03-10] MEDS: GUAIFENESIN SYRP 200 MG/10 ML UDC NG SCH ×4 (02:47→21:58)
[2018-03-10 04:36] LABS: ABSOLUTE BASOPHILS # (AUTO) 0.1 10^3/uL (0.0-0.2); ABSOLUTE EOSINOPHILS # (AUTO) 0.1 10^3/uL (0.0-0.6); ABSOLUTE LYMPHOCYTES (AUTO) 1.6 10^3/uL (0.5-4.7); ABSOLUTE MONOCYTES (AUTO) 2.1 10^3/uL (0.1-1.4); ABSOLUTE NEUT (AUTO) 8.6 10^3/uL (1.7-8.2); BASOPHILS % (AUTO) 0.6 % (0-2); EOSINOPHILS % (AUTO) 0.7 % (0-6); HEMATOCRIT 50.5 % (37.9-51.0); HEMOGLOBIN 17.1 g/dL (13.5-17.0); LYMPHOCYTES % (AUTO) 12.7 % (13-45); MEAN CORPUSCULAR HEMOGLOBIN 33.3 pg (27.0-33.4); MEAN CORPUSCULAR HGB CONC 33.9 g/dL (32.0-36.0); MEAN CORPUSCULAR VOLUME 98 fl (80-97); MONOCYTES % (AUTO) 16.9 % (3-13); PLATELET COUNT 183 10^3/uL (150-450); RED BLOOD COUNT 5.15 10^6/uL (4.35-5.55); RED CELL DISTRIBUTION WIDTH 14.2 % (11.5-14.0); SEGMENTED NEUTROPHILS % (AUTO) 69.1 % (42-78); TOTAL CELLS COUNTED % (AUTO) 100 %; WHITE BLOOD COUNT 12.4 10^3/uL (4.0-10.5)
[2018-03-10 04:38] LABS: INTERNATIONAL RATION (INR) 1.47; PARTIAL THROMBOPLASTIN TIME 23.5 SEC (23.5-35.8); PROTHROMBIN TIME 18.6 SEC (11.4-15.4)
[2018-03-10 04:55] LABS: ALANINE AMINOTRANSFERASE 95 U/L (21-72); ALBUMIN 3.1 g/dL (3.5-5.0); ALKALINE PHOSPHATASE 81 U/L (38-126); ASPARTATE AMINO TRANSFERASE 88 U/L (17-59); BILIRUBIN,DIRECT 0.2 mg/dL (0.0-0.4); BLOOD UREA NITROGEN 21 mg/dL (7-20); CALCIUM 8.1 mg/dL (8.4-10.2); CARBON DIOXIDE 36 mmol/L (22-30); CHLORIDE 97 mmol/L (98-107); GLUCOSE 137 mg/dL (75-110); PHOSPHORUS 2.8 mg/dL (2.5-4.5); POTASSIUM 4.4 mmol/L (3.6-5.0); TOTAL PROTEIN 6.7 g/dL (6.3-8.2)
[2018-03-10 05:00] LABS: SODIUM 136.3 mmol/L (137-145)
[2018-03-10 05:05] LABS: ANION GAP 3 (5-19)
[2018-03-10] MEDS: DEXTROSE 5%-1/2 NORMAL SALINE 1,000 ML IV PRN ×3 (05:23→22:37)
[2018-03-10] MEDS: PANTOPRAZOLE SODIUM 40 MG VIAL IV SCH (05:24)
[2018-03-10] MEDS: LORAZEPAM 24 MG/ D5W 240 ML IV PRN ×3 (05:24→17:16)
[2018-03-10] MEDS: METOPROLOL TARTRATE 50 MG TABLET NG SCH ×2 (05:25→17:16)
[2018-03-10 06:12] LABS: ARTERIAL BLOOD BASE EXCESS 8.5 mmol/L; ARTERIAL BLOOD H2CO3 1.38 mmol/L (1.05-1.35); ARTERIAL BLOOD HCO3 33.4 mmol/L (20-24); ARTERIAL BLOOD O2 SATURATION 97.1 % (94-98); ARTERIAL BLOOD PH 7.48 (7.35-7.45); ARTERIAL BLOOD PO2 87.8 mmHg (80-100); ARTERIAL BLOOD TOTAL CO2 34.8 mmol/L (23-27)
[2018-03-10 06:16] LABS: ARTERIAL BLOOD FIO2 30%
--- NOTE | 2018-03-10 08:34 | RADIOLOGY REPORT (SQ) ---
EXAM DESCRIPTION: CHEST SINGLE VIEW COMPLETED DATE/TIME: 03/10/2018 6:52 am REASON FOR STUDY: resp failure COMPARISON: None. EXAM PARAMETERS: NUMBER OF VIEWS: One view. TECHNIQUE: Single frontal radiographic view of the chest acquired. RADIATION DOSE: NA LIMITATIONS: None. FINDINGS: LUNGS AND PLEURA: Mild hyperinflationof the lungs. No acute infiltrates. Bilateral apica l pleural thickening. MEDIASTINUM AND HILAR STRUCTURES: No masses. Contour normal. HEART AND VASCULAR STRUCTURES: The heart is normal. The pulmonary vasculature is normal. BONES: No acute findings. HARDWARE: None in the chest. OTHER: Endotracheal tube above daniele. NGT passing toward stomach. Right subclavian [place]-Carmita leda ter with tip directed toward right main pulmonary artery. Chest leads in place IMPRESSION: Support lines in satisfactory position. No significant interval change. TECHNICAL DOCUMENTATION: JOB ID: [id number] [employer]- All Rights Reserved Reading location - IP/workstation name: [email or web address]
[2018-03-10] MEDS: FLUCONAZOLE 200 MG/NS RTU 200 MG/100 ML RTUPB IV SCH (09:13)
[2018-03-10] MEDS: POLYETHYLENE GLYCOL 3350 POWDER 17 GM/1 PACKET NG SCH (09:13)
[2018-03-10] MEDS: DIGOXIN INJ 0.5 MG/2 ML AMPULE IV SCH (09:14)
[2018-03-10] MEDS: ENOXAPARIN SODIUM INJ 80 MG/0.8 ML DISP.SYRIN SUBCUT SCH ×2 (09:14→21:59)
[2018-03-10] MEDS: SACUBITRIL/VALSARTAN 24 MG/26 MG TABLET NG SCH ×2 (09:44→22:01)
--- NOTE | 2018-03-10 13:07 | RADIOLOGY REPORT (SQ) ---
EXAM DESCRIPTION: CHEST SINGLE VIEW COMPLETED DATE/TIME: 03/10/2018 12:48 pm REASON FOR STUDY: POST PA CATH INSERTION COMPARISON: 03/10/2018 0621 hours EXAM PARAMETERS: NUMBER OF VIEWS: One view TECHNIQUE: Single frontal radiograph of the chest. RADIATION DOSE: N/A LIMITATIONS: None. FINDINGS: TEMPORARY SUPPORT DEVICES:ETT in expected location. NG tube courses below the heather-diaphr agm in to the stomach. [place]-Carmita catheter tip in the right lower lobe pulmonary artery. LUNGS AND PLEURA: No opacities. No masses. No effusions. No pneumothorax. MEDIASTINUM AND HILAR STRUCTURES: No masses. Contour normal. HEART AND VASCULAR STRUCTURES: Heart size normal. Normal vascularity. Aorta normal for age BONES: No acute findings. OTHER: No other significant finding. IMPRESSION: NO ACUTE RADIOGRAPHIC FINDING IN THE CHEST. SUPPORT DEVICE(S) IN EXPECTED LOCATIONS. TECHNICAL DOCUMENTATION: JOB ID: [id number] [employer]- All Rights Reserved Reading location - IP/workstation name: [email or web address]
[2018-03-10] MEDS ORDERED: DIGOXIN INJ 0.5 MG/2 ML AMPULE ONE (13:31)
[2018-03-10] MEDS ORDERED: NORMAL SALINE 1000 ML 1,000 ML IV SCH (14:30)
[2018-03-10] MEDS ORDERED: DIGOXIN INJ 0.5 MG/2 ML AMPULE IV ONE (14:45)
--- NOTE | 2018-03-10 14:55 | RADIOLOGY REPORT (SQ) ---
EXAM DESCRIPTION: U/S ABDOMEN LIMITED W/O DOP COMPLETED DATE/TIME: 03/10/2018 2:34 pm REASON FOR STUDY: ABNORMAL LIVER FUNCTION COMPARISON: None. TECHNIQUE: Dynamic and static grayscale images acquired of the abdomen and recorded on PACS. Additio nal selected color Doppler and spectral images recorded. LIMITATIONS: None. FINDINGS: PANCREAS: Normal. LIVER: The liver demonstrates normal echogenicity measuring 17.1 cm. . LIVER VASCULATURE: Normal directional flow of the main portal vein and hepatic veins. GALLBLADDER: No stones. Gallbladder wall thickness 0.4. . No pericholecystic fluid. ULTRASOUND-DETECTED DELACRUZ'S SIGN: Negative. INTRAHEPATIC DUCTS AND COMMON DUCT: CBD is normal measuring 0.3 cm. Intrahepatic ducts normal calibe r. No filling defects. INFERIOR VENA CAVA: Normal flow. AORTA: The proximal abdominal aorta measures 2.2 2.6 cm. The mid abdominal aorta measures 2.2 x 2 cm . The distal abdominal aorta measures 1.9 x 1.6 cm. RIGHT KIDNEY: The right kidney measures 11.9 x 5.1 x 4.5 cm. No hydronephrosis. PERITONEAL AND RIGHT PLEURAL SPACE: No ascites or effusions. SPLEEN: The spleen measures 8 cm in length. Spleen demonstrates normal echogenicity. IMPRESSION: NORMAL RIGHT UPPER QUADRANT ULTRASOUND. TECHNICAL DOCUMENTATION: JOB ID: [id number] 2010 [employer]- All Rights Reserved Reading location - IP/workstation name: [email or web address]
[2018-03-10] MEDS: ACETAMINOPHEN 325 MG TABLET NG PRN (17:16)
--- NOTE | 2018-03-10 17:22 | RADIOLOGY REPORT (SQ) ---
EXAM DESCRIPTION: FLUORO/CV PLACEMENT COMPLETED DATE/TIME: 03/10/2018 1:47 pm REASON FOR STUDY: SWANS CATHETHER REPLACEMENT COMPARISON: 03/10/2018 FLUOROSCOPY TIME: 0.7 minutes 2 images saved to PACS. TECHNIQUE: Intra-operative images acquired during surgical procedure to evaluate progress. NUMBER OF IMAGES: 2 LIMITATIONS: None. FINDINGS: [place]-Carmita catheter tip advanced to the right lower lobe pulmonary artery IMPRESSION: IMAGE(S) OBTAINED DURING PROCEDURE. COMMENT: Quality ID [id number]: Final reports for procedures using fluoroscopy that document radiation exp osure indices, or exposure time and number of fluorographic images (if radiation exposure indices are not available) Please consult full operative report of the attending physician for description of the procedure. TECHNICAL DOCUMENTATION: JOB ID: [id number] [employer]- All Rights Reserved Reading location - IP/workstation name: [email or web address]
--- NOTE | 2018-03-10 18:13 | PDOC PROGRESS REPORT ---
Subjective Progress Note for:: 03/10/18 Subjective:: The patient has his swan Carmita catheter replaced today. He remains sedated and intubated on SIMV. Reason For Visit: AFIB WITH RVR Physical Exam Vital Signs: Temp Pulse Resp BP Pulse Ox 100.6 F H 107 H 25 H 125/69 98 03/10/18 17:29 03/10/18 17:29 03/10/18 17:29 03/10/18 17:29 03/10/18 17:29 Intake & Output 03/09/18 03/10/18 03/11/18 06:59 06:59 06:59 Intake Total 2454 5004 2743 Output Total 1495 2650 2075 Balance 959 2354 668 Weight 79.3 kg 83.1 kg General appearance: PRESENT: other - Sedated Head exam: PRESENT: normocephalic Mouth exam: PRESENT: other - Endotracheal tube and orogastric tube in place Respiratory exam: PRESENT: clear to auscultation tasha - Anteriorly. ABSENT: crackles, rales, stridor, wheezes Cardiovascular exam: PRESENT: irregular rhythm GI/Abdominal exam: PRESENT: normal bowel sounds, soft. ABSENT: tenderness Gentrourinary exam: PRESENT: indwelling catheter Extremities exam: ABSENT: pedal edema Neurological exam: PRESENT: other - Sedated Psychiatric exam: PRESENT: other - Sedated Focused psych exam: PRESENT: other - Sedated Skin exam: PRESENT: dry, warm Results Laboratory Results: 03/10/18 04:01 03/10/18 04:01 03/10/18 03/10/18 03/10/18 04:01 04:01 05:42 WBC 12.4 H RBC 5.15 Hgb 17.1 H Hct 50.5 MCV 98 H MCH 33.3 MCHC 33.9 RDW 14.2 H Plt Count 183 Seg Neutrophils % 69.1 Lymphocytes % 12.7 L Monocytes % 16.9 H Eosinophils % 0.7 Basophils % 0.6 Absolute Neutrophils 8.6 H Absolute Lymphocytes 1.6 Absolute Monocytes 2.1 H Absolute Eosinophils 0.1 Absolute Basophils 0.1 Carbonic Acid 1.38 H HCO3/H2CO3 Ratio 24:1 ABG pH 7.48 H ABG pCO2 46.0 H ABG pO2 87.8 ABG HCO3 33.4 H ABG O2 Saturation 97.1 ABG Base Excess 8.5 FiO2 30% Sodium 136.3 L Potassium 4.4 Chloride 97 L Carbon Dioxide 36 H Anion Gap 3 L BUN 21 H Creatinine 0.68 Est GFR ( Amer) > 60 Est GFR (Non-Af Amer) > 60 Glucose 137 H Calcium 8.1 L Phosphorus 2.8 Magnesium 2.4 H Total Bilirubin 1.0 AST 88 H ALT 95 H Alkaline Phosphatase 81 Total Protein 6.7 Albumin 3.1 L 02/27/18 02/27/18 02/27/18 07:25 09:29 12:10 Creatine Kinase CK-MB (CK-2) Troponin I Cancelled 0.029 0.051 NT-Pro-B Natriuret Pep Cancelled 81086 H 02/28/18 02/28/18 03/01/18 16:50 19:40 00:20 Creatine Kinase CK-MB (CK-2) Troponin I 0.152 0.304 Cancelled NT-Pro-B Natriuret Pep 03/01/18 03/01/18 03/02/18 00:54 06:27 07:57 Creatine Kinase CK-MB (CK-2) Troponin I 0.584 0.274 0.139 NT-Pro-B Natriuret Pep 03/05/18 03/05/18 03/07/18 03:52 05:15 12:00 Creatine Kinase 79 CK-MB (CK-2) Troponin I NT-Pro-B Natriuret Pep Cancelled 1290 H 03/07/18 03/09/18 03/09/18 12:00 06:10 06:10 Creatine Kinase 88 CK-MB (CK-2) 0.49 < 0.22 Troponin I 0.054 0.043 NT-Pro-B Natriuret Pep 982 H 03/09/18 03/10/18 06:10 04:01 Creatine Kinase CK-MB (CK-2) Troponin I NT-Pro-B Natriuret Pep 1720 H 1050 H Impressions: Chest/Abdomen CTA 02/28/18 00:00 IMPRESSION: 1. No pulmonary embolus. 2. Findings likely predominantly related to congestive failure including cardiomegaly, edema and effusions as above. Chest CT 03/01/18 00:00 IMPRESSION: Overall improvement since yesterday. There is a background of chronic interstitial lung disease. No definitive findings to suggest amiodarone toxicity. Venous Doppler Study 03/01/18 00:00 IMPRESSION: NO EVIDENCE DVT OR SVT IN THE RIGHT ARM. KUB X-Ray 03/07/18 10:00 IMPRESSION: NO RADIOGRAPHIC EVIDENCE FOR ACUTE ABDOMINAL DISEASE. NG tube tip in the stomach. Fluoroscopy 03/09/18 00:00 IMPRESSION: Please see combined report for performance of procedure and radiologic supervision and interpretation. Abdomen Ultrasound 03/10/18 00:00 IMPRESSION: NORMAL RIGHT UPPER QUADRANT ULTRASOUND. Guidance Fluoroscopy 03/10/18 00:00 IMPRESSION: IMAGE(S) OBTAINED DURING PROCEDURE. Chest X-Ray 03/10/18 06:00 IMPRESSION: Support lines in satisfactory position. No significant interval change. Assessment & Plan - Diagnosis (1) Acute hypoxemic respiratory failure Is this a current diagnosis for this admission?: Yes Plan: Unable to wean. Still with full ventilatory support. He is on day 11 of his hospital stay and may require tracheostomy. (2) Atrial fibrillation with RVR Is this a current diagnosis for this admission?: Yes Plan: Currently on digoxin and metoprolol. (3) Acute on chronic systolic heart failure Is this a current diagnosis for this admission?: Yes Plan: Currently on milrinone (4) Community acquired pneumonia Qualifiers: Laterality: unspecified laterality Qualified Code(s): J18.9 - Pneumonia, unspecified organism Is this a current diagnosis for this admission?: Yes Plan: The patient already completed a full course of antibiotic therapy for pneumonia. I am holding off on adding back antibiotics at this time. We will continue to monitor the patient. He is at risk for ventilator associated pneumonia so my threshold will be low. - Time Time Spent with patient: 15-24 minutes Medications reviewed and adjusted accordingly: Yes
--- NOTE | 2018-03-10 21:04 | XCELERA REPORT ---
[address] [address] Transthoracic Echocardiogram Report Name: ABE DAILY Age: 67 yrs Gender: Male : 1950 Patient Status: Inpatient Patient Location: ICU^601^A Study Date: 03/08/2018 02:14 PM Height: 73 in Weight: 172 lb BSA: 2.0 m2 Procedure: A two-dimensional transthoracic echocardiogram with color flow and Doppler was performed. Study Quality: Poor. The study was technically difficult with many images being suboptimal in quality. Reason For Study: Abnormal EKG/ Cardiomyopathy History: ABNORMAL EKG. Ordering Physician: MARTHA PETERSEN Performed By: Arie Coburn Interpretation Summary The left ventricle is normal in size. There is normal left ventricular wall thickness. LV EF is 25% There is severe global hypokinesis of the left ventricle. There is no thrombus. The right ventricle is not well visualized secondary to technical limitations The right ventricle is grossly normal size. The right atrium is normal. The left atrial size is normal. There is no evidence of mitral valve prolapse. There is no mitral valve stenosis. There is no mitral regurgitation noted. There is no aortic valve stenosis No aortic regurgitation is present. There is no tricuspid stenosis. There is a trace amount of tricuspid regurgitation Unable to calculate RVSP due lack of TR jet. The pulmonic valve is not well visualized. There is no pericardial effusion. MMode/2D Measurements & Calculations RVDd: 2.2 cm LVIDd: 5.5 cm FS: 22.3 % Ao root diam: 3.7 cm IVSd: 0.96 cm LVIDs: 4.3 cm EDV(Teich): 147.6 ml Ao root area: 10.5 cm2 LVPWd: 1.3 cm ESV(Teich): 81.9 ml LA dimension: 2.7 cm EF(Teich): 44.5 % LVOT diam: 2.2 cm LVOT area: 3.9 cm2 Doppler Measurements & Calculations MV E max rohan: MV P1/2t max rohan: Ao V2 max: LV V1 max P.1 cm/sec 36.5 cm/sec 97.3 cm/sec 2.0 mmHg MV A max rohan: MV P1/2t: 57.0 msec Ao max PG: LV V1 max: 46.9 cm/sec MVA(P1/2t): 3.9 cm2 3.8 mmHg 71.6 cm/sec MV E/A: 0.73 MV dec slope: ENRIQUE(V,D): 2.9 cm2 187.8 cm/sec2 PA V2 max: MV P1/2t-pr_phl: 102.5 cm/sec 57.0 msec PA max P.2 mmHg Left Ventricle The left ventricle is normal in size. There is normal left ventricular wall thickness. LV EF is 25%. Left ventricular systolic function is severely reduced. LV diastolic function could not be adequately assessed due to atrial fibrilation. There is severe global hypokinesis of the left ventricle. There is no thrombus. Right Ventricle The right ventricle is not well visualized secondary to technical limitations. The right ventricle is grossly normal size. Atria The right atrium is normal. The left atrial size is normal. Mitral Valve There is no evidence of mitral valve prolapse. There is no vegetation seen on the mitral valve. There is no mitral valve stenosis. There is no mitral regurgitation noted. Aortic Valve There is no aortic valve stenosis. No aortic regurgitation is present. Tricuspid Valve There is no tricuspid stenosis. There is a trace amount of tricuspid regurgitation. Unable to calculate RVSP due lack of TR jet. Pulmonic Valve The pulmonic valve is not well visualized. Effusions There is no pericardial effusion. : MARTHA PETERSEN > Martina Castellanos
[2018-03-10] MEDS: ATORVASTATIN CALCIUM 40 MG TABLET NG SCH (21:58)
[2018-03-10] MEDS: MONTELUKAST SODIUM 10 MG TABLET NG SCH (21:58)
[2018-03-10] MEDS: WARFARIN SODIUM 2 MG TABLET PO SCH (21:59)
--- NOTE | 2018-03-10 22:47 | Progress Note ---
Provider Note Provider Note: CARDIOLOGY PROCEDURE NOTE on 03/10/2018. TIME SPENT ON THIS PROCEDURE: 10 minutes. PROCEDURE: Removal of malfunctioning [place]-Carmita catheter, and insertion of a new [place]-Carmita catheter with measurements pressures in the various chambers of the right heart. This was done due to the right atrial port of the [place]-Carmita catheter in the existing catheter was clotted. REGULATORY COMPLIANCE DIRECTOR: Dr. Martina Castellanos. Next Tissue removed: None. Blood loss: None Description of procedure.: After informed consent was obtained from the on the telephone with the nurse witnessing it. The existing malfunctioning [place]- Carmita catheter was removed with careful attention to keep the entry site of the 8.[address] [place] [address] already in place to be sterile. After the patient was prepped and draped making sure that the entry port of the existing 8.5 [place] sheath was trialed with a fresh [place]-Carmita catheter was floated through the various chambers and the heart measuring there is CVP, the right atrial pressure, the right ventricular pressure, the pulmonary artery pressure and the pulmonary wedge pressure. The catheter was sutured and the dressing was applied. Successful reinsertion of [place]-Carmita catheter for right heart pressure measurements. Findings: The CVP was 8. RA was 8/5 with a mean of 7. The right ventriclular [RV] pressure was 34/14. PA was 30/12with a mean of 20/the pulmonary wedge pressure was 11. The cardiac output was 6.20 L/min, with a cardiac index of 3.05 L/min/m2; the systemic vascular resistance [SVR] was 954, and the pulmonary vascular resistance [PVR] were 64 dynes per centimeter2. POST PROCEDURE CHEST X-ray: Showed that the [place]-Carmita was in the right pulmonary artery. There was no complications. Chest x-ray shows no evidence of heart failure or pneumonia. The above indicated normal cardiac output and cardiac index and normal systemic and pulmonary vascular resistance, with a low wedge suggestive of hypovolemia. Recommend IV fluids. Continue other supportive treatment.
--- NOTE | 2018-03-10 22:54 | Progress Note ---
Provider Note Provider Note: CARDIOLOGY PROGRESS NOTES by Dr. Martina Castellanos on 03/10/2018. SUBJECTIVE: The patient continues to be in atrial fibrillation. The patient continues to be intubated and sedated. His blood pressure requested still a small dose of pressors. His [place]-Carmita catheter shows that he might be slightly hypovolemic. There is no ventricular arrhythmia seen on the monitor. There is no pedal edema. PHYSICAL EXAMINATION: The patient appears to be well-built. He is not fighting the ventilator. He is well sedated. Selected Entries 03/10/18 03/10/18 03/10/18 09:43 09:58 09:59 Core Temperature Heart Rate ( Monitors) Respiratory 23 H 23 H Rate Blood Pressure 110/60 Blood Pressure [Right Upper Arm] Blood Pressure 76 Mean O2 Sat by Pulse Oximetry Percent of Oxygen 03/10/18 03/10/18 10:00 10:29 Core 99.5 F Temperature Heart Rate ( 95 Monitors) Respiratory 23 H Rate Blood Pressure 101/64 Blood Pressure 120/50 L [Right Upper Arm] Blood Pressure 76 Mean O2 Sat by Pulse 98 98 Oximetry Percent of 30 Oxygen HEAD: Is atraumatic normocephalic. EYES: Pupils are equal round regular reactive to light. ENT is negative. SKIN: Is without any skin lesions or skin rashes. There is no petechia or ecchymosis. NECK: Is supple. There is no JVD. Carotids are equal there is no bruits. There is no lymphadenopathy. Trachea central. LUNGS: Clear to auscultation, without any rhonchi rales or wheezing. There is diminished air entry throughout and hyperresonance. Heart: S1-S2 is heard S1 is of variable intensity there is no S3 gallop. There is no S4 gallop. There is no rub. There is systolic murmur left sternal border and the apex. ABDOMEN: Soft there is no hepatosplenic megaly. Bowel sounds are well heard. EXTREMITIES: Femorals are diminished. There is no femoral bruits. Leg pulses are diminished. There is no pedal edema. There is no DVT or cellulitis. There is no sinus or clubbing. DELIVERER MERCHANDISE AND psychiatric: Not examined since the patient's intubated and sedated. 03/10/18 03/10/18 03/10/18 04:01 04:01 05:42 WBC 12.4 H Hgb 17.1 H Hct 50.5 MCV 98 H RDW 14.2 H Plt Count 183 Seg Neutrophils % 69.1 PT 18.6 H INR 1.47 APTT 23.5 Carbonic Acid 1.38 H HCO3/H2CO3 Ratio 24:1 ABG pH 7.48 H ABG pCO2 46.0 H ABG pO2 87.8 ABG HCO3 33.4 H ABG Total CO2 34.8 H ABG O2 Saturation 97.1 ABG Base Excess 8.5 FiO2 30% The patient's cardiac output is 6.20 L/min, with a cardiac index of 3.05 L/min/m square., His right atrial mean is 7, right ventricular pressures are 34/14, the PA pressures 30/12 with a wedge of 11. The patient's 24-hour intake is 5004 mL. Output is 2006 and 50 mL CHEST X-ray: Shows that the [place]-Carmita catheter is in the right pulmonary artery. There is no acute process in the chest. There is no cardiomegaly. RIGHT upper quadrant ABDOMINAL ULTRASOUND: Shows normal findings. IMPRESSION/RECOMMENDATION: 1 acute respiratory failure most likely on chronic respiratory failure: Continue ventilator support. Recommend anti-COPD nebulizer treatments. Note multiple attempts at extubation is failed. The patient appears to be slightly dry by hemodynamics, with a normal cardiac output and index. 2. Atrial fibrillation with rapid ventricular response: Most likely secondary to the patient's decompensated respiratory status. At present onffCardizem drip heart rate is acceptable. We will discontinue the patient Cardizem drip. We will start the patient on digoxin 0.25 mg IV push daily. The patient back on Robby-Synephrine at 30 mcg/min. Note the patient has been started on Lovenox at 1 mg/kg subcutaneously every 12 hours due to subtherapeutic INR. Will continue patient's Coumadin, and stop the Lovenox when the patient's INR is 2 or greater. 3. Pneumonia: With acute exacerbation of COPD. Continue antibiotics and respiratory treatments. This seems to have resolved. 4. ISCHEMIC Cardiomyopathy: With severely reduced LV ejection fraction: Would recommend that the patient be referred for AICD placement consideration. Would at present continue the patient's metoprolol XL and Entresto. Will increase the dose of each as permitted by the patient's heart rate and blood pressure. In view of the patient is requiring small dose of Robby-Synephrine to keep the blood pressure just above 100, will start the patient on Midrin at 5 mg by the NG tube 3 times daily, and increase to 10 mg via NG tube 3 times daily if needed 6. Coronary artery disease, in view of the labile of ischemic cardiomyopathy as a diagnosis. Details of his coronary anatomy is not known. 7. Note abnormal liver function tests: The patient's right upper quadrant abdominal ultrasound was negative for any acute process. We will stop the patient's atorvastatin, since this may be the culprit in the patient's abnormal LFTs. 8. History of hypertension: At present at present blood pressure in the 90s to the 100s, with Robby-Synephrine on board. 9. Elevated troponin I: Most likely secondary to patient's atrial fibrillation with rapid ventricular response in a patient with severely depressed LV ejection fraction. But with the patient's EKG showing T wave inversions suggestive of ischemia versus post tachycardia T wave syndrome, and the patient's history of ischemic cardiomyopathy. Later would need a nuclear stress testing versus cardiac catheterization to be absolutely sure that the patient does not have underlying significant coronary artery disease. 10. Hypotension: Blood pressure in the low 100s. We will start the patient on midodrine to see if we can get the patient on Levophed. 11. Cardiac hemodynamics suggest in spite of a normal cardiac output and cardiac index are normal SVR and PVR, the patient's which is low hence will hydrate the patient. We will hold the patient's diuretics including spironolactone for now. Continue every shift cardiac hemodynamic monitoring, and recording pressures. 12. Continue tube feedings, will increase the patient's tube feedings. Medications reviewed, medication adjusted. Management plan discussed with other caregiving providers on the case. Note 40 minutes spent on this patient, with more than 50% of time spent in direct patient care. This is apart from the time taken for reintroduction of the right heart catheter/[place]-Carmita catheter, done earlier. Medical decision making is of high complexity.
[2018-03-11] MEDS: LORAZEPAM 24 MG/ D5W 240 ML IV PRN ×3 (00:07→10:40)
[2018-03-11 03:55] LABS: HEMATOCRIT 46.2 % (37.9-51.0); HEMOGLOBIN 15.3 g/dL (13.5-17.0); MEAN CORPUSCULAR HEMOGLOBIN 33.2 pg (27.0-33.4); MEAN CORPUSCULAR HGB CONC 33.2 g/dL (32.0-36.0); MEAN CORPUSCULAR VOLUME 100 fl (80-97); RED BLOOD COUNT 4.62 10^6/uL (4.35-5.55); RED CELL DISTRIBUTION WIDTH 14.5 % (11.5-14.0); WHITE BLOOD COUNT 12.5 10^3/uL (4.0-10.5)
[2018-03-11 04:09] LABS: PLATELET COUNT 174 10^3/uL (150-450)
[2018-03-11] MEDS: GUAIFENESIN SYRP 200 MG/10 ML UDC NG SCH ×4 (04:10→22:07)
[2018-03-11 04:16] LABS: INTERNATIONAL RATION (INR) 1.24; PROTHROMBIN TIME 16.2 SEC (11.4-15.4)
[2018-03-11] MEDS: METOPROLOL TARTRATE 50 MG TABLET NG SCH ×2 (05:13→18:00)
[2018-03-11 06:02] LABS: ARTERIAL BLOOD BASE EXCESS 4.8 mmol/L; ARTERIAL BLOOD H2CO3 1.25 mmol/L (1.05-1.35); ARTERIAL BLOOD O2 SATURATION 97.4 % (94-98); ARTERIAL BLOOD PCO2 41.4 mmHg (35-45); ARTERIAL BLOOD PH 7.46 (7.35-7.45); ARTERIAL BLOOD PO2 91.8 mmHg (80-100); ARTERIAL BLOOD TOTAL CO2 30.3 mmol/L (23-27)
[2018-03-11 06:12] LABS: ARTERIAL BLOOD FIO2 30%
[2018-03-11] MEDS: DEXTROSE 5%-1/2 NORMAL SALINE 1,000 ML IV PRN ×3 (06:27→19:57)
--- NOTE | 2018-03-11 08:22 | RADIOLOGY REPORT (SQ) ---
EXAM DESCRIPTION: CHEST SINGLE VIEW COMPLETED DATE/TIME: 03/11/2018 6:58 am REASON FOR STUDY: resp failure COMPARISON: CT chest 03/01/2018 Chest films 03/06/2018, 03/10/2018 EXAM PARAMETERS: NUMBER OF VIEWS: One view. TECHNIQUE: Single frontal radiographic view of the chest acquired. RADIATION DOSE: NA LIMITATIONS: Left lung base cropped from the field of view FINDINGS: LUNGS AND PLEURA: Pulmonary vascular prominence without gross alveolar or interstitial elisa ma. No pleural effusion or pneumothorax. No dense consolidation worrisome for pneumonia. MEDIASTINUM AND HILAR STRUCTURES: No masses. Contour normal. HEART AND VASCULAR STRUCTURES: Heart normal in size. Normal vasculature. BONES: No acute findings. HARDWARE: Right subclavian [place]-Carmita catheter tip in the right pulmonary artery. Endotracheal tube t ip 4 cm above the daniele. Nasogastric tube tip and side port in the stomach OTHER: No other significant finding. IMPRESSION: Tubes and lines in good positioning. No focal consolidation TECHNICAL DOCUMENTATION: JOB ID: [id number] [employer]- All Rights Reserved Reading location - IP/workstation name: [email or web address]
[2018-03-11] MEDS: ENOXAPARIN SODIUM INJ 80 MG/0.8 ML DISP.SYRIN SUBCUT SCH ×2 (10:03→22:05)
[2018-03-11] MEDS: FLUCONAZOLE 200 MG/NS RTU 200 MG/100 ML RTUPB IV SCH (10:03)
[2018-03-11] MEDS: MIDODRINE HCL 5 MG TABLET NG SCH ×3 (10:04→18:01)
[2018-03-11] MEDS: DIGOXIN INJ 0.5 MG/2 ML AMPULE IV SCH (10:04)
[2018-03-11] MEDS: POLYETHYLENE GLYCOL 3350 POWDER 17 GM/1 PACKET NG SCH (10:04)
[2018-03-11] MEDS: SACUBITRIL/VALSARTAN 24 MG/26 MG TABLET NG SCH ×2 (10:05→22:06)
[2018-03-11] MEDS: DEXTROSE 5%-WATER 250 ML with PHENYLEPHRINE HCL 40 MG IV PRN ×2 (10:10)
[2018-03-11] MEDS ORDERED: NORMAL SALINE 1000 ML 500 ML IV ONE (11:09)
[2018-03-11] MEDS ORDERED: FLUMAZENIL INJ 0.5 MG/5 ML VIAL IV ONE (11:38)
[2018-03-11] MEDS ORDERED: FLUMAZENIL INJ 0.5 MG/5 ML VIAL ONE (11:44)
[2018-03-11] MEDS ORDERED: DILTIAZEM HCL/D5W 125 MG/125 ML RTUINJ IV ONE (12:47)
[2018-03-11] MEDS: DILTIAZEM HCL/D5W 125 MG/125 ML RTUINJ IV PRN ×2 (12:50→20:49)
--- NOTE | 2018-03-11 13:03 | PDOC PROGRESS REPORT ---
Subjective Progress Note for:: 03/11/18 Subjective:: The patient was extubated this morning. He is currently exhibiting tachycardia but this is likely due to the immediate post extubation window. Reason For Visit: AFIB WITH RVR Physical Exam Vital Signs: Temp Pulse Resp BP Pulse Ox 100.0 F 121 H 22 H 146/61 H 95 03/11/18 12:00 03/11/18 12:20 03/11/18 12:20 03/11/18 12:00 03/11/18 12:00 Intake & Output 03/10/18 03/11/18 03/12/18 06:59 06:59 06:59 Intake Total 5004 5171 1204 Output Total 2650 4300 1440 Balance 2354 871 -236 Weight 83.1 kg 83.8 kg General appearance: PRESENT: no acute distress Head exam: PRESENT: normocephalic Neck exam: ABSENT: carotid bruit, lymphadenopathy Respiratory exam: PRESENT: symmetrical, unlabored, other - Coarse breath sounds.. ABSENT: wheezes Cardiovascular exam: PRESENT: irregular rhythm GI/Abdominal exam: PRESENT: normal bowel sounds, soft. ABSENT: tenderness Extremities exam: ABSENT: pedal edema Neurological exam: PRESENT: other - Just extubated. Still with the effects of his sedation. Somnolent at thistime. Psychiatric exam: PRESENT: flat affect Focused psych exam: PRESENT: other - Still under the influence of his sedation. Results Laboratory Results: 03/11/18 03:41 03/10/18 04:01 03/11/18 03/11/18 03:41 05:57 WBC 12.5 H RBC 4.62 Hgb 15.3 Hct 46.2 MCV 100 H MCH 33.2 MCHC 33.2 RDW 14.5 H Plt Count 174 Carbonic Acid 1.25 HCO3/H2CO3 Ratio 23:1 ABG pH 7.46 H ABG pCO2 41.4 ABG pO2 91.8 ABG HCO3 29.0 H ABG O2 Saturation 97.4 ABG Base Excess 4.8 FiO2 30% 03/06/18 11:02 Blood Blood Culture - Final NO GROWTH IN 5 DAYS 03/06/18 11:15 Blood Blood Culture - Final NO GROWTH IN 5 DAYS 02/27/18 02/27/18 02/27/18 07:25 09:29 12:10 Creatine Kinase CK-MB (CK-2) Troponin I Cancelled 0.029 0.051 NT-Pro-B Natriuret Pep Cancelled 04470 H 02/28/18 02/28/18 03/01/18 16:50 19:40 00:20 Creatine Kinase CK-MB (CK-2) Troponin I 0.152 0.304 Cancelled NT-Pro-B Natriuret Pep 03/01/18 03/01/18 03/02/18 00:54 06:27 07:57 Creatine Kinase CK-MB (CK-2) Troponin I 0.584 0.274 0.139 NT-Pro-B Natriuret Pep 03/05/18 03/05/18 03/07/18 03:52 05:15 12:00 Creatine Kinase 79 CK-MB (CK-2) Troponin I NT-Pro-B Natriuret Pep Cancelled 1290 H 03/07/18 03/09/18 03/09/18 12:00 06:10 06:10 Creatine Kinase 88 CK-MB (CK-2) 0.49 < 0.22 Troponin I 0.054 0.043 NT-Pro-B Natriuret Pep 982 H 03/09/18 03/10/18 06:10 04:01 Creatine Kinase CK-MB (CK-2) Troponin I NT-Pro-B Natriuret Pep 1720 H 1050 H Impressions: Chest/Abdomen CTA 02/28/18 00:00 IMPRESSION: 1. No pulmonary embolus. 2. Findings likely predominantly related to congestive failure including cardiomegaly, edema and effusions as above. Chest CT 03/01/18 00:00 IMPRESSION: Overall improvement since yesterday. There is a background of chronic interstitial lung disease. No definitive findings to suggest amiodarone toxicity. Venous Doppler Study 03/01/18 00:00 IMPRESSION: NO EVIDENCE DVT OR SVT IN THE RIGHT ARM. KUB X-Ray 03/07/18 10:00 IMPRESSION: NO RADIOGRAPHIC EVIDENCE FOR ACUTE ABDOMINAL DISEASE. NG tube tip in the stomach. Fluoroscopy 03/09/18 00:00 IMPRESSION: Please see combined report for performance of procedure and radiologic supervision and interpretation. Abdomen Ultrasound 03/10/18 00:00 IMPRESSION: NORMAL RIGHT UPPER QUADRANT ULTRASOUND. Guidance Fluoroscopy 03/10/18 00:00 IMPRESSION: IMAGE(S) OBTAINED DURING PROCEDURE. Chest X-Ray 03/11/18 06:00 IMPRESSION: Tubes and lines in good positioning. No focal consolidation Assessment & Plan - Diagnosis (1) Acute hypoxemic respiratory failure Is this a current diagnosis for this admission?: Yes Plan: Successfully extubated. Monitor closely. BiPAP if necessary. (2) Atrial fibrillation with RVR Is this a current diagnosis for this admission?: Yes Plan: He is currently on digoxin and metoprolol. The diltiazem infusion was discontinued. We are converting him back to warfarin from Lovenox. (3) Acute on chronic systolic heart failure Is this a current diagnosis for this admission?: Yes Plan: He still has the [place] catheter in place. Please also see cardiology note. He is on Entresto, the metoprolol, Aldactone and milrinone. (4) Community acquired pneumonia Qualifiers: Laterality: unspecified laterality Qualified Code(s): J18.9 - Pneumonia, unspecified organism Is this a current diagnosis for this admission?: Yes Plan: Antibiotic therapy completed. - Time Time Spent with patient: 25-34 minutes Medications reviewed and adjusted accordingly: Yes
[2018-03-11 15:05] LABS: ARTERIAL BLOOD BASE EXCESS 5.4 mmol/L; ARTERIAL BLOOD H2CO3 1.27 mmol/L (1.05-1.35); ARTERIAL BLOOD HCO3 29.7 mmol/L (20-24); ARTERIAL BLOOD O2 SATURATION 95.9 % (94-98); ARTERIAL BLOOD PCO2 42.1 mmHg (35-45); ARTERIAL BLOOD PH 7.47 (7.35-7.45); ARTERIAL BLOOD PO2 75.8 mmHg (80-100)
[2018-03-11 15:09] LABS: ARTERIAL BLOOD FIO2 35%
[2018-03-11 17:43] LABS: ARTERIAL BLOOD BASE EXCESS 7.1 mmol/L; ARTERIAL BLOOD FIO2 ROOM AIR; ARTERIAL BLOOD H2CO3 1.29 mmol/L (1.05-1.35); ARTERIAL BLOOD HCO3 31.4 mmol/L (20-24); ARTERIAL BLOOD O2 SATURATION 86.7 % (94-98); ARTERIAL BLOOD PCO2 42.9 mmHg (35-45); ARTERIAL BLOOD PH 7.48 (7.35-7.45); ARTERIAL BLOOD PO2 48.3 mmHg (80-100); ARTERIAL BLOOD TOTAL CO2 32.7 mmol/L (23-27)
[2018-03-11] MEDS: WARFARIN SODIUM 2 MG TABLET PO SCH (22:06)
[2018-03-11] MEDS: MONTELUKAST SODIUM 10 MG TABLET NG SCH (22:07)
--- NOTE | 2018-03-11 22:27 | Progress Note ---
Provider Note Provider Note: CARDIOLOGY PROGRESS NOTES by Dr. Martina Castellanos on 03/11/2018. OBJECTIVE: The patient's hemodynamics were good. He was off all pressors, and he was started earlier on the medial groin to keep his blood pressure up and the patient's sedation was discontinued, and also the patient was given Romazicon. The patient did wake up and was following commands. And that the patient had good weaning parameters, the patient was extubated. He still is still drowsy with the after effects of the Ativan drip that he had. He denies any chest pain or discomfort. He continues to be in atrial fibrillation. There is no shortness of breath or chest pain or discomfort. There is no TIA CVA symptoms. There is no bleeding on full dose Lovenox.. There is no ventricular arrhythmia seen on the monitor. The patient is slightly drowsy but is able to answer all questions appropriately and moves all 4 extremities. On examination: The patient is well-built. He appears to be well-nourished. In no acute distress. Selected Entries 03/11/18 03/11/18 18:30 18:58 Core 99.7 F Temperature Heart Rate ( 88 Monitors) Respiratory 17 Rate Blood Pressure 126/56 H Blood Pressure 79 Mean O2 Sat by Pulse 97 Oximetry Pulmonary 26 Arterial Occlusion Pressure- Systolic Pulmonary 20 Arterial Occlusion Pressure- Diastolic Pulmonary 22 Arterial Occlusion Pressure- Mean Central Venous 6 Pressure- Mean HEAD: Is atraumatic normocephalic. EYES: Pupils are equal round regular reactive to light. ENT is negative. SKIN: Is without any skin lesions or skin rashes. There is no petechia or ecchymosis. NECK: Is supple. There is no JVD. Carotids are equal there is no bruits. There is no lymphadenopathy. Trachea central. LUNGS: Clear to auscultation, without any rhonchi rales or wheezing. There is diminished air entry throughout and hyperresonance. Heart: S1-S2 is heard S1 is of variable intensity there is no S3 gallop. There is no S4 gallop. There is no rub. There is systolic murmur left sternal border and the apex. ABDOMEN: Soft there is no hepatosplenic megaly. Bowel sounds are well heard. EXTREMITIES: Femorals are diminished. There is no femoral bruits. Leg pulses are diminished. There is no pedal edema. There is no DVT or cellulitis. There is no sinus or clubbing. MINI BACCARAT DEALER: THE PATIENT IS CONSCIOUS SLIGHTLY DROWSY, BUT MOVES ALL 4 EXTREMITIES. PSYCHIATRIC: The patient does not appear to be agitated. He is still drowsy from his Ativan drip, and hence full psych examination not done. 03/10/18 03/10/18 03/11/18 04:01 04:01 03:41 WBC Hgb Hct MCV Plt Count PT 16.2 H INR 1.24 Carbonic Acid HCO3/H2CO3 Ratio ABG pH ABG pCO2 ABG pO2 ABG HCO3 ABG Total CO2 ABG O2 Saturation ABG Base Excess FiO2 Sodium 136.3 L Potassium 4.4 Chloride 97 L Carbon Dioxide 36 H Anion Gap 3 L BUN 21 H Creatinine 0.68 Est GFR (Non-Af Amer) > 60 Glucose 137 H Calcium 8.1 L Phosphorus 2.8 Magnesium 2.4 H Total Bilirubin 1.0 Direct Bilirubin 0.2 Neonat Total Bilirubin Not Reportable Neonat Direct Bilirubin Not Reportable Neonat Indirect Bili Not Reportable AST 88 H ALT 95 H Alkaline Phosphatase 81 NT-Pro-B Natriuret Pep 1050 H Total Protein 6.7 Albumin 3.1 L 03/11/18 03/11/18 03:41 17:20 WBC 12.5 H Hgb 15.3 Hct 46.2 MCV 100 H Plt Count 174 PT INR Carbonic Acid 1.29 HCO3/H2CO3 Ratio 24:1 ABG pH 7.48 H ABG pCO2 42.9 ABG pO2 48.3 L ABG HCO3 31.4 H ABG Total CO2 32.7 H ABG O2 Saturation 86.7 L ABG Base Excess 7.1 FiO2 ROOM AIR Sodium Potassium Chloride Carbon Dioxide Anion Gap BUN Creatinine Est GFR (Non-Af Amer) Glucose Calcium Phosphorus Magnesium Total Bilirubin Direct Bilirubin Neonat Total Bilirubin Neonat Direct Bilirubin Neonat Indirect Bili AST ALT Alkaline Phosphatase NT-Pro-B Natriuret Pep Total Protein CHEST X-ray: Normal sized heart. No infiltrates or heart failure. [place] catheter in right pulmonary artery. HEMODYNAMICS: The patient's cardiac output is 5.88 L/min, with a cardiac index of 2.83 L/min/m square.. The patient's pulmonary artery systolic pressure is 26, with a pulmonary artery diastolic of 17, and with a pulmonary artery mean pressure of 20. The patient's wedge pressure is 11. The patient's SVR is 1156, the patient's pulmonary vascular resistance is normal at 122. IMPRESSION/RECOMMENDATION: 1 acute respiratory failure most likely on chronic respiratory failure: The patient has been weaned off the ventilator. Recommend anti-COPD nebulizer treatments. The patient appeared to be slightly dry by hemodynamics, with a normal cardiac output and index but with IV fluids at present the patient's wedge is acceptable at 11. Continue IV fluids.. 2. Atrial fibrillation with earlier rapid ventricular response: Not the patient off pressors, and hence the patient started on Cardizem at 10 mg/h drip. Continue the patient's beta-jewels. Continue the patient's full dose Lovenox. Continue continue patient on Coumadin. Continue patient digoxin. We will check the patient is level in a.m. 3. Pneumonia: With acute exacerbation of COPD. Continue antibiotics and respiratory treatments. This seems to have resolved. The chest x-ray is clear 4. ISCHEMIC Cardiomyopathy: With severely reduced LV ejection fraction: Would recommend that the patient be referred for AICD placement consideration, if cardiac catheterization shows no revascularizable coronary artery disease. Would at present continue the patient's metoprolol XL and Entresto. 7. Abnormal EKG findings: With T wave inversions especially in the anterolateral leads. Once the patient is stabilized after a 2 days into extubation, will transfer the patient to tertiary care center for cardiac catheterization. Will discuss with the patient's and the patient's family. 8. History of hypertension: At present at present blood pressure in the 90s to the 100s, with all pressors being turned off. The patient is on Midrin to help as continue the patient on metoprolol and Entresto.. 9. Elevated troponin I: Most likely secondary to patient's atrial fibrillation with rapid ventricular response in a patient with severely depressed LV ejection fraction. But with the patient's EKG showing T wave inversions suggestive of ischemia versus post tachycardia T wave syndrome, and the patient's history of ischemic cardiomyopathy. Later would need a nuclear stress testing versus cardiac catheterization to be absolutely sure that the patient does not have underlying significant coronary artery disease. 10. Hypotension: Blood pressure in the low 100s. We will start the patient on midodrine to see if we can get the patient on Levophed. 11. Cardiac hemodynamics suggest in spite of a normal cardiac output and car diac index are normal SVR and PVR, the patient's which is low hence will hydrate the patient. We will hold the patient's diuretics including spironolactone for now. Continue every shift cardiac hemodynamic monitoring, and recording pressures. 12. Note abnormal liver function tests: The patient's right upper quadrant abdominal ultrasound was negative for any acute process. We will stop the mauricio ent's atorvastatin, since this may be the culprit in the patient's abnormal LFTs. The liver functions are trending down. . Medications reviewed, medication adjusted. Management plan discussed with other caregiving providers on the case. Note 40 minutes spent on this patient, with more than 50% of time spent in direct patient care. This is apart from the time taken for reintroduction of the right heart catheter/[place]-Carm[place] catheter, done earlier. Medical decision making is of high complexity.
[2018-03-12] MEDS: GUAIFENESIN SYRP 200 MG/10 ML UDC NG SCH ×4 (04:06→22:14)
[2018-03-12 04:36] LABS: ARTERIAL BLOOD BASE EXCESS 4.8 mmol/L; ARTERIAL BLOOD H2CO3 1.09 mmol/L (1.05-1.35); ARTERIAL BLOOD HCO3 27.8 mmol/L (20-24); ARTERIAL BLOOD O2 SATURATION 95.8 % (94-98); ARTERIAL BLOOD PCO2 36.1 mmHg (35-45); ARTERIAL BLOOD PO2 72.2 mmHg (80-100); ARTERIAL BLOOD TOTAL CO2 28.9 mmol/L (23-27)
[2018-03-12 04:38] LABS: HEMATOCRIT 39.3 % (37.9-51.0); HEMOGLOBIN 13.3 g/dL (13.5-17.0); INTERNATIONAL RATION (INR) 1.29; MEAN CORPUSCULAR HEMOGLOBIN 33.7 pg (27.0-33.4); MEAN CORPUSCULAR HGB CONC 33.9 g/dL (32.0-36.0); MEAN CORPUSCULAR VOLUME 99 fl (80-97); PARTIAL THROMBOPLASTIN TIME 23.7 SEC (23.5-35.8); PLATELET COUNT 131 10^3/uL (150-450); PROTHROMBIN TIME 16.7 SEC (11.4-15.4); RED BLOOD COUNT 3.95 10^6/uL (4.35-5.55); RED CELL DISTRIBUTION WIDTH 13.8 % (11.5-14.0); WHITE BLOOD COUNT 10.6 10^3/uL (4.0-10.5)
[2018-03-12 04:39] LABS: ARTERIAL BLOOD FIO2 2L
[2018-03-12 04:49] LABS: BLOOD UREA NITROGEN 9 mg/dL (7-20); CALCIUM 7.5 mg/dL (8.4-10.2); CARBON DIOXIDE 30 mmol/L (22-30); CHLORIDE 109 mmol/L (98-107); DIGOXIN 0.83 ng/mL (0.8-2.0); GLUCOSE 144 mg/dL (75-110); PHOSPHORUS 2.5 mg/dL (2.5-4.5); POTASSIUM 3.7 mmol/L (3.6-5.0)
[2018-03-12 04:52] LABS: ANION GAP 1 (5-19); SODIUM 140.3 mmol/L (137-145)
[2018-03-12] MEDS: METOPROLOL TARTRATE 50 MG TABLET NG SCH ×2 (05:00→17:28)
[2018-03-12 06:03] LABS: ABSOLUTE MONOCYTES # (MANUAL) 0.8 10^3/uL (0.1-1.4); ABSOLUTE NEUTROPHILS# (MANUAL) 7.4 10^3/uL (1.7-8.2); BASOPHILS % (MANUAL) 1 % (0-2); EOSINOPHILS % (MANUAL) 2 % (0-6); LYMPHOCYTES % (MANUAL) 19 % (13-45); MONOCYTES % (MANUAL) 8 % (3-13); PLATELET COMMENT ADEQUATE; SEGMENTED NEUTROPHILS % (MAN) 70 % (42-78); TOTAL CELLS COUNTED 100
[2018-03-12 06:04] LABS: PLATELET CLUMPS PRESENT; RBC MORPHOLOGY COMMENT NORMO-CYTIC/CHROMIC
[2018-03-12] MEDS: DEXTROSE 5%-1/2 NORMAL SALINE 1,000 ML IV PRN ×2 (08:08→17:19)
[2018-03-12] MEDS: DILTIAZEM HCL/D5W 125 MG/125 ML RTUINJ IV PRN ×2 (08:08→19:30)
--- NOTE | 2018-03-12 09:08 | RADIOLOGY REPORT (SQ) ---
EXAM DESCRIPTION: CHEST SINGLE VIEW COMPLETED DATE/TIME: 03/12/2018 6:49 am REASON FOR STUDY: resp failure/chf COMPARISON: Previous day. NUMBER OF VIEWS: One view. TECHNIQUE: Single frontal radiographic image of the chest acquired. LIMITATIONS: None. FINDINGS: LUNGS AND PLEURA: Stable appearance. No pneumothorax. MEDIASTINUM AND HEART: Stable heart size and mediastinal structures. SUPPORT DEVICES: Unchanged position of [place] catheter. Interval removal of endotracheal and naso gastric tubes. BONY STRUCTURES: No acute findings. HARDWARE: None. OTHER: No other significant finding. IMPRESSION: Stable chest status postextubation. Reading location - IP/workstation name: [email or web address]
--- NOTE | 2018-03-12 10:22 | EKG REPORT ---
SEVERITY:- ABNORMAL ECG - ATRIAL FIBRILLATION, V-RATE 52-78 REPOL ABNRM SUGGESTS ISCHEMIA, DIFFUSE LEADS BORDERLINE PROLONGED QT INTERVAL : Confirmed by: Veda Bethea 12-Mar-2018 10:21:52
[2018-03-12] MEDS: SACUBITRIL/VALSARTAN 24 MG/26 MG TABLET NG SCH ×2 (10:48→22:15)
[2018-03-12] MEDS: MIDODRINE HCL 5 MG TABLET NG SCH ×3 (10:48→17:28)
[2018-03-12] MEDS: POLYETHYLENE GLYCOL 3350 POWDER 17 GM/1 PACKET NG SCH (10:48)
[2018-03-12] MEDS: FLUCONAZOLE 200 MG/NS RTU 200 MG/100 ML RTUPB IV SCH (10:49)
[2018-03-12] MEDS: ENOXAPARIN SODIUM INJ 80 MG/0.8 ML DISP.SYRIN SUBCUT SCH ×2 (10:50→22:19)
[2018-03-12] MEDS: DIGOXIN INJ 0.5 MG/2 ML AMPULE IV SCH (10:50)
--- NOTE | 2018-03-12 14:13 | PDOC PROGRESS REPORT ---
Subjective Progress Note for:: 03/11/18 Subjective:: intubated stable Reason For Visit: AFIB WITH RVR Physical Exam Vital Signs: Temp Pulse Resp BP Pulse Ox 99.3 F 91 25 H 116/64 97 03/11/18 08:00 03/11/18 08:00 03/11/18 08:00 03/11/18 08:00 03/11/18 08:15 Intake & Output 03/10/18 03/11/18 03/12/18 06:59 06:59 06:59 Intake Total 5004 5171 154 Output Total 2650 4300 125 Balance 2354 871 29 Weight 83.1 kg 83.8 kg General appearance: PRESENT: no acute distress, disheveled, thin, well- developed, well-nourished Head exam: PRESENT: atraumatic, normocephalic Eye exam: PRESENT: conjunctiva pale, EOMI. ABSENT: nystagmus, scleral icterus Mouth exam: PRESENT: dry mucosa, neck supple, tongue midline, other - ET tube in place Neck exam: ABSENT: carotid bruit, JVD, lymphadenopathy, thyromegaly, tracheal deviation, tracheostomy Respiratory exam: PRESENT: decreased breath sounds, prolonged expiratory phas, rhonchi, unlabored. ABSENT: retraction, stridor Cardiovascular exam: PRESENT: irregular rhythm Pulses: PRESENT: normal radial pulses GI/Abdominal exam: PRESENT: soft. ABSENT: tenderness Gentrourinary exam: PRESENT: indwelling catheter Extremities exam: PRESENT: pedal edema. ABSENT: calf tenderness, clubbing, joint swelling Musculoskeletal exam: ABSENT: deformity, dislocation Neurological exam: PRESENT: altered, awake Psychiatric exam: PRESENT: flat affect Skin exam: PRESENT: dry, warm Results Laboratory Results: 03/11/18 03:41 03/10/18 04:01 03/11/18 03/11/18 03:41 05:57 WBC 12.5 H RBC 4.62 Hgb 15.3 Hct 46.2 MCV 100 H MCH 33.2 MCHC 33.2 RDW 14.5 H Plt Count 174 Carbonic Acid 1.25 HCO3/H2CO3 Ratio 23:1 ABG pH 7.46 H ABG pCO2 41.4 ABG pO2 91.8 ABG HCO3 29.0 H ABG O2 Saturation 97.4 ABG Base Excess 4.8 FiO2 30% 02/27/18 02/27/1802/27/18 07:25 09:29 12:10 Creatine Kinase CK-MB (CK-2) Troponin I Cancelled 0.029 0.051 NT-Pro-B Natriuret Pep Cancelled 78143 H 02/28/18 02/28/18 03/01/18 16:50 19:40 00:20 Creatine Kinase CK-MB (CK-2) Troponin I 0.152 0.304 Cancelled NT-Pro-B Natriuret Pep 03/01/18 03/01/18 03/02/18 00:54 06:27 07:57 Creatine Kinase CK-MB (CK-2) Troponin I 0.584 0.274 0.139 NT-Pro-B Natriuret Pep 03/05/18 03/05/18 03/07/18 03:52 05:15 12:00 Creatine Kinase 79 CK-MB (CK-2) Troponin I NT-Pro-B Natriuret Pep Cancelled 1290 H 03/07/18 03/09/18 03/09/18 12:00 06:10 06:10 Creatine Kinase 88 CK-MB (CK-2) 0.49 < 0.22 Troponin I 0.054 0.043 NT-Pro-B Natriuret Pep 982 H 03/09/18 03/10/18 06:10 04:01 Creatine Kinase CK-MB (CK-2) Troponin I NT-Pro-B Natriuret Pep 1720 H 1050 H Impressions: Chest/Abdomen CTA 02/28/18 00:00 IMPRESSION: 1. No pulmonary embolus. 2. Findings likely predominantly related to congestive failure including cardiomegaly, edema and effusions as above. Chest CT 03/01/18 00:00 IMPRESSION: Overall improvement since yesterday. There is a background of chronic interstitial lung disease. No definitive findings to suggest amiodarone toxicity. Venous Doppler Study 03/01/18 00:00 IMPRESSION: NO EVIDENCE DVT OR SVT IN THE RIGHT ARM. KUB X-Ray 03/07/18 10:00 IMPRESSION: NO RADIOGRAPHIC EVIDENCE FOR ACUTE ABDOMINAL DISEASE. NG tube tip in the stomach. Fluoroscopy 03/09/18 00:00 IMPRESSION: Please see combined report for performance of procedure and radiologic supervision and interpretation. Abdomen Ultrasound 03/10/18 00:00 IMPRESSION: NORMAL RIGHT UPPER QUADRANT ULTRASOUND. Guidance Fluoroscopy 03/10/18 00:00 IMPRESSION: IMAGE(S) OBTAINED DURING PROCEDURE. Chest X-Ray 03/11/18 06:00 IMPRESSION: Tubes and lines in good positioning. No focal consolidation Assessment & Plan - Diagnosis (1) Acute hypoxemic respiratory failure Is this a current diagnosis for this admission?: Yes Plan: Stable will attempt extubation (2) Acute on chronic systolic heart failure Is this a current diagnosis for this admission?: Yes Plan: As per cardiology PAC in place (3) Atrial fibrillation with RVR Is this a current diagnosis for this admission?: Yes Plan: Digoxin plus Cardizem stable at this time - Time Total Critical Time (Minutes): 55
--- NOTE | 2018-03-12 14:15 | PDOC PROGRESS REPORT ---
Subjective Progress Note for:: 03/12/18 Subjective:: 24 hours status post extubation stable Reason For Visit: AFIB WITH RVR Physical Exam Vital Signs: Temp Pulse Resp BP Pulse Ox 98.8 F 84 25 H 105/64 96 03/12/18 13:38 03/12/18 08:00 03/12/18 12:00 03/12/18 12:00 03/12/18 12:00 Intake & Output 03/11/18 03/12/18 03/13/18 06:59 06:59 06:59 Intake Total 5171 4016 Output Total 4303 5592 1426 Balance 804 -6756 -8399 Weight 83.8 kg 81.8 kg General appearance: PRESENT: no acute distress, cooperative, disheveled Head exam: PRESENT: atraumatic, normocephalic Eye exam: PRESENT: conjunctiva pale, EOMI. ABSENT: nystagmus, scleral icterus Mouth exam: PRESENT: dry mucosa, neck supple, tongue midline Teeth exam: PRESENT: poor dentation Respiratory exam: PRESENT: decreased breath sounds, prolonged expiratory phas, rhonchi, unlabored, wheezes. ABSENT: retraction Cardiovascular exam: PRESENT: irregular rhythm Pulses: PRESENT: normal radial pulses GI/Abdominal exam: PRESENT: soft. ABSENT: tenderness Gentrourinary exam: PRESENT: indwelling catheter Extremities exam: PRESENT: pedal edema. ABSENT: calf tenderness, clubbing, joint swelling Musculoskeletal exam: ABSENT: deformity, dislocation Neurological exam: PRESENT: altered, awake Skin exam: PRESENT: dry, warm Results Laboratory Results: 03/12/18 04:25 03/12/18 04:25 03/11/18 03/11/18 03/12/18 14:10 17:20 04:25 WBC 10.6 H RBC 3.95 L Hgb 13.3 L Hct 39.3 MCV 99 H MCH 33.7 H MCHC 33.9 RDW 13.8 Plt Count 131 L Seg Neutrophils % Not Reportable Lymphocytes % Not Reportable Monocytes % Not Reportable Eosinophils % Not Reportable Basophils % Not Reportable Absolute Neutrophils Not Reportable Absolute Lymphocytes Not Reportable Absolute Monocytes Not Reportable Absolute Eosinophils Not Reportable Absolute Basophils Not Reportable Carbonic Acid 1.27 1.29 HCO3/H2CO3 Ratio 23:1 24:1 ABG pH 7.47 H 7.48 H ABG pCO2 42.1 42.9 ABG pO2 75.8 L 48.3 L ABG HCO3 29.7 H 31.4 H ABG O2 Saturation 95.9 86.7 L ABG Base Excess 5.4 7.1 FiO2 35% ROOM AIR Sodium Potassium Chloride Carbon Dioxide Anion Gap BUN Creatinine Est GFR ( Amer) Est GFR (Non-Af Amer) Glucose Calcium Phosphorus 03/12/18 03/12/18 04:25 04:25 WBC RBC Hgb Hct MCV MCH MCHC RDW Plt Count Seg Neutrophils % Lymphocytes % Monocytes % Eosinophils % Basophils % Absolute Neutrophils Absolute Lymphocytes Absolute Monocytes Absolute Eosinophils Absolute Basophils Carbonic Acid 1.09 HCO3/H2CO3 Ratio 25:1 ABG pH 7.50 H ABG pCO2 36.1 ABG pO2 72.2 L ABG HCO3 27.8 H ABG O2 Saturation 95.8 ABG Base Excess 4.8 FiO2 2L Sodium 140.3 Potassium 3.7 Chloride 109 H Carbon Dioxide 30 Anion Gap 1 L BUN 9 Creatinine 0.41 L Est GFR ( Amer) > 60 Est GFR (Non-Af Amer) > 60 Glucose 144 H Calcium 7.5 L Phosphorus 2.5 03/06/18 11:02 Blood Blood Culture - Final NO GROWTH IN 5 DAYS 03/06/18 11:15 Blood Blood Culture - Final NO GROWTH IN 5 DAYS 02/27/18 02/27/18 02/27/18 07:25 09:29 12:10 Creatine Kinase CK-MB (CK-2) Troponin I Cancelled 0.029 0.051 NT-Pro-B Natriuret Pep Cancelled 74087 H 02/28/18 02/28/18 03/01/18 16:50 19:40 00:20 Creatine Kinase CK-MB (CK-2) Troponin I 0.152 0.304 Cancelled NT-Pro-B Natriuret Pep 03/01/18 03/01/18 03/02/18 00:54 06:27 07:57 Creatine Kinase CK-MB (CK-2) Troponin I 0.584 0.274 0.139 NT-Pro-B Natriuret Pep 03/05/18 03/05/18 03/07/18 03:52 05:15 12:00 Creatine Kinase 79 CK-MB (CK-2) Troponin I NT-Pro-B Natriuret Pep Cancelled 1290 H 1203/09/18 03/09/18 12:00 06:10 06:10 Creatine Kinase 88 CK-MB (CK-2) 0.49 < 0.22 Troponin I 0.054 0.043 NT-Pro-B Natriuret Pep 982 H 03/09/18 03/10/18 06:10 04:01 Creatine Kinase CK-MB (CK-2) Troponin I NT-Pro-B Natriuret Pep 1720 H 1050 H Impressions: Chest/Abdomen CTA 02/28/18 00:00 IMPRESSION: 1. No pulmonary embolus. 2. Findings likely predominantly related to congestive failure including cardiomegaly, edema and effusions as above. Chest CT 03/01/18 00:00 IMPRESSION: Overall improvement since yesterday. There is a background of chronic interstitial lung disease. No definitive findings to suggest amiodarone toxicity. Venous Doppler Study 03/01/18 00:00 IMPRESSION: NO EVIDENCE DVT OR SVT IN THE RIGHT ARM. KUB X-Ray 03/07/18 10:00 IMPRESSION: NO RADIOGRAPHIC EVIDENCE FOR ACUTE ABDOMINAL DISEASE. NG tube tip in the stomach. Fluoroscopy 03/09/18 00:00 IMPRESSION: Please see combined report for performance of procedure and radiologic supervision and interpretation. Abdomen Ultrasound 03/10/18 00:00 IMPRESSION: NORMAL RIGHT UPPER QUADRANT ULTRASOUND. Guidance Fluoroscopy 03/10/18 00:00 IMPRESSION: IMAGE(S) OBTAINED DURING PROCEDURE. Chest X-Ray 03/12/18 06:00 IMPRESSION: Stable chest status postextubation. Assessment & Plan - Diagnosis (1) Acute hypoxemic respiratory failure Is this a current diagnosis for this admission?: Yes Plan: Stable (2) Acute on chronic systolic heart failure Is this a current diagnosis for this admission?: Yes Plan: As per cardiology PAC in place (3) Atrial fibrillation with RVR Is this a current diagnosis for this admission?: Yes Plan: Digoxin plus Cardizem stable at this time - Time Total Critical Time (Minutes): 40
--- NOTE | 2018-03-12 14:17 | PDOC PROGRESS REPORT ---
Subjective Progress Note for:: 03/05/18 Subjective:: intubated & sedated Reason For Visit: AFIB WITH RVR Physical Exam Vital Signs: Temp Pulse Resp BP Pulse Ox 100.8 F H 94 18 100/67 100 03/05/18 08:00 03/05/18 08:00 03/05/18 08:00 03/05/18 08:00 03/05/18 08:00 Intake & Output 03/04/18 03/05/18 03/06/18 06:59 06:59 06:59 Intake Total 1299 1436 Output Total 3215 2170 75 Balance -1916 -734 -75 Weight 82.3 kg 81 kg General appearance: PRESENT: no acute distress, thin, well-developed, well- nourished Head exam: PRESENT: atraumatic, normocephalic Eye exam: PRESENT: conjunctiva pale, EOMI. ABSENT: nystagmus Mouth exam: PRESENT: dry mucosa, neck supple, tongue midline, other - ET tube Neck exam: ABSENT: carotid bruit, JVD, lymphadenopathy, thyromegaly, tracheal deviation, tracheostomy Respiratory exam: PRESENT: decreased breath sounds, prolonged expiratory phas, rales, rhonchi, unlabored. ABSENT: retraction, stridor Cardiovascular exam: PRESENT: irregular rhythm Pulses: PRESENT: normal radial pulses GI/Abdominal exam: PRESENT: soft. ABSENT: tenderness Gentrourinary exam: PRESENT: indwelling catheter Extremities exam: PRESENT: pedal edema. ABSENT: calf tenderness, clubbing, joint swelling Musculoskeletal exam: ABSENT: deformity, dislocation Neurological exam: ABSENT: awake Skin exam: PRESENT: dry, warm Results Laboratory Results: 03/04/18 03:48 03/05/18 03:52 03/04/18 03/05/18 03/05/18 03:48 03:52 05:55 Carbonic Acid 1.20 HCO3/H2CO3 Ratio 28:1 ABG pH 7.55 H ABG pCO2 40.0 ABG pO2 96.0 ABG HCO3 34.4 H ABG O2 Saturation 98.0 ABG Base Excess 10.9 FiO2 35% Sodium 134.8 L 136.5 L Potassium 4.1 4.0 Chloride 94 L 93 L Carbon Dioxide 32 H 36 H Anion Gap 9 8 BUN 25 H 28 H Creatinine 0.73 0.84 Est GFR ( Amer) > 60 > 60 Est GFR (Non-Af Amer) > 60 > 60 Glucose 112 H 137 H Calcium 7.8 L 8.2 L Magnesium 2.5 H 2.6 H Triglycerides 182 H 02/27/18 02/27/18 02/27/18 07:25 09:29 12:10 Troponin I Cancelled 0.029 0.051 NT-Pro-B Natriuret Pep Cancelled 34948 H 02/28/18 02/28/18 03/01/18 16:50 19:40 00:20 Troponin I 0.152 0.304 Cancelled NT-Pro-B Natriuret Pep 03/01/18 03/01/18 03/02/18 00:54 06:27 07:57 Troponin I 0.584 0.274 0.139 NT-Pro-B Natriuret Pep 03/05/18 03/05/18 03:52 05:15 Troponin I NT-Pro-B Natriuret Pep Cancelled 1290 H Impressions: Chest/Abdomen CTA 02/28/18 00:00 IMPRESSION: 1. No pulmonary embolus. 2. Findings likely predominantly related to congestive failure including cardiomegaly, edema and effusions as above. Chest CT 03/01/18 00:00 IMPRESSION: Overall improvement since yesterday. There is a background of chronic interstitial lung disease. No definitive findings to suggest amiodarone toxicity. Venous Doppler Study 03/01/18 00:00 IMPRESSION: NO EVIDENCE DVT OR SVT IN THE RIGHT ARM. Chest X-Ray 03/05/18 06:00 IMPRESSION: Tip of an endotracheal tube is 8.9 cm from the daniele; consider 4 cm advancement of the endotracheal tube. Assessment & Plan - Diagnosis (1) Acute hypoxemic respiratory failure Is this a current diagnosis for this admission?: Yes Plan: Failed pressure support CPAP attempt to wean (2) Acute on chronic systolic heart failure Is this a current diagnosis for this admission?: Yes Plan: As per cardiology (3) Atrial fibrillation with RVR Is this a current diagnosis for this admission?: Yes Plan: Digoxin plus Cardizem stable at this time - Time Total Critical Time (Minutes): 45
--- NOTE | 2018-03-12 14:19 | PDOC PROGRESS REPORT ---
Subjective Progress Note for:: 03/06/18 Subjective:: intubated & sedated Reason For Visit: AFIB WITH RVR Physical Exam Vital Signs: Temp Pulse Resp BP Pulse Ox 100.4 F 91 20 136/122 H 100 03/05/18 23:18 03/05/18 20:00 03/06/18 03:45 03/06/18 03:59 03/06/18 04:00 Intake & Output 03/05/18 03/06/18 03/07/18 06:59 06:59 06:59 Intake Total 1436 2016 Output Total 2169 1875 Balance -734 142 Weight 81 kg 79.2 kg General appearance: PRESENT: no acute distress, thin, well-developed, well- nourished Head exam: PRESENT: atraumatic, normocephalic Eye exam: PRESENT: conjunctiva pale. ABSENT: nystagmus, scleral icterus Mouth exam: PRESENT: dry mucosa, neck supple, tongue midline, other - ET tube Neck exam: ABSENT: carotid bruit, JVD, lymphadenopathy, thyromegaly, tracheal deviation, tracheostomy Respiratory exam: PRESENT: decreased breath sounds, prolonged expiratory phas, rales, rhonchi, unlabored. ABSENT: retraction, stridor Cardiovascular exam: PRESENT: irregular rhythm Pulses: PRESENT: normal radial pulses GI/Abdominal exam: PRESENT: soft. ABSENT: tenderness Gentrourinary exam: PRESENT: indwelling catheter Extremities exam: PRESENT: pedal edema. ABSENT: calf tenderness, clubbing, joint swelling Musculoskeletal exam: ABSENT: deformity, dislocation Neurological exam: ABSENT: awake Skin exam: PRESENT: dry, warm Results Laboratory Results: 03/06/18 05:30 03/06/18 06:22 03/05/18 03/06/18 03/06/18 13:58 05:30 05:30 WBC 16.8 H RBC 5.67 H Hgb 18.8 H Hct 55.8 H MCV 98 H MCH 33.2 MCHC 33.8 RDW 14.5 H Plt Count 148 L Seg Neutrophils % 79.7 H Lymphocytes % 8.8 L Monocytes % 10.6 Eosinophils % 0.4 Basophils % 0.5 Absolute Neutrophils 13.4 H Absolute Lymphocytes 1.5 Absolute Monocytes 1.8 H Absolute Eosinophils 0.1 Absolute Basophils 0.1 Carbonic Acid 1.39 H HCO3/H2CO3 Ratio 24:1 ABG pH 7.49 H ABG pCO2 46.1 H ABG pO2 93.7 ABG HCO3 34.6 H ABG O2 Saturation 97.6 ABG Base Excess 9.5 FiO2 35% Sodium Potassium Chloride Carbon Dioxide Anion Gap BUN Creatinine Est GFR ( Amer) Est GFR (Non-Af Amer) Glucose Lactic Acid 1.2 Calcium Magnesium Total Bilirubin AST ALT Alkaline Phosphatase Total Protein Albumin 03/06/18 03/06/18 03/06/18 05:30 06:05 06:22 WBC RBC Hgb Hct MCV MCH MCHC RDW Plt Count Seg Neutrophils % Lymphocytes % Monocytes % Eosinophils % Basophils % Absolute Neutrophils Absolute Lymphocytes Absolute Monocytes Absolute Eosinophils Absolute Basophils Carbonic Acid 1.61 H HCO3/H2CO3 Ratio 24:1 ABG pH 7.48 H ABG pCO2 53.4 H ABG pO2 93.9 ABG HCO3 39.0 H ABG O2 Saturation 97.5 ABG Base Excess 12.4 FiO2 35% Sodium Cancelled 138.9 Potassium Cancelled 3.9 Chloride Cancelled 95 L Carbon Dioxide Cancelled 39 H Anion Gap Cancelled 5 BUN Cancelled 26 H Creatinine Cancelled 0.68 Est GFR ( Amer) Cancelled > 60 Est GFR (Non-Af Amer) Cancelled > 60 Glucose Cancelled 121 H Lactic Acid Calcium Cancelled 8.2 L Magnesium Cancelled 2.6 H Total Bilirubin Cancelled 1.0 AST Cancelled 108 H ALT Cancelled 91 H Alkaline Phosphatase Cancelled 79 Total Protein Cancelled 6.6 Albumin Cancelled 3.3 L 02/28/18 16:50 Blood Blood Culture - Final NO GROWTH IN 5 DAYS 02/28/18 16:50 Blood Blood Culture - Final NO GROWTH IN 5 DAYS 02/27/18 02/27/18 02/27/18 07:25 09:29 12:10 Troponin I Cancelled 0.029 0.051 NT-Pro-B Natriuret Pep Cancelled 11492 H 02/28/18 02/28/18 03/01/18 16:50 19:40 00:20 Troponin I 0.152 0.304 Cancelled NT-Pro-B Natriuret Pep 03/01/18 03/01/18 03/02/18 00:54 06:27 07:57 Troponin I 0.584 0.274 0.139 NT-Pro-B Natriuret Pep 03/05/18 03/05/18 03:52 05:15 Troponin I NT-Pro-B Natriuret Pep Cancelled 1290 H Impressions: Chest/Abdomen CTA 02/28/18 00:00 IMPRESSION: 1. No pulmonary embolus. 2. Findings likely predominantly related to congestive failure including cardiomegaly, edema and effusions as above. Chest CT 03/01/18 00:00 IMPRESSION: Overall improvement since yesterday. There is a background of chronic interstitial lung disease. No definitive findings to suggest amiodarone toxicity. Venous Doppler Study 03/01/18 00:00 IMPRESSION: NO EVIDENCE DVT OR SVT IN THE RIGHT ARM. Chest X-Ray 03/06/18 06:00 IMPRESSION: Tip of an endotracheal tube is 9.5 cm from the daniele; consider 4.5 cm advancement of the endotracheal tube. Assessment & Plan - Diagnosis (1) Acute hypoxemic respiratory failure Is this a current diagnosis for this admission?: Yes Plan: Failed pressure support CPAP attempt to wean (2) Acute on chronic systolic heart failure Is this a current diagnosis for this admission?: Yes Plan: As per cardiology (3) Atrial fibrillation with RVR Is this a current diagnosis for this admission?: Yes Plan: Digoxin plus Cardizem stable at this time - Time Total Critical Time (Minutes): 40
--- NOTE | 2018-03-12 14:21 | PDOC PROGRESS REPORT ---
Subjective Progress Note for:: 03/07/18 Subjective:: intubated & sedated Reason For Visit: AFIB WITH RVR Physical Exam Vital Signs: Temp Pulse Resp BP Pulse Ox 100.2 F 102 H 20 110/61 95 03/08/18 10:00 03/08/18 10:00 03/08/18 10:24 03/08/18 10:24 03/08/18 11:21 Intake & Output 03/07/18 03/08/18 03/09/18 06:59 06:59 06:59 Intake Total 2758 1873 583 Output Total 1755 3280 185 Balance 1003 -1407 398 Weight 79.8 kg 78.3 kg General appearance: PRESENT: no acute distress, disheveled, thin, well- developed, well-nourished Head exam: PRESENT: atraumatic, normocephalic Eye exam: PRESENT: conjunctiva pale. ABSENT: nystagmus, scleral icterus Mouth exam: PRESENT: dry mucosa, neck supple, tongue midline, other - ET tube Teeth exam: PRESENT: poor dentation Neck exam: ABSENT: carotid bruit, JVD, lymphadenopathy, thyromegaly, tracheal de viation, tracheostomy Respiratory exam: PRESENT: decreased breath sounds, prolonged expiratory phas, rales, rhonchi, unlabored. ABSENT: retraction, stridor Cardiovascular exam: PRESENT: irregular rhythm Pulses: PRESENT: normal radial pulses GI/Abdominal exam: PRESENT: soft. ABSENT: tenderness Extremities exam: PRESENT: pedal edema. ABSENT: calf tenderness, clubbing, patsy nt swelling Musculoskeletal exam: ABSENT: deformity, dislocation Neurological exam: ABSENT: awake Skin exam: PRESENT: dry, warm Results Laboratory Results: 03/08/18 03:48 03/08/18 06:37 03/08/18 03/08/18 03/08/18 03:48 03:48 04:10 WBC 16.0 H RBC 5.56 H Hgb 18.5 H Hct 54.7 H MCV 98 H MCH 33.3 MCHC 33.8 RDW 14.6 H Plt Count 185 Carbonic Acid 1.47 H HCO3/H2CO3 Ratio 23:1 ABG pH 7.47 H ABG pCO2 48.7 H ABG pO2 56.5 L ABG HCO3 34.6 H ABG O2 Saturation 90.8 L ABG Base Excess 9.0 FiO2 30% Sodium Cancelled Potassium Cancelled Chloride Cancelled Carbon Dioxide Cancelled Anion Gap Cancelled BUN Cancelled Creatinine Cancelled Est GFR ( Amer) Cancelled Est GFR (Non-Af Amer) Cancelled Glucose Cancelled Calcium Cancelled Total Bilirubin Cancelled AST Cancelled ALT Cancelled Alkaline Phosphatase Cancelled Total Protein Cancelled Albumin Cancelled 03/08/18 03/08/18 05:37 06:37 WBC RBC Hgb Hct MCV MCH MCHC RDW Plt Count Carbonic Acid HCO3/H2CO3 Ratio ABG pH ABG pCO2 ABG pO2 ABG HCO3 ABG O2 Saturation ABG Base Excess FiO2 Sodium Cancelled 136.9 L Potassium Cancelled 4.1 Chloride Cancelled 93 L Carbon Dioxide Cancelled 37 H Anion Gap Cancelled 7 BUN Cancelled 27 H Creatinine Cancelled 0.68 Est GFR ( Amer) Cancelled > 60 Est GFR (Non-Af Amer) Cancelled > 60 Glucose Cancelled 128 H Calcium Cancelled 8.6 Total Bilirubin Cancelled 1.7 H AST Cancelled 127 H ALT Cancelled 164 H Alkaline Phosphatase Cancelled 78 Total Protein Cancelled 6.4 Albumin Cancelled 3.0 L 02/27/18 02/27/18 02/27/18 07:25 09:29 12:10 Creatine Kinase CK-MB (CK-2) Troponin I Cancelled 0.029 0.051 NT-Pro-B Natriuret Pep Cancelled 79896 H 02/28/18 02/28/18 03/01/18 16:50 19:40 00:20 Creatine Kinase CK-MB (CK-2) Troponin I 0.152 0.304 Cancelled NT-Pro-B Natriuret Pep 03/01/18 03/01/18 03/02/18 00:54 06:27 07:57 Creatine Kinase CK-MB (CK-2) Troponin I 0.584 0.274 0.139 NT-Pro-B Natriuret Pep 03/05/18 03/05/18 03/07/18 03:52 05:15 12:00 Creatine Kinase 79 CK-MB (CK-2) Troponin I NT-Pro-B Natriuret Pep Cancelled 1290 H 03/07/18 12:00 Creatine Kinase CK-MB (CK-2) 0.49 Troponin I 0.054 NT-Pro-B Natriuret Pep 982 H Impressions: Chest/Abdomen CTA 02/28/18 00:00 IMPRESSION: 1. No pulmonary embolus. 2. Findings likely predominantly related to congestive failure including cardiomegaly, edema and effusions as above. Chest CT 03/01/18 00:00 IMPRESSION: Overall improvement since yesterday. There is a background of chronic interstitial lung disease. No definitive findings to suggest amiodarone toxicity. Venous Doppler Study 03/01/18 00:00 IMPRESSION: NO EVIDENCE DVT OR SVT IN THE RIGHT ARM. KUB X-Ray 03/07/18 10:00 IMPRESSION: NO RADIOGRAPHIC EVIDENCE FOR ACUTE ABDOMINAL DISEASE. NG tube tip in the stomach. Chest X-Ray 03/08/18 06:00 IMPRESSION: No significant change. Assessment & Plan - Diagnosis (1) Acute hypoxemic respiratory failure Is this a current diagnosis for this admission?: Yes Plan: Failed pressure support CPAP attempt to wean (2) Acute on chronic systolic heart failure Is this a current diagnosis for this admission?: Yes Plan: As per cardiology (3) Atrial fibrillation with RVR Is this a current diagnosis for this admission?: Yes Plan: Digoxin plus Cardizem stable at this time - Time Total Critical Time (Minutes): 40
--- NOTE | 2018-03-12 14:23 | PDOC PROGRESS REPORT ---
Subjective Progress Note for:: 03/08/18 Subjective:: intubated & sedated Reason For Visit: AFIB WITH RVR Physical Exam Vital Signs: Temp Pulse Resp BP Pulse Ox 100.2 F 102 H 20 110/61 95 03/08/18 10:00 03/08/18 10:00 03/08/18 10:24 03/08/18 10:24 03/08/18 11:21 Intake & Output 03/07/18 03/08/18 03/09/18 06:59 06:59 06:59 Intake Total 2758 1873 583 Output Total 1755 3280 185 Balance 1003 -1407 398 Weight 79.8 kg 78.3 kg General appearance: PRESENT: no acute distress, disheveled, thin, well- developed, well-nourished Head exam: PRESENT: atraumatic, normocephalic Eye exam: PRESENT: conjunctiva pale, nystagmus, scleral icterus Mouth exam: PRESENT: dry mucosa, neck supple, tongue midline, other - ET tube Neck exam: ABSENT: carotid bruit, JVD, lymphadenopathy, thyromegaly, tracheal deviation, tracheostomy Respiratory exam: PRESENT: decreased breath sounds, prolonged expiratory phas, rhonchi, unlabored. ABSENT: retraction Cardiovascular exam: PRESENT: irregular rhythm Pulses: PRESENT: normal radial pulses GI/Abdominal exam: PRESENT: soft. ABSENT: tenderness Gentrourinary exam: PRESENT: indwelling catheter Extremities exam: PRESENT: pedal edema. ABSENT: calf tenderness, clubbing, joint swelling Musculoskeletal exam: ABSENT: deformity, dislocation Neurological exam: ABSENT: awake Skin exam: PRESENT: dry, warm Results Laboratory Results: 03/08/18 03:48 03/08/18 06:37 03/08/18 03/08/18 03/08/18 03:48 03:48 04:10 WBC 16.0 H RBC 5.56 H Hgb 18.5 H Hct 54.7 H MCV 98 H MCH 33.3 MCHC 33.8 RDW 14.6 H Plt Count 185 Carbonic Acid 1.47 H HCO3/H2CO3 Ratio 23:1 ABG pH 7.47 H ABG pCO2 48.7 H ABG pO2 56.5 L ABG HCO3 34.6 H ABG O2 Saturation 90.8 L ABG Base Excess 9.0 FiO2 30% Sodium Cancelled Potassium Cancelled Chloride Cancelled Carbon Dioxide Cancelled Anion Gap Cancelled BUN Cancelled Creatinine Cancelled Est GFR ( Amer) Cancelled Est GFR (Non-Af Amer) Cancelled Glucose Cancelled Calcium Cancelled Total Bilirubin Cancelled AST Cancelled ALT Cancelled Alkaline Phosphatase Cancelled Total Protein Cancelled Albumin Cancelled 03/08/18 03/08/18 05:37 06:37 WBC RBC Hgb Hct MCV MCH MCHC RDW Plt Count Carbonic Acid HCO3/H2CO3 Ratio ABG pH ABG pCO2 ABG pO2 ABG HCO3 ABG O2 Saturation ABG Base Excess FiO2 Sodium Cancelled 136.9 L Potassium Cancelled 4.1 Chloride Cancelled 93 L Carbon Dioxide Cancelled 37 H Anion Gap Cancelled 7 BUN Cancelled 27 H Creatinine Cancelled 0.68 Est GFR ( Amer) Cancelled > 60 Est GFR (Non-Af Amer) Cancelled > 60 Glucose Cancelled 128 H Calcium Cancelled 8.6 Total Bilirubin Cancelled 1.7 H AST Cancelled 127 H ALT Cancelled 164 H Alkaline Phosphatase Cancelled 78 Total Protein Cancelled 6.4 Albumin Cancelled 3.0 L 02/27/18 02/27/18 02/27/18 07:25 09:29 12:10 Creatine Kinase CK-MB (CK-2) Troponin I Cancelled 0.029 0.051 NT-Pro-B Natriuret Pep Cancelled 23528 H 02/28/18 02/28/18 03/01/18 16:50 19:40 00:20 Creatine Kinase CK-MB (CK-2) Troponin I 0.152 0.304 Cancelled NT-Pro-B Natriuret Pep 03/01/18 03/01/18 03/02/18 00:54 06:27 07:57 Creatine Kinase CK-MB (CK-2) Troponin I 0.584 0.274 0.139 NT-Pro-B Natriuret Pep 03/05/18 03/05/18 03/07/18 03:52 05:15 12:00 Creatine Kinase 79 CK-MB (CK-2) Troponin I NT-Pro-B Natriuret Pep Cancelled 1290 H 03/07/18 12:00 Creatine Kinase CK-MB (CK-2) 0.49 Troponin I 0.054 NT-Pro-B Natriuret Pep 982 H Impressions: Chest/Abdomen CTA 02/28/18 00:00 IMPRESSION: 1. No pulmonary embolus. 2. Findings likely predominantly related to congestive failure including cardiomegaly, edema and effusions as above. Chest CT 03/01/18 00:00 IMPRESSION: Overall improvement since yesterday. There is a background of chronic interstitial lung disease. No definitive findings to suggest amiodarone toxicity. Venous Doppler Study 03/01/18 00:00 IMPRESSION: NO EVIDENCE DVT OR SVT IN THE RIGHT ARM. KUB X-Ray 03/07/18 10:00 IMPRESSION: NO RADIOGRAPHIC EVIDENCE FOR ACUTE ABDOMINAL DISEASE. NG tube tip in the stomach. Chest X-Ray 03/08/18 06:00 IMPRESSION: No significant change. Assessment & Plan - Diagnosis (1) Acute hypoxemic respiratory failure Is this a current diagnosis for this admission?: Yes Plan: Failed pressure support CPAP attempt to wean (2) Acute on chronic systolic heart failure Is this a current diagnosis for this admission?: Yes Plan: As per cardiology (3) Atrial fibrillation with RVR Is this a current diagnosis for this admission?: Yes Plan: Digoxin plus Cardizem stable at this time - Time Total Critical Time (Minutes): 45
--- NOTE | 2018-03-12 14:25 | PDOC PROGRESS REPORT ---
Subjective Progress Note for:: 03/09/18 Subjective:: intubated & sedated Reason For Visit: AFIB WITH RVR Physical Exam Vital Signs: Temp Pulse Resp BP Pulse Ox 99.7 F 85 18 92/63 L 97 03/09/18 10:00 03/09/18 08:00 03/09/18 09:15 03/09/18 09:15 03/09/18 09:15 Intake & Output 03/08/18 03/09/18 03/10/18 06:59 06:59 06:59 Intake Total 1873 2454 100 Output Total 3280 1495 185 Balance -1407 959 -85 Weight 78.3 kg 79.3 kg General appearance: PRESENT: no acute distress, disheveled, thin, well- developed, well-nourished. ABSENT: cooperative Head exam: PRESENT: atraumatic, normocephalic Eye exam: PRESENT: conjunctiva pale. ABSENT: nystagmus, scleral icterus Mouth exam: PRESENT: dry mucosa, neck supple, tongue midline, other - ET tube Teeth exam: PRESENT: poor dentation Neck exam: ABSENT: carotid bruit, JVD, lymphadenopathy, thyromegaly, tracheal deviation, tracheostomy Respiratory exam: PRESENT: decreased breath sounds, prolonged expiratory phas, rales, rhonchi, unlabored. ABSENT: retraction, stridor Cardiovascular exam: PRESENT: irregular rhythm Pulses: PRESENT: normal radial pulses GI/Abdominal exam: PRESENT: soft. ABSENT: tenderness Gentrourinary exam: PRESENT: indwelling catheter Extremities exam: PRESENT: pedal edema. ABSENT: calf tenderness, clubbing, joint swelling Musculoskeletal exam: ABSENT: deformity, dislocation Neurological exam: ABSENT: awake Skin exam: PRESENT: dry, warm Results Laboratory Results: 03/09/18 06:10 03/09/18 06:10 03/09/18 03/09/18 03/09/18 06:00 06:00 06:10 WBC 16.2 H RBC 5.38 Hgb 17.9 H Hct 53.1 H MCV 99 H MCH 33.3 MCHC 33.7 RDW 14.3 H Plt Count 193 Carbonic Acid 1.37 H HCO3/H2CO3 Ratio 25:1 ABG pH 7.50 H ABG pCO2 45.5 H ABG pO2 65.5 L ABG HCO3 34.5 H ABG O2 Saturation 94.3 ABG Base Excess 9.7 FiO2 30% Sodium Potassium Chloride Carbon Dioxide Anion Gap BUN Creatinine Est GFR ( Amer) Est GFR (Non-Af Amer) Glucose Calcium Magnesium Total Bilirubin AST ALT Alkaline Phosphatase Total Protein Albumin Urine Color YELLOW Urine Appearance SLIGHTLY-CLOUDY Urine pH 5.0 Ur Specific [place] 1.028 Urine Protein 30 H Urine Glucose (UA) NEGATIVE Urine Ketones NEGATIVE Urine Blood NEGATIVE Urine Nitrite NEGATIVE Ur Leukocyte Esterase NEGATIVE Urine WBC (Auto) 1 Urine RBC (Auto) 7 03/09/18 03/09/18 06:10 06:10 WBC RBC Hgb Hct MCV MCH MCHC RDW Plt Count Carbonic Acid HCO3/H2CO3 Ratio ABG pH ABG pCO2 ABG pO2 ABG HCO3 ABG O2 Saturation ABG Base Excess FiO2 Sodium 133.5 L Potassium 4.2 Chloride 94 L Carbon Dioxide 36 H Anion Gap 6 BUN 31 H Creatinine 0.61 Est GFR ( Amer) > 60 Est GFR (Non-Af Amer) > 60 Glucose 151 H Calcium 8.2 L Magnesium 2.4 H Total Bilirubin 1.2 AST 89 H ALT 125 H Alkaline Phosphatase 70 Total Protein 6.0 L Albumin 2.6 L Urine Color Urine Appearance Urine pH Ur Specific [place] Urine Protein Urine Glucose (UA) Urine Ketones Urine Blood Urine Nitrite Ur Leukocyte Esterase Urine WBC (Auto) Urine RBC (Auto) 03/06/18 10:50 Sputum Gram Stain - Final 03/06/18 10:50 Sputum Sputum Culture - Final Yeast, Not Denisse Albicans Reduced Normal [place] 03/06/18 10:50 [place] Catheter Urine Culture - Final NO GROWTH 2 DAYS 02/27/18 02/27/18 02/27/18 07:25 09:29 12:10 Creatine Kinase CK-MB (CK-2) Troponin I Cancelled 0.029 0.051 NT-Pro-B Natriuret Pep Cancelled 34041 H 02/28/18 02/28/18 03/01/18 16:50 19:40 00:20 Creatine Kinase CK-MB (CK-2) Troponin I 0.152 0.304 Cancelled NT-Pro-B Natriuret Pep 03/01/18 03/01/18 03/02/18 00:54 06:27 07:57 Creatine Kinase CK-MB (CK-2) Troponin I 0.584 0.274 0.139 NT-Pro-B Natriuret Pep 03/05/18 03/05/18 03/07/18 03:52 05:15 12:00 Creatine Kinase 79 CK-MB (CK-2) Troponin I NT-Pro-B Natriuret Pep Cancelled 1290 H 03/07/18 03/09/18 03/09/18 12:00 06:10 06:10 Creatine Kinase 88 CK-MB (CK-2) 0.49 < 0.22 Troponin I 0.054 0.043 NT-Pro-B Natriuret Pep 982 H 03/09/18 06:10 Creatine Kinase CK-MB (CK-2) Troponin I NT-Pro-B Natriuret Pep 1720 H Impressions: Chest/Abdomen CTA 02/28/18 00:00 IMPRESSION: 1. No pulmonary embolus. 2. Findings likely predominantly related to congestive failure including cardiomegaly, edema and effusions as above. Chest CT 03/01/18 00:00 IMPRESSION: Overall improvement since yesterday. There is a background of chronic interstitial lung disease. No definitive findings to suggest amiodarone toxicity. Venous Doppler Study 03/01/18 00:00 IMPRESSION: NO EVIDENCE DVT OR SVT IN THE RIGHT ARM. KUB X-Ray 03/07/18 10:00 IMPRESSION: NO RADIOGRAPHIC EVIDENCE FOR ACUTE ABDOMINAL DISEASE. NG tube tip in the stomach. Chest X-Ray 03/09/18 06:00 IMPRESSION: No significant change. Assessment & Plan - Diagnosis (1) Acute hypoxemic respiratory failure Is this a current diagnosis for this admission?: Yes Plan: Failed pressure support CPAP attempt to wean (2) Acute on chronic systolic heart failure Is this a current diagnosis for this admission?: Yes Plan: As per cardiology (3) Atrial fibrillation with RVR Is this a current diagnosis for this admission?: Yes Plan: Digoxin plus Cardizem stable at this time - Time Total Critical Time (Minutes): 40
--- NOTE | 2018-03-12 14:27 | PDOC PROGRESS REPORT ---
Subjective Progress Note for:: 03/10/18 Subjective:: intubated & sedated Reason For Visit: AFIB WITH RVR Physical Exam Vital Signs: Temp Pulse Resp BP Pulse Ox 99.3 F 106 H 23 H 114/71 97 03/10/18 08:00 03/10/18 08:00 03/10/18 08:43 03/10/18 08:43 03/10/18 08:43 Intake & Output 03/09/18 03/10/18 03/11/18 06:59 06:59 06:59 Intake Total 2454 5004 202 Output Total 1495 2650 500 Balance 959 2354 -298 Weight 79.3 kg 83.1 kg General appearance: PRESENT: no acute distress, disheveled, thin, well-developed Head exam: PRESENT: atraumatic, normocephalic Eye exam: PRESENT: conjunctiva pale. ABSENT: nystagmus, scleral icterus Mouth exam: PRESENT: dry mucosa, neck supple, tongue midline, other - ET tube Neck exam: ABSENT: carotid bruit, JVD, lymphadenopathy, thyromegaly, tracheal deviation, tracheostomy Respiratory exam: PRESENT: decreased breath sounds, prolonged expiratory phas, rales, rhonchi, unlabored. ABSENT: retraction, stridor Cardiovascular exam: PRESENT: irregular rhythm Pulses: PRESENT: normal radial pulses GI/Abdominal exam: PRESENT: soft. ABSENT: tenderness Gentrourinary exam: PRESENT: indwelling catheter Extremities exam: PRESENT: pedal edema. ABSENT: calf tenderness, clubbing, joint swelling Musculoskeletal exam: ABSENT: deformity, dislocation Neurological exam: ABSENT: awake Skin exam: PRESENT: dry, warm Results Laboratory Results: 03/10/18 04:01 03/10/18 04:01 03/09/18 03/10/18 03/10/18 09:47 04:01 04:01 WBC 12.4 H RBC 5.15 Hgb 17.1 H Hct 50.5 MCV 98 H MCH 33.3 MCHC 33.9 RDW 14.2 H Plt Count 183 Seg Neutrophils % 69.1 Lymphocytes % 12.7 L Monocytes % 16.9 H Eosinophils % 0.7 Basophils % 0.6 Absolute Neutrophils 8.6 H Absolute Lymphocytes 1.6 Absolute Monocytes 2.1 H Absolute Eosinophils 0.1 Absolute Basophils 0.1 Carbonic Acid HCO3/H2CO3 Ratio ABG pH ABG pCO2 ABG pO2 ABG HCO3 ABG O2 Saturation ABG Base Excess FiO2 Sodium 136.3 L Potassium 4.4 Chloride 97 L Carbon Dioxide 36 H Anion Gap 3 L BUN 21 H Creatinine 0.68 Est GFR ( Amer) > 60 Est GFR (Non-Af Amer) > 60 Glucose 137 H Calcium 8.1 L Phosphorus 2.8 Magnesium 2.4 H Total Bilirubin 1.0 AST 88 H ALT 95 H Alkaline Phosphatase 81 Total Protein 6.7 Albumin 3.1 L Blood Type A POSITIVE 03/10/18 05:42 WBC RBC Hgb Hct MCV MCH MCHC RDW Plt Count Seg Neutrophils % Lymphocytes % Monocytes % Eosinophils % Basophils % Absolute Neutrophils Absolute Lymphocytes Absolute Monocytes Absolute Eosinophils Absolute Basophils Carbonic Acid 1.38 H HCO3/H2CO3 Ratio 24:1 ABG pH 7.48 H ABG pCO2 46.0 H ABG pO2 87.8 ABG HCO3 33.4 H ABG O2 Saturation 97.1 ABG Base Excess 8.5 FiO2 30% Sodium Potassium Chloride Carbon Dioxide Anion Gap BUN Creatinine Est GFR ( Amer) Est GFR (Non-Af Amer) Glucose Calcium Phosphorus Magnesium Total Bilirubin AST ALT Alkaline Phosphatase Total Protein Albumin Blood Type 02/27/18 02/27/18 02/27/18 07:25 09:29 12:10 Creatine Kinase CK-MB (CK-2) Troponin I Cancelled 0.029 0.051 NT-Pro-B Natriuret Pep Cancelled 50400 H 02/28/18 02/28/18 03/01/18 16:50 19:40 00:20 Creatine Kinase CK-MB (CK-2) Troponin I 0.152 0.304 Cancelled NT-Pro-B Natriuret Pep 03/01/18 03/01/18 03/02/18 00:54 06:27 07:57 Creatine Kinase CK-MB (CK-2) Troponin I 0.584 0.274 0.139 NT-Pro-B Natriuret Pep 03/05/18 03/05/18 03/07/18 03:52 05:15 12:00 Creatine Kinase 79 CK-MB (CK-2) Troponin I NT-Pro-B Natriuret Pep Cancelled 1290 H 03/07/18 03/09/18 03/09/18 12:00 06:10 06:10 Creatine Kinase 88 CK-MB (CK-2) 0.49 < 0.22 Troponin I 0.054 0.043 NT-Pro-B Natriuret Pep 982 H 03/09/18 03/10/18 06:10 04:01 Creatine Kinase CK-MB (CK-2) Troponin I NT-Pro-B Natriuret Pep 1720 H 1050 H Impressions: Chest/Abdomen CTA 02/28/18 00:00 IMPRESSION: 1. No pulmonary embolus. 2. Findings likely predominantly related to congestive failure including cardiomegaly, edema and effusions as above. Chest CT 03/01/18 00:00 IMPRESSION: Overall improvement since yesterday. There is a background of chronic interstitial lung disease. No definitive findings to suggest amiodarone toxicity. Venous Doppler Study 03/01/18 00:00 IMPRESSION: NO EVIDENCE DVT OR SVT IN THE RIGHT ARM. KUB X-Ray 03/07/18 10:00 IMPRESSION: NO RADIOGRAPHIC EVIDENCE FOR ACUTE ABDOMINAL DISEASE. NG tube tip in the stomach. Fluoroscopy 03/09/18 00:00 IMPRESSION: Please see combined report for performance of procedure and radiologic supervision and interpretation. Chest X-Ray 03/10/18 06:00 IMPRESSION: Support lines in satisfactory position. No significant interval change. Assessment & Plan - Diagnosis (1) Acute hypoxemic respiratory failure Is this a current diagnosis for this admission?: Yes Plan: Failed pressure support CPAP attempt to wean (2) Acute on chronic systolic heart failure Is this a current diagnosis for this admission?: Yes Plan: As per cardiology (3) Atrial fibrillation with RVR Is this a current diagnosis for this admission?: Yes Plan: Digoxin plus Cardizem stable at this time - Time Total Critical Time (Minutes): 40
--- NOTE | 2018-03-12 18:59 | PDOC PROGRESS REPORT ---
Subjective Progress Note for:: 03/12/18 Subjective:: Extubated . Awake, wants to know when she is going home. She has been requiring more BiPAP overnight. Denies chest pain or palpitations. No fever or chills. Family at bedside. Reason For Visit: AFIB WITH RVR Physical Exam Vital Signs: Temp Pulse Resp BP Pulse Ox 99.3 F 84 25 H 123/58 L 100 03/12/18 17:09 03/12/18 08:00 03/12/18 16:01 03/12/18 16:00 03/12/18 16:01 Intake & Output 03/11/18 03/12/18 03/13/18 06:59 06:59 06:59 Intake Total 5171 4016 1100 Output Total 4309 7985 2123 Balance 151 -4897 -9655 Weight 83.8 kg 81.8 kg General appearance: PRESENT: no acute distress Head exam: PRESENT: normocephalic Neck exam: ABSENT: carotid bruit, lymphadenopathy Respiratory exam: PRESENT: symmetrical, unlabored, other - Coarse breath sounds bilaterally, few wheezing present. Cardiovascular exam: PRESENT: irregular rhythm GI/Abdominal exam: PRESENT: normal bowel sounds, soft. ABSENT: tenderness Extremities exam: ABSENT: pedal edema Neurological exam: PRESENT: Awake, no acute weakness. Results Laboratory Results: 03/12/18 04:25 03/12/18 04:25 03/12/18 03/12/18 03/12/18 04:25 04:25 04:25 WBC 10.6 H RBC 3.95 L Hgb 13.3 L Hct 39.3 MCV 99 H MCH 33.7 H MCHC 33.9 RDW 13.8 Plt Count 131 L Seg Neutrophils % Not Reportable Lymphocytes % Not Reportable Monocytes % Not Reportable Eosinophils % Not Reportable Basophils % Not Reportable Absolute Neutrophils Not Reportable Absolute Lymphocytes Not Reportable Absolute Monocytes Not Reportable Absolute Eosinophils Not Reportable Absolute Basophils Not Reportable Carbonic Acid 1.09 HCO3/H2CO3 Ratio 25:1 ABG pH 7.50 H ABG pCO2 36.1 ABG pO2 72.2 L ABG HCO3 27.8 H ABG O2 Saturation 95.8 ABG Base Excess 4.8 FiO2 2L Sodium 140.3 Potassium 3.7 Chloride 109 H Carbon Dioxide 30 Anion Gap 1 L BUN 9 Creatinine 0.41 L Est GFR ( Amer) > 60 Est GFR (Non-Af Amer) > 60 Glucose 144 H Calcium 7.5 L Phosphorus 2.5 02/27/18 02/27/18 02/27/18 07:25 09:29 12:10 Creatine Kinase CK-MB (CK-2) Troponin I Cancelled 0.029 0.051 NT-Pro-B Natriuret Pep Cancelled 76925 H 02/28/18 02/28/18 03/01/18 16:50 19:40 00:20 Creatine Kinase CK-MB (CK-2) Troponin I 0.152 0.304 Cancelled NT-Pro-B Natriuret Pep 03/01/18 03/01/18 03/02/18 00:54 06:27 07:57 Creatine Kinase CK-MB (CK-2) Troponin I 0.584 0.274 0.139 NT-Pro-B Natriuret Pep 03/05/18 03/05/18 03/07/18 03:52 05:15 12:00 Creatine Kinase 79 CK-MB (CK-2) Troponin I NT-Pro-B Natriuret Pep Cancelled 1290 H 03/07/18 03/09/18 03/09/18 12:00 06:10 06:10 Creatine Kinase 88 CK-MB (CK-2) 0.49 < 0.22 Troponin I 0.054 0.043 NT-Pro-B Natriuret Pep 982 H 03/09/18 03/10/18 06:10 04:01 Creatine Kinase CK-MB (CK-2) Troponin I NT-Pro-B Natriuret Pep 1720 H 1050 H Impressions: Chest/Abdomen CTA 02/28/18 00:00 IMPRESSION: 1. No pulmonary embolus. 2. Findings likely predominantly related to congestive failure including cardiomegaly, edema and effusions as above. Chest CT 03/01/18 00:00 IMPRESSION: Overall improvement since yesterday. There is a background of chronic interstitial lung disease. No definitive findings to suggest amiodarone toxicity. Venous Doppler Study 03/01/18 00:00 IMPRESSION: NO EVIDENCE DVT OR SVT IN THE RIGHT ARM. KUB X-Ray 03/07/18 10:00 IMPRESSION: NO RADIOGRAPHIC EVIDENCE FOR ACUTE ABDOMINAL DISEASE. NG tube tip in the stomach. Fluoroscopy 03/09/18 00:00 IMPRESSION: Please see combined report for performance of procedure and radiologic supervision and interpretation. Abdomen Ultrasound 03/10/18 00:00 IMPRESSION: NORMAL RIGHT UPPER QUADRANT ULTRASOUND. Guidance Fluoroscopy 03/10/18 00:00 IMPRESSION: IMAGE(S) OBTAINED DURING PROCEDURE. Chest X-Ray 03/12/18 06:00 IMPRESSION: Stable chest status postextubation. Assessment & Plan - Diagnosis (1) Acute hypoxemic respiratory failure Is this a current diagnosis for this admission?: Yes Plan: Successfully extubated 03/10/18. Continue to monitor closely. Continue BiPAP as needed. Appreciate pulmonary and cardiology follow-up. (2) Acute on chronic systolic heart failure Is this a current diagnosis for this admission?: Yes Plan: He is on Entresto, the metoprolol, Aldactone and milrinone. Cardiology follow- up appreciated (3) Atrial fibrillation with RVR Is this a current diagnosis for this admission?: Yes Plan: Currently rate controlled on digoxin and metoprolol. Of diltiazem drip. Continue anticoagulation--warfarin has been started, but also continue enoxaparin for now. (4) Community acquired pneumonia Qualifiers: Laterality: unspecified laterality Qualified Code(s): J18.9 - Pneumonia, unspecified organism Is this a current diagnosis for this admission?: Yes Plan: Patient has completed antibiotic course. We will continue to monitor. Sputum culture growing Denisse, continue fluconazole for now.
--- NOTE | 2018-03-12 19:13 | PDOC PROGRESS REPORT ---
Subjective Progress Note for:: 03/12/18 Subjective:: Extubated yesterday, 03/12/18. Opens eyes, no complaint at this time. Still with lots of secretions. No chest pain, no fever or chills. Reason For Visit: AFIB WITH RVR Physical Exam Vital Signs: Temp Pulse Resp BP Pulse Ox 99.3 F 84 25 H 123/58 L 100 03/12/18 17:09 03/12/18 08:00 03/12/18 16:01 03/12/18 16:00 03/12/18 16:01 Intake & Output 03/11/18 03/12/18 03/13/18 06:59 06:59 06:59 Intake Total 5171 4016 1100 Output Total 4302 7407 2127 Balance 871 -4439 -1025 Weight 83.8 kg 81.8 kg General appearance: PRESENT: no acute distress Head exam: PRESENT: normocephalic Neck exam: ABSENT: carotid bruit, lymphadenopathy Respiratory exam: PRESENT: symmetrical, unlabored, other - Coarse breath sounds bilaterally, few wheezing present. Cardiovascular exam: PRESENT: irregular rhythm GI/Abdominal exam: PRESENT: normal bowel sounds, soft. ABSENT: tenderness Extremities exam: ABSENT: pedal edema Neurological exam: PRESENT: Awake. Results Laboratory Results: 03/12/18 04:25 03/12/18 04:25 03/12/18 03/12/18 03/12/18 04:25 04:25 04:25 WBC 10.6 H RBC 3.95 L Hgb 13.3 L Hct 39.3 MCV 99 H MCH 33.7 H MCHC 33.9 RDW 13.8 Plt Count 131 L Seg Neutrophils % Not Reportable Lymphocytes % Not Reportable Monocytes % Not Reportable Eosinophils % Not Reportable Basophils % Not Reportable Absolute Neutrophils Not Reportable Absolute Lymphocytes Not Reportable Absolute Monocytes Not Reportable Absolute Eosinophils Not Reportable Absolute Basophils Not Reportable Carbonic Acid 1.09 HCO3/H2CO3 Ratio 25:1 ABG pH 7.50 H ABG pCO2 36.1 ABG pO2 72.2 L ABG HCO3 27.8 H ABG O2 Saturation 95.8 ABG Base Excess 4.8 FiO2 2L Sodium 140.3 Potassium 3.7 Chloride 109 H Carbon Dioxide 30 Anion Gap 1 L BUN 9 Creatinine 0.41 L Est GFR ( Amer) > 60 Est GFR (Non-Af Amer) > 60 Glucose 144 H Calcium 7.5 L Phosphorus 2.5 02/27/18 02/27/18 02/27/18 07:25 09:29 12:10 Creatine Kinase CK-MB (CK-2) Troponin I Cancelled 0.029 0.051 NT-Pro-B Natriuret Pep Cancelled 50965 H 02/28/18 02/28/18 03/01/18 16:50 19:40 00:20 Creatine Kinase CK-MB (CK-2) Troponin I 0.152 0.304 Cancelled NT-Pro-B Natriuret Pep 03/01/18 03/01/18 03/02/18 00:54 06:27 07:57 Creatine Kinase CK-MB (CK-2) Troponin I 0.584 0.274 0.139 NT-Pro-B Natriuret Pep 03/05/18 03/05/18 03/07/18 03:52 05:15 12:00 Creatine Kinase 79 CK-MB (CK-2) Troponin I NT-Pro-B Natriuret Pep Cancelled 1290 H 03/07/18 03/09/18 03/09/18 12:00 06:10 06:10 Creatine Kinase 88 CK-MB (CK-2) 0.49 < 0.22 Troponin I 0.054 0.043 NT-Pro-B Natriuret Pep 982 H 03/09/18 03/10/18 06:10 04:01 Creatine Kinase CK-MB (CK-2) Troponin I NT-Pro-B Natriuret Pep 1720 H 1050 H Impressions: Chest/Abdomen CTA 02/28/18 00:00 IMPRESSION: 1. No pulmonary embolus. 2. Findings likely predominantly related to congestive failure including cardiomegaly, edema and effusions as above. Chest CT 03/01/18 00:00 IMPRESSION: Overall improvement since yesterday. There is a background of chronic interstitial lung disease. No definitive findings to suggest amiodarone toxicity. Venous Doppler Study 03/01/18 00:00 IMPRESSION: NO EVIDENCE DVT OR SVT IN THE RIGHT ARM. KUB X-Ray 03/07/18 10:00 IMPRESSION: NO RADIOGRAPHIC EVIDENCE FOR ACUTE ABDOMINAL DISEASE. NG tube tip in the stomach. Fluoroscopy 03/09/18 00:00 IMPRESSION: Please see combined report for performance of procedure and radiologic supervision and interpretation. Abdomen Ultrasound 03/10/18 00:00 IMPRESSION: NORMAL RIGHT UPPER QUADRANT ULTRASOUND. Guidance Fluoroscopy 03/10/18 00:00 IMPRESSION: IMAGE(S) OBTAINED DURING PROCEDURE. Chest X-Ray 03/12/18 06:00 IMPRESSION: Stable chest status postextubation. Assessment & Plan - Diagnosis (1) Acute hypoxemic respiratory failure Is this a current diagnosis for this admission?: Yes Plan: Successfully extubated 03/10/18. Continue to monitor closely. Continue BiPAP as needed. Appreciate pulmonary and cardiology follow-up. (2) Acute on chronic systolic heart failure Is this a current diagnosis for this admission?: Yes Plan: He is on Entresto, the metoprolol, Aldactone and milrinone. Cardiology follow- up appreciated (3) Atrial fibrillation with RVR Is this a current diagnosis for this admission?: Yes Plan: Currently rate controlled on digoxin and metoprolol. Of diltiazem drip. Continue anticoagulation--warfarin has been started, but also continue enoxaparin for now. (4) Community acquired pneumonia Qualifiers: Laterality: unspecified laterality Qualified Code(s): J18.9 - Pneumonia, unspecified organism Is this a current diagnosis for this admission?: Yes Plan: Patient has completed antibiotic course. We will continue to monitor. Sputum culture growing Denisse, continue fluconazole for now.
--- NOTE | 2018-03-12 19:55 | Progress Note ---
Provider Note Provider Note: CARDIOLOGY PROGRESS NOTES xena Castellanos on 03/12/2018. SUBJECTIVE: Note that the patient is extubated. He is in atrial fibrillation, with a ventricular response that is controlled with IV Cardizem at 10 mg/h. The patient denies any chest pain or discomfort. The patient is not able to swallow even ice chips. He denies any chest pain. He denies shortness of breath or cough. There is no PND orthopnea. There is no leg edema. There is no ventricular arrhythmia seen on the monitor. There is no bleeding on full dose Lovenox. There is no TIA CVA symptoms. SOME subjective: The patient is well-built. He is well-groomed. He seems to be slightly drowsy. Selected Entries 03/12/18 03/12/18 03/12/18 09:47 09:59 10:00 Temperature 98.4 F Temperature Core Source Core 98.2 F Temperature Heart Rate ( 76 Monitors) Respiratory 22 H Rate Blood Pressure 138/69 H Blood Pressure 92 Mean O2 Sat by Pulse 99 Oximetry Pulmonary 28 Arterial Occlusion Pressure- Systolic Pulmonary 17 Arterial Occlusion Pressure- Diastolic Pulmonary 20 Arterial Occlusion Pressure- Mean Central Venous 5 Pressure- Mean 03/12/18 15:30 Temperature Temperature Source Core 98.8 F Temperature Heart Rate ( 74 Monitors) Respiratory 27 H Rate Blood Pressure 127/70 H Blood Pressure 89 Mean O2 Sat by Pulse 97 Oximetry Pulmonary 22 Arterial Occlusion Pressure- Systolic Pulmonary 15 Arterial Occlusion Pressure- Diastolic Pulmonary 18 Arterial Occlusion Pressure- Mean Central Venous 5 Pressure- Mean The wedge pressure is 11. HEAD: Is atraumatic normocephalic. EYES: Pupils are equal round regular reactive to light. ENT is negative. SKIN: Is without any skin lesions or skin rashes. There is no petechia or ecchymosis. NECK: Is supple. There is no JVD. Carotids are equal there is no bruits. There is no lymphadenopathy. Trachea central. LUNGS: Clear to auscultation, without any rhonchi rales or wheezing. There is diminished air entry throughout and hyperresonance. Heart: S1-S2 is heard S1 is of variable intensity there is no S3 gallop. There is no S4 gallop. There is no rub. There is systolic murmur left sternal border and the apex. ABDOMEN: Soft there is no hepatosplenioegaly. Bowel sounds are well heard. EXTREMITIES: Femorals are diminished. There is no femoral bruits. Leg pulses are diminished. There is no pedal edema. There is no DVT or cellulitis. There is no sinus or clubbing.PERIOPERATIVE MANAGER: THE PATIENT IS CONSCIOUS SLIGHTLY DROWSY, BUT MOVES ALL 4 EXTREMITIES. PSYCHIATRIC: The patient does not appear to be agitated. He is still drowsy from his Ativan drip, and hence full psych examination not done. 03/12/18 03/12/18 03/12/18 04:25 04:25 04:25 WBC 10.6 H Hgb 13.3 L Hct 39.3 Plt Count 131 L PT 16.7 H INR 1.29 APTT 23.7 Sodium 140.3 Potassium 3.7 Chloride 109 H Carbon Dioxide 30 BUN 9 Creatinine 0.41 L Est GFR (Non-Af Amer) > 60 Glucose 144 H Calcium 7.5 L Phosphorus 2.5 1 acute respiratory failure most likely on chronic respiratory failure: The patient has been weaned off the ventilator. Recommend anti-COPD nebulizer treatments. The patient appeared to be slightly dry by hemodynamics, with a normal cardiac output and index but with IV fluids at present the patient's wedge is acceptable at 11. Continue IV fluids.. 2. Atrial fibrillation with earlier rapid ventricular response: Not the patient off pressors, and hence the patient started on Cardizem at 10 mg/h drip. Continue the patient's beta-jewels if the patient is able to swallow.. Continue the patient's full dose Lovenox. Continue continue patient on Coumadin. Continue patient digoxin. We will check the patient is level in a.m. 3. Pneumonia: With acute exacerbation of COPD. Continue antibiotics and respiratory treatments. This seems to have resolved. The chest x-ray is clear 4. ISCHEMIC Cardiomyopathy: With severely reduced LV ejection fraction: Would recommend that the patient be referred for AICD placement consideration, if cardiac catheterization shows no revascularizable coronary artery disease. Would at present continue the patient's metoprolol XL and Entresto. 7. Abnormal EKG findings: With T wave inversions especially in the anterolateral leads. Once the patient is stabilized after a 2 days into extubation, will transfer the patient to tertiary care center for cardiac catheterization. Will discuss with the patient's and the patient's family. 8. History of hypertension: At present at present blood pressure in the 90s to the 100s, with all pressors being turned off. The patient is on Midrin to help as continue the patient on metoprolol and Entresto.. 9. Elevated troponin I: Most likely secondary to patient's atrial fibrillation with rapid ventricular response in a patient with severely depressed LV ejection fraction. But with the patient's EKG showing T wave inversions suggestive of ischemia versus post tachycardia T wave syndrome, and the patient's history of ischemic cardiomyopathy. Later would need a nuclear stress testing versus cardiac catheterization to be absolutely sure that the patient does not have underlying significant coronary artery disease. 10. Hypotension: Resolved. Blood pressure is good on midodrine/. 11. Cardiac hemodynamics suggest in spite of a normal cardiac output and cardiac index are normal SVR and PVR, the patient's which is low hence will continue to hydrate the patient. We will hold the patient's diuretics including spironolactone for now. Continue every shift cardiac hemodynamic monitoring, and recording pressures. Hopefully if the patient remains stable as he is now, we will remove the Loraine-Carmita catheter tomorrow morning. 12. Note abnormal liver function tests: The patient's right upper quadrant abdominal ultrasound was negative for any acute process. We will stop the patient's atorvastatin, since this may be the culprit in the patient's abnormal LFTs. The liver functions are trending down. . Medications reviewed, medication adjusted. Management plan discussed with other caregiving providers on the case. Note 40 minutes spent on this patient, with more than 50% of time spent in direct patient care. This is apart from the time taken for reintroduction of the right heart catheter/Loraine-Carmita catheter, done earlier. Medical decision making is of high complexity.
[2018-03-12] MEDS: MONTELUKAST SODIUM 10 MG TABLET NG SCH (22:15)
[2018-03-12] MEDS: WARFARIN SODIUM 2 MG TABLET PO SCH (22:15)
[2018-03-13] MEDS: DEXTROSE 5%-1/2 NORMAL SALINE 1,000 ML IV PRN ×3 (01:30→17:17)
[2018-03-13] MEDS: GUAIFENESIN SYRP 200 MG/10 ML UDC NG SCH ×4 (03:45→22:18)
[2018-03-13] MEDS: METOPROLOL TARTRATE 50 MG TABLET NG SCH ×2 (05:38→17:17)
[2018-03-13 05:49] LABS: HEMATOCRIT 42.1 % (37.9-51.0); HEMOGLOBIN 14.2 g/dL (13.5-17.0); MEAN CORPUSCULAR HEMOGLOBIN 33.3 pg (27.0-33.4); MEAN CORPUSCULAR HGB CONC 33.8 g/dL (32.0-36.0); MEAN CORPUSCULAR VOLUME 99 fl (80-97); PLATELET COUNT 187 10^3/uL (150-450); RED BLOOD COUNT 4.28 10^6/uL (4.35-5.55); RED CELL DISTRIBUTION WIDTH 14.2 % (11.5-14.0)
[2018-03-13 05:54] LABS: APPEARANCE,URINE CLEAR; BILIRUBIN,URINE NEGATIVE (NEGATIVE); COLOR,URINE YELLOW; GLUCOSE, URINE NEGATIVE (NEGATIVE); KETONES,URINE NEGATIVE (NEGATIVE); LEUKOCYTE ESTERASE,URINE NEGATIVE (NEGATIVE); NITRITE,URINE NEGATIVE (NEGATIVE); PROTEIN,URINE 30 mg/dL (NEGATIVE); URINE SPECIFIC GRAVITY 1.011
[2018-03-13 06:11] LABS: PROTHROMBIN TIME 21.8 SEC (11.4-15.4)
[2018-03-13 07:45] LABS: ARTERIAL BLOOD BASE EXCESS 3.3 mmol/L; ARTERIAL BLOOD HCO3 26.6 mmol/L (20-24); ARTERIAL BLOOD O2 SATURATION 96.9 % (94-98); ARTERIAL BLOOD PCO2 36.4 mmHg (35-45); ARTERIAL BLOOD PH 7.48 (7.35-7.45); ARTERIAL BLOOD PO2 82.7 mmHg (80-100); ARTERIAL BLOOD TOTAL CO2 27.7 mmol/L (23-27)
[2018-03-13 07:46] LABS: ARTERIAL BLOOD FIO2 2L
[2018-03-13] MEDS: DILTIAZEM HCL/D5W 125 MG/125 ML RTUINJ IV PRN (08:24)
[2018-03-13] MEDS: MIDODRINE HCL 5 MG TABLET NG SCH ×3 (09:14→17:17)
[2018-03-13] MEDS: SACUBITRIL/VALSARTAN 24 MG/26 MG TABLET NG SCH ×2 (09:14→22:19)
[2018-03-13] MEDS: POLYETHYLENE GLYCOL 3350 POWDER 17 GM/1 PACKET NG SCH (09:14)
[2018-03-13] MEDS: ENOXAPARIN SODIUM INJ 80 MG/0.8 ML DISP.SYRIN SUBCUT SCH ×2 (09:19→22:19)
[2018-03-13] MEDS: FLUCONAZOLE 200 MG/NS RTU 200 MG/100 ML RTUPB IV SCH (09:19)
[2018-03-13] MEDS: DIGOXIN INJ 0.5 MG/2 ML AMPULE IV SCH (09:20)
--- NOTE | 2018-03-13 15:16 | RADIOLOGY REPORT (SQ) ---
EXAM DESCRIPTION: INTRO/GI TUBE W/FLUORO COMPLETED DATE/TIME: 03/13/2018 2:21 pm REASON FOR STUDY: nutrition COMPARISON: None. TECHNIQUE: Live fluoroscopic guidance. RADIATION DOSE: 4 minutes 51 seconds of fluoroscopy was used. 2 images saved to PACS. LIMITATIONS: None. FINDINGS: The patient was brought to the fluoroscopy room and placed supine on the fluoroscopy table . A NJ-tube was advanced through the left nostril through the stomach and ending in the 3rd portion o f the duodenum. Approximately 20 mL of non ionic contrast was injected through the catheter to confi rm placement. A fluoroscopic spot film was saved to PACs demonstrating catheter tip within the 3rd to 4th portion of the duodenum. IMPRESSION: Successful fluoroscopic guided placement of a NJ tube. COMMENT: Quality ID 145: Final reports for procedures using fluoroscopy that document radiation exp osure indices, or exposure time and number of fluorographic images (if radiation exposure indices are not available) TECHNICAL DOCUMENTATION: JOBD ID: [id number] [employer]- All Rights Reserved Reading location - IP/workstation name: [email or web address]
--- NOTE | 2018-03-13 17:27 | PDOC PROGRESS REPORT ---
Subjective Progress Note for:: 03/13/18 Subjective:: Extubated 03/11/18. Opens eyes, but not very interactive. Secretions are much improved but still with weak cough and also difficulty swallowing. Status post Dobbhoff tube placement today. Reason For Visit: AFIB WITH RVR Physical Exam Vital Signs: Temp Pulse Resp BP Pulse Ox 99.1 F 85 21 H 139/69 H 95 03/13/18 14:00 03/13/18 14:00 03/13/18 14:00 03/13/18 14:00 03/13/18 14:00 Intake & Output 03/12/18 03/13/18 03/14/18 06:59 06:59 06:59 Intake Total 4011 2212 1159 Output Total 7142 3975 1795 Balance -2239 -1761 -636 Weight 81.8 kg 79.8 kg General appearance: PRESENT: no acute distress Head exam: PRESENT: normocephalic Neck exam: ABSENT: carotid bruit, lymphadenopathy Respiratory exam: PRESENT: symmetrical, unlabored, other - Coarse breath sounds bilaterally, few wheezing present. Cardiovascular exam: PRESENT: irregular rhythm GI/Abdominal exam: PRESENT: normal bowel sounds, soft. ABSENT: tenderness Extremities exam: ABSENT: pedal edema Neurological exam: PRESENT: Awake. Results Laboratory Results: 03/13/18 05:35 03/12/18 04:25 03/13/18 03/13/18 03/13/18 05:35 05:35 07:35 WBC 11.0 H RBC 4.28 L Hgb 14.2 Hct 42.1 MCV 99 H MCH 33.3 MCHC 33.8 RDW 14.2 H Plt Count 187 Carbonic Acid 1.10 HCO3/H2CO3 Ratio 24:1 ABG pH 7.48 H ABG pCO2 36.4 ABG pO2 82.7 ABG HCO3 26.6 H ABG O2 Saturation 96.9 ABG Base Excess 3.3 FiO2 2L Urine Color YELLOW Urine Appearance CLEAR Urine pH 7.0 Ur Specific [place] 1.011 Urine Protein 30 H Urine Glucose (UA) NEGATIVE Urine Ketones NEGATIVE Urine Blood MODERATE H Urine Nitrite NEGATIVE Ur Leukocyte Esterase NEGATIVE Urine WBC (Auto) 1 Urine RBC (Auto) 34 02/27/18 02/27/18 02/27/18 07:25 09:29 12:10 Creatine Kinase CK-MB (CK-2) Troponin I Cancelled 0.029 0.051 NT-Pro-B Natriuret Pep Cancelled 16637 H 02/28/18 02/28/18 03/01/18 16:50 19:40 00:20 Creatine Kinase CK-MB (CK-2) Troponin I 0.152 0.304 Cancelled NT-Pro-B Natriuret Pep 03/01/18 03/01/18 03/02/18 00:54 06:27 07:57 Creatine Kinase CK-MB (CK-2) Troponin I 0.584 0.274 0.139 NT-Pro-B Natriuret Pep 03/05/18 03/05/18 03/07/18 03:52 05:15 12:00 Creatine Kinase 79 CK-MB (CK-2) Troponin I NT-Pro-B Natriuret Pep Cancelled 1290 H 03/07/18 03/09/18 03/09/18 12:00 06:10 06:10 Creatine Kinase 88 CK-MB (CK-2) 0.49 < 0.22 Troponin I 0.054 0.043 NT-Pro-B Natriuret Pep 982 H 03/09/18 03/10/18 06:10 04:01 Creatine Kinase CK-MB (CK-2) Troponin I NT-Pro-B Natriuret Pep 1720 H 1050 H Impressions: Chest/Abdomen CTA 02/28/18 00:00 IMPRESSION: 1. No pulmonary embolus. 2. Findings likely predominantly related to congestive failure including cardiomegaly, edema and effusions as above. Chest CT 03/01/18 00:00 IMPRESSION: Overall improvement since yesterday. There is a background of chronic interstitial lung disease. No definitive findings to suggest amiodarone toxicity. Venous Doppler Study 03/01/18 00:00 IMPRESSION: NO EVIDENCE DVT OR SVT IN THE RIGHT ARM. KUB X-Ray 03/07/18 10:00 IMPRESSION: NO RADIOGRAPHIC EVIDENCE FOR ACUTE ABDOMINAL DISEASE. NG tube tip in the stomach. Fluoroscopy 03/09/18 00:00 IMPRESSION: Please see combined report for performance of procedure and radi ologic supervision and interpretation. Abdomen Ultrasound 03/10/18 00:00 IMPRESSION: NORMAL RIGHT UPPER QUADRANT ULTRASOUND. Chest X-Ray 03/12/18 06:00 IMPRESSION: Stable chest status postextubation. Guidance Fluoroscopy 03/13/18 00:00 IMPRESSION: Successful fluoroscopic guided placement of a [place] tube. Assessment & Plan - Diagnosis (1) Acute hypoxemic respiratory failure Is this a current diagnosis for this admission?: Yes Plan: Successfully extubated 03/11/18. Continue to monitor closely. Continue BiPAP as needed. (2) Acute on chronic systolic heart failure Is this a current diagnosis for this admission?: Yes Plan: He is on Entresto, metoprolol, Aldactone and milrinone. Cardiology follow-up appreciated. (3) Atrial fibrillation with RVR Is this a current diagnosis for this admission?: Yes Plan: Currently rate controlled on digoxin and metoprolol. Of diltiazem drip. Continue anticoagulation--warfarin has been started, but also continue enoxaparin for now. Follow-up daily PT/INR. (4) Community acquired pneumonia Qualifiers: Laterality: unspecified laterality Qualified Code(s): J18.9 - Pneumonia, unspecified organism Is this a current diagnosis for this admission?: Yes Plan: Patient has completed antibiotic course. We will continue to monitor. Sputum culture growing Denisse, continue to treat with fluconazole for now.
--- NOTE | 2018-03-13 20:30 | Progress Note ---
Provider Note Provider Note: CARDIOLOGY PROGRESS NOTES by Dr. Martina Castellanos on 03/13/2018. SUBJECTIVE: The patient is less lethargic. He understands what is said to him, and seems to be oriented x3. But the patient still has some drowsiness. He is still not able to swallow. He has a Dobbhoff feeding tube placed. He denies any chest pain or discomfort. There is no PND orthopnea. There is no TIA CVA symptoms. He continues to be in atrial fibrillation with controlled ventricular response. His monitor does not show any ventricular arrhythmias. PHYSICAL EXAMINATION: The patient is well-built. He is well-groomed. He is in no acute distress. Selected Entries 03/13/18 03/13/18 11:01 11:29 Core 99.1 F 99.0 F Temperature Heart Rate ( 83 Monitors) Respiratory 24 H Rate Blood Pressure 129/78 H Blood Pressure 95 Mean O2 Sat by Pulse 98 Oximetry Pulmonary 21 Arterial Occlusion Pressure- Systolic Pulmonary 10 Arterial Occlusion Pressure- Diastolic Pulmonary 15 Arterial Occlusion Pressure- Mean Central Venous 3 HEAD: Is atraumatic normocephalic. EYES: Pupils are equal round regular reactive to light. ENT is negative. SKIN: Is without any skin lesions or skin rashes. There is no petechia or ecchymosis. NECK: Is supple. There is no JVD. Carotids are equal there is no bruits. There is no lymphadenopathy. Trachea central. LUNGS: Clear to auscultation, without any rhonchi rales or wheezing. There is diminished air entry throughout and hyperresonance. Heart: S1-S2 is heard S1 is of variable intensity there is no S3 gallop. There is no S4 gallop. There is no rub. There is systolic murmur left sternal border and the apex. ABDOMEN: Soft there is no hepatosplenioegaly. Bowel sounds are well heard. EXTREMITIES: Femorals are diminished. There is no femoral bruits. Leg pulses are diminished. There is no pedal edema. There is no DVT or cellulitis. There is no sinus or clubbing.LASTER HAND: THE PATIENT IS CONSCIOUS SLIGHTLY DROWSY, BUT MOVES ALL 4 EXTREMITIES. PSYCHIATRIC: The patient does not appear to be agitated. He is still drowsy from his Ativan drip, and hence full psych examination not done. The patient's wedge pressure is 8. He has a good cardiac output. His right heart pressures are normal. The patient's [place] catheter has been removed by me. 03/12/18 03/12/18 03/13/18 04:25 23:08 05:35 WBC 11.0 H RBC 4.28 L Hgb 14.2 Hct 42.1 MCV 99 H MCH 33.3 MCHC 33.8 RDW 14.2 H Plt Count 187 Carbonic Acid HCO3/H2CO3 Ratio ABG pH ABG pCO2 ABG pO2 ABG HCO3 ABG Total CO2 ABG O2 Saturation ABG Base Excess FiO2 Sodium 140.3 Potassium 3.7 Chloride 109 H Carbon Dioxide 30 Anion Gap 1 L BUN 9 Creatinine 0.41 L Est GFR (Non-Af Amer) > 60 Glucose 144 H POC Glucose 105 Calcium 7.5 L Phosphorus 2.5 03/13/18 07:35 WBC RBC Hgb Hct MCV MCH MCHC RDW Plt Count Carbonic Acid 1.10 HCO3/H2CO3 Ratio 24:1 ABG pH 7.48 H ABG pCO2 36.4 ABG pO2 82.7 ABG HCO3 26.6 H ABG Total CO2 27.7 H ABG O2 Saturation 96.9 ABG Base Excess 3.3 FiO2 2L Sodium Potassium Chloride Carbon Dioxide Anion Gap BUN Creatinine Est GFR (Non-Af Amer) Glucose POC Glucose Calcium Phosphorus IMPRESSION/RECOMMENDATION: 1 acute respiratory failure most likely on chronic respiratory failure: This is resolved. The patient is off the ventilator, and doing well. 2. Atrial fibrillation with now controlled ventricular response. Patient not able to swallow. Hence we will continue the patient on Cardizem drip and infusion at 10 mg/h. Continue the patient's Lovenox until INR with Coumadin is 2.0 or greater 3. Pneumonia: With acute exacerbation of COPD. Continue antibiotics and respiratory treatments. This seems to have resolved. The chest x-ray is clear. 4. ISCHEMIC Cardiomyopathy: With severely reduced LV ejection fraction: Would recommend that the patient be referred for AICD placement consideration, if cardiac catheterization shows no revascularizable coronary artery disease. Would at present continue the patient's metoprolol XL and Entresto. 7. Abnormal EKG findings: With T wave inversions especially in the anterolateral leads. Once the patient is stabilized after a 2 days into extubation, will transfer the patient to [facility] for cardiac catheterization. Will discuss with the patient's and the patient's family. 8. History of hypertension: At present at present blood pressure in the 90s to the 100s, with all pressors being turned off. The patient is on Midrin to help as continue the patient on metoprolol and Entresto.. 9. Elevated troponin I: Most likely secondary to patient's atrial fibrillation with rapid ventricular response in a patient with severely depressed LV ejection fraction. But with the patient's EKG showing T wave inversions suggestive of ischemia versus post tachycardia T wave syndrome, and the patient's history of ischemic cardiomyopathy. Later would need a nuclear stress testing versus cardiac catheterization to be absolutely sure that the patient does not have underlying significant coronary artery disease. 10. Hypotension: Resolved. Blood pressure is good on midodrine. 11. COPD: Seems to be stable 12. Note abnormal liver function tests: Medications reviewed. Medications adjusted. Discussed management plan with other caregiving providers on the case. Medical decision making is of moderate complexity. Note 40 minutes spent on the patient, with more than 50% time spent in direct patient care. We will follow with you.
[2018-03-13] MEDS: MONTELUKAST SODIUM 10 MG TABLET NG SCH (22:19)
[2018-03-13] MEDS: WARFARIN SODIUM 4 MG TABLET PO SCH (22:19)
[2018-03-14 04:06] LABS: ANION GAP 6 (5-19); BLOOD UREA NITROGEN 10 mg/dL (7-20); CALCIUM 8.5 mg/dL (8.4-10.2); CARBON DIOXIDE 27 mmol/L (22-30); CHLORIDE 107 mmol/L (98-107); GLUCOSE 94 mg/dL (75-110); INTERNATIONAL RATION (INR) 1.93; POTASSIUM 3.9 mmol/L (3.6-5.0); PROTHROMBIN TIME 22.9 SEC (11.4-15.4); SODIUM 140.2 mmol/L (137-145)
[2018-03-14] MEDS: METOPROLOL TARTRATE 50 MG TABLET NG SCH ×2 (05:30→17:48)
[2018-03-14] MEDS: DEXTROSE 5%-1/2 NORMAL SALINE 1,000 ML IV PRN ×2 (05:32→19:18)
[2018-03-14] MEDS: GUAIFENESIN SYRP 200 MG/10 ML UDC NG SCH ×4 (05:50→22:33)
[2018-03-14 06:01] LABS: ARTERIAL BLOOD BASE EXCESS 4.2 mmol/L; ARTERIAL BLOOD H2CO3 1.13 mmol/L (1.05-1.35); ARTERIAL BLOOD HCO3 27.6 mmol/L (20-24); ARTERIAL BLOOD O2 SATURATION 93.9 % (94-98); ARTERIAL BLOOD PCO2 37.4 mmHg (35-45); ARTERIAL BLOOD PH 7.49 (7.35-7.45); ARTERIAL BLOOD PO2 63.6 mmHg (80-100); ARTERIAL BLOOD TOTAL CO2 28.8 mmol/L (23-27)
[2018-03-14 06:02] LABS: ARTERIAL BLOOD FIO2 ROOM AIR
--- NOTE | 2018-03-14 06:22 | RADIOLOGY REPORT (SQ) ---
Clinical History : pna , Exam : Portable AP view of the chest 03/14/2018 6:00 AM ASSET SPECIALIST Comparisons : Portable AP view of the chest March 12, 2018 Findings : There is an enteric tube with its tip in the gastric body. The lungs are clear without focal consolidation or pleural effusion. The heart is normal in size. The mediastinal contours are normal in appearance. The thoracic spine is age appropriate. The shoulders are unremarkable. Limited evaluation of the upper abdomen demonstrates no gross abnormalities. Impression: 1. Enteric tube tip in gastric body. 2. No acute cardiopulmonary disease.
--- NOTE | 2018-03-14 09:33 | RADIOLOGY REPORT (SQ) ---
EXAM DESCRIPTION: KUB/ABDOMEN (SINGLE VIEW) COMPLETED DATE/TIME: 03/14/2018 9:10 am REASON FOR STUDY: tube placement COMPARISON: None. NUMBER OF VIEWS: One view. TECHNIQUE: Supine radiographic image of the abdomen acquired. LIMITATIONS: None. FINDINGS: Feeding tube tip is coiled in the stomach. Oral contrast within nondilated colon. IMPRESSION: Feeding tube tip in the stomach. Reading location - IP/workstation name: [email or web address]
[2018-03-14] MEDS: POLYETHYLENE GLYCOL 3350 POWDER 17 GM/1 PACKET NG SCH (10:05)
[2018-03-14] MEDS: DIGOXIN INJ 0.5 MG/2 ML AMPULE IV SCH (10:06)
[2018-03-14] MEDS: ENOXAPARIN SODIUM INJ 80 MG/0.8 ML DISP.SYRIN SUBCUT SCH (10:06)
[2018-03-14] MEDS: FLUCONAZOLE 200 MG/NS RTU 200 MG/100 ML RTUPB IV SCH (10:07)
[2018-03-14] MEDS: MIDODRINE HCL 5 MG TABLET NG SCH ×3 (10:11→17:48)
[2018-03-14] MEDS: SACUBITRIL/VALSARTAN 24 MG/26 MG TABLET NG SCH ×2 (11:33→22:34)
--- NOTE | 2018-03-14 12:55 | EKG REPORT ---
SEVERITY:- ABNORMAL ECG - ATRIAL FIBRILLATION, V-RATE 43-55 REPOL ABNRM SUGGESTS ISCHEMIA, DIFFUSE LEADS : Confirmed by: Veda Bethea 14-Mar-2018 12:53:47
[2018-03-14] MEDS ORDERED: METOPROLOL TARTRATE PF/INJ 5 MG/5 ML SDV IV ONE ×2 (16:55→18:15)
--- NOTE | 2018-03-14 17:07 | PDOC PROGRESS REPORT ---
Subjective Progress Note for:: 03/14/18 Subjective:: Extubated 03/11/18. Opens eyes, more interactive today. Secretions are much improved, but still with some difficulty swallowing. Status post Dobbhoff tube placement today. Reason For Visit: AFIB WITH RVR Physical Exam Vital Signs: Temp Pulse Resp BP Pulse Ox 98.4 F 68 21 H 118/76 95 03/14/18 16:00 03/13/18 20:00 03/14/18 05:16 03/14/18 05:16 03/14/18 05:16 Intake & Output 03/13/18 03/14/18 03/15/18 06:59 06:59 06:59 Intake Total 2214 3178 100 Output Total 3973 3025 1425 Balance -8830 -417 -7187 Weight 79.8 kg 76.9 kg General appearance: PRESENT: no acute distress Head exam: PRESENT: normocephalic Neck exam: ABSENT: carotid bruit, lymphadenopathy Respiratory exam: PRESENT: symmetrical, unlabored, other - Coarse breath sounds bilaterally, but improved. Cardiovascular exam: PRESENT: irregular rhythm GI/Abdominal exam: PRESENT: normal bowel sounds, soft. ABSENT: tenderness Extremities exam: ABSENT: pedal edema Neurological exam: PRESENT: Awake. Results Laboratory Results: 03/13/18 05:35 03/14/18 03:44 03/14/18 03/14/18 03:44 05:40 Carbonic Acid 1.13 HCO3/H2CO3 Ratio 24:1 ABG pH 7.49 H ABG pCO2 37.4 ABG pO2 63.6 L ABG HCO3 27.6 H ABG O2 Saturation 93.9 L ABG Base Excess 4.2 FiO2 ROOM AIR Sodium 140.2 Potassium 3.9 Chloride 107 Carbon Dioxide 27 Anion Gap 6 BUN 10 Creatinine 0.57 Est GFR ( Amer) > 60 Est GFR (Non-Af Amer) > 60 Glucose 94 Calcium 8.5 Magnesium 2.2 02/27/18 02/27/18 02/27/18 07:25 09:29 12:10 Creatine Kinase CK-MB (CK-2) Troponin I Cancelled 0.029 0.051 NT-Pro-B Natriuret Pep Cancelled 83133 H 02/28/18 02/28/18 03/01/18 16:50 19:40 00:20 Creatine Kinase CK-MB (CK-2) Troponin I 0.152 0.304 Cancelled NT-Pro-B Natriuret Pep 03/01/18 03/01/18 03/02/18 00:54 06:27 07:57 Creatine Kinase CK-MB (CK-2) Troponin I 0.584 0.274 0.139 NT-Pro-B Natriuret Pep 03/05/18 03/05/18 03/07/18 03:52 05:15 12:00 Creatine Kinase 79 CK-MB (CK-2) Troponin I NT-Pro-B Natriuret Pep Cancelled 1290 H 03/07/18 03/09/18 03/09/18 12:00 06:10 06:10 Creatine Kinase 88 CK-MB (CK-2) 0.49 < 0.22 Troponin I 0.054 0.043 NT-Pro-B Natriuret Pep 982 H 03/09/18 03/10/18 06:10 04:01 Creatine Kinase CK-MB (CK-2) Troponin I NT-Pro-B Natriuret Pep 1720 H 1050 H Impressions: Chest/Abdomen CTA 02/28/18 00:00 IMPRESSION: 1. No pulmonary embolus. 2. Findings likely predominantly related to congestive failure including cardiomegaly, edema and effusions as above. Chest CT 03/01/18 00:00 IMPRESSION: Overall improvement since yesterday. There is a background of chronic interstitial lung disease. No definitive findings to suggest amiodarone toxicity. Venous Doppler Study 03/01/18 00:00 IMPRESSION: NO EVIDENCE DVT OR SVT IN THE RIGHT ARM. Fluoroscopy 03/09/18 00:00 IMPRESSION: Please see combined report for performance of procedure and radiologic supervision and interpretation. Abdomen Ultrasound 03/10/18 00:00 IMPRESSION: NORMAL RIGHT UPPER QUADRANT ULTRASOUND. Guidance Fluoroscopy 03/13/18 00:00 IMPRESSION: Successful fluoroscopic guided placement of a [place] tube. KUB X-Ray 03/14/18 00:00 IMPRESSION: Feeding tube tip in the stomach. Assessment & Plan - Diagnosis (1) Acute hypoxemic respiratory failure Is this a current diagnosis for this admission?: Yes Plan: Successfully extubated 03/11/18. Continue to monitor closely. Continue BiPAP as needed. (2) Acute on chronic systolic heart failure Is this a current diagnosis for this admission?: Yes Plan: He is on Entresto, metoprolol, Aldactone and milrinone. Cardiology following. (3) Atrial fibrillation with RVR Is this a current diagnosis for this admission?: Yes Plan: Currently rate controlled on digoxin and metoprolol. Of diltiazem drip. Continue anticoagulation--warfarin has been started, but also continue enoxaparin for now pending therapeutic INR. Follow-up daily PT/INR. (4) Community acquired pneumonia Qualifiers: Laterality: unspecified laterality Qualified Code(s): J18.9 - Pneumonia, unspecified organism Is this a current diagnosis for this admission?: Yes Plan: Patient has completed antibiotic course. We will continue to monitor. Sputum culture growing Denisse, continue to treat with fluconazole for now. (5) Dysphagia Is this a current diagnosis for this admission?: Yes Plan: Has Dobbhoff tube for feeding and meds. Speech/swallow to continue to evaluate.
[2018-03-14] MEDS ORDERED: ACETAMINOPHEN 650 MG SUPP.RECT PR PRN (18:10)
--- NOTE | 2018-03-14 20:17 | Progress Note ---
Provider Note Provider Note: CARDIOLOGY PROGRESS NOTES by Dr. Martina Castellanos on 03/14/2018. SUBJECTIVE: Although the patient seems to be slightly drowsy he is more alert compared to yesterday. The patient still is not able to swallow well. He pulled out his Dobbhoff tube twice. We will wait for another 24 hours to see if the patient can swallow on his own, or if the Dobbhoff needs to be replaced. The patient seems to be in no acute distress. He denies any chest pain or discomfort. There is no shortness of breath or PND orthopnea or leg edema. In spite of the patient being drowsy, he is oriented x3. There is no bleeding on Lovenox/Coumadin. INR is just about therapeutic with a level today being 1.93 INR. There is no ventricular arrhythmia seen on the monitor. There is no TIA CVA symptoms. PHYSICAL EXAMINATION: The patient is well-built. In no acute distress. He is well-groomed. Selected Entries 03/14/18 11:16 Core 98.6 F Temperature Heart Rate ( 83 Monitors) Respiratory 23 H Rate Blood Pressure 110/76 Blood Pressure 87 Mean O2 Sat by Pulse 98 Oximetry HEAD: Is atraumatic normocephalic. EYES: Pupils are equal round regular reactive to light. ENT is negative. SKIN: Is without any skin lesions or skin rashes. There is no petechia or ecchymosis. NECK: Is supple. There is no JVD. Carotids are equal there is no bruits. There is no lymphadenopathy. Trachea central. LUNGS: Clear to auscultation, without any rhonchi rales or wheezing. There is diminished air entry throughout and hyperresonance. Heart: S1-S2 is heard S1 is of variable intensity there is no S3 gallop. There is no S4 gallop. There is no rub. There is systolic murmur left sternal border and the apex. ABDOMEN: Soft there is no hepatosplenioegaly. Bowel sounds are well heard. EXTREMITIES: Femorals are diminished. There is no femoral bruits. Leg pulses are diminished. There is no pedal edema. There is no DVT or cellulitis. 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 PSYCHIATRIC: The patient does not appear to be agitated. He is still drowsy from his Ativan drip, and hence full psych examination not done. 03/14/18 03/14/18 03/14/18 03:44 03:44 05:40 PT 22.9 H INR 1.93 Carbonic Acid 1.13 HCO3/H2CO3 Ratio 24:1 ABG pH 7.49 H ABG pCO2 37.4 ABG pO2 63.6 L ABG HCO3 27.6 H ABG Total CO2 28.8 H ABG O2 Saturation 93.9 L ABG Base Excess 4.2 FiO2 ROOM AIR Sodium 140.2 Potassium 3.9 Chloride 107 Carbon Dioxide 27 Anion Gap 6 BUN 10 Creatinine 0.57 Est GFR (Non-Af Amer) > 60 Glucose 94 POC Glucose Calcium 8.5 Magnesium 2.2 I 03/14/18 18:47 PT INR Carbonic Acid HCO3/H2CO3 Ratio ABG pH ABG pCO2 ABG pO2 ABG HCO3 ABG Total CO2 ABG O2 Saturation ABG Base Excess FiO2 Sodium Potassium Chloride Carbon Dioxide Anion Gap BUN Creatinine Est GFR (Non-Af Amer) Glucose POC Glucose 102 Calcium Magnesium IMPRESSION/RECOMMENDATION: 1 acute respiratory failure most likely on chronic respiratory failure: This is resolved. The patient is off the ventilator, and doing well. 2. Atrial fibrillation with now controlled ventricular response. Patient not able to swallow. Hence we will continue the patient on Cardizem drip and infusion at 10 mg/h. Continue the patient's Lovenox until INR with Coumadin is 2.0 or greater 3. Pneumonia: With acute exacerbation of COPD. Continue antibiotics and respiratory treatments. This seems to have resolved. The chest x-ray is clear. 4. ISCHEMIC Cardiomyopathy: With severely reduced LV ejection fraction: Would recommend that the patient be referred for AICD placement consideration, if cardiac catheterization shows no revascularizable coronary artery disease. Would at present continue the patient's metoprolol XL and Entresto. 7. Abnormal EKG findings: With T wave inversions especially in the anterolateral leads. Once the patient is stabilized after a 2 days into extubation, will transfer the patient to tertiary care center for cardiac catheterization. Will discuss with the patient's and the patient's family. 8. History of hypertension: At present at present blood pressure in the 90s to the 100s, with all pressors being turned off. The patient is on Midrin to help as continue the patient on metoprolol and Entresto.. 9. Elevated troponin I: Most likely secondary to patient's atrial fibrillation with rapid ventricular response in a patient with severely depressed LV ejection fraction. But with the patient's EKG showing T wave inversions suggestive of ischemia versus post tachycardia T wave syndrome, and the patient's history of ischemic cardiomyopathy. Later would need a nuclear stress testing versus card iac catheterization to be absolutely sure that the patient does not have underlying significant coronary artery disease. 10. Hypotension: Resolved. Blood pressure is good on midodrine. 11. COPD: Seems to be stable 12. Note abnormal liver function tests: Note medications have been reviewed. Discussed with management plan with other caregiving providers. Once the patient becomes more alert we will schedule the patient for IV Lexiscan Cardiolite stress test. Note medical decision making is of moderate complexity. 40 minutes spent on this patient, with more than 50% time spent in direct patient care. Note that the patient is a full code. His is a surrogate healthcare decision maker.
[2018-03-14] MEDS ORDERED: LORAZEPAM INJ 2 MG/1 ML VIAL ONE (21:25)
[2018-03-14] MEDS: LORAZEPAM INJ 2 MG/1 ML VIAL IV PRN (21:30)
[2018-03-14] MEDS: MONTELUKAST SODIUM 10 MG TABLET NG SCH (22:34)
[2018-03-14] MEDS: WARFARIN SODIUM 4 MG TABLET PO SCH (22:34)
[2018-03-15] MEDS: METOPROLOL TARTRATE PF/INJ 5 MG/5 ML SDV IV SCH ×5 (01:09→23:21)
[2018-03-15] MEDS: ENOXAPARIN SODIUM INJ 80 MG/0.8 ML DISP.SYRIN SUBCUT SCH ×3 (01:09→21:55)
[2018-03-15 07:03] LABS: ARTERIAL BLOOD H2CO3 0.88 mmol/L (1.05-1.35); ARTERIAL BLOOD HCO3 20.4 mmol/L (20-24); ARTERIAL BLOOD O2 SATURATION 95.9 % (94-98); ARTERIAL BLOOD PCO2 29.3 mmHg (35-45); ARTERIAL BLOOD PH 7.46 (7.35-7.45); ARTERIAL BLOOD PO2 74.9 mmHg (80-100); ARTERIAL BLOOD TOTAL CO2 21.3 mmol/L (23-27)
[2018-03-15 07:15] LABS: ALANINE AMINOTRANSFERASE 82 U/L (21-72); ALBUMIN 2.4 g/dL (3.5-5.0); ALKALINE PHOSPHATASE 75 U/L (38-126); ASPARTATE AMINO TRANSFERASE 55 U/L (17-59); BILIRUBIN,DIRECT 0.3 mg/dL (0.0-0.4); BILIRUBIN,TOTAL 0.8 mg/dL (0.2-1.3); TOTAL PROTEIN 5.9 g/dL (6.3-8.2)
[2018-03-15 07:16] LABS: ARTERIAL BLOOD FIO2 2.5L
[2018-03-15 07:45] LABS: DIGOXIN 0.73 ng/mL (0.8-2.0)
--- NOTE | 2018-03-15 08:52 | EKG REPORT ---
SEVERITY:- ABNORMAL ECG - ATRIAL FIBRILLATION, V-RATE 68-106 BORDERLINE LEFT AXIS DEVIATION NONSPECIFIC REPOL ABNORMALITY, DIFFUSE LEADS BORDERLINE PROLONGED QT INTERVAL : Confirmed by: Veda Bethea 15-Mar-2018 08:51:36
[2018-03-15] MEDS: DIGOXIN INJ 0.5 MG/2 ML AMPULE IV SCH (10:56)
[2018-03-15] MEDS: FLUCONAZOLE 200 MG/NS RTU 200 MG/100 ML RTUPB IV SCH (10:57)
[2018-03-15] MEDS: LORAZEPAM INJ 2 MG/1 ML VIAL IV PRN ×2 (10:58→19:32)
[2018-03-15 12:00] LABS: ABSOLUTE BASOPHILS # (AUTO) 0.1 10^3/uL (0.0-0.2); ABSOLUTE EOSINOPHILS # (AUTO) 0.1 10^3/uL (0.0-0.6); ABSOLUTE LYMPHOCYTES (AUTO) 1.9 10^3/uL (0.5-4.7); ABSOLUTE NEUT (AUTO) 3.9 10^3/uL (1.7-8.2); BASOPHILS % (AUTO) 0.8 % (0-2); EOSINOPHILS % (AUTO) 2.1 % (0-6); HEMATOCRIT 44.4 % (37.9-51.0); HEMOGLOBIN 15.5 g/dL (13.5-17.0); LYMPHOCYTES % (AUTO) 27.4 % (13-45); MEAN CORPUSCULAR HEMOGLOBIN 33.7 pg (27.0-33.4); MEAN CORPUSCULAR HGB CONC 34.8 g/dL (32.0-36.0); MEAN CORPUSCULAR VOLUME 97 fl (80-97); PLATELET COUNT 262 10^3/uL (150-450); RED BLOOD COUNT 4.59 10^6/uL (4.35-5.55); RED CELL DISTRIBUTION WIDTH 13.5 % (11.5-14.0); SEGMENTED NEUTROPHILS % (AUTO) 55.7 % (42-78); TOTAL CELLS COUNTED % (AUTO) 100 %; WHITE BLOOD COUNT 7.1 10^3/uL (4.0-10.5)
[2018-03-15 12:20] LABS: BLOOD UREA NITROGEN 12 mg/dL (7-20); CALCIUM 8.3 mg/dL (8.4-10.2); GLUCOSE 116 mg/dL (75-110); POTASSIUM 3.7 mmol/L (3.6-5.0)
[2018-03-15 12:26] LABS: CARBON DIOXIDE 25 mmol/L (22-30); CHLORIDE 110 mmol/L (98-107); SODIUM 140.7 mmol/L (137-145)
[2018-03-15 12:27] LABS: ANION GAP 6 (5-19)
--- NOTE | 2018-03-15 13:23 | PDOC PROGRESS REPORT ---
Subjective Subjective:: Extubated 03/11/18 and now transferred out of the ICU. Awake and interactive today. Unfortunately still with some difficulty swallowing. Status post Dobbhoff tube placement x2 but patient pulled out. Currently refusing replacement of Dobbhoff tube. at bedside. He is on D5 normal saline. Patient to be rechecked for swallowing later today. Physical therapy working with him. Reason For Visit: AFIB WITH RVR Physical Exam Vital Signs: Temp Pulse Resp BP Pulse Ox 97.4 F 55 L 18 97/67 L 95 03/15/18 12:14 03/15/18 12:14 03/15/18 12:14 03/15/18 12:14 03/15/18 12:14 Intake & Output 03/14/18 03/15/18 03/16/18 06:59 06:59 06:59 Intake Total 3178 1400 Output Total 3595 2625 Balance -417 -1225 Weight 76.9 kg 77 kg General appearance: PRESENT: no acute distress Head exam: PRESENT: normocephalic Neck exam: ABSENT: carotid bruit, lymphadenopathy Respiratory exam: PRESENT: symmetrical, unlabored, other - Coarse breath sounds bilaterally, but improved. Cardiovascular exam: PRESENT: irregular rhythm GI/Abdominal exam: PRESENT: normal bowel sounds, soft. ABSENT: tenderness Extremities exam: ABSENT: Trace pedal edema Neurological exam: PRESENT: Awake, oriented to self, hospital, and knows his , no acute weakness. Results Laboratory Results: 03/15/18 11:49 03/15/18 11:49 03/14/18 03/15/18 03/15/18 17:40 06:00 06:25 WBC RBC Hgb Hct MCV MCH MCHC RDW Plt Count Seg Neutrophils % Lymphocytes % Monocytes % Eosinophils % Basophils % Absolute Neutrophils Absolute Lymphocytes Absolute Monocytes Absolute Eosinophils Absolute Basophils Carbonic Acid 0.88 L HCO3/H2CO3 Ratio 23:1 ABG pH 7.46 H ABG pCO2 29.3 L ABG pO2 74.9 L ABG HCO3 20.4 ABG O2 Saturation 95.9 ABG Base Excess -2.0 FiO2 2.5L Sodium Potassium Chloride Carbon Dioxide Anion Gap BUN Creatinine Est GFR ( Amer) Est GFR (Non-Af Amer) Glucose Calcium Total Bilirubin 0.8 AST 55 ALT 82 H Alkaline Phosphatase 75 Total Protein 5.9 L Albumin 2.4 L Stool Occult Blood POSITIVE 03/15/18 03/15/18 11:49 11:49 WBC 7.1 RBC 4.59 Hgb 15.5 Hct 44.4 MCV 97 MCH 33.7 H MCHC 34.8 RDW 13.5 Plt Count 262 Seg Neutrophils % 55.7 Lymphocytes % 27.4 Monocytes % 14.0 H Eosinophils % 2.1 Basophils % 0.8 Absolute Neutrophils 3.9 Absolute Lymphocytes 1.9 Absolute Monocytes 1.0 Absolute Eosinophils 0.1 Absolute Basophils 0.1 Carbonic Acid HCO3/H2CO3 Ratio ABG pH ABG pCO2 ABG pO2 ABG HCO3 ABG O2 Saturation ABG Base Excess FiO2 Sodium 140.7 Potassium 3.7 Chloride 110 H Carbon Dioxide 25 Anion Gap 6 BUN 12 Creatinine 0.62 Est GFR ( Amer) > 60 Est GFR (Non-Af Amer) > 60 Glucose 116 H Calcium 8.3 L Total Bilirubin AST ALT Alkaline Phosphatase Total Protein Albumin Stool Occult Blood 02/27/18 02/27/18 02/27/18 07:25 09:29 12:10 Creatine Kinase CK-MB (CK-2) Troponin I Cancelled 0.029 0.051 NT-Pro-B Natriuret Pep Cancelled 91011 H 02/28/18 02/28/18 03/01/18 16:50 19:40 00:20 Creatine Kinase CK-MB (CK-2) Troponin I 0.152 0.304 Cancelled NT-Pro-B Natriuret Pep 03/01/18 03/01/18 03/02/18 00:54 06:27 07:57 Creatine Kinase CK-MB (CK-2) Troponin I 0.584 0.274 0.139 NT-Pro-B Natriuret Pep 03/05/18 03/05/18 03/07/18 03:52 05:15 12:00 Creatine Kinase 79 CK-MB (CK-2) Troponin I NT-Pro-B Natriuret Pep Cancelled 1290 H 03/07/18 03/09/18 03/09/18 12:00 06:10 06:10 Creatine Kinase 88 CK-MB (CK-2) 0.49 < 0.22 Troponin I 0.054 0.043 NT-Pro-B Natriuret Pep 982 H 03/09/18 03/10/18 06:10 04:01 Creatine Kinase CK-MB (CK-2) Troponin I NT-Pro-B Natriuret Pep 1720 H 1050 H Impressions: Chest/Abdomen CTA 02/28/18 00:00 IMPRESSION: 1. No pulmonary embolus. 2. Findings likely predominantly related to congestive failure including cardiomegaly, edema and effusions as above. Chest CT 03/01/18 00:00 IMPRESSION: Overall improvement since yesterday. There is a background of chronic interstitial lung disease. No definitive findings to suggest amiodarone toxicity. Venous Doppler Study 03/01/18 00:00 IMPRESSION: NO EVIDENCE DVT OR SVT IN THE RIGHT ARM. Fluoroscopy 03/09/18 00:00 IMPRESSION: Please see combined report for performance of procedure and radiologic supervision and interpretation. Abdomen Ultrasound 03/10/18 00:00 IMPRESSION: NORMAL RIGHT UPPER QUADRANT ULTRASOUND. Guidance Fluoroscopy 03/13/18 00:00 IMPRESSION: Successful fluoroscopic guided placement of a NJ tube. KUB X-Ray 03/14/18 00:00 IMPRESSION: Feeding tube tip in the stomach. Assessment & Plan - Diagnosis (1) Acute hypoxemic respiratory failure Is this a current diagnosis for this admission?: Yes Plan: Improved. Successfully extubated 03/11/18. Continue to monitor closely. BiPAP if needed. (2) Acute on chronic systolic heart failure Is this a current diagnosis for this admission?: Yes Plan: He is on Entresto, metoprolol, Aldactone and milrinone. Cardiology following. Later on, will likely need stress test per cardiology. (3) Atrial fibrillation with RVR Is this a current diagnosis for this admission?: Yes Plan: Currently rate controlled on digoxin and metoprolol. Off diltiazem drip. Continue anticoagulation--warfarin on hold has not taken n.p.o., but continue enoxaparin for now. Continue PT/OT. Cardiology follow-up appreciated. (4) Community acquired pneumonia Qualifiers: Laterality: unspecified laterality Qualified Code(s): J18.9 - Pneumonia, unspecified organism Is this a current diagnosis for this admission?: Yes Plan: Patient has completed antibiotic course. We will continue to monitor. Sputum culture growing Denisse, continue to treat with fluconazole for now. (5) Dysphagia Is this a current diagnosis for this admission?: Yes Plan: Self discontinued Dobbhoff tube x2. Refusing further insertion at this time. Gentle IV fluid with D5 normal saline for now and monitor patient closely. Speech/swallow to continue to evaluate.
--- NOTE | 2018-03-15 21:00 | Progress Note ---
Provider Note Provider Note: CARDIOLOGY PROGRESS NOTES by Dr. Martina Castellanos on 03/15/2018. SUBJECTIVE: The patient is stronger today. He is more alert, and oriented x3 he still has some hoarseness of his voice. He denies any difficulty swallowing, but he failed the swallow test this morning by nursing. Now he is able to chew ice chips without problems. He continues to be in atrial fibrillation. The ventricular response is controlled. There is no TIA CVA symptoms. There is no PT/INR done today. We will recheck in the a.m. He denies any TIA CVA symptoms. There is no chest pain or discomfort. There is no PND orthopnea. There is no shortness of breath. There is no cough or wheezing or sputum production. There is no pedal edema. There is no ventricular arrhythmia seen on the monitor. Note that his EKG the T wave inversions which were present before have now resolved and there are minor nonspecific ST-T T changes and the patient's EKG which shows atrial fibrillation. Hence the patient had post tachycardia T wave inversion syndrome. But nevertheless the patient does have a history of ischemic cardia myopathy, and later would recommend this admission that the patient have a IV Lexiscan cardio light stress test. PHYSICAL EXAMINATION: The patient is well-built, and well-nourished. In no acute distress. Selected Entries 03/15/18 12:14 Temperature 97.4 F Temperature Oral Source Pulse Rate 55 L Respiratory 18 Rate Blood Pressure 97/67 L [Left Upper Arm ] Blood Pressure 77 Mean [Left Upper Arm] Blood Pressure Supine Position [Left Upper Arm] O2 Sat by Pulse 95 Oximetry Oxygen Delivery Room Air Method ( includes room air) HEAD: Is atraumatic normocephalic. EYES: Pupils are equal round regular reactive to light. ENT is negative. SKIN: Is without any skin lesions or skin rashes. There is no petechia or ecchymosis. NECK: Is supple. There is no JVD. Carotids are equal there is no bruits. There is no lymphadenopathy. Trachea central. LUNGS: Clear to auscultation, without any rhonchi rales or wheezing. There is diminished air entry throughout and on percussion there is hyperresonance. Heart: S1-S2 is heard S1 is of variable intensity there is no S3 gallop. There is no S4 gallop. There is no rub. There is systolic murmur left sternal border and the apex. ABDOMEN: Soft there is no hepatosplenioegaly. Bowel sounds are well heard. EXTREMITIES: Femorals are diminished. There is no femoral bruits. Leg pulses are diminished. There is no pedal edema. There is no DVT or cellulitis. 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 PSYCHIATRIC: The patient does not appear to be agitated. The patient's judgment and insight are intact. 03/15/18 03/15/18 06:00 11:49 WBC 7.1 RBC 4.59 Hgb 15.5 Hct 44.4 MCV 97 MCH 33.7 H MCHC 34.8 RDW 13.5 Plt Count 262 Digoxin 0.73 L The patient's EKG shows atrial fibrillation with controlled ventricular response. Diffuse nonspecific ST-T changes. The deep T wave inversion seen in earlier days, and has now resolved. Hence this is post tachycardia T wave inversion syndrome. IMPRESSION/RECOMMENDATION: 1 acute respiratory failure most likely on chronic respiratory failure: This is resolved. The patient is off the ventilator, and doing well. Patient having dysphagia most likely due to prolonged intubation. This most likely will return to normalcy. 2. Atrial fibrillation with now controlled ventricular response. Patient not able to swallow. Hence we will continue the patient on Cardizem drip and infusion at 10 mg/h. Continue the patient's Lovenox, and Coumadin. We will recheck the patient's PT/INR in the a.m., and daily. 3. Pneumonia: With acute exacerbation of COPD. Continue antibiotics and respiratory treatments. This seems to have resolved. The chest x-ray is clear. 4. ISCHEMIC Cardiomyopathy: With severely reduced LV ejection fraction: Would recommend that the patient be referred for AICD placement consideration, if cardiac catheterization shows no revascularizable coronary artery disease. Would at present continue the patient's metoprolol XL and Entresto. 7. Abnormal EKG findings: With T wave inversions especially in the ante rolateral leads. 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 Hence would not send the patient for cardiac catheterization. We will get an outpatient IV Lexiscan Cardiolite stress test, since the patient has no anginal symptoms. 8. History of hypertension: At present at present blood pressure in the 90s to the 100s, with all pressors being turned off. The patient is on Midodrine to help as continue the patient on metoprolol and Entresto.. 9. Elevated troponin I: Most likely secondary to patient's atrial fibrillation with rapid ventricular response in a patient with severely depressed LV ejection fraction. But with the patient's EKG showing T wave inversions suggestive of ischemia versus post tachycardia T wave syndrome, and the patient's history of ischemic cardiomyopathy. Later would need a nuclear stress testing versus cardiac catheterization to be absolutely sure that the patient does not have underlying significant coronary artery disease. 10. Hypotension: Resolved. Blood pressure is good on midodrine. 11. COPD: Seems to be stable 12. Note abnormal liver function tests: We will follow. His medications have been reviewed. Medications adjusted. Discussed with the patient and patient's . Discussed with attending physician management plan. Medical decision making is of moderate complexity. Will follow with you.
--- NOTE | 2018-03-15 21:43 | OPERATIVE REPORT E ---
Operative Report NAME: ABE DAILY : 1950 AGE: 67Y DATE OF SURGERY: 03/15/2018 ROOM: 328 PREOPERATIVE DIAGNOSIS: PROLONGED CORDIS LINE THAT NEEDED REPLACEMENT WITH A TRIPLE LUMEN CATHETER. POSTOPERATIVE DIAGNOSIS: PROLONGED CORDIS LINE THAT NEEDED REPLACEMENT WITH A TRIPLE LUMEN CATHETER. OPERATION: REMOVAL OF CORDIS LINE AND PLACEMENT OF TRIPLE LUMEN CATHETER THROUGH THE CORDIS SITE. SURGEON: MARJORIE PORRAS M.D. ANESTHESIA: Local. INDICATION: This is a 67-year-old male who was in the intensive care unit for about 11 days. He had a Cordis line inserted for IV medications and fluids. He was transferred out of the unit to the floor. At this time, the Cordis line needed to be removed to prevent infection. PROCEDURE: The patient was placed in slight Trendelenburg position and dressing over the Cordis was then removed, and the Cordis site prepped and draped in the usual sterile fashion. Local anesthesia infiltrated around the Cordis area with 1% Xylocaine. The suture was removed and the cover of the Cordis catheter was removed. A guidewire was then passed through the Cordis into the superior vena cava. The guidewire was left in place and the Cordis line removed completely. Pressure applied at the insertion site to prevent egress of blood. Next, a triple lumen catheter was then threaded through the guidewire to a distance of about 15 cm. The guidewire was removed and triple lumen catheter anchored to the skin with 3-0 silk. All 3 ports aspirated blood easily and instilled saline easily. A Biopatch was placed at the insertion site and transparent dressing placed over the operative site. Needle, instrument, and sponge counts were correct. Estimated blood loss was minimal. The patient tolerated the procedure well. DICTATING PHYSICIAN: MARJORIE PORRAS M.D. [id number] PHY#: [id number] ID: [id number] JOB#: [id number] ACCT: [id number] cc:MARJORIE PORRAS M.D. >
[2018-03-16] MEDS: METOPROLOL TARTRATE PF/INJ 5 MG/5 ML SDV IV SCH ×3 (05:31→18:13)
[2018-03-16 05:54] LABS: HEMATOCRIT 42.5 % (37.9-51.0); HEMOGLOBIN 14.8 g/dL (13.5-17.0); MEAN CORPUSCULAR HEMOGLOBIN 33.7 pg (27.0-33.4); MEAN CORPUSCULAR HGB CONC 34.7 g/dL (32.0-36.0); MEAN CORPUSCULAR VOLUME 97 fl (80-97); PLATELET COUNT 343 10^3/uL (150-450); RED BLOOD COUNT 4.38 10^6/uL (4.35-5.55); RED CELL DISTRIBUTION WIDTH 13.5 % (11.5-14.0); WHITE BLOOD COUNT 7.4 10^3/uL (4.0-10.5)
[2018-03-16 06:03] LABS: PROTHROMBIN TIME 33.4 SEC (11.4-15.4)
[2018-03-16 06:05] LABS: ALANINE AMINOTRANSFERASE 68 U/L (21-72); ALBUMIN 2.5 g/dL (3.5-5.0); ALKALINE PHOSPHATASE 77 U/L (38-126); ASPARTATE AMINO TRANSFERASE 47 U/L (17-59); BILIRUBIN,DIRECT 0.3 mg/dL (0.0-0.4); BILIRUBIN,TOTAL 0.8 mg/dL (0.2-1.3); TOTAL PROTEIN 5.8 g/dL (6.3-8.2)
[2018-03-16] MEDS ORDERED: KETOROLAC TROMETHAMINE INJ/PF 30 MG/1 ML SDV IV ONE (06:45)
[2018-03-16] MEDS: DEXTROSE 5%-1/2 NORMAL SALINE 1,000 ML IV PRN (07:41)
[2018-03-16 07:44] LABS: APPEARANCE,URINE CLEAR; BILIRUBIN,URINE NEGATIVE (NEGATIVE); COLOR,URINE YELLOW; GLUCOSE, URINE NEGATIVE (NEGATIVE); KETONES,URINE NEGATIVE (NEGATIVE); LEUKOCYTE ESTERASE,URINE NEGATIVE (NEGATIVE); NITRITE,URINE NEGATIVE (NEGATIVE); PROTEIN,URINE NEGATIVE (NEGATIVE); URINE SPECIFIC GRAVITY 1.013
[2018-03-16] MEDS: DIGOXIN INJ 0.5 MG/2 ML AMPULE IV SCH (09:33)
[2018-03-16] MEDS: MIDODRINE HCL 5 MG TABLET PO SCH ×3 (09:34→18:13)
[2018-03-16] MEDS: ENOXAPARIN SODIUM INJ 80 MG/0.8 ML DISP.SYRIN SUBCUT SCH (09:34)
[2018-03-16] MEDS ORDERED: WARFARIN SODIUM 2 MG TABLET PO ONE (13:00)
--- NOTE | 2018-03-16 17:01 | PDOC PROGRESS REPORT ---
Subjective Progress Note for:: 03/16/18 Subjective:: Extubated 03/11/18 and now transferred out of the ICU 2 days ago. Doing much better, worked with physical therapy, swallowing evaluation better and patient on mechanical soft diet. He denies fever or chills, no chest pain or shortness of breath or palpitations. He was evaluated by Dr. Castellanos of cardiology who thinks patient may be able to go home tomorrow. Reason For Visit: AFIB WITH RVR Physical Exam Vital Signs: Temp Pulse Resp BP Pulse Ox 97.2 F 71 16 120/65 97 03/16/18 16:00 03/16/18 16:00 03/16/18 16:00 03/16/18 16:00 03/16/18 16:00 Intake & Output 03/15/18 03/16/18 03/17/18 06:59 06:59 06:59 Intake Total 1400 1430 237 Output Total 2625 1190 100 Balance -1225 240 137 Weight 77 kg 79.7 kg General appearance: PRESENT: no acute distress Head exam: PRESENT: normocephalic Neck exam: ABSENT: carotid bruit, lymphadenopathy Respiratory exam: PRESENT: symmetrical, unlabored, other - Coarse breath sounds bilaterally, but improved. Cardiovascular exam: PRESENT: irregular rhythm, normal S1-S2 GI/Abdominal exam: PRESENT: normal bowel sounds, soft. ABSENT: tenderness Extremities exam: ABSENT: Trace pedal edema Neurological exam: PRESENT: Awake, oriented to self, hospital, no acute weakness. Results Laboratory Results: 03/16/18 05:30 03/15/18 11:49 03/16/18 03/16/18 03/16/18 05:30 05:30 06:50 WBC 7.4 RBC 4.38 Hgb 14.8 Hct 42.5 MCV 97 MCH 33.7 H MCHC 34.7 RDW 13.5 Plt Count 343 Total Bilirubin 0.8 AST 47 ALT 68 Alkaline Phosphatase 77 Total Protein 5.8 L Albumin 2.5 L Urine Color YELLOW Urine Appearance CLEAR Urine pH 6.0 Ur Specific [place] 1.013 Urine Protein NEGATIVE Urine Glucose (UA) NEGATIVE Urine Ketones NEGATIVE Urine Blood SMALL H Urine Nitrite NEGATIVE Ur Leukocyte Esterase NEGATIVE Urine WBC (Auto) 1 Urine RBC (Auto) 8 02/27/18 02/27/18 02/27/18 07:25 09:29 12:10 Creatine Kinase CK-MB (CK-2) Troponin I Cancelled 0.029 0.051 NT-Pro-B Natriuret Pep Cancelled 87925 H 02/28/18 02/28/18 03/01/18 16:50 19:40 00:20 Creatine Kinase CK-MB (CK-2) Troponin I 0.152 0.304 Cancelled NT-Pro-B Natriuret Pep 03/01/18 03/01/18 03/02/18 00:54 06:27 07:57 Creatine Kinase CK-MB (CK-2) Troponin I 0.584 0.274 0.139 NT-Pro-B Natriuret Pep 03/05/18 03/05/18 03/07/18 03:52 05:15 12:00 Creatine Kinase 79 CK-MB (CK-2) Troponin I NT-Pro-B Natriuret Pep Cancelled 1290 H 03/07/18 03/09/18 03/09/18 12:00 06:10 06:10 Creatine Kinase 88 CK-MB (CK-2) 0.49 < 0.22 Troponin I 0.054 0.043 NT-Pro-B Natriuret Pep 982 H 03/09/18 03/10/18 06:10 04:01 Creatine Kinase CK-MB (CK-2) Troponin I NT-Pro-B Natriuret Pep 1720 H 1050 H Impressions: Chest/Abdomen CTA 02/28/18 00:00 IMPRESSION: 1. No pulmonary embolus. 2. Findings likely predominantly related to congestive failure including cardiomegaly, edema and effusions as above. Chest CT 03/01/18 00:00 IMPRESSION: Overall improvement since yesterday. There is a background of chronic interstitial lung disease. No definitive findings to suggest amiodarone toxicity. Venous Doppler Study 03/01/18 00:00 IMPRESSION: NO EVIDENCE DVT OR SVT IN THE RIGHT ARM. Fluoroscopy 03/09/18 00:00 IMPRESSION: Please see combined report for performance of procedure and radiologic supervision and interpretation. Abdomen Ultrasound 03/10/18 00:00 IMPRESSION: NORMAL RIGHT UPPER QUADRANT ULTRASOUND. Guidance Fluoroscopy 03/13/18 00:00 IMPRESSION: Successful fluoroscopic guided placement of a NJ tube. KUB X-Ray 03/14/18 00:00 IMPRESSION: Feeding tube tip in the stomach. Assessment & Plan - Diagnosis (1) Acute hypoxemic respiratory failure Is this a current diagnosis for this admission?: Yes Plan: Improved. Successfully extubated 03/11/18. Continue to monitor closely. (2) Acute on chronic systolic heart failure Is this a current diagnosis for this admission?: Yes Plan: He is on Entresto, metoprolol, Aldactone and milrinone. Cardiology following. Later on, will likely need stress test per cardiology. (3) Atrial fibrillation with RVR Is this a current diagnosis for this admission?: Yes Plan: Currently rate controlled on digoxin and metoprolol. Off diltiazem drip. Continue anticoagulation with warfarin, but continue enoxaparin for now pending therapeutic INR. Continue PT/OT. Cardiology follow-up appreciated. (4) Community acquired pneumonia Qualifiers: Laterality: unspecified laterality Qualified Code(s): J18.9 - Pneumonia, unspecified organism Is this a current diagnosis for this admission?: Yes Plan: Patient has completed antibiotic course. We will continue to monitor. Sputum culture grew Denisse, but he has completed fluconazole course. (5) Dysphagia Is this a current diagnosis for this admission?: Yes Plan: Improved. Continue mechanical soft diet for now. Will discontinue D5 normal saline given history of CHF, now that the patient can eat.
--- NOTE | 2018-03-16 22:40 | Progress Note ---
Provider Note Provider Note: CARDIOLOGY PROGRESS NOTES by Dr. Martina Castellanos on 03/16/2018. SUBJECTIVE: The patient is awake alert oriented x3. He has no difficulty swallowing, and is able to tolerate soft mechanical diet. He has no PND orthopnea. There is no chest pain or discomfort. The patient continues to be in atrial fibrillation. There is no ventricular arrhythmia seen on the monitor. There is no pedal edema. There is no TIA CVA symptoms. There is no bleeding on Coumadin. His Lovenox has been stopped since the patient's PT/INR is therapeutic. In view of the patient's INR being 3.11 tonight we will give the patient a low-dose of Coumadin and resume the patient's usual dose from tomorrow. Note that the patient's liver function tests have normalized. We will recheck the patient's lipid panel in the a.m. PHYSICAL EXAMINATION: The patient is well-built. He appears to be well-groomed. He is in no acute distress. Selected Entries 03/16/18 16:00 Temperature 97.2 F Temperature Axillary Source Pulse Rate 71 Respiratory 16 Rate Blood Pressure 120/65 [Right Upper Arm] Blood Pressure 83 Mean [Right Upper Arm] Blood Pressure Supine Position [Right Upper Arm] O2 Sat by Pulse 97 Oximetry Oxygen Delivery Room Air Method ( includes room air) HEAD: Is atraumatic normocephalic. EYES: Pupils are equal round regular reactive to light. ENT is negative. SKIN: Is without any skin lesions or skin rashes. There is no petechia or ecchymosis. NECK: Is supple. There is no JVD. Carotids are equal there is no bruits. There is no lymphadenopathy. Trachea central. LUNGS: Clear to auscultation, without any rhonchi rales or wheezing. There is diminished air entry throughout and on percussion there is hyperresonance. Heart: S1-S2 is heard S1 is of variable intensity there is no S3 gallop. There is no S4 gallop. There is no rub. There is systolic murmur l eft sternal border and the apex. ABDOMEN: Soft there is no hepatosplenioegaly. Bowel sounds are well heard. EXTREMITIES: Femorals are diminished. There is no femoral bruits. Leg pulses are diminished. There is no pedal edema. There is no DVT or cellulitis. 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 PSYCHIATRIC: The patient does not appear to be agitated. The patient's judgment and insight are intact. 03/15/18 03/16/18 03/16/18 23:39 05:30 05:30 WBC RBC Hgb Hct MCV MCH MCHC RDW Plt Count PT 33.4 H INR 3.10 POC Glucose 95 Total Bilirubin 0.8 Direct Bilirubin 0.3 Neonat Total Bilirubin Not Reportable Neonat Direct Bilirubin Not Reportable Neonat Indirect Bili Not Reportable AST 47 ALT 68 Alkaline Phosphatase 77 Total Protein 5.8 L Albumin 2.5 L 03/16/18 05:30 WBC 7.4 RBC 4.38 Hgb 14.8 Hct 42.5 MCV 97 MCH 33.7 H MCHC 34.7 RDW 13.5 Plt Count 343 PT INR POC Glucose Total Bilirubin Direct Bilirubin Neonat Total Bilirubin Neonat Direct Bilirubin Neonat Indirect Bili AST ALT Alkaline Phosphatase Total Protein Albumin IMPRESSION/RECOMMENDATION: 1 acute respiratory failure most likely on chronic respiratory failure: This is resolved. The patient is off the ventilator, and doing well. Patient having dysphagia most likely due to prolonged intubation. This most likely will return to normalcy. 2. Atrial fibrillation with now controlled ventricular response. Patient not able to swallow. Hence we will continue the patient on Cardizem drip and infusion at 10 mg/h. Continue the patient's Lovenox, and Coumadin. We will recheck the patient's PT/INR in the a.m., and daily. 3. Pneumonia: With acute exacerbation of COPD. Continue antibiotics and respiratory treatments. This seems to have resolved. The chest x-ray is clear. 4. ISCHEMIC Cardiomyopathy: With severely reduced LV ejection fraction: Would recommend that the patient be referred for AICD placement consideration, if cardiac catheterization shows no revascularizable coronary artery disease. Would at present continue the patient's metoprolol XL and Entresto. 7. Abnormal EKG findings: With T wave inversions especially in the anterolate ral leads. 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 Hence would not send the patient for cardiac catheterization. We will get an outpatient IV Lexiscan Cardiolite stress test, since the patient has no anginal symptoms. 8. History of hypertension: At present at present blood pressure in the 90s to the 100s, with all pressors being turned off. The patient is on Midodrine to help as continue the patient on metoprolol and Entresto.. 9. Elevated troponin I: Most likely secondary to patient's atrial fibrillation with rapid ventricular response in a patient with severely depressed LV ejection fraction. But with the patient's EKG showing T wave inversions consistent with post tachycardia T wave syndrome, and the patient's history of ischemic cardiomyopathy. Later would need a Lexiscan nuclear stress testing. This can be done as an outpatient 10. Hypotension: Resolved. Blood pressure is good on midodrine. 11. COPD: Seems to be stable 12. Note abnormal liver function tests: No liver function tests are normal. We will check the patient's lipid levels in the morning.. His medications have been reviewed. Medications adjusted. Discussed with the patient. Discussed with attending physician management plan. Medical decision making is of moderate complexity. Will follow with you. 40 minutes spent on the patient, with more than 50% of time spent in direct patient care. Note post discharge the patient is desirous of following up with me. My contact number has been given to the patient.
[2018-03-17 04:22] LABS: CHOLESTEROL 117.46 mg/dL (0-200); TRIGLYCERIDES 104 mg/dL (<150)
[2018-03-17 04:33] LABS: DIRECT LDL 88 mg/dL (<100)
[2018-03-17] MEDS: DIGOXIN INJ 0.5 MG/2 ML AMPULE IV SCH (09:42)
[2018-03-17] MEDS: MIDODRINE HCL 5 MG TABLET PO SCH ×3 (09:43→17:27)
[2018-03-17] MEDS ORDERED: METOPROLOL SUCCINATE 25 MG TAB.SR.24H PO SCH ×2 (10:00→22:00)
[2018-03-17 10:21] LABS: INTERNATIONAL RATION (INR) 2.77; PROTHROMBIN TIME 30.6 SEC (11.4-15.4)
[2018-03-17] MEDS ORDERED: METOPROLOL SUCCINATE 25 MG TAB.SR.24H PO ONE (11:14)
[2018-03-17] MEDS: DIGOXIN 0.25 MG TABLET PO SCH (12:28)
[2018-03-17] MEDS: FLUTICASONE NASAL SPRAY 50 MCG/SPRY 120 SPRAY/16 GM NASL SCH (13:11)
[2018-03-17] MEDS: SACUBITRIL/VALSARTAN 24 MG/26 MG TABLET PO SCH ×2 (13:11→17:27)
--- NOTE | 2018-03-17 14:32 | PDOC PROGRESS REPORT ---
Subjective Progress Note for:: 03/17/18 Subjective:: Extubated 03/11/18. The patient was seen on morning rounds with his significant other present. He was found resting in bed comfortably on room air. Patient reports maxillary and frontal sinus congestion without rhinorrhea, sore throat, or cough today. He requests Flonase stating that this is worked well for him in the past. Declines recommendation for physical therapy evaluation and possible SNF for short-term rehab; states that he wishes to be discharged directly to home as soon as possible. Otherwise, he has no new questions or concerns; denies fever, chills, chest pain, palpitations, dyspnea, orthopnea, abdominal pain, nausea vomiting diarrhea and constipation. Reason For Visit: AFIB WITH RVR Physical Exam Vital Signs: Temp Pulse Resp BP Pulse Ox 97.4 F 83 16 127/92 H 98 03/17/18 11:36 03/17/18 13:53 03/17/18 11:36 03/17/18 11:36 03/17/18 11:36 Intake & Output 03/16/18 03/17/18 03/18/18 06:59 06:59 06:59 Intake Total 1430 1437 0 Output Total 1190 1235 225 Balance 240 202 -225 Weight 79.7 kg 80.4 kg General appearance: PRESENT: no acute distress, disheveled, hard of hearing, well-developed, well-nourished Head exam: PRESENT: atraumatic, normocephalic Eye exam: PRESENT: conjunctiva pink, EOMI, PERRLA. ABSENT: scleral icterus Mouth exam: PRESENT: moist, tongue midline Neck exam: ABSENT: carotid bruit, JVD, lymphadenopathy, thyromegaly Respiratory exam: PRESENT: clear to auscultation tasha, symmetrical, unlabored. ABSENT: rales, rhonchi, wheezes Cardiovascular exam: PRESENT: irregular rhythm, +S1, +S2. ABSENT: diastolic murmur, rubs, systolic murmur Pulses: PRESENT: normal dorsalis pedis pul Vascular exam: PRESENT: normal capillary refill GI/Abdominal exam: PRESENT: normal bowel sounds, soft. ABSENT: distended, rebound, tenderness Rectal exam: PRESENT: deferred Extremities exam: PRESENT: full ROM, pedal edema - Trace bilaterally. ABSENT: calf tenderness, clubbing Neurological exam: PRESENT: alert, awake, oriented to person, oriented to place, oriented to time, oriented to situation, CN II-XII grossly intact. ABSENT: motor sensory deficit Psychiatric exam: PRESENT: agitated, appropriate affect. ABSENT: homicidal ideation, suicidal ideation Skin exam: PRESENT: dry, intact, warm. ABSENT: cyanosis, rash Results Laboratory Results: 03/16/18 05:30 03/15/18 11:49 03/16/18 03/17/18 21:55 03:55 Triglycerides 104 Cholesterol 117.46 LDL Cholesterol Direct 88 VLDL Cholesterol 21.0 HDL Cholesterol 16 L Stool Occult Blood NEGATIVE 02/27/18 02/27/18 02/27/18 07:25 09:29 12:10 Creatine Kinase CK-MB (CK-2) Troponin I Cancelled 0.029 0.051 NT-Pro-B Natriuret Pep Cancelled 21425 H 02/28/18 02/28/18 03/01/18 16:50 19:40 00:20 Creatine Kinase CK-MB (CK-2) Troponin I 0.152 0.304 Cancelled NT-Pro-B Natriuret Pep 03/01/18 03/01/18 03/02/18 00:54 06:27 07:57 Creatine Kinase CK-MB (CK-2) Troponin I 0.584 0.274 0.139 NT-Pro-B Natriuret Pep 03/05/18 03/05/18 03/07/18 03:52 05:15 12:00 Creatine Kinase 79 CK-MB (CK-2) Troponin I NT-Pro-B Natriuret Pep Cancelled 1290 H 03/07/18 03/09/18 03/09/18 12:00 06:10 06:10 Creatine Kinase 88 CK-MB (CK-2) 0.49 < 0.22 Troponin I 0.054 0.043 NT-Pro-B Natriuret Pep 982 H 03/09/18 03/10/18 06:10 04:01 Creatine Kinase CK-MB (CK-2) Troponin I NT-Pro-B Natriuret Pep 1720 H 1050 H Impressions: Chest/Abdomen CTA 02/28/18 00:00 IMPRESSION: 1. No pulmonary embolus. 2. Findings likely predominantly related to congestive failure including cardiomegaly, edema and effusions as above. Chest CT 03/01/18 00:00 IMPRESSION: Overall improvement since yesterday. There is a background of chronic interstitial lung disease. No definitive findings to suggest amiodarone toxicity. Venous Doppler Study 03/01/18 00:00 IMPRESSION: NO EVIDENCE DVT OR SVT IN THE RIGHT ARM. Fluoroscopy 03/09/18 00:00 IMPRESSION: Please see combined report for performance of procedure and radiologic supervision and interpretation. Abdomen Ultrasound 03/10/18 00:00 IMPRESSION: NORMAL RIGHT UPPER QUADRANT ULTRASOUND. Guidance Fluoroscopy 03/13/18 00:00 IMPRESSION: Successful fluoroscopic guided placement of a [place] tube. KUB X-Ray 03/14/18 00:00 IMPRESSION: Feeding tube tip in the stomach. Assessment & Plan - Diagnosis (1) Acute hypoxemic respiratory failure Is this a current diagnosis for this admission?: Yes Plan: Resolved; secondary to community-acquired pneumonia and acute on chronic systolic heart failure. Patient was extubated 03/11/2018. Patient is now maintaining oxygen saturations while at rest; will obtain ambulatory oxygen saturations. As needed nebulizer treatments. Incentive spirometer to bedside. (2) Acute on chronic systolic heart failure Is this a current diagnosis for this admission?: Yes Plan: Acute exacerbation is resolved. Echocardiogram revealed LVEF 25% with severe hypokinesis of the left ventricle. Primary management per cardiology. Spoke with Dr. Guerrero today; patient is now tolerating p.o. and so was placed on Entresto, metoprolol, Aldactone, digoxin and Midodrine. Patient will follow up with Dr. Castellanos for outpatient stress testing and evaluation for AICD. (3) Atrial fibrillation with RVR Is this a current diagnosis for this admission?: Yes Plan: Currently rate controlled on metoprolol and digoxin. Warfarin is now therapeutic; INR today 2.77. Lovenox has been discontinued. (4) Community acquired pneumonia Qualifiers: Laterality: unspecified laterality Qualified Code(s): J18.9 - Pneumonia, unspecified organism Is this a current diagnosis for this admission?: Yes Plan: Resolved. Patient has completed his antibiotic and fluconazole course. Sputum cultures revealed Denisse. Blood cultures are negative x2. (5) Dysphagia Is this a current diagnosis for this admission?: Yes Plan: Improved; secondary to prolonged intubation. Continue mechanical soft with thin liquid diet. Speech therapy is consulted. - Time Time Spent with patient: 15-24 minutes Medications reviewed and adjusted accordingly: Yes Anticipated discharge: Home with Homehealth - PT/OT/ST Within: within 24 hours - Once cleared by cardiology.
--- NOTE | 2018-03-17 19:01 | Progress Note ---
Provider Note Provider Note: CARDIOLOGY PROGRESS NOTE by Dr. Martina Casetllanos on 03/17/2018. SUBJECTIVE: The patient swallowing is much better, but still is on a mechanical soft diet. He is able to swallow his pills. His heart rate is slightly elevated. His medications have been adjusted. [See below] the patient denies any chest pain or discomfort. There is no shortness of breath. There is no PND orthopnea. There is no leg edema. There is no bleeding on Coumadin, and the patient's INR is therapeutic at 2.77. There is no TIA CVA symptoms. The patient continues to be in atrial fibrillation, with a slightly faster rate. We will switch the patient from IV digoxin to p.o. digoxin. Will increase the patient's Lopressor to Toprol-XL 25 mg p.o. every 12 hours and later to 50 mg p.o. every 12 hours. Hopefully the patient will be discharged home tomorrow. PHYSICAL EXAMINATION: The patient appears to be well-built. He does not appear to be in any distress. He is well-groomed. Selected Entries 03/17/18 11:36 Temperature 97.4 F Temperature Oral Source Pulse Rate 101 H Respiratory 16 Rate Blood Pressure 127/92 H Blood Pressure 103 Mean BP Location Left Arm BP Position Sitting O2 Sat by Pulse 98 Oximetry Oxygen Delivery Room Air Method HEAD: Is atraumatic normocephalic. EYES: Pupils are equal round regular reactive to light. ENT is negative. SKIN: Is without any skin lesions or skin rashes. There is no petechia or ecchymosis. NECK: Is supple. There is no JVD. Carotids are equal there is no bruits. There is no lymphadenopathy. Trachea central. LUNGS: Clear to auscultation, without any rhonchi rales or wheezing. There is diminished air entry throughout and on percussion there is hyperresonance. Heart: S1-S2 is heard S1 is of variable intensity there is no S3 gallop. There is no S4 gallop. There is no rub. There is systolic murmur left sternal border and the apex. ABDOMEN: Soft there is no hepatosplenioegaly. Bowel sounds are well heard. EXTREMITIES: Femorals are diminished. There is no femoral bruits. Leg pulses are diminished. There is no pedal edema. There is no DVT or cellulitis. There is no sinus or clubbing.BUILD MANAGER: The patient is conscious awake alert oriented x3, with no focal deficits.. PSYCHIATRIC: The patient does not appear to be agitated. The patient's judgment and insight are intact. 03/16/18 03/17/18 03/17/18 21:55 03:55 05:48 PT INR POC Glucose 81 Triglycerides 104 Cholesterol 117.46 LDL Cholesterol Direct 88 VLDL Cholesterol 21.0 HDL Cholesterol 16 L Stool Occult Blood NEGATIVE 03/17/18 09:51 PT 30.6 H INR 2.77 POC Glucose Triglycerides Cholesterol LDL Cholesterol Direct VLDL Cholesterol HDL Cholesterol Stool Occult Blood The patient's right subclavian Cordis sheath has been removed, without any complications. IMPRESSION/RECOMMENDATION: 1 acute respiratory failure most likely on chronic respiratory failure: This is resolved. The patient is off the ventilator, and doing well. Patient was having dysphagia most likely due to prolonged intubation. This has almost resolved, and patient able to tolerate mechanical soft diet. 2. Atrial fibrillation with now periods of fast ventricular response. We will change the patient's IV digoxin to p.o. digoxin. We will check a dig level in a.m. We will also increase the patient's Toprol-XL to 25 mg p.o. every 12 hours and subsequently to 50 mg p.o. every 12 hours. Continue the patient on Coumadin since his INR therapeutic. 3. Pneumonia: With acute exacerbation of COPD. Continue antibiotics and respiratory treatments. This seems to have resolved. The chest x-ray is clear. 4. ISCHEMIC Cardiomyopathy: With severely reduced LV ejection fraction: Would recommend that the patient be referred for AICD placement consideration, if patient's stress test is negative. If positive then the patient will be sent for cardiac catheterization to assess extent of coronary artery disease. Would at present continue the patient's metoprolol XL and Entresto. 7. Abnormal EKG findings: With T wave inversions especially in the anterolateral leads. 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 Hence would not send the patient for cardiac catheterization. We will get an outpatient IV Lexiscan Cardiolite stress test, since the patient has no anginal symptoms. 8. History of hypertension: At present at present blood pressure is normal. The patient is on Midodrine to help as continue the patient on metoprolol and Entresto.. 9. Elevated troponin I: Most likely secondary to patient's atrial fibrillation with rapid ventricular response in a patient with severely depressed LV ejection fraction. But with the patient's EKG showing T wave inversions consistent with post tachycardia T wave syndrome, and the patient's history of ischemic cardiomyopathy. Later would need a Lexiscan nuclear stress testing. This can be done as an outpatient 10. Hypotension: Resolved. Blood pressure is good on midodrine. 11. COPD: Seems to be stable 12. DYSLIPIDEMIA: Patient is low HDL levels. Will hold off on any statins for now. Note that the patient liver function tests have normalized. His medications have been reviewed. Medications adjusted. Discussed with the patient, and the patient's . Discussed with attending physician management plan. Medical decision making is of moderate complexity. Will follow with you. 40 minutes spent on the patient, with more than 50% of time spent in direct patient care. Note post discharge the patient is desirous of following up with me. My contact number has been given to the patient..
[2018-03-17] MEDS: METOPROLOL SUCCINATE 25 MG TAB.SR.24H PO SCH (21:18)
[2018-03-17] MEDS ORDERED: WARFARIN SODIUM 5 MG TABLET PO SCH (22:00)
[2018-03-18 05:40] LABS: HEMATOCRIT 46.6 % (37.9-51.0); HEMOGLOBIN 16.2 g/dL (13.5-17.0); MEAN CORPUSCULAR HEMOGLOBIN 33.8 pg (27.0-33.4); MEAN CORPUSCULAR HGB CONC 34.8 g/dL (32.0-36.0); MEAN CORPUSCULAR VOLUME 97 fl (80-97); PLATELET COUNT 416 10^3/uL (150-450); RED CELL DISTRIBUTION WIDTH 13.8 % (11.5-14.0); WHITE BLOOD COUNT 6.8 10^3/uL (4.0-10.5)
[2018-03-18] MEDS: METOPROLOL SUCCINATE 25 MG TAB.SR.24H PO SCH (09:12)
[2018-03-18] MEDS: DIGOXIN 0.25 MG TABLET PO SCH (09:14)
[2018-03-18] MEDS: SACUBITRIL/VALSARTAN 24 MG/26 MG TABLET PO SCH (09:14)
[2018-03-18] MEDS: MIDODRINE HCL 5 MG TABLET PO SCH (09:14)
[2018-03-18] MEDS: FLUTICASONE NASAL SPRAY 50 MCG/SPRY 120 SPRAY/16 GM NASL SCH (09:15)
[2018-03-18 14:16] VITALS: BP 120/65
--- NOTE | 2018-03-18 22:00 | Progress Note ---
Provider Note Provider Note: CARDIOLOGY PROGRESS NOTES by Dr. Martina Castellanos on 03/18/2018. SUBJECTIVE: The patient continues to be in atrial fibrillation with controlled ventricular response. The patient denies any chest pain or discomfort. There is no problems swallowing. He has no PND orthopnea. There is no palpitations. There is no ventricular arrhythmia seen on the monitor. There is no bleeding on current dose of Coumadin. There is no TIA CVA symptoms there is no leg edema. PHYSICAL EXAMINATION: The patient appears to be well-built. In no acute distress. He is well-groomed. s 03/18/18 03/18/18 03/18/18 03:31 08:17 14:13 Temperature 97.6 F Pulse Rate 58 L Respiratory 19 Rate Blood Pressure 124/62 [Left Upper Arm ] Blood Pressure 120/65 [Right Upper Arm] O2 Sat by Pulse 97 99 Oximetry Oxygen Delivery Room Air Method ( includes room air) Oxygen Delivery Room Air Method HEAD: Is atraumatic normocephalic. EYES: Pupils are equal round regular reactive to light. ENT is negative. SKIN: Is without any skin lesions or skin rashes. There is no petechia or ecchymosis. NECK: Is supple. There is no JVD. Carotids are equal there is no bruits. There is no lymphadenopathy. Trachea central. LUNGS: Clear to auscultation, without any rhonchi rales or wheezing. There is diminished air entry throughout and on percussion there is hyperresonance. Heart: S1-S2 is heard S1 is of variable intensity there is no S3 gallop. There is no S4 gallop. There is no rub. There is systolic murmur left sternal border and the apex. ABDOMEN: Soft there is no hepatosplenioegaly. Bowel sounds are well heard. EXTREMITIES: Femorals are diminished. There is no femoral bruits. Leg pulses are diminished. There is no pedal edema. There is no DVT or cellulitis. There is no sinus or clubbing.POLICE OFFICER: The patient is conscious awake alert oriented x3, with no focal deficits.. PSYCHIATRIC: The patient does not appear to be agitated. The patient's judgment and insight are intact. 03/18/18 03/18/18 05:07 06:59 WBC 6.8 Hgb 16.2 Hct 46.6 Plt Count 416 POC Glucose 78 IMPRESSION/RECOMMENDATION: 1 acute respiratory failure most likely on chronic respiratory failure: This is resolved. 2. Atrial fibrillation with now periods of fast ventricular response. We will change the patient's IV digoxin to p.o. digoxin. We will check a dig level in a.m. continue Toprol-XL 50 mg p.o. every 12 hours. Continue the patient on Coumadin since his INR therapeutic. 3. Pneumonia: With acute exacerbation of COPD. Continue antibiotics and respiratory treatments. This seems to have resolved. The chest x-ray is clear. 4. ISCHEMIC Cardiomyopathy: With severely reduced LV ejection fraction: Would recommend that the patient be referred for AICD placement consideration, if patient's stress test is negative. If positive then the patient will be sent for cardiac catheterization to assess extent of coronary artery disease. Would at present continue the patient's metoprolol XL and Entresto. 7. Abnormal EKG findings: With T wave inversions especially in the anterolateral leads. 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 Hence would not send the patient for cardiac catheterization. We will get an outpatient IV Lexiscan Cardiolite stress test, since the patient has no anginal symptoms. 8. History of hypertension: At present at present blood pressure is normal. The patient is on Midodrine to help as continue the patient on metoprolol and Entresto.. 9. Elevated troponin I: Most likely secondary to patient's atrial fibrillation with rapid ventricular response in a patient with severely depressed LV ejection fraction. But with the patient's EKG showing T wave inversions consistent with post tachycardia T wave syndrome, and the patient's history of ischemic cardiomyopathy. Later would need a Lexiscan nuclear stress testing. This can be done as an outpatient 10. Hypotension: Resolved. Blood pressure is good on midodrine. 11. COPD: Seems to be stable 12. DYSLIPIDEMIA: Patient is low HDL levels. Will hold off on any statins for now. Note that the patient liver function tests have normalized. His medications have been reviewed. Discussed discharge medications with the attending physician on the case. Medical decision making is of moderate complexity. 40 minutes spent on this patient with more than 50% of time spent in direct patient care. The patient is stable from cardiac point of view to be discharged. We will follow the patient in the office. We will schedule the patient for outpatient IV Lexiscan Cardiolite stress test. This is been discussed with the patient patient's . Will sign off.
--- NOTE | 2018-03-20 17:09 | PDOC DISCHARGE SUMMARY ---
General - Admit/Disc Date/PCP Admission Date/Primary Care Provider: 02/27/18 13:22 [facility] AM[facility] PA-C Discharge Date: 03/18/18 - Discharge Diagnosis (1) Acute hypoxemic respiratory failure Is this a current diagnosis for this admission?: Yes Summary: Resolved; secondary to community-acquired pneumonia and acute on chronic systolic heart failure. Patient was intubated 02/28/18 and extubated 03/11/2018. The patient is now maintaining oxygen saturations while ambulatory on room air. (2) Acute on chronic systolic heart failure Is this a current diagnosis for this admission?: Yes Summary: Acute exacerbation is resolved. Echocardiogram revealed LVEF 25% with severe hypokinesis of the left ventricle. Cardiology was consulted; medication management per Dr. Castellanos. The patient was placed on Entresto, metoprolol, Aldactone, digoxin, and Midodrine. The patient is to follow-up with Dr. Castellanos for outpatient stress testing, if stress test is negative will be referred for AICD. If stress test is abnorm al, cardiac catheterization will be arranged. At time of discharge, the patient is asymptomatic, normotensive, and tolerating the above-mentioned medications without side effects. He is advised on the importance of his follow-up with Dr. Castellanos, following cardiac diet, daily weights, taking medications as prescribed, and smoking cessation. (3) Atrial fibrillation with RVR Is this a current diagnosis for this admission?: Yes Summary: The patient is rate controlled, while at rest, on metoprolol and digoxin. He does have elevated heart rates with minimal activity. Cardiology is aware, approved proceeding with discharge to home and close cardiac follow-up. Patient's Coumadin is now therapeutic with an INR of 2.77. Patient reports that he is familiar with warfarin therapy; he is reminded to follow appropriate diet, take medication as prescribed, and follow-up as directed for frequent INR check. (4) Community acquired pneumonia Is this a current diagnosis for this admission?: Yes Summary: Resolved. Patient has completed his antibiotic course of IV vancomycin and cefepime for aerobic and anaerobic coverage (right lower lobe pneumonia; community-acquired versus aspiration) and fluconazole course. Sputum cultures revealed Denisse. Blood cultures are negative x2. (5) Dysphagia Is this a current diagnosis for this admission?: Yes Summary: Improved; secondary to prolonged intubation. Recommend continued mechanical soft with thin liquid diet. - Additional Information Resuscitation Status: Full Code Discharge Diet: Cardiac Discharge Activity: Activity As Tolerated, Balance Activity w/Rest, Weigh Daily Prescriptions: Digoxin [Lanoxin 0.25 mg Tablet] 0.25 mg PO DAILY #30 tablet Digoxin [Lanoxin 0.25 mg Tablet] 0.25 mg PO DAILY #10 tablet Fluticasone Propionate [Flonase Nasal Vona 50 Mcg/Vona 16 gm] 2 spray NASL DAILY #1 spray.pump Midodrine HCl [Proamatine 5 mg Tablet] 5 mg PO TID #90 tablet Midodrine HCl [Proamatine 5 mg Tablet] 5 mg PO TID #30 tablet Home Medications: Atorvastatin Calcium [Lipitor 40 mg Tablet] 40 mg PO QHS 02/27/18 Metoprolol Succinate [Toprol Xl 50 mg Tab.sr] 50 mg PO Q12 02/27/18 Sacubitril/Valsartan [Entresto 24 mg/26 mg Tablet] 1 tab PO Q12 02/27/18 Warfarin Sodium [Coumadin 5 mg Tablet] 5 mg PO DAILY 02/27/18 Digoxin [Lanoxin 0.25 mg Tablet] 0.25 mg PO DAILY #10 tablet 03/18/18 Digoxin [Lanoxin 0.25 mg Tablet] 0.25 mg PO DAILY #30 tablet 03/18/18 Fluticasone Propionate [Flonase Nasal Vona 50 Mcg/Vona 16 gm] 2 spray NASL DAILY #1 spray.pump 03/18/18 Metoprolol Succinate [Toprol Xl 25 mg Tab.sr] 50 mg PO Q12 tab.sr.24h 03/18/18 Midodrine HCl [Proamatine 5 mg Tablet] 5 mg PO TID #30 tablet 03/18/18 Midodrine HCl [Proamatine 5 mg Tablet] 5 mg PO TID #90 tablet 03/18/18 Sacubitril/Valsartan [Entresto 24 mg/26 mg Tablet] 1 tab PO BID tablet 03/18/18 History of Present Illness History of Present Illness: Per H&P by Davian Vizcarra NP C: The patient is a 67-year-old male with a past medical history of atrial fibrillation with chronic anticoagulation, with warfarin. The patient presents to the emergency department via EMS with a chief complaint of shortness of breath. According to the patient, his symptoms started around 6 given, when he ate lettuce that he said was contaminated with E. coli. The patient stated that he had difficulty with diarrhea and became progressively weak, and therefore developed a cold or possible bronchitis. The patient stated that he has seen his primary care provider for bronchitis, but was unable to articulate what he was taking for. The patient stated that he felt his A. fib "kick in"this morning by having severe palpitations and shortness of breath, so he notified EMS. The patient denies using nebulizers at home. Upon presention to the emergency department, the patient was found to be in A. fib with RVR, with a rate of up to 190 with a left axis deviation, QTC of 488, as well as being found to be significantly tachypneic. The patient was given a bolus of Cardizem without benefit, and therefore the patient was loaded with digoxin and some control of his symptoms. The patient had a better rate of around 100 when I evaluated the patient. Given the findings, the patient was referred to the hospital for admission and management. Physical Exam Vital Signs: Temp Pulse Resp BP Pulse Ox 97.6 F 58 L 19 120/65 99 03/18/18 14:13 03/18/18 14:13 03/18/18 14:13 03/18/18 14:13 03/18/18 14:13 Intake & Output 03/19/18 03/20/18 03/21/18 06:59 06:59 06:59 Intake Total 367 Balance 367 General appearance: PRESENT: no acute distress, disheveled, hard of hearing, well-developed, well-nourished Head exam: PRESENT: atraumatic, normocephalic Eye exam: PRESENT: conjunctiva pink, EOMI, PERRLA. ABSENT: scleral icterus Ear exam: PRESENT: normal external ear exam Mouth exam: PRESENT: moist, tongue midline Neck exam: ABSENT: carotid bruit, JVD, lymphadenopathy, thyromegaly Respiratory exam: PRESENT: clear to auscultation tasha. ABSENT: rales, rhonchi, wheezes Cardiovascular exam: PRESENT: irregular rhythm, +S1, +S2. ABSENT: diastolic murmur, rubs, systolic murmur Pulses: PRESENT: normal dorsalis pedis pul Vascular exam: PRESENT: normal capillary refill GI/Abdominal exam: PRESENT: normal bowel sounds, soft. ABSENT: distended, guarding, mass, organolmegaly, rebound, tenderness Rectal exam: PRESENT: deferred Extremities exam: PRESENT: full ROM. ABSENT: calf tenderness, clubbing, pedal edema Neurological exam: PRESENT: alert, awake, oriented to person, oriented to place, oriented to time, oriented to situation, CN II-XII grossly intact. ABSENT: motor sensory deficit Psychiatric exam: PRESENT: agitated, appropriate affect, normal mood. ABSENT: homicidal ideation, suicidal ideation Skin exam: PRESENT: dry, intact, warm. ABSENT: cyanosis, rash Results Laboratory Results: 03/18/18 05:07 03/15/18 11:49 02/27/18 02/27/18 02/27/18 07:25 09:29 12:10 Creatine Kinase CK-MB (CK-2) Troponin I Cancelled 0.029 0.051 NT-Pro-B Natriuret Pep Cancelled 43527 H 02/28/18 02/28/18 03/01/18 16:50 19:40 00:20 Creatine Kinase CK-MB (CK-2) Troponin I 0.152 0.304 Cancelled NT-Pro-B Natriuret Pep 03/01/18 03/01/18 03/02/18 00:54 06:27 07:57 Creatine Kinase CK-MB (CK-2) Troponin I 0.584 0.274 0.139 NT-Pro-B Natriuret Pep 03/05/18 03/05/18 03/07/18 03:52 05:15 12:00 Creatine Kinase 79 CK-MB (CK-2) Troponin I NT-Pro-B Natriuret Pep Cancelled 1290 H 03/07/18 03/09/18 03/09/18 12:00 06:10 06:10 Creatine Kinase 88 CK-MB (CK-2) 0.49 < 0.22 Troponin I 0.054 0.043 NT-Pro-B Natriuret Pep 982 H 03/09/18 03/10/18 06:10 04:01 Creatine Kinase CK-MB (CK-2) Troponin I NT-Pro-B Natriuret Pep 1720 H 1050 H Impressions: Chest/Abdomen CTA 02/28/18 00:00 IMPRESSION: 1. No pulmonary embolus. 2. Findings likely predominantly related to congestive failure including cardiomegaly, edema and effusions as above. Chest CT 03/01/18 00:00 IMPRESSION: Overall improvement since yesterday. There is a background of chronic interstitial lung disease. No definitive findings to suggest amiodarone toxicity. Venous Doppler Study 03/01/18 00:00 IMPRESSION: NO EVIDENCE DVT OR SVT IN THE RIGHT ARM. Fluoroscopy 03/09/18 00:00 IMPRESSION: Please see combined report for performance of procedure and radiologic supervision and interpretation. Abdomen Ultrasound 03/10/18 00:00 IMPRESSION: NORMAL RIGHT UPPER QUADRANT ULTRASOUND. Guidance Fluoroscopy 03/13/18 00:00 IMPRESSION: Successful fluoroscopic guided placement of a [place] tube. KUB X-Ray 03/14/18 00:00 IMPRESSION: Feeding tube tip in the stomach. Qualifiers - * PATIENT BEING DISCHARGED WITH ANY OF THE FOLLOWING DIAGNOSIS: No, Heart Failure HF Pt being discharged on ACEI for LVEF less than 40%?: Yes HF Pt being discharged on ARBS for LVEF less than 40%?: No Reason(s) for not prescribing ARBS:: Procedure Contraindicated HF Pt with Afib discharged with Warfarin?: Yes HF Pt discharged on evidence-based Beta Bárbara:: Yes Plan Discharge Plan: Discharged home with home health nursing. Follow-up with primary care provider within 1 week. Follow-up with Dr. Castellanos within 1 week. Resume Coumadin therapy; continue monitoring and adjusting medications as previously directed by primary care provider. Return to the emergency department as needed for concerning symptoms. Time Spent: Less than 30 Minutes
== END 2018-03-18 14:36 | disposition home health service (06) | DRG 207 ==
LOC: ER 07:59 → EH 13:22 → 3S 16:17 → ICU 02-28 19:15 → 3S 03-15 01:50
PROVIDERS: ADMIT Family Medicine; ATTEND Family Medicine
PROC: 30233L1 Transfusion of Nonautologous Fresh Plasma into Peripheral Vein, Percutaneous Approach (ICD-10-PCS; 2018-02-27)
PROC: 5A1955Z Respiratory Ventilation, Greater than 96 Consecutive Hours (ICD-10-PCS; principal; 2018-02-28)
PROC: 0BH17EZ Insertion of Endotracheal Airway into Trachea, Via Natural or Artificial Opening (ICD-10-PCS; 2018-02-28)
PROC: 02H633Z Insertion of Infusion Device into Right Atrium, Percutaneous Approach (ICD-10-PCS; 2018-03-15)
PROC: 3E02340 Introduction of Influenza Vaccine into Muscle, Percutaneous Approach (ICD-10-PCS; 2018-03-18)
DX: J96.21 Acute and chronic respiratory failure with hypoxia (principal); J18.9 Pneumonia, unspecified organism; I50.23 Acute on chronic systolic (congestive) heart failure; J44.1 Chronic obstructive pulmonary disease with (acute) exacerbation; J44.0 Chronic obstructive pulmonary disease with (acute) lower respiratory infection; N17.9 Acute kidney failure, unspecified; I48.2 Chronic atrial fibrillation; I11.0 Hypertensive heart disease with heart failure; R13.10 Dysphagia, unspecified; I25.5 Ischemic cardiomyopathy; I25.10 Atherosclerotic heart disease of native coronary artery without angina pectoris; I95.9 Hypotension, unspecified; E78.00 Pure hypercholesterolemia, unspecified; Z23 Encounter for immunization; Z79.01 Long term (current) use of anticoagulants; Z79.899 Other long term (current) drug therapy; Z87.891 Personal history of nicotine dependence; Z82.49 Family history of ischemic heart disease and other diseases of the circulatory system
CPT/HCPCS: 36415; 36430; 36556; 71045; 71250; 71275; 74018; 74340; 76000; 76705; 77001; 80048; 80053; 80061; 80076; 80162; 80202; 81001; 82272; 82550; 82553; 82803; 82962; 83605; 83735; 83880; 84100; 84439; 84443; 84478; 84481; 84484; 85025; 85027; 85610; 85730; 86900; 86901; 87040; 87070; 87086; 87205; 90686; 93005; 93010; 93306; 93971; 94002; 94003; 96365; 96367; 96375; 96376; 99291; C1751; C1752; C1769; C1894; G8978-GP; G8979-GP; G8996-GN; G8997-GN; J0456; J0696; J1160; J1450; J1642; J1650; J1720; J1885; J1940; J2060; J2185; J2250; J2270; J2370; J2704; J2930; J3370; J3490; J7030; J7040; J7060; P9017; S0164